=== PATIENT | male | born 1960 | race Caucasian/White ===

== ENCOUNTER 2019-07-02 16:11 | Outpatient (CLI) | payer MEDICARE, MEDICAID, SELFPAY ==
[2019-07-02 18:00] LABS: Creatinine Urine 66.2 mg/dL
[2019-07-02 18:37] LABS: Microalbumin Urine Random < 6.0 mg/L (0-16.7)
[2019-07-02 18:38] LABS: MALB Creatinine Ratio < 9.1 mg/g (0-30)
== END 2019-07-02 16:12 | disposition home or self-care (01) ==
LOC: ANHLAB 16:16
DX: E11.59 Type 2 diabetes mellitus with other circulatory complications (principal); I10 Essential (primary) hypertension
CPT/HCPCS: 82043

== ENCOUNTER 2020-08-03 07:48 | Outpatient (CLI) | payer MEDICARE, MEDICAID, SELFPAY ==
[2020-08-03 08:37] LABS: Alanine Aminotransferase 29 U/L (4-50); Albumin Level 4.6 g/dL (3.5-5.1); Aspartate Amino Transferase 28 U/L (17-59); Cholesterol 173 mg/dL (0-200); HDL Direct 43 mg/dL; Triglycerides 150 mg/dL (<150)
[2020-08-03 08:50] LABS: LDL Cholesterol Direct 94 mg/dL
[2020-08-03 09:06] LABS: Prostate Specific Antigen 1.4 ng/mL (< OR = 4.0)
== END 2020-08-03 07:49 | disposition home or self-care (01) ==
PROVIDERS: PCP Internal Medicine Endocrinology, Diabetes & Metabolism; Visit Provider Internal Medicine Cardiovascular Disease
DX: Z12.5 Encounter for screening for malignant neoplasm of prostate (principal); E78.5 Hyperlipidemia, unspecified; I25.10 Atherosclerotic heart disease of native coronary artery without angina pectoris; Z51.81 Encounter for therapeutic drug level monitoring; Z79.4 Long term (current) use of insulin; R30.0 Dysuria; E11.65 Type 2 diabetes mellitus with hyperglycemia
CPT/HCPCS: 36415; 80061; 82040; 84153; 84450; 84460; G0103

== ENCOUNTER 2020-08-04 13:43 | Outpatient (CLI) | payer MEDICARE, MEDICAID, SELFPAY ==
[2020-08-04 15:37] LABS: MALB Creatinine Ratio < 7.6 mg/g (0-30); Microalbumin Urine Random < 6.0 mg/L (0-16.7)
== END 2020-08-04 13:44 | disposition home or self-care (01) ==
PROVIDERS: Visit Provider Internal Medicine Endocrinology, Diabetes & Metabolism
DX: E11.65 Type 2 diabetes mellitus with hyperglycemia (principal); Z79.4 Long term (current) use of insulin
CPT/HCPCS: 82043

== ENCOUNTER 2021-02-10 20:39 | Emergency (ER) | payer MEDICARE, MEDICAID, SELFPAY ==
--- NOTE | ~2021-02-10 | XR_ITS ---
XR finger 5th LT min 2V DATE: 02/10/2021 21:37 INDICATION: Laceration at the tip of fifth digit TECHNIQUE: 3 views COMPARISON: None FINDINGS: A soft tissue bandage around the distal aspect of the fifth digit. No fracture or dislocation, periosteal reaction or bone destruction is detected. No radiopaque soft tissue foreign body is detected. IMPRESSION: No fracture, dislocation or radiopaque foreign body Reviewed, dictated and finalized at location A.
[2021-02-10 20:43] VITALS: BP 151/75; PULSE 73; RESP 20; TEMP 36.5; O2SAT 98
[2021-02-10] MEDS: TETANUS,DIPHTHERIA,AC PERTUSSIS ADULT (0.5 ML) BOOSTRIX (21:30)
[2021-02-10] MEDS: LIDOCAINE HCL 1% LOCAL INJ 20 ML VIAL (21:30)
[2021-02-10] MEDS: ACETAMINOPHEN 500 MG TABLET 1000 MG PO (21:31)
--- NOTE | 2021-02-10 22:38 | ED.WOUNDLAC ---
HPI - Wound/Laceration General Chief Complaint: Wound/Laceration <Venus Godinez MD - Last Filed: 02/11/21 00:58> Stated Complaint: Finger laceration <Venus Godinez MD - Last Filed: 02/11/21 00:58> Time Seen by Provider: 02/10/21 20:55 <Venus Godinez MD - Last Filed: 02/11/21 00:58> Source: patient <Venus Godinez MD - Last Filed: 02/11/21 00:58> Mode of arrival: ambulatory <Venus Godinez MD - Last Filed: 02/11/21 00:58> Limitations: no limitations <Venus Godinez MD - Last Filed: 02/11/21 00:58> History of Present Illness HPI narrative: This is a 60 year old male who presents for evaluation of left 5th finger laceration. He states he accidentally cut himself trying to make a salad for dinner. He cut through is nail on his finger. He has been unable to get his finger to stop bleeding so he came to ER. He takes plavix due to history of cardiac stents. he is unsure of his last tetanus shot. <Venus Godinez MD - Last Filed: 02/11/21 00:58> Related Data Allergies/Adverse Reactions: Allergies Allergy/AdvReac Type Severity Reaction Status Date / Time No Known Allergies Allergy Other Uncoded 02/10/21 20:48 <Venus Godinez MD - Last Filed: 02/11/21 00:58> Review of Systems Review of Systems: All systems reviewed & are unremarkable except as noted in HPI and below <Venus Godinez MD - Last Filed: 02/11/21 00:58> [facility] Past Medical History Medical History: Medical History (Updated 02/11/21 @ 00:58 by Venus Godinez MD) Diabetes mellitus Heart disease Hyperlipidemia Hypertension <Venus Godinez MD - Last Filed: 02/11/21 00:58> Surgical History Surgical History: Surgical History (Updated 02/11/21 @ 00:56 by Venus Godinez MD) H/O cardiac catheterization History of coronary artery stent placement <Venus Godinez MD - Last Filed: 02/11/21 00:58> Social History Social History: Social History (Updated 02/11/21 @ 00:56 by Venus Godinez MD) Smoking status: Never smoker <Venus Godinez MD - Last Filed: 02/11/21 00:58> Exam Const: General: no acute distress and alert <Venus Godinez MD - Last Filed: 02/11/21 00:58> Orientation/consciousness: patient oriented x3 <Venus Godinez MD - Last Filed: 02/11/21 00:58> HENMT: Head: normocephalic and atraumatic <Venus Godinez MD - Last Filed: 02/11/21 00:58> Face and sinus: normal facial exam <Venus Godinez MD - Last Filed: 02/11/21 00:58> Eyes: EOM: EOMs intact bilaterally <Venus Godinez MD - Last Filed: 02/11/21 00:58> Resp: Effort & Inspection: normal respiratory effort <Venus Godinez MD - Last Filed: 02/11/21 00:58> Neuro: General: patient oriented x3 and moves all extremities <Venus Godinez MD - Last Filed: 02/11/21 00:58> Gait exam (Neuro): Normal gait present <Venus Godinez MD - Last Filed: 02/11/21 00:58> Extrem: Other: left 5th finger with 1 cm laceration horizontally across his nail with some bleeding. FROM of finger. <Venus Godinez MD - Last Filed: 02/11/21 00:58> Psych: Mental Status: mental status grossly normal <Venus Godinez MD - Last Filed: 02/11/21 00:58> Affect: normal affect <Venus Godinez MD - Last Filed: 02/11/21 00:58> Course Reevaluation(s) Reevaluation #1: Patient left before discharge. <Venus Godinez MD - Last Filed: 02/11/21 00:58> Date: 02/10/21 <Venus Godinez MD - Last Filed: 02/11/21 00:58> Vital Signs Vital signs: Vital Signs Temperature 97.7 F 02/10/21 20:43 Pulse Rate 73 02/10/21 20:43 Respiratory Rate 20 02/10/21 20:43 Blood Pressure 151/75 H 02/10/21 20:43 Pulse Oximetry 98 02/10/21 20:43 Temperature 97.7 F 02/10/21 20:43 Pulse Rate 73 02/10/21 20:43 Respiratory Rate 20 02/10/21 20:43 Blood Pressure 151/75 H 02/10/21 20:43 Pulse Oximetry 98 02/10/21 20:43 <Venus Godinez MD - Last F
== END 2021-02-10 22:45 | disposition home or self-care (01) ==
PROVIDERS: Emergency Provider General Practice
DX: S61.317A Laceration without foreign body of left little finger with damage to nail, initial encounter (principal); E11.9 Type 2 diabetes mellitus without complications; E78.5 Hyperlipidemia, unspecified; I11.9 Hypertensive heart disease without heart failure; Z95.5 Presence of coronary angioplasty implant and graft; Z23 Encounter for immunization; Y93.G1 Activity, food preparation and clean up; W26.9XXA Contact with unspecified sharp object(s), initial encounter
CPT/HCPCS: 11760; 12001; 73140; 90471; 90715; 99283; A9270

== ENCOUNTER 2022-01-21 10:49 | Outpatient (CLI) | payer MEDICARE, SELFPAY ==
[2022-01-21 11:48] LABS: Basophils Percent Auto 0.6 % (0.2-1.2); Eosinophils Absolute Auto 0.1 K/mm3 (0-0.3); Hemoglobin 14.4 g/dL (14.0-18.0); Immature Granulocyte Absolute 0.02 K/mm3 (0.00-0.031); Immature Granulocyte Percent A 0.4 % (0-0.5); Lymphocytes Absolute Auto 1.56 K/mm3 (0.9-3.2); Lymphocytes Percent Auto 31.1 % (18.3-44.2); Mean Corpuscular HGB Conc 33.5 g/dl (32-36); Mean Corpuscular Hemoglobin 30.1 pg (26-34); Mean Platelet Volume 10.1 fl (7.4-10.4); Monocytes Absolute Auto 0.6 K/mm3 (0.1-0.6); Neutrophils Absolute Auto 2.8 K/mm3 (1.3-6.7); Neutrophils Percent Auto 54.9 % (45.5-73.1); Platelet Count Result 201 k/mm3 (150-375); Red Blood Count 4.78 M/mm3 (4.6-6.20); Red Cell Distribution Width 12.9 % (11.5-14.5)
[2022-01-21 11:58] LABS: Alanine Aminotransferase 30 U/L (6-50); Albumin Level 4.7 g/dL (3.5-5.1); Alkaline Phosphatase 84 U/L (38-126); Anion Gap 12 mmol/L (8-16); Aspartate Amino Transferase 34 U/L (17-59); Bilirubin,Total 0.7 mg/dL (0.2-1.3); Blood Urea Nitrogen 17 mg/dL (9-20); Calcium 9.3 mg/dL (8.4-10.2); Carbon Dioxide 26 mmol/L (22-30); Chloride 102 mmol/L (98-107); Cholesterol 119 mg/dL (0-200); Estimated Glomerular Filt Rate > 60; Glucose 165 mg/dL (65-110); HDL Direct 40 mg/dL; Potassium 4.2 mmol/L (3.4-5.0); Sodium 140 mmol/L (137-145); Triglycerides 121 mg/dL (<150)
[2022-01-21 12:09] LABS: Add Urine Microscopic? YES; Appearance Urine Clear (Clear); Bilirubin Urine Negative (Negative); Blood Urine Negative (Negative); Color Urine Yellow (Yellow); Glucose Urine UA 3+ mg/dL (Negative); Ketones Urine Negative (Negative); LDL Cholesterol Direct 51 mg/dL; Leukocyte Esterase Ur Negative LEU/UL (Negative); Nitrate Urine Negative (Negative); Protein Urine Negative (Negative); Urobilinogen Urine 0.2 mg/dL (<2.0); pH Urine 5.5 (5.0-9.0)
[2022-01-21 12:20] LABS: Mucus Urine Rare /lpf; WBC Urine 0-3 /hpf
[2022-01-21 12:29] LABS: Prostate Specific Antigen 1.3 ng/mL (< OR = 4.0)
[2022-01-21 12:43] LABS: Creatinine Urine 74.7 mg/dL
[2022-01-21 13:45] LABS: Folic Acid > 20.0 ng/mL (2.76->20)
[2022-01-21 14:27] LABS: MALB Creatinine Ratio < 8.0 mg/g (0-30); Microalbumin Urine Random < 6.0 mg/L (0-16.7)
== END 2022-01-21 10:50 | disposition home or self-care (01) ==
LOC: ANHLAB 10:53
PROVIDERS: PCP Internal Medicine; Visit Provider Internal Medicine
DX: E11.9 Type 2 diabetes mellitus without complications (principal); E78.5 Hyperlipidemia, unspecified; I10 Essential (primary) hypertension; Z12.5 Encounter for screening for malignant neoplasm of prostate; R30.0 Dysuria
CPT/HCPCS: 36415; 80053; 80061; 81001; 82043; 82607; 82746; 83735; 84153; 84443; 85025; 87661; G0103

== ENCOUNTER 2023-07-14 22:25 | Emergency (ER) | payer MEDICARE, SELFPAY ==
[2023-07-14 22:28] VITALS: BP 139/67; PULSE 91; RESP 16; TEMP 36.9; O2SAT 98
[2023-07-15 02:15] VITALS: BP 151/72; PULSE 81; RESP 18; O2SAT 99
[2023-07-15 02:27] LABS: Basophils Absolute Auto 0.1 K/mm3 (0.0-0.1); Eosinophils Absolute Auto 0.3 K/mm3 (0-0.3); Eosinophils Percent Auto 3.6 % (0-4.4); Hematocrit 43.3 % (42.0-52.0); Hemoglobin 14.3 g/dL (14.0-18.0); Immature Granulocyte Absolute 0.01 K/mm3 (0.00-0.031); Immature Granulocyte Percent A 0.1 % (0-0.5); Lymphocytes Absolute Auto 0.39 K/mm3 (0.9-3.2); Lymphocytes Percent Auto 5.4 % (18.3-44.2); Mean Corpuscular Hemoglobin 29.9 pg (26-34); Mean Corpuscular Volume 90.6 fl (80-100); Mean Platelet Volume 9.9 fl (7.4-10.4); Monocytes Absolute Auto 0.7 K/mm3 (0.1-0.6); Monocytes Percent Auto 9.3 % (2.6-8.5); Neutrophils Absolute Auto 5.8 K/mm3 (1.3-6.7); Neutrophils Percent Auto 80.6 % (45.5-73.1); Platelet Count Result 198 k/mm3 (150-375); Red Blood Count 4.78 M/mm3 (4.6-6.20); Red Cell Distribution Width 13.4 % (11.5-14.5); White Blood Count 7.2 K/mm3 (4.5-10.0)
[2023-07-15 02:29] LABS: Appearance Urine Clear (Clear); Bilirubin Urine Negative (Negative); Blood Urine Negative (Negative); Color Urine Yellow (Yellow); Glucose Urine UA 3+ mg/dL (Negative); Ketones Urine Trace mg/dL (Negative); Leukocyte Esterase Ur Negative LEU/UL (Negative); Nitrate Urine Negative (Negative); Protein Urine Negative (Negative); Specific Grav Ur 1.031 (1.001-1.035); Urobilinogen Urine 0.2 mg/dL (<2.0)
[2023-07-15 02:30] LABS: Add Urine Microscopic? NO
[2023-07-15 02:37] LABS: Alanine Aminotransferase 34 U/L (6-50); Albumin Level 4.6 g/dL (3.5-5.1); Alkaline Phosphatase 70 U/L (38-126); Anion Gap 9 mmol/L (8-16); Aspartate Amino Transferase 54 U/L (17-59); Blood Urea Nitrogen 33 mg/dL (9-20); Calcium 9.1 mg/dL (8.4-10.2); Carbon Dioxide 25 mmol/L (22-30); Chloride 98 mmol/L (98-107); Estimated CRCL calculation 60 ml/min; Estimated Glomerular Filt Rate > 60; Glucose 148 mg/dL (65-110); Lipase 128 U/L (23-300); Sodium 132 mmol/L (137-145)
[2023-07-15] MEDS: ONDANSETRON INJ 4 MG/2 ML VIAL IV PUSH (02:40)
[2023-07-15] MEDS: SODIUM CHLORIDE 0.9% IV 1,000 ML 999 ML IV CONT ×2 (02:40→03:23)
--- NOTE | 2023-07-15 02:46 | ED.NAVMDI ---
HPI - Nausea/Vomiting/Diarrhea General Chief complaint: Nausea/Vomiting/Diarrhea Stated complaint: N/V Time Seen by Provider: 07/15/23 02:16 History of Present Illness HPI Narrative: 62-year-old male with history of CAD s/p stent placement, DM, hyperlipidemia, hypertension reports for evaluation for vomiting just started today. Patient states around 9:00 a.m., 2:00 p.m. and 8:00 p.m. he vomited. States that occurred every time he tried to eat. 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 He reports fatigue. He denies abdominal pain, fever, diarrhea, current nausea, chest pain or shortness of breath, cough or congestion. No prior abdominal surgeries. Denies hematemesis, melena or hematochezia. Related Data Home Medications Medication Instructions Recorded Confirmed aspirin 81 mg tablet,delayed 81 mg PO DAILY 01/21/22 02/13/22 release (Adult Low Dose Aspirin) atorvastatin 40 mg tablet 40 mg PO DAILY 01/21/22 02/13/22 clopidogrel 75 mg tablet 75 mg PO DAILY 01/21/22 02/13/22 empagliflozin 25 mg tablet 25 mg PO DAILY 01/21/22 02/13/22 (Jardiance) lisinopril 10 mg tablet 10 mg PO DAILY 01/21/22 02/13/22 metformin 500 mg tablet 500 mg PO BID 01/21/22 02/13/22 Allergies Allergy/AdvReac Type Severity Reaction Status Date / Time No Known Allergies Allergy Other Uncoded 02/13/22 14:17 Review of Systems Review of Systems: CONSTITUTIONAL: Denies fever, chills, or sweats. EYES: Denies visual changes, redness, or discharge. ENT: Denies rhinorrhea, congestion, sore throat, or otalgia. CARDIOVASCULAR: Denies chest pain, palpitations, or edema. RESPIRATORY: Denies cough or dyspnea. GASTROINTESTINAL: See HPI GENITOURINARY: Denies dysuria or hematuria. SKIN: Denies rash or itching. MUSCULOSKELETAL: Denies back pain, joint pain, or myalgia. NEUROLOGIC: Denies headache, numbness, or weakness. PSYCHIATRIC: Denies anxiety or depression. [facility] Past Medical History Medical History Diabetes mellitus Heart disease Hyperlipidemia Hypertension Surgical History Surgical History H/O cardiac catheterization History of coronary artery stent placement Social History Social History Smoking status: Never smoker Alcohol intake: former Substance use: never Substance use type: does not use Living arrangements: with family Spiritual care concerns: No Exam Narrative: GENERAL: Well-appearing, well-nourished, and in no acute distress. HEAD: Normocephalic, atraumatic. EYES: PERRLA and EOMI. ENT: Nares clear, no rhinorrhea or epistaxis. Mucous membranes dry NECK: Supple. CHEST: Clear to auscultation. No respiratory distress. HEART: Regular rate and rhythm. No murmur heard. Normal peripheral pulses. ABDOMEN: Soft, nontender, nondistended, normal active bowel sounds. No guarding, rebound or rigidity. No CVA tenderness. EXTREMITIES: Normal range of motion. No edema. SKIN: Warm, dry, no rash. NEURO: No focal deficits. Alert and oriented x3 Course Vital Signs Vital signs: Vital Signs Temperature 98.5 F 07/14/23 22:28 Pulse Rate 91 07/14/23 22:28 Respiratory Rate 16 07/14/23 22:28 Blood Pressure 139/67 07/14/23 22:28 Pulse Oximetry 98 07/14/23 22:28 Oxygen Delivery Room Air 07/14/23 22:28 Temperature 98.5 F 07/14/23 22:28 Pulse Rate 72 07/15/23 03:34 Respiratory Rate 18 07/15/23 03:34 Blood Pressure 138/68 07/15/23 03:34 Pulse Oximetry 98 07/15/23 03:34 Oxygen Delivery Room Air 07/14/23 22:28 MDM - Nausea/Vomiting/Diarrhea MDM Narrative Medical decision making narrative: 62-year-old male presents to the emergency department for 3 episodes of emesis past 24 hours. See HPI for further history. Vital stable and he is afebrile. He
[2023-07-15 03:34] VITALS: BP 138/68; PULSE 72; RESP 18; O2SAT 98
[2023-07-15 04:07] VITALS: BP 138/64; PULSE 87; RESP 18; O2SAT 97
== END 2023-07-15 04:07 | disposition home or self-care (01) ==
PROVIDERS: Emergency Medicine; Emergency Provider Physician Assistant
DX: E86.0 Dehydration (principal); R11.2 Nausea with vomiting, unspecified; Z72.820 Sleep deprivation; I10 Essential (primary) hypertension; I25.10 Atherosclerotic heart disease of native coronary artery without angina pectoris; E78.5 Hyperlipidemia, unspecified; E11.9 Type 2 diabetes mellitus without complications; Z95.5 Presence of coronary angioplasty implant and graft; Z79.82 Long term (current) use of aspirin; Z79.84 Long term (current) use of oral hypoglycemic drugs
CPT/HCPCS: 36415; 80053; 81003; 83690; 85025; 96361; 96374; 99284; J2405; J7030

== ENCOUNTER 2024-03-15 23:55 | Emergency (ER) | payer MEDICARE, SELFPAY ==
[2024-03-15 23:58] VITALS: BP 162/77; PULSE 77; RESP 17; TEMP 36.3; O2SAT 98
[2024-03-16 00:06] VITALS: RESP 18; O2SAT 99
[2024-03-16 00:50] LABS: Alanine Aminotransferase 22 U/L (6-50); Albumin Level 4.4 g/dL (3.5-5.1); Alkaline Phosphatase 106 U/L (38-126); Anion Gap 10 mmol/L (4-12); Aspartate Amino Transferase 22 U/L (17-59); Basophils Percent Auto 0.8 % (0.2-1.2); Bilirubin,Total 0.4 mg/dL (0.2-1.3); Blood Urea Nitrogen 31 mg/dL (9-20); Calcium 9.2 mg/dL (8.4-10.2); Carbon Dioxide 25 mmol/L (22-30); Chloride 103 mmol/L (98-107); Eosinophils Absolute Auto 0.1 K/mm3 (0-0.3); Eosinophils Percent Auto 2.8 % (0-4.4); Estimated CRCL calculation 47 ml/min; Estimated Glomerular Filt Rate 44; Glucose 192 mg/dL (65-110); Hematocrit 37.6 % (42.0-52.0); Hemoglobin 12.7 g/dL (14.0-18.0); Immature Granulocyte Absolute 0.01 K/mm3 (0.00-0.031); Immature Granulocyte Percent A 0.2 % (0-0.5); Lymphocytes Absolute Auto 1.54 K/mm3 (0.9-3.2); Mean Corpuscular HGB Conc 33.8 g/dl (32-36); Mean Corpuscular Hemoglobin 30.7 pg (26-34); Mean Corpuscular Volume 90.8 fl (80-100); Mean Platelet Volume 10.3 fl (7.4-10.4); Monocytes Absolute Auto 0.7 K/mm3 (0.1-0.6); Monocytes Percent Auto 13.7 % (2.6-8.5); Neutrophils Absolute Auto 2.6 K/mm3 (1.3-6.7); Neutrophils Percent Auto 51.5 % (45.5-73.1); Platelet Count Result 196 k/mm3 (150-375); Potassium 3.8 mmol/L (3.4-5.0); Red Blood Count 4.14 M/mm3 (4.6-6.20); Red Cell Distribution Width 12.2 % (11.5-14.5); Sodium 138 mmol/L (137-145)
--- NOTE | 2024-03-16 01:24 | ED.GENADULT ---
HPI - General Adult General Chief complaint: Recheck/Abnormal Lab/Rx Stated complaint: high blood pressure Time Seen by Provider: 03/16/24 00:16 History of Present Illness HPI narrative: Patient is a 63-year-old male who presents to the emergency department this evening concerned of an elevated blood pressure. Patient states that he has been on lisinopril for many years and it was controlling his blood pressure but within the last week he has noticed that his blood pressure was reading higher than usual. Patient informed his pulmonary physician of this and he told him to keep a blood pressure log and monitor his blood pressure for 1 week. Patient saw his pulmonary physician yesterday and he started him on amlodipine 5 mg. Patient states that he took his 1st dose this evening around 10:00 p.m. but his blood pressure continued to go up to 180 systolic so patient decided to come to the emergency department for further evaluation as he was concerned that the amlodipine is what caused his blood pressure to increase. I did explain the patient that amlodipine orally takes 8 hours before it starts to work and that it did not cause his blood pressure to elevate. Patient denies any symptoms at this time including any chest pain or shortness of breath, any nausea vomiting or abdominal pain and denies any head blurry vision, focal weakness, numbness and tingling. There are no other modifying, alleviating, or precipitating factors at this time. Related Data Home Medications Medication Instructions Recorded Confirmed aspirin 81 mg tablet,delayed 81 mg PO DAILY 01/21/22 02/13/22 release (Adult Low Dose Aspirin) atorvastatin 40 mg tablet 40 mg PO DAILY 01/21/22 02/13/22 clopidogrel 75 mg tablet 75 mg PO DAILY 01/21/22 02/13/22 empagliflozin 25 mg tablet 25 mg PO DAILY 01/21/22 02/13/22 (Jardiance) lisinopril 10 mg tablet 10 mg PO DAILY 01/21/22 02/13/22 metformin 500 mg tablet 500 mg PO BID 01/21/22 02/13/22 Allergies Allergy/AdvReac Type Severity Reaction Status Date / Time No Known Allergies Allergy Other Uncoded 03/15/24 23:55 Review of Systems Review of Systems: All systems are reviewed and are negative unless stated otherwise in the HPI. [facility] Past Medical History Medical History Diabetes mellitus Heart disease Hyperlipidemia Hypertension Surgical History Surgical History H/O cardiac catheterization History of coronary artery stent placement Social History Social History Smoking status: Never smoker Alcohol intake: former Substance use: never Substance use type: does not use Living arrangements: with family Spiritual care concerns: No Exam Narrative: General: Alert, awake, afebrile, in no acute distress. HEENT: PERRL, no rhinorrhea, no post nasal drip, oropharynx clear. Cardiovascular: Regular rate and rhythm, no murmurs, rubs or gallops, no peripheral edema. Respiratory: Clear to auscultation bilaterally, no tachypnea, no wheezing, no rhonchi, no rubs, no respiratory distress. Abdomen: Soft, nontender, nondistended, no rebound, no guarding, no peritoneal signs. Musculoskeletal: No joint swelling or deformity, normal muscle tone. Skin: No rashes or petechia, no signs of infection. Neurological: Alert and oriented to person, place, and time. Follows all commands. No focal deficits, speech is clear and fluent. Course Vital Signs Vital signs: Vital Signs Temperature 97.4 F L 03/15/24 23:58 Pulse Rate 77 03/15/24 23:58 Respiratory Rate 17 03/15/24 23:58 Blood Pressure 162/77 H 03/15/24 23:58 Pulse Oximetry 98 03/15/24 23:58 Oxygen Delivery Room Air 03/15/24 23:58 Temperature 97.4 F L 03/15/24 23:58 Pulse Rate 72 03/16/24 01:25 Respiratory Rate 16 03/16/24 01:25 Blood Pressure 169/89 H 03/16/24 01:25 Pulse
[2024-03-16 01:25] VITALS: BP 169/89; PULSE 72; RESP 16; O2SAT 98
== END 2024-03-16 01:34 | disposition home or self-care (01) ==
PROVIDERS: Emergency Provider Emergency Medicine
DX: I10 Essential (primary) hypertension (principal); E11.9 Type 2 diabetes mellitus without complications; E78.5 Hyperlipidemia, unspecified; Z79.84 Long term (current) use of oral hypoglycemic drugs
CPT/HCPCS: 36415; 80053; 85025; 99283

== ENCOUNTER 2024-05-05 09:18 | Outpatient (CLI) | payer MEDICARE, SELFPAY ==
[2024-05-05 10:09] LABS: Basophils Absolute Auto 0.1 K/mm3 (0.0-0.1); Eosinophils Absolute Auto 0.1 K/mm3 (0-0.3); Eosinophils Percent Auto 2.1 % (0-4.4); Hematocrit 41.2 % (42.0-52.0); Hemoglobin 13.9 g/dL (14.0-18.0); Immature Granulocyte Absolute 0.01 K/mm3 (0.00-0.031); Immature Granulocyte Percent A 0.2 % (0-0.5); Lymphocytes Percent Auto 31.1 % (18.3-44.2); Mean Corpuscular HGB Conc 33.7 g/dl (32-36); Mean Corpuscular Hemoglobin 30.3 pg (26-34); Mean Corpuscular Volume 89.8 fl (80-100); Mean Platelet Volume 10.3 fl (7.4-10.4); Monocytes Absolute Auto 0.5 K/mm3 (0.1-0.6); Monocytes Percent Auto 10.5 % (2.6-8.5); Neutrophils Absolute Auto 2.8 K/mm3 (1.3-6.7); Neutrophils Percent Auto 55.1 % (45.5-73.1); Platelet Count Result 217 k/mm3 (150-375); Red Blood Count 4.59 M/mm3 (4.6-6.20); Red Cell Distribution Width 12.6 % (11.5-14.5); White Blood Count 5.2 K/mm3 (4.5-10.0)
[2024-05-05 12:12] LABS: Alanine Aminotransferase 28 U/L (6-50); Albumin Level 4.8 g/dL (3.5-5.1); Alkaline Phosphatase 80 U/L (38-126); Anion Gap 8 mmol/L (4-12); Aspartate Amino Transferase 29 U/L (17-59); Bilirubin,Total 0.6 mg/dL (0.2-1.3); Blood Urea Nitrogen 41 mg/dL (9-20); Calcium 9.6 mg/dL (8.4-10.2); Carbon Dioxide 23 mmol/L (22-30); Chloride 106 mmol/L (98-107); Cholesterol 151 mg/dL (0-200); Estimated Glomerular Filt Rate 44; Glucose 169 mg/dL (65-110); HDL Direct 35 mg/dL; Potassium 4.4 mmol/L (3.4-5.0); Sodium 137 mmol/L (137-145); Triglycerides 256 mg/dL (<150)
[2024-05-05 12:23] LABS: LDL Cholesterol Direct 60 mg/dL
[2024-05-05 12:42] LABS: Prostate Specific Antigen 1.6 ng/mL (< OR = 4.0)
[2024-05-07 22:54] LABS: Beef IgE (F27) 0.99 kU/L; Lamb (F88) IgE 0.41 kU/L; Lamb Class 1; Pork (F26) IgE 0.39 kU/L; Pork Class 1
[2024-05-08 00:39] LABS: Galactose Alpha 1,3 IgE 1.96 kU/L (<0.10)
== END 2024-05-05 09:19 | disposition home or self-care (01) ==
PROVIDERS: PCP Nurse Practitioner Family; Visit Provider Nurse Practitioner Family
DX: N40.1 Benign prostatic hyperplasia with lower urinary tract symptoms (principal); R39.15 Urgency of urination; I25.10 Atherosclerotic heart disease of native coronary artery without angina pectoris; I10 Essential (primary) hypertension; E78.5 Hyperlipidemia, unspecified; E11.9 Type 2 diabetes mellitus without complications; Z12.11 Encounter for screening for malignant neoplasm of colon; Z12.5 Encounter for screening for malignant neoplasm of prostate; Z76.89 Persons encountering health services in other specified circumstances; W57.XXXA Bitten or stung by nonvenomous insect and other nonvenomous arthropods, initial encounter
CPT/HCPCS: 36415; 80053; 80061; 84153; 85025; 86008; G0103

== ENCOUNTER 2024-05-10 08:00 | Outpatient (CLI) | payer MEDICARE, SELFPAY ==
[2024-05-10 09:57] LABS: Folic Acid 13.4 ng/mL (2.76->20)
[2024-05-10 10:44] LABS: Hemoglobin A1C 8.1 % (<5.7)
[2024-05-10 10:55] LABS: Creatinine Urine 65.8 mg/dL
[2024-05-10 11:03] LABS: Microalbumin Urine Random < 6.0 mg/L (0-16.7)
[2024-05-10 11:04] LABS: MALB Creatinine Ratio < 9.1 mg/g (0-30)
[2024-05-10 11:16] LABS: Iron 91 ug/dL (49-181)
[2024-05-10 11:26] LABS: Percent Iron Saturation 24 % (20-50)
[2024-05-13 11:09] LABS: Vitamin B6 20.5 ng/mL (2.1-21.7)
[2024-05-13 12:33] LABS: Vitamin B1 11 nmol/L (8-30)
[2024-05-15 07:23] LABS: Vitamin B2 24.2 nmol/L (6.2-39.0)
--- OUTSIDE RECORDS SUMMARY | 2024-05-16 01:59 | XMS_ITS | Clinical Summary ---
Author Organization [facility] [place] [address] Address [address] [place] [address] Care Team Providers Care Arc Welder Name Role Phone Brian Vera MD Primary Care Provider [phone] Allergies Active Allergy Reactions Criticality Noted Date Comments Semaglutide Dizziness Medium 06/25/2022 Medications blood-glucose meter (OSIXTOUCH ULTRA2) kit check glucose once a day 1 kit 0 4 Active clopidogreL (PLAVIX) 75 mg tabletIndicatio ns:Coronary artery disease involving shoshone-bannock coronary artery of shoshone-bannock heart without angina pectoris Take 1 tablet (75 mg total) by mouth daily 90 tablet 3 3 Active atorvastatin (LIPITOR) 40 mg tabletIndicatio ns:Coronary artery disease involving shoshone-bannock coronary artery of shoshone-bannock heart without angina pectoris Take 1 tablet (40 mg total) by mouth daily 90 tablet 3 3 Active ezetimibe (ZETIA) 10 mg tabletIndicatio ns:Hyperlipidem ia associated with type 2 diabetes mellitus (HCC) Take 1 tablet (10 mg total) by mouth daily 90 tablet 3 3 Active metFORMIN (GLUCOPHAGE) 850 mg tabletIndicatio ns:Type 2 diabetes mellitus with hyperglycemia, without long-term current use of insulin (HCC) Take 1 tablet (850 mg total) by mouth 2 (two) times a day with meals 180 tablet 3 4 Active glimepiride (AMARYL) 2 mg tabletIndicatio ns:Type 2 diabetes mellitus with hyperglycemia, without long-term current use of insulin (HCC) Take 1 tablet (2 mg total) by mouth daily before breakfast 90 tablet 3 4 01/07/20 25 Active empagliflozin (Jardiance) 25 mg tabletIndicatio ns:type 2 diabetes mellitus Take 1 tablet (25 mg total) by mouth daily 90 tablet 3 4 01/07/20 25 Active lisinopriL (PRINIVIL,ZESTR [place]) 20 mg tabletIndicatio ns:Coronary artery disease involving shoshone-bannock coronary artery of shoshone-bannock heart without angina pectoris Take 1 tablet (20 mg total) by mouth daily 90 tablet 3 4 Active aspirin 81 mg enteric coated tabletIndicatio ns:Coronary artery disease involving shoshone-bannock coronary artery of shoshone-bannock heart without angina pectoris TAKE 1 TABLET BY MOUTH DAILY 90 tablet 3 4 Active amLODIPine (NORVASC) 10 mg tablet Take 1 tablet (10 mg total) by mouth daily 30 tablet 11 4 03/26/20 25 Active Active Problems Problem Noted Date Diagnosed Date Hyperlipidemia associated with type 2 diabetes sultana castaneda 07/21/2018 Assessment & Plan (01/07/2024 9:30 AM CDT): Chronic problem. Atorvastatin 40mg & Zetia 10mg. Last lipid panel: 11/11/22 LDL=53, TG=90. Assessment & Plan (09/16/2023 11:25 AM CDT): Chronic problem. Atorvastatin 40mg & Zetia 10mg. Last lipid panel: 11/11/22 LDL=53, TG=90. Will update labs today. Does not mychart. Verified phone #/address to contact re: results. Assessment & Plan (06/25/2022 3:36 PM TILE PROFESSIONAL): Chronic, well controlled Low fat Low cholesterol diet Exercise Continue statin therapy with Atorvastatin and Zetia Update lipid profile Assessment & Plan (07/03/2021 4:14 PM TILE PROFESSIONAL): Chronic, well controlled Continue current meds Assessment & Plan (12/14/2020 10:21 AM CDT): Goal of treatment , LDL cholesterol less than 100 ( less than 70 in patients with history of heart attacks and / or strokes ) NonHDL cholesterol ( total cholesterol minus HDL cholesterol ) goal less than 130 ( less than 100 in patients with history of heart attacks and / or strokes ) Low cholesterol, low fat diet was discussed and advised. Daily exercise On statin therapy with Atorvastatin and also on Zetia Assessment & Plan (07/27/2020 10:03 AM TILE PROFESSIONAL): Goal of treatment , LDL cholesterol less than 100 ( less than 70 in patients with history of heart attacks and / or strokes ) NonHDL cholesterol ( total cholesterol minus HDL cholesterol ) goal less than 130 ( less than 100 in patients with history of heart attacks and / or strokes ) Low cholesterol, low fat diet was discussed and advised. Daily exercise On statin therapy with Lipitor Assessment & Plan (11/16/2019 3:14 PM CDT): Goal of treatment , LDL cholesterol less than 100 ( less than 70 in patients with history of heart attacks and / or strokes ) NonHDL cholesterol ( total cholesterol minus HDL cholesterol ) goal less than 130 ( less than 100 in patients with history of heart attacks and / or strokes ) Low cholesterol, low fat diet was discussed and advised. Daily exercise On statin therapy with Crestor Assessment & Plan (06/29/2019 3:21 PM TILE PROFESSIONAL): Goal of treatment , LDL cholesterol less than 100 ( less than 70 in patients with history of heart attacks and / or strokes ) NonHDL cholesterol ( total cholesterol minus HDL cholesterol ) goal less than 130 ( less than 100 in patients with history of heart attacks and / or strokes ) Low cholesterol, low fat diet was discussed and advised. Daily exercise On statin therapy Assessment & Plan (04/02/2019 7:19 PM TILE PROFESSIONAL): --Continue atorvastatin. Assessment & Plan (02/23/2019 4:09 PM CDT): Goal of treatment , LDL cholesterol less than 100 ( less than 70 in patients with history of heart attacks and / or strokes ) NonHDL cholesterol ( total cholesterol minus HDL cholesterol ) goal less than 130 ( less than 100 in patients with history of heart attacks and / or strokes ) Low cholesterol, low fat diet was discussed and advised. Daily exercise On statin therapy Assessment & Plan (07/21/2018 3:00 PM TILE PROFESSIONAL): Goal of treatment , LDL cholesterol less than 100 ( less than 70 in patients with history of heart attacks and / or strokes ) NonHDL cholesterol ( total cholesterol minus HDL cholesterol ) goal less than 130 ( less than 100 in patients with history of heart attacks and / or strokes ) Low cholesterol, low fat diet was discussed and advised. Daily exercise On statin therapy Coronary artery disease invo lving shoshone-bannock coronary artery of shoshone-bannock heart without angina pectoris 03/24/2017 Assessment & Plan (04/03/2019 11:57 AM TILE PROFESSIONAL): S/p LM ostial PCI --Aspirin 81 mg daily indefinitely. --S/p Plavix load. Continue 75 mg daily for at least a year. --Continue atorvastatin. --Continue lisinopril 10 mg daily. 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 Patient is able to walk without limitation. Continue aspirin, Lipitor. He has stopped taking metoprolol because he does not want to take to many medications. Assessment & Plan (03/24/2017 12:27 PM CDT): Continue dieting and exercise. Continue aspirin. Asymptomatic at this time. Hypertension associated with diabetes 02/04/2017 Assessment & Plan (01/07/2024 9:30 AM CDT): Chronic problem. Controlled on current lisinopril 10mg daily. Assessment & Plan (09/16/2023 11:25 AM CDT): Chronic problem. Controlled on current lisinopril 10mg daily. Will update labs today. Does not mychart. Verified phone #/address to contact re: results. Assessment & Plan (06/25/2022 3:37 PM TILE PROFESSIONAL): Chronic, well controlled Update MA, GFR Assessment & Plan (12/14/2020 10:22 AM CDT): Goal blood pressure is less than 140/85 Low salt diet The importance of daily aerobic exercise was also emphasized. Continue current meds, including VIKY-I or ARB, e.g. Lisinopril Assessment & Plan (07/27/2020 10:03 AM TILE PROFESSIONAL): Goal blood pressure is less than 140/85 Low salt diet was discussed andd recommended The importance of daily aerobic exercise was also emphasized. Continue current meds, including VIKY-I or ARB, e.g. Check microalbumin Assessment & Plan (11/16/2019 3:13 PM CDT): Goal blood pressure is less than 140/85 Low salt diet recommended Daily aerobic exercise Continue current meds, including VIKY-I or ARB with Lisinopril Assessment & Plan (06/29/2019 3:21 PM TILE PROFESSIONAL): Goal blood pressure is less than 140/85 Low salt diet recommended Daily aerobic exercise Continue current meds, including VIKY-I or ARB Check microalbumin Assessment & Plan (04/02/2019 7:19 PM TILE PROFESSIONAL): --Anti-hypertensive medications per CAD. Assessment & Plan (02/23/2019 3:02 PM CDT): Goal blood pressure is less than 140/85 Low salt diet recommended Daily aerobic exercise Continue current meds, including VIKY-I or ARB Assessment & Plan (07/21/2018 3:01 PM TILE PROFESSIONAL): Goal blood pressure is less than 140/85 Low salt diet recommended Daily aerobic exercise Continue current meds, including VIKY-I or ARB Check microalbumin Assessment & Plan (10/01/2017 5:14 PM CDT): Blood pressure is well controlled. Continue current treatment Assessment & Plan (08/24/2017 3:52 PM CDT): Controlled on current medications. Assessment & Plan (03/24/2017 12:27 PM CDT): Blood pressure on the high side today. He stop taking metoprolol 25 mg b.i.d.. I advised patient to keep blood pressure diary and if his blood pressure is elevated we have to resume back metoprolol 25 b.i.d.. Assessment & Plan (02/04/2017 9:37 AM CDT): Goal blood pressure is less than 140/85 Low salt diet recommended Daily aerobic exercise Continue current meds, including VIKY-I or ARB Type 2 diabetes mellitus 10/18/2011 Overview (08/30/2016): DMII WO CMP UNCNTRLD Assessment & Plan (01/07/2024 9:58 AM CDT): Chronic problem. A1c stable at 7.3%. reviewed that goal is less than 7.0%. he's been working on diet & exercise. Current medications: Metformin 850mg Jardiance 25mg daily Glimepiride 2mg before breakfast DM eye exam 2022 at [facility]; second request letter sent to get copy of exam. Will call to set up a diabetic eye exam. UTD on labs. Discussed with Jerald Whipple: Strive for regular exercise (30min most days) and diet (get at least 4-5 servings of fruit and veggies daily, avoid processed foods, increase lean protein intake and decrease carb portions as well as fruit juices, regular soda & desserts). Watch carbs and simple sugars. Check the feet daily for skin breakdown and infection. Assessment & Plan (09/16/2023 11:49 AM CDT): Chronic problem. A1c improved from 8.5% 06/25/22 to now 7.3%. Current medications: Metformin 850mg Jardiance 25mg daily Glimepiride 2mg before breakfast DM eye exam 2022 at [facility]; letter sent to get copy of exam. Will update labs today. Does not mychart. Verified phone #/address to contact re: results. Discussed with Jerald Whipple: Strive for regular exercise (30min most days) and diet (get at least 4-5 servings of fruit and veggies daily, avoid processed foods, increase lean protein intake and decrease carb portions as well as fruit juices, regular soda & desserts). Watch carbs and simple sugars. Check the feet daily for skin breakdown and infection. Assessment & Plan (06/25/2022 3:38 PM TILE PROFESSIONAL): Chronic , uncontrolled Continue working on diet and exercise Add Glimepiride 2 mg daily Continue Jardiance and Metformin Assessment & Plan (07/03/2021 4:13 PM TILE PROFESSIONAL): Hba1c was Lab Results Component Value Date HGBA1C 7.8 07/03/2021 today, indicating inadequate DM control Goal Hba1c and blood glucose explained Diet and exercise were advised Prevention and treatment of hyypoglcyemia were discussed with the patient Blood glucose monitoring : 1 x vidal Adjustment to medications: Add ozempic Assessment & Plan (12/14/2020 10:23 AM CDT): Hba1c was Lab Results Component Value Date HGBA1C 7.2 12/14/2020 today, indicating suboptimal DM control Goals blood sugars of 120-160 and Hba1c under 7 % was explained. 1800 calorie, consistent carb diet recommended, no more than 3-45 grams of carbs per meal, avoiding concentrated sweet drinks and rapid absorption carbs. 25-45 min daily aerobic and resistance exercise recommended Continue Jardiance and Metformin Assessment & Plan (07/27/2020 10:04 AM TILE PROFESSIONAL): Hba1c was Lab Results Component Value Date HGBA1C 7.3 07/27/2020 today, indicating inadequate DM control Goals blood sugars of 120-160 and Hba1c under 7 % was explained. 1800 calorie, consistent carb diet recommended, no more than 3-45 grams of carbs per meal, avoiding concentrated sweet drinks and rapid absorption carbs. 25-45 min daily aerobic and resistance exercise recommended Prevention and treatment of hyypoglcyemia discussed. Blood glucose monitoring with fingers sticks. restarts meds rx sent Assessment & Plan (11/16/2019 3:13 PM CDT): Hba1c was Lab Results Component Value Date HGBA1C 7.0 11/16/2019 today, indicating adequate DM control 1800 calorie, consistent carb diet recommended, no more than 3-45 grams of carbs per meal, avoiding concentrated sweet drinks and rapid absorption carbs. 25-45 min daily aerobic and resistance exercise recommended Prevention and treatment of hyypoglcyemia discussed. Blood glucose monitoring with fingers sticks.... Medications: continue Jardiance / Metformin Assessment & Plan (06/29/2019 3:21 PM TILE PROFESSIONAL): Hba1c was Lab Results Component Value Date HGBA1C 7.5 06/29/2019 today, indicating inadequate DM control 1800 calorie, consistent carb diet recommended, no more than 3-45 grams of carbs per meal, avoiding concentrated sweet drinks and rapid absorption carbs. 25-45 min daily aerobic and resistance exercise recommended Medications: Add Jardiance Assessment & Plan (04/02/2019 7:18 PM TILE PROFESSIONAL): Recent A1c's in the 6s. --Hold home Metformin. --Low dose SSI and accuchecks. Assessment & Plan (02/23/2019 4:09 PM CDT): Hba1c was Lab Results Component Value Date HGBA1C 6.4 % 02/23/2019 today, indicating adequate DM control 1800 calorie, consistent carb diet recommended, no more than 3-45 grams of carbs per meal, avoiding concentrated sweet drinks and rapid absorption carbs. 25-45 min daily aerobic and resistance exercise recommended Medications: Continue metformin CAD, add Invokana Assessment & Plan (07/21/2018 3:07 PM TILE PROFESSIONAL): Hba1c was Lab Results Component Value Date HGBA1C 6.7 07/21/2018 today, indicating adequate DM control 1800 calorie, consistent carb diet recommended 25-45 min daily aerobic and resistance exercise recommended Prevention and treatment of hyypoglcyemia discussed. Blood glucose monitoring with fingers sticks 1-2 x day . Oral medications: continue metfomrin Would recommend Jardiance, because of hx of CAD. Pt could not tolerate, excessive urination Assessment & Plan (08/24/2017 3:53 PM CDT): A1c 6.9. Watch food choices. Would not recommend honey with tea.Follow up with foot doctor for blister which occurred one week ago. Has not changed in size. + Tender. Assessment & Plan (02/04/2017 9:38 AM CDT): Hba1c was today, indicating Adequate DM control 1800 calorie, consistent carb diet recommended 30 min daily aerobic and resistance exercise recommended Prevention and treatment of hyypoglcyemia discussed. Blood glucose monitoring with fingers sticks 1-2 X week . Foot care was discussed. Resolved Problems Problem Noted Date Diagnosed Date Resolved Date BMI 31.0-31.9,adult 04/12/2019 09/18/19 23 Abnormal stress test 03/08/2019 020 Dysuria 02/04/2017 10/08/2022 Assessment & Plan (07/27/2020 10:04 AM TILE PROFESSIONAL): Check psa Pt needs to see PCP Name provided Assessment & Plan (02/04/2017 9:52 AM CDT): Check PSA Advised on having his prostate checked Encounters Date Type Department Care Team Description 03/12/2024 Telephone [facility] [address] [place] [phone] Reuben Garcia MD Hypertension 03/01/2024 11:00 AM CDT Office Visit [facility] [address] [place] [address] Reuben Garcia MD Coronary artery disease involving shoshone-bannock coronary artery of shoshone-bannock heart without angina pectoris from Last 3 Months Surgical History Surgery Date Site/Laterality Comments CARDIAC CATHETERIZATION CATARACT EXTRACTION, BILATERAL Medical History Medical History Date Comments Type 2 diabetes mellitus (HCC) D iabetes type 2 Hyperlipidemia Hyperlipidemia Coronary artery disease Coronary artery disease Family History Medical History Relation Name Comments Other Father Alive and well; Diabetes type II Mother Diabetes -T ype 2; Relation Name Status Comments Father Alive Mother Social History Tobacco Use Types Packs/Day Years Used Date Smoking Tobacco: Never Smokeless Tobacco: Never Tobacco Cessation:Counseling Given: Not Answered Alcohol Use Standard Drinks/Week Comments No 0 (1 standard drink = 0.6 oz pur e alcohol) PHQ-2 Answer Date Recorded PHQ-2 Total Score (If total score is 3 or more points, staff should administer the PHQ-9) 0 09/16/2023 Sex and Gender Information Value Date Recorded Sex Assigned at Not on file Legal Sex Male 10:13 AM TILE PROFESSIONAL Gender Identity Not on file Sexual Orientation Not on file Obstetrics History Last Filed Vital Signs Vital Sign Reading Time Taken Comments Blood Pressure 152/84 03/01/2024 10:55 AM CDT Pulse 69 03/01/2024 10:55 AM CDT Temperature 36.9 ??C (98.4 ??F) 04/03/2019 11:[address] Respiratory Rate 16 01/07/2024 9:06 AM CDT Oxygen Saturation 96% 03/01/2024 10:55 AM CDT Inhaled Oxygen Concentration - - Weight 97.6 kg (215 lb 1.6 oz) 03/01/2024 10:55 AM CDT Height 175.3 cm (5' 9 ) 03/01/2024 10:55 AM CDT Body Mass Index 31.76 03/01/2024 10:55 AM CDT Plan of Treatment Health Maintenance Due Date Last Done Comments Colon Cancer Screening-Colonoscopy 1960 Hepatitis C Screening 1960 Prostate Cancer Screening-PSA 1958 Pneumococcal vaccine 65+ (1 of 2 - PCV) 1964 Hepatitis B Screening 1976 Zoster Vaccine (1 of 2) 2008 Dilated Eye Exam 01/14/2020 01/13/2019, 01/04/2019 Fall Risk Assessment 06/25/2023 06/25/2022 Well Visit 65+ 12/16/2023 Covid-19 Vaccine (3 - 2023-2 5 season) 2024 03/23/2021, 01/22/2021 Influenza Vaccine (#1) 2024 Hemoglobin A1C 07/09/2024 01/07/2024, 04/2 07/2023, 06/25/2022, Additional history exists Albumin Creatinine Ratio, Urine 09/15/2024 09/16/2023, 06/25/2022, 08/04/2020, Additional history exists Depression Screening 09/15/2024 09/16/2023, 06/25/2022, 06/25/2022, Additional history exists Foot Exam 09/15/2024 09/16/2023, 11/24, 11/16/2019, Additional history exists Lipid Panel 09/15/2024 09/16/2023, 10/24, 09/03/2021, Additional history exists eGFR 09/15/2024 09/16/2023, 06/25/2022 DTaP/Tdap/Td Vaccine (2 - Td or Tdap) 02/10/2031 02/10/2021 Medical Devices Implanted Type Area Shoe Singer Device Identifier Shelf Expiration Date Model / Serial / Lot [employer]ig [employer] [id number] Angio-Seal Evolution 8fr .038in Guidewire Bypass Tube Suture - [id number] Implanted:Qty : 1 on 04/02/2019 by Salty Rosas MD PhD at [facility] Other - see comments N/A: Arterial [employer] 12/24/2019 [id number] / / [id number] Description:8F Angio-Seal Med[employer] X [id number] Resolute Lamont 4mm 2.1-2.7fr 12mm 140cm Rapid Exchange Radiopaque - [id number] Implanted:Qty : 1 on 04/02/2019 by Salty Rosas MD PhD at [facility] Stent N/A: Coronary Medtronic Inc 12/06/2020 [id number] / / [id number] Procedures Procedure Name Priority Date/Time Associated Diagnosis Comments POCT HEMOGLOBIN A1C Routine 01/07/2024 9 :16 AM CDT Type 2 diabetes mellitus with hyperglycemia, without long-term current use of insulin (CMS/HCC) (HCC) EGFR Routine 09/16/2023 11:54 AM CDT Type 2 diabetes mellitus with hyperglycemia, without long-term current use of insulin (CMS/HCC) (HCC) Hypertension associated with diabetes (HCC) LIPID PANEL Routine 09/16/2023 11:54 AM CDT Type 2 diabetes mellitus with hyperglycemia, without long-term current use of insulin (CMS/HCC) (HCC) Hyperlipidemia associated with type 2 diabetes mellitus (HCC) ALBUMIN CREATININE RATIO, URINE Routine 09/16/2023 11:54 AM CDT Type 2 diabetes mellitus with hyperglycemia, without long-term current use of insulin (CMS/HCC) (HCC) DIABETES EYE EXAM Routine 01/13/2019 from Last 3 Months or Most Recently Relevant to Health Maintenance Results * (ABNORMAL) POCT hemoglobin A1c (01/07/2024 9:16 AM CDT) Hemoglobin A1C, POC 7.3 % Blood 01/07/2024 9:16 AM CDT us Tessa Pham NP POINT OF CARE TEST ORDERA BLES Final Result * eGFR (09/16/2023 11:54 AM CDT) eGFR 84 >=60 mL/min/1. 73 m2 Comment: Interpretive Data Reference Interval Normal ?>/= 90 mL/min/1.73m2 Mildly decreased* ? 60 - 89 mL/min/1.73m2 Mildly to moderately decreased ?45 - 59 mL/min/1.73m2 Moderately to severely decreased ??30 - 44 mL/min/1.73m2 Severely decreased ?15 - 29 mL/min/1.73m2 Kidney Failure ?< 15 ??mL/min/1.73m2 *Relative to young adult level Estimated glomerular filtration rate is determined by the 2020 CKD-EPI equation recommended by the National Kidney Foundation (A Unifying Approach to GFR Estimation: Recommendations of the NKF-ASK Task Force on Reassessing the Inclusion of Race in Diagnosing Kidney Disease, JASN 2020). The CKD-EPI equation should not be used for patients with unstable renal function and has not been validated in children and those over 70. Current interpretive data was last reviewed 2021. Blood 09/16/2023 11:5 4 AM CDT 09/16/2023 8:34 PM CDT Tessa Pham BEEF BREAKER LAB BLOOD ORDERABLES Rox l Result Performing Organization Address [facility] Phone Number [facility] [address] [place] [address] * Albumin Creatinine Ratio, Urine (09/16/2023 11:54 AM CDT) Albumin Ur <12.0 mg/L Comment: Interpretive Data No reference range established. Current interpretive data was last revised 2018. Creatinine Ur 55.2 mg/dL [facility] Comment: Interpretive Data No reference range established. Current interpretive data was last revised 2018. Albumin Creatinine Ratio, Ur <22 1 - 29 mg/g [facility] Urine 09/16/2023 11:5 4 AM CDT 09/16/2023 8:30 PM CDT us Tessa Pham BEEF BREAKER LAB URINE ORDERABLES Rox l Result Performing Organization Address [facility] Phone Number [facility] [address] [place] [place] [address] * Lipid panel (09/16/2023 11:54 AM CDT) Pathologist [facility] Cholesterol 109 30 - 199 mg/dL Comment: Interpretive Data Ages < or = 19 years ??Acceptable: ? <170 mg/dL ??Borderline high: ??170-199 mg/dL ??High: ? >or= 200 mg/dL Ages > or = 20 years ??Desirable: ?<200 mg/dL ??Borderline high: ??200-239 mg/dL ??High: ? >or= 240 mg/dL Literature References: 1. Expert Panel on Integrated Guidelines for Cardiovascular Health and Risk Reduction in Children and Adolescents. Pediatrics 2011;128:S213 2. NCEP Expert Panel. Circulation 2004;110:227 Current Interpretive Data was last revised on 2018. Triglycerides 110 <=149 mg/dL [facility] Comment: Interpretive Data Ages < or = 9 years ??Acceptable: ? <75 mg/dL ??Borderline high: ??75-99 mg/dL ??High: ? >or= 100 mg/dL Ages 10 to 20 years ??Acceptable: ? <90 mg/dL ??Borderline high: ??90-129 mg/dL ??High: ? >or= 130 mg/dL Ages > or = 20 years ??Desirable: ?<150 mg/dL ??Borderline high: ??150-199 mg/dL ??High: ? 200-499 mg/dL ?Very high: ?? >or= 499 mg/dL Literature References: 1. Expert Panel on Integrated Guidelines for Cardiovascular Health and Risk Reduction in Children and Adolescents. Pediatrics 2011;128:S213 2. NCEP Expert Panel. Circulation 2004;110:227 Current Interpretive Data was last revised on 2018. HDL 41 >=40 mg/dL [facility] Comment: Interpretive Data Ages < or = 19 years ??Acceptable: ? >45 mg/dL ??Borderline low: ?? 40-45 mg/dL ??Low: ? <40 mg/dL Ages > or = 20 years ??Desirable: ?>or= 60 mg/dL ??Low: ? <40 mg/dL Literature References: 1. Expert Panel on Integrated Guidelines for Cardiovascular Health and Risk Reduction in Children and Adolescents. Pediatrics 2011;128:S213 2. NCEP Expert Panel. Circulation 2004;110:227 Current Interpretive Data was last revised on 2018. LDL, calculated 46 <=129 mg/dL [facility] Comment: Interpretive Data Ages < or = 19 years ??Acceptable: ? <110 mg/dL ??Borderline high: ??110-129 mg/dL ??High: ?>or= 130 mg/dL Ages > or = 20 years ??Optimal: ? <100 mg/dL ??Near optimal: ?100-129 mg/dL ??Borderline high: ?? 130-159 mg/dL ??High: ?>160 mg/dL Literature References: 1. Expert Panel on Integrated Guidelines for Cardiovascular Health and Risk Reduction in Children and Adolescents. Pediatrics 2011;128:S213 2. NCEP Expert Panel. Circulation 2004;110:227 Current Interpretive Data was last revised on 2018. Non-HDL Cholesterol 68 mg/dL MAURISIO ARANA Comment: Interpretive Data Ages < or = 19 years ??Acceptable: ?<120 mg/dL ??Borderline high: ??120-144 mg/dL ??High: ?>145 mg/dL Ages > or = 20 years ??When triglycerides are >200 mg/dL, Non-HDL cholesterol is a secondary target of ? therapy with treatment goals that are 30 mg/dL greater than the LDL cholesterol target. ? Literature References: 1. Expert Panel on Integrated Guidelines for Cardiovascular Health and Risk Reduction in Children and Adolescents. Pediatrics 2011;128:S213 2. NCEP Expert Panel. Circulation 2004;110:227 Current Interpretive Data was last revised on 2018. Chol/HDL ratio 3 MAURISIO Blood 09/16/2023 11:5 4 AM CDT 09/16/2023 8:30 PM CDT us Tessa Pham NP LAB BLOOD ORDERABLES Rox fu Result MAURISIO [address] Department [place] [address] * DIABETES EYE EXAM (01/13/2019) Pathologist [facility] Diabetic Eye Exam Unknown Historical Provider HEALTH MAINTENANCE Final Result from Last 3 Months or Most Recently Relevant to Health Maintenance Insurance MEDICARE [facility] MEDICARE Advance Directives For more information, please contact: [phone] * Full Code (Latest Code Status on File) Date Activated Date Inactivated Comments 04/02/2019 7:37 PM 04/03/2019 8:11 PM * Full Code Date Activated Date Inactivated Comments 04/02/2019 4:52 PM 04/02/2019 7:37 PM Care Teams Arc Welder Relationship Specialty Start Date End Date Brian Vera MD [address] [facility] [address] [facility] [address] [place] [address] PCP - General Internal Medicine 05/10/22
--- OUTSIDE RECORDS SUMMARY | 2024-05-16 01:59 | XMS_ITS | Encounter Summary ---
Author Organization [facility] Healthcare Address [address] [place] [address] Care Team Providers Care Shift Superintendent Caustic Cresylate Name Role Phone Brian Vera MD Primary Care Provider [phone]- [phone] Encounter Details Date Type Department Care Team (Latest Contact Info) Description 09/16/2023 11:54 AM CDT - 09/16/2023 11:59 PM CDT Hospital Encounter [facility] [id number] [place] [address] Type 2 diabetes mellitus with hyperglycemia, without long-term current use of insulin ([facility]/HCC) ([facility]); Hyperlipidemia associated with type 2 diabetes mellitus ([facility]); Hypertension associated with diabetes ([facility]) Discharge Disposition: Discharge to home or self care Social History Tobacco Use Types Packs/Day Years Used Date Smoking Tobacco: Never Smokeless Tobacco: Never Alcohol Use Standard Drinks/Week Comments No 0 (1 standard drink = 0.6 oz pur e alcohol) PHQ-2 Answer Date Recorded PHQ-2 Total Score (If total score is 3 or more points, staff should administer the PHQ-9) 0 09/16/2023 Sex and Gender Information Value Date Recorded Sex Assigned at Not on file 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 Gender Identity Not on file Sexual Orientation Not on file documented as of this encounter Medications at Time of Discharge atorvastatin (LIPITOR) 40 mg tabletIndication s:Coronary artery disease involving confederated salish coronary artery of conf[place]erated salish heart without angina pectoris Take 1 tablet (40 mg total) by mouth daily 90 tablet 3 05/12/2023 blood-glucose meter (ONETOUCH ULTRA2) kit check glucose once a day 1 kit 0 03/04/2014 clopidogreL (PLAVIX) 75 mg tabletIndication s:Coronary artery disease involving confederated salish coronary artery of conf[place] sal[place] heart without angina pectoris Take 1 tablet (75 mg total) by mouth daily 90 tablet 3 05/12/2023 ezetimibe (ZETIA) 10 mg tabletIndication s:Hyperlipidemia associated with type 2 diabetes mellitus (HCC) Take 1 tablet (10 mg total) by mouth daily 90 tablet 3 05/12/2023 aspirin 81 mg enteric coated tabletIndication s:Coronary artery disease involving confederated salish coronary artery of confederated salish heart without angina pectoris Take 1 tablet (81 mg total) by mouth daily 90 tablet 3 11/11/2022 4 empagliflozin (Jardiance) 25 mg tabletIndication s:Type 2 diabetes mellitus with hyperglycemia, without long-term current use of insulin (HCC) Take 1 tablet (25 mg total) by mouth daily 90 tablet 3 05/12/2023 4 glimepiride (AMARYL) 2 mg tablet Take 1 tablet (2 mg total) by mouth daily before breakfast 90 tablet 3 05/12/2023 4 lisinopriL (PRINIVIL,ZESTRI L) 10 mg tabletIndication s:Coronary artery disease involving confederated salish coronary artery of confederated salish heart without angina pectoris Take 1 tablet (10 mg total) by mouth daily 90 tablet 3 05/12/2023 4 metFORMIN (GLUCOPHAGE) 850 mg tabletIndication s:Type 2 diabetes mellitus with hyperglycemia, without long-term current use of insulin (HCC) Take 1 tablet (850 mg total) by mouth 2 (two) times a day with meals 180 tablet 3 05/12/2023 4 documented as of this encounter Discharge Disposition Disposition Code Departure Means Destination Discharge to home or self care documented in this encounter Miscellaneous Notes * Result Encounter Note - Tessa Pham NP - 09/16/2023 11:59 PM CDT SEE LETTER SENT VIA MAIL: Rema Jarrett Sole, Nice to meet you yesterday! Please see below for lab result explanations. Please review below recommendations to help improve any abnormal readings. GFR (kidney filtration rate, normal is over 90): 84 (VERY MILDLY LOW, NOT CONCERNING). Your lipid panel explanation below: -total cholesterol should be below 200; you are 109 (NORMAL). Please watch fried, fast, fatty, high-calorie foods and red meats to help lower. Also increase physical activity. -HDL (healthy cholesterol) should be 45-60; the higher this number the better. You are 41 (TOO LOW). Increased activity helps increase this reading. HDL helps pull out LDL from circulating in your blood. -LDL (lousy cholesterol) should be less than 100; you are 46 (NORMAL). An elevated HDL helps negateany elevated LDL. Please watch fried, fast, fatty, high-calorie foods and red meats to lower LDL. LDL is what causes blockages in arteries. -triglycerides should be less than 150. You are 110 (NORMAL). This is the carbohydrate/sugar component of the lipid panel. CMP (electrolytes, kidney & liver functions): normal with exception of elevated blood sugar at 233. Urine creatinine albumin (0-29): 22 (NORMAL, IMPROVED FROM 28 LAST YEAR) documented in this encounter Plan of Treatment Not on file documented as of this encounter Procedures Procedure Name Priority Date/Time Associated Diagnosis Comments EGFR Routine 09/16/2023 11:54 AM CDT Type 2 diabetes mellitus with hyperglycemia, without long-term current use of insulin ([facility]/HCC) (HCC) Hypertension associated with diabetes (HCC) ALBUMIN CREATININE RATIO, URINE Routine 09/16/2023 11:54 AM CDT Type 2 diabetes mellitus with hyperglycemia, without long-term current use of insulin ([facility]/HCC) (HCC) LIPID PANEL Routine 09/16/2023 11:54 AM CDT Type 2 diabetes mellitus with hyperglycemia, without long-term current use of insulin ([facility]/HCC) (HCC) Hyperlipidemia associated with type 2 diabetes mellitus (HCC) COMPREHENSIVE METABOLIC PANEL Routine 09/16/2023 11:54 AM CDT Type 2 diabetes mellitus with hyperglycemia, without long-term current use of insulin ([facility]/HCC) (HCC) Hypertension associated with diabetes (HCC) documented in this encounter Results * eGFR (09/16/2023 11:54 AM CDT) eGFR [...] of Race in Diagnosing Kidney Disease, JASN 202). The CKD-EPI equation should not be used for patients with unstable renal function and has not been validated in children and those over 70. Current interpretive data was last reviewed 2021. Blood 09/16/2023 11:5 4 AM CDT 09/16/2023 8:34 PM CDT us Tessa Pham POWER GRADER OPERATOR LAB BLOOD ORDERABLES Rox fu Result MAURISIO ARANA [address] Department [place] [address] * (ABNORMAL) Comprehensive metabolic panel (09/16/2023 11:54 AM CDT) Sodium 139 135 - 145 mmol/L Potassium, pl 4.3 3.3 - 4.9 mmol/L [facility] Chloride 100 97 - 110 mmol/L [facility] CO2 26 22 - 32 mmol/L [facility] Anion gap 13 2 - 15 mmol/L [facility] BUN 21 6 - 25 mg/dL [facility] Creatinine 1.00 0.80 - 1.30 mg/dL [facility] Glucose 233(H) 70 - 199 mg/dL [facility] Comment: Interpretive Data Fasting glucose >/= 126 mg/dl is diagnostic for diabetes. ?? Fasting is defined as no caloric intake for at least 8 hours. Fasting glucose between 100 mg/dl to 125 mg/dl is diagnostic of prediabetes. In a patient with classic symptoms of hyperglycemia or hyperglycemic crisis, a random glucose >/= 200 mg/dl is diagnostic for diabetes. In the absence of unequivocal hyperglycemia, results should be confirmed by repeat testing. The classification and Diagnosis of Diabetes Diabetes Care 202; 46: S19-S40. Current interpretive data was last revised 2022. Calcium 9.8 8.5 - 10.3 mg/dL [facility] Bilirubin, total 0.6 0.1 - 1.2 mg/dL [facility] Protein, pl 7.9 6.5 - 8.5 g/dL [facility] Albumin 4.8 3.5 - 5.0 g/dL [facility] Alk phos 72 40 - 130 Units/L [facility] ALT 32 7 - 55 Units/L [facility] AST 40 10 - 50 Units/L [facility] Blood 09/16/2023 11:5 4 AM CDT 09/16/2023 8:30 PM CDT us Tessa Pham POWER GRADER OPERATOR LAB BLOOD ORDERABLES Rox fu Result [facility] [address] Department [place] [address] * Lipid panel (09/16/2023 11:54 AM CDT) Cholesterol 109 30 - 199 mg/dL Comment: [...] on 2018. Triglycerides 110 <=149 mg/dL MAURISIO ARANA Comment: Interpretive Data Ages [...] on 2018. HDL 41 >=40 mg/dL MAURISIO ARANA Comment: Interpretive Data Ages [...] on 2018. Non-HDL Cholesterol 68 mg/dL MAURISIO Comment: Interpretive Data Ages < [...] last revised on 2018. Chol/HDL ratio 3 CERANNETTE Blood 09/16/2023 11:5 4 AM CDT 09/16/2023 8:30 PM CDT us Tessa Pham POWER GRADER OPERATOR LAB BLOOD ORDERABLES Rox l Result Performing Organization Address [facility] [place] [address] [address] [place] [address] * Albumin Creatinine Ratio, Urine (09/16/2023 11:54 AM CDT) Albumin Ur <12.0 mg/L Comment: Interpretive Data No reference range established. Current interpretive data was last revised 2018. Creatinine Ur 55.2 mg/dL [facility] Comment: Interpretive Data No reference range established. Current interpretive data was last revised 2018. Albumin Creatinine Ratio, Ur <22 1 - 29 mg/g [facility] Urine 09/16/2023 11:5 4 AM CDT 09/16/2023 8:30 PM CDT Tessa Pham POWER GRADER OPERATOR LAB URINE ORDERABLES Rox l Result Performing Organization Address [facility] de Phone Number MAURISIO ARANA [address] Department [place] [address] documented in this encounter Visit Diagnoses Diagnosis Type 2 diabetes mellitus with hyperglycemia, without long-term current use of insulin (HCC) Hyperlipidemia associated with type 2 diabetes mellitus (HCC) Hypertension associated with diabetes (HCC) Unspecified essential hypertension documented in this encounter Care Teams Shift Superintendent Caustic Cresylate Relationship Specialty Start Date End Date Brian Vera MD [address] [facility] [address] [address] PCP - General Internal Medicine 05/10/22 documented as of this encounter
--- OUTSIDE RECORDS SUMMARY | 2024-05-16 01:59 | XMS_ITS | Encounter Summary ---
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 documented in this encounter Plan of Treatment Not on file documented as of this encounter Visit Diagnoses Not on filedocumented in this encounter Care Teams Flow Worker Relationship Specialty Start Date End Date Brian Vera MD [address] [facility] [address] [facility] [address] [place] [address] PCP - General Internal Medicine 05/10/22 documented as of this encounter
--- OUTSIDE RECORDS SUMMARY | 2024-05-16 01:59 | XMS_ITS | Referral Summary ---
Author Organization [facility] [address] [place] [facility] [place] Address [address] [place] [address] Care Team Providers Care Computer Architect Name Role Phone Brian Vera MD Primary Care Provider +1- [phone] Encounters Date Type Department Care Team Description 03/12/2024 Telephone [facility] Cardiology [address] [place] [address] [address] [place] [phone] Reuben Garcia MD Hypertension 03/01/2024 11:00 AM CDT Office Visit [facility] Medical [facility] Cardiology [address] [place] [address] [phone] Reuben Garcia MD Coronary artery disease involving alutiiq coronary artery of alutiiq heart without angina pectoris from Last 3 Months Allergies Active Allergy Reactions Criticality Noted Date Comments Semaglutide Dizziness Medium 06/25/2022 Medications blood-glucose meter ([facility]) kit check glucose once a day 1 kit 0 4 Active clopidogreL (PLAVIX) 75 mg tabletIndicatio ns:Coronary artery disease involving alutiiq coronary artery of alutiiq heart without angina pectoris Take 1 tablet (75 mg total) by mouth daily 90 tablet 3 3 Active atorvastatin (LIPITOR) 40 mg tabletIndicatio ns:Coronary artery disease involving alutiiq coronary artery of alutiiq heart without angina pectoris Take 1 tablet [...] hyperglycemia, without long-term current use of insulin ([facility]) Take 1 tablet (2 mg total) by mouth daily before breakfast 90 tablet 3 4 01/07/20 25 Active empagliflozin (Jardiance) 25 mg tabletIndicatio ns:type 2 diabetes mellitus Take 1 tablet (25 mg total) by mouth daily 90 tablet 3 4 01/07/20 25 Active lisinopriL (PRINIVIL,ZESTR IL) 20 mg tabletIndicatio ns:Coronary artery disease involving alutiiq coronary artery of alutiiq heart without angina pectoris Take 1 tablet (20 mg total) by mouth daily 90 tablet 3 4 Active aspirin 81 mg enteric coated tabletIndicatio ns:Coronary artery disease involving alutiiq coronary artery of alutiiq heart without angina pectoris TAKE 1 TABLET [...] results. Assessment & Plan (06/25/2022 3:36 PM CARBONATOR): Chronic, well controlled Low fat Low cholesterol diet Exercise Continue statin therapy with Atorvastatin and Zetia Update lipid profile Assessment & Plan (07/03/2021 4:14 PM CARBONATOR): Chronic, well controlled Continue current meds Assessment [...] Zetia Assessment & Plan (07/27/2020 10:03 AM CARBONATOR): Goal of treatment , LDL cholesterol less [...] Crestor Assessment & Plan (06/29/2019 3:21 PM CARBONATOR): Goal of treatment , LDL cholesterol less [...] therapy Assessment & Plan (04/02/2019 7:19 PM CARBONATOR): --Continue atorvastatin. Assessment & Plan (02/23/2019 4:09 [...] therapy Assessment & Plan (07/21/2018 3:00 PM CARBONATOR): Goal of treatment , LDL cholesterol less [...] statin therapy Coronary artery disease invo lving alutiiq coronary artery of alutiiq heart without angina pectoris 03/24/2017 Assessment & Plan (04/03/2019 11:57 AM CARBONATOR): S/p LM ostial PCI --Aspirin 81 mg daily indefinitely. --S/p Plavix load. Continue 75 mg daily for at least a year. --Continue atorvastatin. --Continue lisinopril 10 mg daily. --Historically not on BB therapy, f/u with orthopedic shoe fitter DC today DC time 31 minutes Assessment [...] results. Assessment & Plan (06/25/2022 3:37 PM CARBONATOR): Chronic, well controlled Update MA, GFR Assessment & Plan (12/14/2020 10:22 AM CDT): Goal blood pressure is less than 140/85 Low salt diet The importance of daily aerobic exercise was also emphasized. Continue current meds, including VIKY-I or ARB, e.g. Lisinopril Assessment & Plan (07/27/2020 10:03 AM CARBONATOR): Goal blood pressure is less than 140/85 [...] Lisinopril Assessment & Plan (06/29/2019 3:21 PM CARBONATOR): Goal blood pressure is less than 140/85 Low salt diet recommended Daily aerobic exercise Continue current meds, including VIKY-I or ARB Check microalbumin Assessment & Plan (04/02/2019 7:19 PM CARBONATOR): --Anti-hypertensive medications per CAD. Assessment & Plan (02/23/2019 3:02 PM CDT): Goal blood pressure is less than 140/85 Low salt diet recommended Daily aerobic exercise Continue current meds, including VIKY-I or ARB Assessment & Plan (07/21/2018 3:01 PM CARBONATOR): Goal blood pressure is less than 140/85 [...] before breakfast DM eye exam 2022 at [facility] in [place]; second request letter sent to get copy [...] before breakfast DM eye exam 2022 at [facility]; letter sent to get copy of exam. [...] infection. Assessment & Plan (06/25/2022 3:38 PM CARBONATOR): Chronic , uncontrolled Continue working on diet and exercise Add Glimepiride 2 mg daily Continue Jardiance and Metformin Assessment & Plan (07/03/2021 4:13 PM CARBONATOR): Hba1c was Lab Results Component Value Date [...] Metformin Assessment & Plan (07/27/2020 10:04 AM CARBONATOR): Hba1c was Lab Results Component Value Date [...] Metformin Assessment & Plan (06/29/2019 3:21 PM CARBONATOR): Hba1c was Lab Results Component Value Date HGBA1C 7.5 06/29/2019 today, indicating inadequate DM control 1800 calorie, consistent carb diet recommended, no more than 3-45 grams of carbs per meal, avoiding concentrated sweet drinks and rapid absorption carbs. 25-45 min daily aerobic and resistance exercise recommended Medications: Add Jardiance Assessment & Plan (04/02/2019 7:18 PM CARBONATOR): Recent A1c's in the 6s. --Hold home [...] Invokana Assessment & Plan (07/21/2018 3:07 PM CARBONATOR): Hba1c was Lab Results Component Value Date [...] 10/08/2022 Assessment & Plan (07/27/2020 10:04 AM CARBONATOR): Check psa Pt needs to see PCP Name provided Assessment & Plan (02/04/2017 9:52 AM CDT): Check PSA Advised on having his prostate checked Social History Tobacco Use Types Packs/Day Years [...] on file Legal Sex Male 10:13 AM CARBONATOR Gender Identity Not on file Sexual Orientation Not on file Last Filed Vital Signs Vital Sign Reading [...] 03/01/2024 10:55 AM CDT Plan of Treatment Not on file Medical Devices Implanted Type Area Per Diem Rn Device Identifier Shelf Expiration Date Model / Serial / Lot [employer] [id number] Angio-Seal Evolution 8fr .038in Guidewire Bypass Tube Suture - [id number] Implanted:Qty : 1 on 04/02/2019 by Salty Rosas MD PhD at [facility] Other - see comments N/A: Arterial [employer] 12/24/2019 [id number] / / [id number] Description:8F Angio-Seal Medtronic [employer] X [id number] Resolute Olayinka 4mm 2.1-2.7fr 12mm 140cm Rapid Exchange Radiopaque - [id number] Implanted:Qty : 1 on 04/02/2019 by Salty Rosas MD PhD at [facility] Stent N/A: Coronary Medtronic Inc 12/06/2020 [id number] / / [id number] Procedures Procedure Name Priority Date/Time Associated Diagnosis Comments POCT HEMOGLOBIN A1C Routine 01/07/2024 9 :16 AM CDT Type 2 diabetes mellitus with hyperglycemia, without long-term current use of insulin (CMS/HCC) (HCC) EGFR Routine 09/16/2023 11:54 AM CDT Type 2 diabetes mellitus with hyperglycemia, without long-term current use of insulin (CMS/HCC) (HCC) Hypertension associated with diabetes ([facility]) LIPID PANEL Routine 09/16/2023 11:54 AM CDT Type 2 diabetes mellitus with hyperglycemia, without long-term current use of insulin ([facility]) (HCC) Hyperlipidemia associated with type 2 diabetes mellitus (HCC) ALBUMIN CREATININE RATIO, URINE Routine 09/16/2023 11:54 AM CDT Type 2 diabetes mellitus with hyperglycemia, without long-term current use of insulin ([facility]) (HCC) DIABETES EYE EXAM Routine 01/13/2019 from Last 3 Months or Most Recently Relevant to Health Maintenance Results * (ABNORMAL) POCT hemoglobin A1c (01/07/2024 9:16 AM CDT) Hemoglobin A1C, POC 7.3 % Blood 01/07/2024 9:16 AM CDT Tessa Pham NP POINT OF CARE TEST [...] CDT 09/16/2023 8:34 PM CDT Tessa Pham RADIOLOGY MANAGER LAB BLOOD ORDERABLES Rox l Result Performing Organization Address [facility] de Phone Number MAURISIO ARANA [address] [place] [address] * Albumin Creatinine Ratio, Urine (09/16/2023 11:54 AM CDT) Albumin Ur <12.0 mg/L Comment: Interpretive Data No reference range established. Current interpretive data was last revised 2018. Creatinine Ur 55.2 mg/dL [facility] Comment: Interpretive Data No reference range established. Current interpretive data was last revised 2018. Albumin Creatinine Ratio, Ur <22 1 - 29 mg/g [facility] Urine 09/16/2023 11:5 4 AM CDT 09/16/2023 8:30 PM CDT us Tessa Pham RADIOLOGY MANAGER LAB URINE ORDERABLES Rox l Result Performing Organization Address [facility] de Phone Number JACKIEANNETTE ARANA [address] Department of [facility] [place], [place] [id number] * Lipid panel (09/16/2023 11:54 AM CDT) [...] on 2018. LDL, calculated 46 <=129 mg/dL [facility] Comment: Interpretive Data Ages < or = [...] last revised on 2018. Chol/HDL ratio 3 [facility] Blood 09/16/2023 11:5 4 AM CDT 09/16/2023 8:30 PM CDT us Tessa Pham RADIOLOGY MANAGER LAB BLOOD ORDERABLES Rox fu Result MAURISIO ARANA [address] Department [place] [address] * DIABETES EYE EXAM (01/13/2019) Diabetic Eye Exam Unknown us Historical Provider MD HEALTH MAINTENANCE Final Result from Last 3 Months or Most Recently Relevant to Health Maintenance Insurance MEDICARE [facility] MEDICARE Advance Directives For more information, please contact: [phone] * Full Code (Latest Code Status on File) Date Activated Date Inactivated Comments 04/02/2019 7:37 PM 04/03/2019 8:11 PM * Full Code Date Activated Date Inactivated Comments 04/02/2019 4:52 PM 04/02/2019 7:37 PM Care Teams Computer Architect Relationship Specialty Start Date End Date Brian Vera MD [address] [facility] [address] [place], [place] [id number] PCP - General Internal Medicine 05/10/22
--- OUTSIDE RECORDS SUMMARY | 2024-05-16 01:59 | XMS_ITS | Encounter Summary ---
Author Organization [facility] Healthcare Address [address] [place] [address] Care Team Providers Care Business Loan Processor Name Role Phone Brian Vera MD Primary Care Provider [phone]- [phone] Reason for Visit * Reason Comments Diabetes Type 2 Encounter Details Date Type Department Care Team (Late st Contact Info) Description 01/07/2024 9:30 AM CDT Office Visit 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 Gender Identity Not on file Sexual Orientation Not on file documented as of this encounter Last Filed Vital Signs Vital Sign Reading Time Taken Comments Blood Pressure 138/62 01/07/2024 9:52 AM CDT Pulse 59 01/07/2024 9:06 AM CDT Temperature - - Respiratory Rate 16 01/07/2024 9:06 AM CDT Oxygen Saturation - - Inhaled Oxygen Concentration - - Weight 94.3 kg (208 lb) 01/07/2024 9:06 AM CDT Height 175.3 cm (5' 9.02 ) 01/07/2024 9:06 AM CD T Body Mass Index 30.7 01/07/2024 9:06 AM CDT documented in this encounter Patient Instructions * Patient Instructions* Tessa Pham NP - 01/07/2024 9:30 AM CDT Please call to set up a diabteic eye exam. No changes. Continue to work on diet & exercise. Current medications: Metformin 850mg twice daily with meals Jardiance 25mg daily Glimepiride 2mg before breakfast documented in this encounter Ordered Prescriptions Prescription Sig Dispense Quantity Refills Last Filled Start Date End Date empagliflozin (Jardiance) 25 mg tabletIndications: type 2 diabetes mellitus Take 1 tablet (25 mg total) by mouth daily 90 tablet 3 01/07/2024 glimepiride (AMARYL) 2 mg tabletIndications: Type 2 diabetes mellitus with hyperglycemia, without long-term current use of insulin (HCC) Take 1 tablet (2 mg total) by mouth daily before breakfast 90 tablet 3 01/07/2024 metFORMIN (GLUCOPHAGE) 850 mg tabletIndications: Type 2 diabetes mellitus with hyperglycemia, without long-term current use of insulin (HCC) Take 1 tablet (850 mg total) by mouth 2 (two) times a day with meals 180 tablet 3 01/07/2024 documented in this encounter Progress Notes * Tessa Pham NP - 01/07/2024 9:30 AM CDT [facility] ENDOCRINOLOG[facility] Diabetes Follow Up Visit Subjective/Objective Patient ID: Jerald Whipple is a 63 y.o. male who comes in today to our Endocrinology clinic to follow up for DM management. 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 Snacks in evening (on stews). 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 Always busy has [address] farm in [place], [place]. Stays active 0530-9p every day. Has 5 restaurants. Home CBG monitoring results: does not check blood sugar. No hypoglycemia. Neuropathy: no complaints. Last foot exam: 09/16/23 Statin therapy: Yes. Atorvastatin 40mg & Zetia 10mg. Last lipid panel: 09/16/23 LDL=46, ON=518. Nephropathy: On VIKY-I / ARB???s: Yes. Lisinopril 10mg. Last MA: 09/16/23 (22). Last creat/GFR: 09/16/23 GFR=84, CR=1.0. Retinopathy: Date of last eye examination: 01/13/192022 [facility] Readings from Last 3 Encounters: 01/07/24 94.3 kg (208 lb) 09/16/23 96 kg (211 lb 11.2 oz) 05/12/23 95.6 kg (210 lb 11.2 oz) Labs: Last A1c: Recent Labs Lab Units 01/07/24 0916 HEMOGLOBIN A1C POC % 7.3 Component Latest Ref Rng 07/03/2021 06/25/2022 09/16/2023 Hgb A1C, POC % 7.8 8.5 % 7.3 Lab Results Component Value Date ALBCREATRATU <22 09/16/2023 Lab Results Component Value Date MALBCRTRAT 2 06/14/2014 Lipid profile within the last year: Lab Results Component Value Date CHOL 109 09/16/2023 Lab Results Component Value Date TRIG 110 09/16/2023 Lab Results Component Value Date HDL 41 09/16/2023 Lab Results Component Value Date LDLCALC 46 09/16/2023 Vitals: 01/07/24 0906 01/07/24 0952 BP: 146/78 138/62 BP Location: Left arm Left arm Patient Position: Sitting Sitting Pulse: 59 Resp: 16 Weight: 94.3 kg (208 lb) Height: 175.3 cm (5' 9.02 ) Physical Exam Vitals and nursing note reviewed. Constitutional: Appearance: Normal appearance. He is well-developed and overweight. HENT: Head: Normocephalic and atraumatic. Right Ear: Hearing normal. Left Ear: Hearing normal. Eyes: General: Lids are normal. Gaze aligned appropriately. Neck: Thyroid: No thyromegaly. Trachea: Trachea and phonation normal. No tracheal deviation. Cardiovascular: Rate and Rhythm: Normal rate and regular rhythm. No extrasystoles are present. Heart sounds: Normal heart sounds, S1 normal and S2 normal. No murmur heard. Pulmonary: Effort: Pulmonary effort is normal. Breath sounds: Normal breath sounds and air entry. Skin: General: Skin is warm and dry. Neurological: Mental Status: He is alert and oriented to person, place, and time. Mental status is at baseline. Psychiatric: Mood and Affect: Mood normal. Behavior: Behavior normal. Assessment/Plan Diagnoses and all orders for this visit: Type 2 diabetes mellitus with hyperglycemia, without long-term current use of insulin ([facility] ([facility]) (Primary) Assessment & Plan: Chronic problem. A1c stable at 7.3%. reviewed that goal is less than 7.0%. he's been working on diet & exercise. Current medications: Metformin 850mg Jardiance 25mg daily Glimepiride 2mg before breakfast DM eye exam 2022 at [facility]; second request letter sent to get copy of exam. Will call to set up a diabetic eye exam. UTD on labs. Discussed with Jerald Whipple: Strive for regular exercise (30min most days) and diet (get at least 4-5 servings of fruit and veggies daily, avoid processed foods, increase lean protein intake and decrease carb portions as well asfruit juices, regular soda & desserts). Watch carbs and simple sugars. Check the feet daily for skin breakdown and infection. Orders: - POCT hemoglobin A1c - POCT glucose - metFORMIN (GLUCOPHAGE) 850 mg tablet; Take 1 tablet (850 mg total) by mouth 2 (two) times a day with meals - glimepiride (AMARYL) 2 mg tablet; Take 1 tablet (2 mg total) by mouth daily before breakfast - empagliflozin (Jardiance) 25 mg tablet; Take 1 tablet (25 mg total) by mouth daily Hypertension associated with diabetes (HCC) Assessment & Plan: Chronic problem. Controlled on current lisinopril 10mg daily. Hyperlipidemia associated with type 2 diabetes mellitus (HCC) Assessment & Plan: Chronic problem. Atorvastatin 40mg & Zetia 10mg. Last lipid panel: 11/11/22 LDL=53, TG=90. Tessa Pham NP Cosigned by Aaron Márquez MD at 01/07/2024 10:07 AM CDT documented in this encounter Miscellaneous Notes * Assessment & Plan Note - Tessa Pham NP - 01/07/2024 9:30 AM CDT Associated Problem(s): Hyperlipidemia associated with type 2 diabetes mellitus (HCC) Chronic problem. Atorvastatin 40mg & Zetia 10mg. Last lipid panel: 11/11/22 LDL=53, TG=90. * Assessment & Plan Note - Tessa Pham NP - 01/07/2024 9:30 AM CDT Associated Problem(s): Hypertension associated with diabetes (HCC) Chronic problem. Controlled on current lisinopril 10mg daily. * Assessment & Plan Note - Tessa Pham NP - 01/07/2024 9:30 AM CDT Associated Problem(s): Type 2 diabetes mellitus (HCC) Chronic problem. A1c stable at 7.3%. reviewed that goal is less than 7.0%. he's been working on diet & exercise. Current medications: Metformin 850mg Jardiance 25mg daily Glimepiride 2mg before breakfast DM eye exam 2022 at [facility]; second request letter sent to get copy of exam. Will call to set up a diabetic eye exam. UTD on labs. Discussed with Jerald Whipple: Strive for regular exercise (30min most days) and diet (get at least 4-5 servings of fruit and veggies daily, avoid processed foods, increase lean protein intake and decrease carb portions as well asfruit juices, regular soda & desserts). Watch carbs and simple sugars. Check the feet daily for skin breakdown and infection. documented in this encounter Plan of Treatment Not on file documented as of this encounter Procedures Procedure Name Priority Date/Time Associated Diagnosis Comments POCT HEMOGLOBIN A1C Routine 01/07/2024 9 :16 AM CDT Type 2 diabetes mellitus with hyperglycemia, without long-term current use of insulin ([facility] ([facility]) POCT GLUCOSE Routine 01/07/2024 9:16 AM CDT Type 2 diabetes mellitus with hyperglycemia, without long-term current use of insulin ([facility] ([facility]) documented in this encounter Results * (ABNORMAL) POCT glucose (01/07/2024 9:16 AM CDT) Glucose Blood, POC 174 mg/dL Blood 01/07/2024 9:16 AM CDT Tessa Pham SENIOR TELECOMMUNICATIONS ENGINEER POINT OF CARE TEST ORDERA BLES Final Result * (ABNORMAL) POCT hemoglobin A1c (01/07/2024 9:16 AM CDT) Hemoglobin A1C, POC 7.3 % Blood 01/07/2024 9:16 AM CDT Tessa Pham SENIOR TELECOMMUNICATIONS ENGINEER POINT OF CARE TEST ORDERA BLES Final Result documented in this encounter Visit Diagnoses Diagnosis Type 2 diabetes mellitus with hyperglycemia, without long-term current use of insulin (HCC)- Primary Hypertension associated with diabetes (HCC) Unspecified essential hypertension Hyperlipidemia associated with type 2 diabetes mellitus (HCC) documented in this encounter Discontinued Medications Medication Sig Discontinue Reason Start Date End Da te glimepiride (AMARYL) 2 mg tabletIndications:Type 2 diabetes mellitus with hyperglycemia, without long-term current use of insulin (HCC) TAKE 1 TABLET(2 MG) BY MOUTH DAILY BEFORE BREAKFAST Reorder 10/14/2023 01/07/2024 empagliflozin (Jardiance) 25 mg tabletIndications:type 2 diabetes mellitus Take 1 tablet (25 mg total) by mouth daily Reorder 10/14/2023 01/07/2024 metFORMIN (GLUCOPHAGE) 850 mg tabletIndications:Type 2 diabetes mellitus with hyperglycemia, without long-term current use of insulin (HCC) Take 1 tablet (850 mg total) by mouth 2 (two) times a day with meals Reorder 10/14/2023 01/07/2024 documented as of this encounter Care Teams Business Loan Processor Relationship Specialty Start Date End Date Brian Vera MD [address] [facility] [address] [address] PCP - General Internal Medicine 05/10/22 documented as of this encounter
--- OUTSIDE RECORDS SUMMARY | 2024-05-16 01:59 | XMS_ITS | Encounter Summary ---
Author Organization [facility] Healthcare Address [address] [place] [address] Care Team Providers Care Metal Fabricator Welder Name Role Phone Brian Vera MD Primary Care Provider [phone]- [phone] Reason for Visit * Reason Onset Date Comments Eye Exam 09/29/2023 [facility] Encounter Details Date Type Department Care Team (Late st Contact Info) Description 09/29/[address] 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 Fax received from [facility] in [place], [place] stating they have not seen the pt since 2019 for an EyeExam. documented in this encounter Plan of Treatment Not on file documented as of this encounter Visit Diagnoses Not on filedocumented in this encounter Care Teams Metal Fabricator Welder Relationship Specialty Start Date End Date Brian Vera MD [address] [facility] [address] [place] [address] PCP - General Internal Medicine 05/10/22 documented as of this encounter
--- OUTSIDE RECORDS SUMMARY | 2024-05-16 01:59 | XMS_ITS | Encounter Summary ---
Author Organization [facility] Healthcare Address [address] [place] [address] Care Team Providers Care Machine Engraver Name Role Phone Brian Vera MD Primary Care Provider +1- [phone] Reason for Visit * Reason Comments Follow-up 10 mo f/u Hyperlipidemia Coronary Artery Disease Encounter Details Date Type Department Care Team (Late st Contact Info) Description 03/01/2024 11:00 AM CDT Office Visit 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 Gender Identity Not on file Sexual Orientation Not on file documented as of this encounter Last Filed Vital Signs Vital Sign Reading Time Taken Comments Blood Pressure 152/84 03/01/2024 10:55 AM CDT Pulse 69 03/01/2024 10:55 AM CDT Temperature - - Respiratory Rate - - Oxygen Saturation 96% 03/01/2024 10:55 AM CDT Inhaled Oxygen Concentration - - Weight 97.6 kg (215 lb 1.6 oz) 03/01/2024 10:55 AM CDT Height 175.3 cm (5' 9 ) 03/01/2024 10:55 AM CDT Body Mass Index 31.76 03/01/2024 10:55 AM CDT documented in this encounter Ordered Prescriptions Prescription Sig Dispense Quantity Refills Last Filled Start Date End Date lisinopriL (PRINIVIL,ZESTRIL) 20 mg tabletIndications:C oronary artery disease involving [place] coronary artery of [place] heart without angina pectoris Take 1 tablet (20 mg total) by mouth daily 90 tablet 3 03/01/2024 documented in this encounter Progress Notes * Reuben Garcia MD - 03/01/2024 11:00 AM CDT [facility] DATE OF VISIT: 03/01/2024 CHIEF COMPLAINT Chief Complaint Patient presents with Follow-up 10 mo f/u Hyperlipidemia Coronary Artery Disease CAD HPI Jerald Whipple is a 63 y.o. male with past medical history of hypertension, hyperlipidemia, diabetes type 2, who was discharged from the hospital on August 27/2017. He presented to the hospital with exertional chest pain and he was taken to heart catheterization lab. His diagonal 1 branch which is small to medium size had mid 90% lesion and his right PDA had an ostial 80% lesion. PDA is a small vessel .This was treated medically. He comes today for follow-up. He feels great and he has no chest pain, shortness of breath, orthopnea, paroxysmal nocturnal dyspnea, palpitations, dizziness, syncope and no lower limb edema. He started walking 4 miles a day and he lost 12 lb. March 24/2017. Returns for follow-up appointment. Denies chest pain, shortness of breath, orthopnea, paroxysmal nocturnal dyspnea, palpitations, dizziness, syncope, lower limb edema. He continues to exercise. He still does diet modification and adheres to a healthy diet. He he stopped taking metoprolol 25 mg b.i.d. as well as Lipitor 40 mg daily. He states that he was having difficulty in urination and he to stopped Lipitor. He states that his urinary symptoms improved after stopping Lipitor.He also states that he cut down on the metformin because his numbers are looking better. 09/29/2017: Returns for follow-up appointment. He did not walk much during the winter and started walking. He mentions that he gets mild central chest discomfort when he 1st start walking that goes away quickly. Denies shortness of breath, orthopnea, paroxysmal nocturnal dyspnea, palpitations, dizziness, syncope, lower limb edema. He gained some weight because he was not exercising during the winter. 03/01/2019. Returns for follow-up appointment. Patient has not seen me for over a year because of switch in medical insurance. He is lately been admitting to dyspnea on exertion and chest pain. Describes heaviness central chest on ambulating 1 mi relieved by rest. Then when he walks another mild hegets another chest pain and then after that he states that he can walk for long distances without chest pain however the last 2-3 days the intensity of the pain is more associated with sweating and shortness of breath. Denies dizziness, syncope, lower limb edema, orthopnea, paroxysmal nocturnal dyspnea. He ran out of lisinopril 4 days ago and requesting that we refill his lisinopril. 03/08/2019. Returns for follow-up appointment to discuss stress test results. He underwent stress exercise nuclear stress test. He walked for about couple minutes before starting having chest pain and ST depression. Nuclear images small to medium size ischemia in the anterolateral, anterior territory. Continues to have chest pain on exertion at home. Associated with dyspnea. Denies dizziness, syncope. His father who is 97 years old is in the hospital now for hernia operation. Denies lower limb edema, orthopnea, paroxysmal nocturnal dyspnea. 04/12/2019. Returns for follow-up appointment with his daughter. Underwent cardiac catheterization at [facility] and there was a suspicion of ostial left main disease. The diagonal branch and ostial PDA improved compared to the catheterization in 2017. I refer this patient to [facility] and underwent stenting to the ostial left main coronary artery using 4 x 12 drug-eluting stent. Patient tolerated procedure well. He comes today for follow- up appointment and denies chest pain, shortness of breath, orthopnea, paroxysmal nocturnal dyspnea, dizziness, syncope. 09/27/2019.telephone visit. Overall he is doing very well. Denies chest pain, shortness of breath, orthopnea, paroxysmal nocturnal dyspnea, dizziness, syncope. He walks 4-5 miles 6 times per week. 03/27/2020-returns for follow-up appointment. He feels wonderful. He denies chest pain, shortness of breath, orthopnea, paroxysmal nocturnal dyspnea, dizziness, syncope, lower limb edema. Gained about 8 lb since last visit. 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 08/28/2020-returns for follow-up appointment with some period denies chest pain, shortness of breath, orthopnea, paroxysmal nocturnal dyspnea, dizziness, syncope. 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 He is physically active. He had asymptomatic COVID infection March 2020. 03/05/2021-returns for follow-up appointment with his son. Denies chest pain, shortness of breath, orthopnea, paroxysmal nocturnal dyspnea, dizziness, syncope, lower limb edema. He walks regularly. He tries to eat healthy. His last hemoglobin A1c was 7. Continues to follow-up with Endocrinology. 09/03/2021-returns for follow-up appointment with his son. Denies chest pain, shortness of breath, orthopnea, paroxysmal nocturnal dyspnea, dizziness, syncope, lower extremity edema. Gained 6 lb compared to last visit. Not exercising and planning to start walking when the weather gets better. 11/11/2022-returns for follow-up appointment. Lost 10 lb compared to last visit by being more active. 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 Denies chest pain, shortness of breath, lower extremity edema, dizziness, syncope, orthopnea paroxysmal nocturnal dyspnea. 05/12/2023-returns for follow-up appointment accompanied by his son. Denies chest pain, shortness of breath, dizziness, syncope, lower extremity edema. 03/01/2024-returns for follow-up appointment. 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 He gained 5 lb compared to last visit. Denies chest pain, shortness of breath, dizziness, syncope, lower extremity edema, palpitations MEDICAL HISTORY Past Medical History: Diagnosis Date Coronary artery disease Coronary artery disease Hyperlipidemia Hyperlipidemia Type 2 diabetes mellitus (HCC) Diabetes type 2 Past Surgical History: Procedure Laterality Date CARDIAC CATHETERIZATION CATARACT EXTRACTION, BILATERAL Social History Tobacco Use Smoking status: Never Smoker Smokeless tobacco: Never Used Substance Use Topics Alcohol use: No Drug use: No Family History Problem Relation Age of Onset Other Father Alive and well; Diabetes type II Mother Diabetes -Type 2; MEDICATIONS HOME MEDICATIONS : aspirin 81 mg enteric coated tablet atorvastatin (LIPITOR) 40 mg tablet blood-glucose meter (ONETOUCH ULTRA2) kit clopidogreL (PLAVIX) 75 mg tablet empagliflozin (Jardiance) 25 mg tablet ezetimibe (ZETIA) 10 mg tablet glimepiride (AMARYL) 2 mg tablet metFORMIN (GLUCOPHAGE) 850 mg tablet lisinopriL (PRINIVIL,ZESTRIL) 10 mg tablet lisinopriL (PRINIVIL,ZESTRIL) 20 mg tablet ALLERGIES Allergies Allergen Reactions Ozempic [Semaglutide] Dizziness REVIEW OF SYSTEMS Review of Systems Constitutional: Positive for weight gain. Negative for chills, fever and malaise/fatigue. HENT: Negative for congestion, nosebleeds and sore throat. Eyes: Negative for blurred vision, double vision, pain and photophobia. Cardiovascular: Negative for chest pain, claudication, dyspnea on exertion, leg swelling, near-syncope, orthopnea, palpitations, paroxysmal nocturnal dyspnea and syncope. Respiratory: Negative for cough, hemoptysis, shortness of breath, snoring, sputum production and wheezing. Endocrine: Negative for cold intolerance, heat intolerance and polyuria. Hematologic/Lymphatic: Negative for adenopathy and bleeding problem. Does not bruise/bleed easily. Skin: Negative for color change, itching and rash. Musculoskeletal: Negative for back pain, joint pain, joint swelling, muscle weakness and stiffness. Gastrointestinal: Negative for abdominal pain, diarrhea, nausea and vomiting. Genitourinary: Negative for dysuria, frequency and hematuria. Neurological: Negative for focal weakness, headaches, light-headedness, loss of balance, numbness, seizures and tremors. Psychiatric/Behavioral: Negative for depression and hallucinations. The patient is not nervous/anxious. Allergic/Immunologic: Negative for environmental allergies and hives. PHYSICAL EXAM Vitals BP 152/84 (BP Location: Right arm, Patient Position: Sitting) Pulse 69 Ht 175.3 cm (5' 9 ) Wt 97.6 kg (215 lb 1.6 oz) SpO2 96% BMI 31.76 kg/m?? Body mass index is 31.76 kg/m??. Physical Exam Constitutional: General: He is not in acute distress. Appearance: He is well-developed. HENT: Head: Normocephalic and atraumatic. Right Ear: External ear normal. Left Ear: External ear normal. Eyes: General: No scleral icterus. Left eye: No discharge. Conjunctiva/sclera: Conjunctivae normal. Neck: Thyroid: No thyromegaly. Cardiovascular: Rate and Rhythm: Normal rate and regular rhythm. Heart sounds: Normal heart sounds. No murmur heard. No friction rub. No gallop. Pulmonary: Effort: Pulmonary effort is normal. No respiratory distress. Breath sounds: Normal breath sounds. No wheezing or rales. Chest: Chest wall: No tenderness. Abdominal: General: There is no distension. Palpations: Abdomen is soft. There is no mass. Tenderness: There is no abdominal tenderness. Musculoskeletal: General: No tenderness or deformity. Cervical back: Normal range of motion and neck supple. Right lower leg: No edema. Left lower leg: No edema. Skin: General: Skin is warm. Findings: No erythema or rash. Neurological: Mental Status: He is alert and oriented to person, place, and time. Cranial Nerves: No cranial nerve deficit. Motor: No abnormal muscle tone. Psychiatric: Mood and Affect: Mood normal. Behavior: Behavior normal. LABS AND OTHER DIAGNOSTIC TESTS Lab Results Component Value Date WBC 7.8 04/03/2019 HGB 12.6 (L) 04/03/2019 HCT 38.0 (L) 04/03/2019 MCV 88.6 04/03/2019 Chemistry Component Value Date/Time SODIUM 139 09/16/2023 1154 POTASSIUM 4.3 09/16/2023 1154 CHLORIDE 100 09/16/2023 1154 CO2 26 09/16/2023 1154 BUNSER 21 09/16/2023 1154 CREATININE 1.00 09/16/2023 1154 GLUCOSE 233 (H) 09/16/2023 1154 Component Value Date/Time CALCIUM 9.8 09/16/2023 1154 ALKPHOS 72 09/16/2023 1154 AST 40 09/16/2023 1154 ALT 32 09/16/2023 1154 BILITOT 0.6 09/16/2023 1154 Lab Results Component Value Date CHOL 109 09/16/2023 CHOL 232 (H) 06/14/2014 CHOL 180 05/17/2013 Lab Results Component Value Date HDL 41 09/16/2023 HDL 40 06/14/2014 HDL 37 (L) 05/17/2013 Lab Results Component Value Date LDLCALC 46 09/16/2023 Lab Results Component Value Date TRIG 110 09/16/2023 TRIG 317 (H) 06/14/2014 TRIG 244 (H) 05/17/2013 Lipid panel August 2016. HDL 30, LDL 79, triglyceride 107. Lipid panel August 22, 2017. LDL 64, triglyceride 141, HDL 35. This lab was done at [facility] SCANNER SUPERVISOR: Cath (Left main is normal. LAD is normal. The diagonal 1 branch is this small to medium size and has 80% lesion in the mid segment. Left circumflex artery is free of disease. 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 Left anterior fascicular block) - 08/2016 Cardiac catheterization February 2019 at [facility]. Ostial left main appears to be diseased with negative IFR and IVS 5.2-5.4 millimeter sq. Diagonal branch 50%, ostial PDA 50%, left circumflex artery unremarkable. ASSESSMENT Diagnoses and all orders for this visit: Coronary artery disease involving [place] coronary artery of [place] heart without angina pectoris - lisinopriL (PRINIVIL,ZESTRIL) 20 mg tablet; Take 1 tablet (20 mg total) by mouth daily PLAN/RECOMMENDATIONS -in regards to coronary artery disease, he status post stenting of the left main coronary artery [id number]. Continue aspirin and Plavix indefinitely. Continue statin. Stress echocardiogram done April 2020 3- for ischemia. -in terms of blood pressure, blood pressure is high. He is less active at this time. Increase lisinopril from 10-20 mg daily. If blood pressure remains elevated consider adding amlodipine. -interns of hyperlipidemia, continue Lipitor 40 mg daily lipid panel done August 2023 LDL 46, HDL 41and triglycerides 110. Continue Zetia. -counseling done regarding importance of low-sodium diet, low sugar diet. He follows up with Dr. Márquez for diabetes. Hemoglobin A1c 7.25 December 2023. Continue Farxiga metformin Reuben Garcia MD Follow up in the office in 6 months. Reuben Garcia MD documented in this encounter Plan of Treatment Not on file documented as of this encounter Visit Diagnoses Diagnosis Coronary artery disease involving [place] coronary artery of [place] heart without angina pectoris documented in this encounter Discontinued Medications Medication Sig Discontinue Reason Start Date End Da te lisinopriL (PRINIVIL,ZESTRIL) 10 mg tabletIndications:Diaz ry artery disease involving [place] coronary artery of [place] heart without angina pectoris Take 1 tablet (10 mg total) by mouth daily Reorder 05/12/2023 03/01/2024 documented as of this encounter Care Teams Machine Engraver Relationship Specialty Start Date End Date Brian Vera MD [address] [address] PCP - General Internal Medicine 05/10/22 documented as of this encounter
--- OUTSIDE RECORDS SUMMARY | 2024-05-16 01:59 | XMS_ITS | Encounter Summary ---
Author Organization [facility] Healthcare Address [address] [place] [address] Care Team Providers Care Settlement Technician Name Role Phone Brian Vera MD Primary Care Provider +1- [phone] Reason for Visit * Reason Onset Date Comments Appointment 12/31/2023 Encounter Details Date Type Department Care Team (Late st Contact Info) Description 12/31/2023 Telephone [facility] Medical Group Diabetes and Endocrinology [address] [place] [id number] Tessa Pham CONCRETE VIBRATOR OPERATOR [address] 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 Spoke with the pt and informed him that his appt scheduled1:30pm would need to be rescheduled. Pt voiced understanding and rescheduled with Tessa on 01/07/24at 9:30am documented in this encounter Plan of Treatment Not on file documented as of this encounter Visit Diagnoses Not on filedocumented in this encounter Care Teams Settlement Technician Relationship Specialty Start Date End Date Brian Vera MD [address] [address] PCP - General Internal Medicine 05/10/22 documented as of this encounter
--- OUTSIDE RECORDS SUMMARY | 2024-05-16 01:59 | XMS_ITS | Encounter Summary ---
Author Organization [facility] Healthcare Address [address] [place] [address] Care Team Providers Care Save All Operator Name Role Phone Brian Vera MD Primary Care Provider +1- [phone] Reason for Visit * Reason Onset Date Comments Hypertension 03/12/2024 Encounter Details Date Type Department Care Team (Late st Contact Info) Description 03/12/[address] 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 Gender Identity Not on file Sexual Orientation Not on file documented as of this encounter Ordered Prescriptions Prescription Sig Dispense Quantity Refills Last Filled Start Date End Date amLODIPine (NORVASC) 10 mg tablet Take 1 tablet (10 mg total) by mouth daily 30 tablet 11 03/26/2024 03/26/2025 amLODIPine (NORVASC) 5 mg tablet Take 1 tablet (5 mg total) by mouth daily 30 tablet 03/12/2024 03/26/2024 documented in this encounter Miscellaneous Notes * Addendum Note - Shaye Cummings RN - 03/26/2024 1:25 PM CDTAddended by: SHAYE CUMMINGS on: 03/26/2024 01:25 PM Modules accepted: Orders * Telephone Encounter - Shaye Cummings RN - 03/26/2024 1:24 PM CDT Spoke with pt, reviewed message from JF and he verbalized understanding. Sent new Rx to pharm. * Telephone Encounter - Reuben Garcia MD - 03/26/2024 1:08 PM CDT Increase amlodipine to 10 mg daily and keep blood pressure log and call me in 2 weeks if blood pressure remains elevated. Avoid salt intake * Telephone Encounter - Shaye Cummings RN - 03/26/2024 1:01 PM CDT Will forward to . Please advise, thank you! * Telephone Encounter - Orquidea Phelps - 03/26/2024 12:39 PM CDT Pt states his BP has still been elevated since adding Amlodipine. Systolic BP is staying in 150s. Requesting call back to discuss. Contact: * Telephone Encounter - Shaye Cummings RN - 03/12/2024 12:56 PM CDT Spoke with pts son, reviewed message from JF and he verbalized understanding. Sent Rx to pharm and advised him to cont checking BP for the next couple of weeks and if no improvement in BP please callus back and we can further discuss. * Telephone Encounter - Reuben Garcia MD - 03/12/2024 12:50 PM CDT Please add amlodipine 5 mg daily * Telephone Encounter - Shaye Cummings RN - 03/12/2024 10:08 AM CDT Will forward pt message to JF. Please advise, thank you! *your last OV note: -in terms of blood pressure, blood pressure is high. He is less active at this time. Increase lisinopril from 10-20 mg daily. If blood pressure remains elevated consider adding amlodipine. * Telephone Encounter - Kendal Vergara. - 03/12/2024 9:47 AM CDT Lani (pts son) calling about patients elevated BP. Was seen on 03/01 by JERRY and BP was elevated then. JERRY increased lisinopril from 10 mg to 20 mg. Lani stating that patients BP has still been in the 140's with the med change, diet and exercise. Was told by JERRY that if BP remained elevated then hewould consider adding amlodipine to medication regimen. Requesting a call back to discuss. Please advise. Thank you. Contact [phone] documented in this encounter Plan of Treatment Not on file documented as of this encounter Visit Diagnoses Not on filedocumented in this encounter Discontinued Medications Medication Sig Discontinue Reason Start Date End Da te amLODIPine (NORVASC) 5 mg tablet Take 1 tablet (5 mg total) by mouth daily Reorder 03/12/2024 03/26/2024 documented as of this encounter Care Teams Save All Operator Relationship Specialty Start Date End Date Brian Vera MD [address] [facility] [address] [place] [address] PCP - General Internal Medicine 05/10/22 documented as of this encounter
--- OUTSIDE RECORDS SUMMARY | 2024-05-16 02:00 | XMS_ITS | Encounter Summary ---
Author Organization [facility] Healthcare Address [address] [place] [address] Care Team Providers Care Baker Paint Name Role Phone Brian Vera MD Primary Care Provider +1- [phone] Encounter Details Date Type Department Care Team (Late st Contact Info) Description 04/22/2023 Telephone [facility] Medical Group Diabetes and Endocrinology [address] [place] [phone] Aaron Már[place] [address] [facility] [address] [place], [place] [id number] Social History Tobacco Use Types Packs/Day Years Used Date Smoking Tobacco: Never Smokeless Tobacco: Never Alcohol Use Standard Drinks/Week Comments No 0 (1 standard drink = 0.6 oz pur e alcohol) PHQ-2 Answer Date Recorded PHQ-2 Total Score (If total score is 3 or more points, staff should administer the PHQ-9) 0 06/25/2022 Sex and Gender Information Value Date Recorded Sex Assigned at Not on file 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 RUCTIONAL TECHNOLOGY SPECIALIST documented in this encounter Plan of Treatment Not on file documented as of this encounter Visit Diagnoses Not on filedocumented in this encounter Care Teams Baker Paint Relationship Specialty Start Date End Date Brian Vera MD [address] [facility] [address] [place] [id number] PCP - General Internal Medicine 05/10/22 documented as of this encounter
--- OUTSIDE RECORDS SUMMARY | 2024-05-16 02:00 | XMS_ITS | Encounter Summary ---
Author Organization [facility] Address [address] [place] [address] Care Team Providers Care Motor Coach Bus Driver Name Role Phone Brian Vera MD Primary Care Provider [phone]- [phone] Reason for Visit * Reason Comments Follow-up 8 mo Encounter Details Date Type Department Care Team (Late st Contact Info) Description 05/10/2022 2:30 PM BUTTON DECORATING MACHINE OPERATOR Office Visit [facility] Cardiology [address] [facility] [address] [place] [address] Tessa Roman NP [address] [facility] [address] [place] [address] Coronary artery disease involving ch[place] coronary artery of chul[place] heart without angina pectoris (Primary Dx); Hypertension associated with diabetes (HCC); Type 2 diabetes mellitus with hyperglycemia, without long-term current use of insulin (CMS/HCC) (HCC) Social History Tobacco Use Types Packs/Day Years Used Date Smoking Tobacco: Never Smokeless Tobacco: Never Tobacco Cessation:Counseling Given: Not Answered Alcohol Use Standard Drinks/Week Comments No 0 (1 standard drink = 0.6 oz pur e alcohol) PHQ-2 Answer Date Recorded PHQ-2 Total Score (If total score is 3 or more points, staff should administer the PHQ-9) 0 07/27/2020 Sex and Gender Information Value Date Recorded Sex Assigned at Not on file Legal Sex Male 10:13 AM BUTTON DECORATING MACHINE OPERATOR Gender Identity Not on file Sexual Orientation Not on file documented as of this encounter Last Filed Vital Signs Vital Sign Reading Time Taken Comments Blood Pressure 144/74 05/10/2022 3:15 PM BUTTON DECORATING MACHINE OPERATOR Pulse 70 05/10/2022 3:15 PM BUTTON DECORATING MACHINE OPERATOR Temperature - - Respiratory Rate - - Oxygen Saturation 97% 05/10/2022 2:55 PM BUTTON DECORATING MACHINE OPERATOR Inhaled Oxygen Concentration - - Weight 99.8 kg (220 lb) 05/10/2022 2:55 PM BUTTON DECORATING MACHINE OPERATOR Height 175.3 cm (5' 9 ) 05/10/2022 2:55 PM BUTTON DECORATING MACHINE OPERATOR Body Mass Index 32.49 05/10/2022 2:55 PM BUTTON DECORATING MACHINE OPERATOR documented in this encounter Ordered Prescriptions Prescription Sig Dispense Quantity Refills Last Filled Start Date End Date empagliflozin (Jardiance) 25 mg tabletIndications: Type 2 diabetes mellitus with hyperglycemia, without long-term current use of insulin (HCC) Take 1 tablet (25 mg total) by mouth daily 90 tablet 3 05/10/2022 06/25/2022 documented in this encounter Progress Notes * Tessa Roman NP - 05/10/2022 2:30 PM CST Images from the original note were not included. [facility] Cardiology [address] [place] [address] Date of Visit: 05/10/2022 Patient ID: Jerald Whipple 1960 Chief Complaint Patient presents with Follow-up 8 mo Jerald Whipple is a 61 y.o. male who is an established patient of Dr. Garcia with a history of coronary artery disease coming to the office for routine follow-up. History of Present Illness: Jerald Whipple is a 61 y.o. malewith past medical history of hypertension, hyperlipidemia, diabetestype 2, who was discharged from the hospital [...] with his daughter. Underwent cardiac catheterization at [facility] and there was a suspicion of ostial left main disease. The diagonal branch and ostial PDA improved compared to the catheterization in 2017. [facility]ing to the ostial left [...] start walking when the weather gets better. 05/10/2022 office visit with ULTRA SOUND TECHNICIAN- he is here for routine follow-up accompanied by his son. Neither of them have any concerns. He denies any chest pain. He thinks his blood pressures high right now because he had a salty meal before coming in. 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 He states he plans to go to the gym to swim over the winter. Records that I personally reviewed on the day of this visit include: (the interpretation is outlined in the HPI above) 09/03/[address] Garcia I have also reviewed: allergies, current medications, past family history, past medical history, past social history, past surgical history and problem list Medical History: Past Medical History: Diagnosis Date Coronary artery disease Coronary artery disease Hyperlipidemia Hyperlipidemia Type 2 diabetes mellitus (HCC) Diabetes type 2 Past Surgical History: Procedure Laterality Date CARDIAC CATHETERIZATION CATARACT EXTRACTION, BILATERAL Social History Tobacco Use Smoking Status Never Smokeless Tobacco Never Social History Tobacco Use Smoking status: Never Smokeless tobacco: Never Substance and Sexual Activity Drug use: No Sexual activity: Defer Alcohol Use: Not on file Family History Problem Relation Age of Onset Other Father Alive and well; Diabetes type II Mother Diabetes -Type 2; Review of Systems Constitutional: Positive for weight gain. Cardiovascular: Negative for chest pain, dyspnea on exertion, near-syncope, palpitations and syncope. Vital Signs: BP 144/74 (BP Location: Left arm, Patient Position: Sitting) Pulse 70 Ht 175.3 cm (5' 9 ) Wt 99.8 kg (220 lb) SpO2 97% BMI 32.49 kg/m?? Physical Exam Constitutional: General: He is not in acute distress. Appearance: He is well-developed. HENT: Head: Normocephalic and atraumatic. Nose: Comments: Wearing a mask Eyes: General: No scleral icterus. Conjunctiva/sclera: Conjunctivae normal. Neck: Vascular: No JVD. Trachea: No tracheal deviation. Cardiovascular: Rate and Rhythm: Normal rate and regular rhythm. Heart sounds: Normal heart sounds. No murmur heard. Pulmonary: Effort: Pulmonary effort is normal. No respiratory distress. Breath sounds: Normal breath sounds. Skin: General: Skin is warm and dry. Neurological: Mental Status: He is alert and oriented to person, place, and time. Psychiatric: Mood and Affect: Mood normal. Behavior: Behavior normal. No Known Allergies Current Outpatient Medications: aspirin (Aspir-81) 81 mg enteric coated tablet, Take 1 tablet (81 mg total) by mouth daily, Disp: 90 tablet, Rfl: 3 atorvastatin (LIPITOR) 40 mg tablet, Take 1 tablet (40 mg total) by mouth daily, Disp: 90 tablet, Rfl: 3 blood-glucose meter (ONETOUCH ULTRA2) kit, check glucose once a day, Disp: 1 kit, Rfl: 0 clopidogreL (PLAVIX) 75 mg tablet, Take 1 tablet (75 mg total) by mouth daily, Disp: 90 tablet, Rfl: 3 ezetimibe (ZETIA) 10 mg tablet, TAKE 1 TABLET(10 MG) BY MOUTH DAILY, Disp: 90 tablet, Rfl: 3 lisinopriL (PRINIVIL,ZESTRIL) 10 mg tablet, Take 1 tablet (10 mg total) by mouth daily, Disp: 90 tablet, Rfl: 3 metFORMIN (GLUCOPHAGE) 850 mg tablet, Take 1 tablet (850 mg total) by mouth 2 (two) times a day with meals, Disp: 180 tablet, Rfl: 3 empagliflozin (Jardiance) 25 mg tablet, Take 1 tablet (25 mg total) by mouth daily, Disp: 90 tablet, Rfl: 3 Lab Results Component Value Date POTASSIUM 3.8 04/02/2019 BUNSER 14 04/02/2019 CREATININE 0.86 04/02/2019 CHOL 232 (H) 06/14/2014 TRIG 317 (H) 06/14/2014 LDL 129 06/14/2014 HDL 40 06/14/2014 Lab Results Component Value Date WBC 7.8 04/03/2019 HGB 12.6 (L) 04/03/2019 HCT 38.0 (L) 04/03/2019 MCV 88.6 04/03/2019 No results found for this or any previous visit (from the past 4 hour(s)). Assessment: Diagnoses and all orders for this visit: Coronary artery disease involving [place] coronary artery of [place] heart without angina pectoris (Primary) Hypertension associated with diabetes (HCC) Type 2 diabetes mellitus with hyperglycemia, without long-term current use of insulin ([facility]) (HCC) - empagliflozin (Jardiance) 25 mg tablet; Take 1 tablet (25 mg total) by mouth daily Plan/Recommendations: Coronary artery disease appears stable. I encouraged him to exercise over the winter, and water exercise would be great. Continue medical therapy with aspirin, clopidogrel, atorvastatin and ezetimibe. He reports some blood pressure is typically well controlled. Today's reading is significantly higher than his previous reading and he attributes it to eating a salty meal earlier today. I advised himto check it regularly at home over the next week or so to make sure that it remains under control. If he is consistently seeing elevated readings at home call the office. He verbalized understanding and agreed. For now continue lisinopril the same. He has a history of diabetes. Continue Jardiance and metformin. Return to the office to see Dr. Garcia in 6 months. Call us sooner with questions or concerns. 05/10/2022 SHANIKA Simpson- Nurse Practitioner [place] [facility] [place] This note is dictated and transcribed using [employer] Direct Software. Lockstitch Machine Operator variancesmay occur. Despite proofreading, typographical errors may occur. ON DECORATING MACHINE OPERATOR documented in this encounter Plan of Treatment Not on file documented as of this encounter Visit Diagnoses Diagnosis Coronary artery disease involving [place] coronary artery of [place] heart without angina pectoris- Primary Hypertension associated with diabetes (HCC) Unspecified essential hypertension Type 2 diabetes mellitus with hyperglycemia, without long-term current use of insulin (HCC) documented in this encounter Discontinued Medications Medication Sig Discontinue Reason Start Date End Da te empagliflozin (Jardiance) 25 mg tabletIndications:Type 2 diabetes mellitus with hyperglycemia, without long-term current use of insulin (HCC) Take 1 tablet (25 mg total) by mouth daily Reorder 09/03/2021 05/10/2022 documented as of this encounter Care Teams Motor Coach Bus Driver Relationship Specialty Start Date End Date Brian Vera MD [address] [place] [address] PCP - General Internal Medicine 05/10/22 documented as of this encounter
--- OUTSIDE RECORDS SUMMARY | 2024-05-16 02:00 | XMS_ITS | Encounter Summary ---
Author Organization [facility] Address [address] [facility] [place] [address] Care Team Providers Care Solar Site Assessment Specialist Name Role Phone Brian Vera MD Primary Care Provider [phone]- [phone] Reason for Visit * Reason Comments Diabetes Type 2 Encounter Details Date Type Department Care Team (Latest Contact Info) Description 06/25/2022 2:45 PM TIGHTENER Office Visit [facility] Diabetes and Endocrinology [address] [place] [phone] Aaron Már[place] [address] [facility] [address] [place], [place] [id number] Hyperlipidemia associated with type 2 diabetes mellitus (HCC) (Primary Dx); Hypertension associated with diabetes (HCC); Type 2 diabetes mellitus with hyperglycemia, without long-term current use of insulin (CMS/HCC) (HCC); Coronary artery disease involving [place] coronary artery of [place] heart without angina pectoris Social History Tobacco [...] on file Legal Sex Male 10:13 AM TIGHTENER Gender Identity Not on file Sexual Orientation Not on file documented as of this encounter Last Filed Vital Signs Vital Sign Reading Time Taken Comments Blood Pressure 132/84 06/25/2022 3:00 PM TIGHTENER Pulse 75 06/25/2022 3:00 PM TIGHTENER Temperature - - Respiratory Rate 18 06/25/2022 3:00 PM TIGHTENER Oxygen Saturation - - Inhaled Oxygen Concentration - - Weight 95.8 kg (211 lb 3.2 oz) 06/25/2022 3:00 P M TIGHTENER Height 175.3 cm (5' 9 ) 06/25/2022 3:00 PM TIGHTENER Body Mass Index 31.19 06/25/2022 3:00 PM TIGHTENER documented in this encounter Patient Instructions * Patient Instructions* Aaron Márquez MD - 06/25/2022 2:45 PM TIGHTENER Continue working on diet and exercise Continue with your current meds Start Glimepiride 2 mg daily TENER documented in this encounter Ordered Prescriptions Prescription Sig Dispense Quantity Refills Last Filled Start Date End Date lisinopriL (PRINIVIL,ZESTRIL) 10 mg tabletIndications: Coronary artery disease involving [place] coronary artery of [place] heart without angina pectoris Take 1 tablet (10 mg total) by mouth daily 90 tablet 3 06/25/2022 3 atorvastatin (LIPITOR) 40 mg tabletIndications: Coronary artery disease involving [place] coronary artery of [place] river heart without angina pectoris Take 1 tablet (40 mg total) by mouth daily 90 tablet 3 06/25/2022 3 empagliflozin (Jardiance) 25 mg tabletIndications: Type 2 diabetes mellitus with hyperglycemia, without long-term current use of insulin (HCC) Take 1 tablet (25 mg total) by mouth daily 90 tablet 3 06/25/2022 3 metFORMIN (GLUCOPHAGE) 850 mg tabletIndications: Type 2 diabetes mellitus with hyperglycemia, without long-term current use of insulin (HCC) Take 1 tablet (850 mg total) by mouth 2 (two) times a day with meals 180 tablet 3 06/25/2022 3 glimepiride (AMARYL) 2 mg tabletIndications: type 2 diabetes mellitus Take 1 tablet (2 mg total) by mouth daily before breakfast 30 tablet 11 06/25/2022 3 documented in this encounter Progress Notes * Aaron Márquez MD - 06/25/2022 2:45 PM CST Subjective/Objective Patient ID: Jerald Whipple is a 61 y.o. male. Chief Complaint Diabetes Type 2 HPI DM Follow up. Diabetes complications and/or comorbidity includes : CAD Past Hba1c : Component Latest Ref Rng & Units 07/27/2020 12/14/2020 07/03/2021 06/25/2022 Hgb A1C % 7.3 7.2 7.8 8.5 % Today Hba1c : Recent Labs Lab Units 06/25/22 1520 HEMOGLOBIN A1C % 8.5 % Current DM meds: Jardiance 25 mg daily Metformin 850 mg bid Could not tolerate ozempic BG monitoring : not regularly Hypoglycemic events : none reported Physical activity routine , changes since last OV : walks regularly and swims, alternating , most days of the week Dietary habits , changes since last OV : no changes, eats more more vegetables and Lipid profile within the last year : No results found for requested labs within last 92844 hours. 09/03/2021: Cholesterol, POC 114; HDL, POC 29; LDL, Direct, POC 58; Non-HDL Cholesterol, POC 85; Triglycerides, POC 133 Statin therapy : Atorvastatin ; also on Zeti a Renal: currently on VIKY-I / ARB???s with : Lisinopril Microalbumin: No results found for: ALBCREATRATU Lab Results Component Value Date MALBCRTRAT 2 06/14/2014 GFR : Lab Results Component Value Date EGFR >60 05/16/2015 No results found for: GFRNAA Date of last eye examination: six months ago Review of Systems Constitutional: Negative for activity change and fatigue. HENT: Negative for congestion, hearing loss, trouble swallowing and voice change. Eyes: Negative for redness and visual disturbance. Respiratory: Negative for apnea, cough and chest tightness. Cardiovascular: Negative for chest pain, palpitations and leg swelling. Gastrointestinal: Negative for abdominal distention, abdominal pain, constipation, diarrhea and nausea. Endocrine: Negative for cold intolerance, heat intolerance, polydipsia, polyphagia and polyuria. Genitourinary: Negative for difficulty urinating, frequency and urgency. Musculoskeletal: Negative for arthralgias, back pain, gait problem and neck pain. Skin: Negative for color change. Allergic/Immunologic: Negative for food allergies. Neurological: Negative for dizziness, tremors, syncope, weakness, light- headedness and headaches. Hematological: Negative for adenopathy. Psychiatric/Behavioral: Negative for sleep disturbance. The patient is not nervous/anxious. Physical Exam Constitutional: Appearance: He is well-developed. HENT: Head: Normocephalic and atraumatic. Eyes: Conjunctiva/sclera: Conjunctivae normal. Pupils: Pupils are equal, round, and reactive to light. Neck: Thyroid: No thyroid mass or thyromegaly. Trachea: Trachea and phonation normal. Cardiovascular: Rate and Rhythm: Normal rate and regular rhythm. Heart sounds: Normal heart sounds. No murmur heard. Pulmonary: Effort: Pulmonary effort is normal. Breath sounds: Normal breath sounds. Abdominal: General: There is no distension. Palpations: Abdomen is soft. Musculoskeletal: General: Normal range of motion. Skin: General: Skin is warm. Neurological: Mental Status: He is alert and oriented to person, place, and time. Motor: Motor function is intact. Psychiatric: Behavior: Behavior normal. Assessment/Plan Diagnoses and all orders for this visit: Hyperlipidemia associated with type 2 diabetes mellitus ([facility]) (E11.69, E78.5) (Primary) Assessment & Plan: Chronic, well controlled Low fat Low cholesterol diet Exercise Continue statin therapy with Atorvastatin and Zetia Update lipid profile Hypertension associated with diabetes ([facility]) (E11.59, I15.2) Assessment & Plan: Chronic, well controlled Update MA, GFR Orders: - Comprehensive metabolic panel; Future - Albumin Creatinine Ratio, Urine; Future Type 2 diabetes mellitus with hyperglycemia, without long-term current use of insulin ([facility]) ([facility]) (E11.65) Assessment & Plan: Chronic , uncontrolled Continue working on diet and exercise Add Glimepiride 2 mg daily Continue Jardiance and Metformin Orders: - POCT hemoglobin A1c - POCT glucose - metFORMIN (GLUCOPHAGE) 850 mg tablet; Take 1 tablet (850 mg total) by mouth 2 (two) times a day with meals - empagliflozin (Jardiance) 25 mg tablet; Take 1 tablet (25 mg total) by mouth daily Coronary artery disease involving salt river coronary artery of salt river heart without angina pectoris (I25.10) - atorvastatin (LIPITOR) 40 mg tablet; Take 1 tablet (40 mg total) by mouth daily - lisinopriL (PRINIVIL,ZESTRIL) 10 mg tablet; Take 1 tablet (10 mg total) by mouth daily Other orders - glimepiride (AMARYL) 2 mg tablet; Take 1 tablet (2 mg total) by mouth daily before breakfast TENER documented in this encounter Miscellaneous Notes * Assessment & Plan Note - Aaron Márquez MD - 06/25/2022 3:37 PM CSTAssociated Problem(s): Type 2 diabetes mellitus (HCC) Chronic , uncontrolled Continue working on diet and exercise Add Glimepiride 2 mg daily Continue Jardiance and Metformin TENER * Assessment & Plan Note - Aaron Márquez MD - 06/25/2022 3:37 PM CSTAssociated Problem(s): Hypertension associated with diabetes (HCC) Chronic, well controlled Update MA, GFR TENER * Assessment & Plan Note - Aaron Márquez MD - 06/25/2022 3:34 PM CSTAssociated Problem(s): Hyperlipidemia associated with type 2 diabetes mellitus (HCC) Chronic, well controlled Low fat Low cholesterol diet Exercise Continue statin therapy with Atorvastatin and Zetia Update lipid profile TENER * Addendum Note - Marycarmen Zimmer - 06/25/2022 2:45 PM CSTAddended by: MARYCARMEN ZIMMER on: 06/25/2022 03:59 PM Modules accepted: Orders TENER documented in this encounter Plan of Treatment Not on file documented as of this encounter Procedures Procedure Name Priority Date/Time Associated Diagnosis Comments POCT HEMOGLOBIN A1C Routine 06/25/2022 3 :20 PM TIGHTENER Type 2 diabetes mellitus with hyperglycemia, without long-term current use of insulin ([facility]) ([facility]) POCT GLUCOSE Routine 06/25/2022 3:20 PM TIGHTENER Type 2 diabetes mellitus with hyperglycemia, without long-term current use of insulin ([facility]) ([facility]) documented in this encounter Results * (ABNORMAL) Comprehensive metabolic panel (06/25/2022 3:59 PM TIGHTENER) Sodium 136 135 - 145 mmol/L [facility] Potassium, pl 4.4 3.3 - 4.9 mmol/L [facility] Chloride 98 97 - 110 mmol/L [facility] CO2 27 22 - 32 mmol/L [facility] Anion gap 11 2 - 15 mmol/L [facility] BUN 22 8 - 25 mg/dL [facility] Creatinine 1.00 0.80 - 1.30 mg/dL [facility] Glucose 126 70 - 199 mg/dL [facility] Comment: [...] classification and Diagnosis of Diabetes Diabetes Care 2021; 46: S19-S40. Current interpretive data was last revised 2022. Calcium 9.7 8.5 - 10.3 mg/dL [facility] Bilirubin, total 0.4 0.1 - 1.2 mg/dL [facility] Protein, pl 8.1 6.5 - 8.5 g/dL [facility] Albumin 5.1(H) 3.5 - 5.0 g/dL [facility] Alk phos 93 40 - 130 Units/L [facility] ALT 21 7 - 55 Units/L [facility] AST 26 10 - 50 Units/L [facility] Blood 06/25/2022 3:59 PM TIGHTENER 06/25/2022 6:34 PM TIGHTENER us Aaron Márquez MD LAB BLOOD ORDERABLES Final Resul t Performing Organization Address [facility] de Phone Number [facility] [address] [facility] [address] [place] [address] * Albumin Creatinine Ratio, Urine (06/25/2022 3:59 PM TIGHTENER) Albumin Ur <12.0 mg/L [facility] Comment: Interpretive Data No reference range established. Current interpretive data was last revised 2018. Creatinine Ur 42.9 mg/dL [facility] Comment: Interpretive Data No reference range established. Current interpretive data was last revised 2018. Albumin Creatinine Ratio, Ur <28 1 - 29 mg/g [facility] Urine 06/25/2022 3:59 PM TIGHTENER 06/25/2022 6:34 PM TIGHTENER us Aaron Márquez MD LAB URINE ORDERABLES Final Resul t Performing Organization Address [facility] de Phone Number [facility] [address] [address] [place] [address] [place] [address] * POCT glucose (06/25/2022 3:20 PM TIGHTENER) Glucose Blood, POC 136 mg/dL Blood 06/25/2022 3:20 PM TIGHTENER us Aaron Márquez MD POINT OF CARE TEST ORDERABLES Fi nal Result * POCT hemoglobin A1c (06/25/2022 3:20 PM TIGHTENER) Hemoglobin A1C, POC 8.5 % % Blood 06/25/2022 3:20 PM TIGHTENER us Aaron Márquez MD POINT OF CARE TEST ORDERABLES Fi nal Result documented in this encounter Visit Diagnoses Diagnosis Hyperlipidemia associated with type 2 diabetes mellitus (HCC)- Primary Hypertension associated with diabetes (HCC) Unspecified essential hypertension Type 2 diabetes mellitus with hyperglycemia, without long-term current use of insulin (HCC) Coronary artery disease involving [place] coronary artery of [place] river heart without angina pectoris documented in this encounter Discontinued Medications Medication Sig Discontinue Reason Start Date End Da te metFORMIN (GLUCOPHAGE) 850 mg tabletIndications:Type 2 diabetes mellitus with hyperglycemia, without long-term current use of insulin (HCC) Take 1 tablet (850 mg total) by mouth 2 (two) times a day with meals Reorder 09/03/2021 06/25/2022 atorvastatin (LIPITOR) 40 mg tabletIndications:Diaz ry artery disease involving [place] coronary artery of [place] heart without angina pectoris Take 1 tablet (40 mg total) by mouth daily Reorder 09/03/2021 06/25/2022 empagliflozin (Jardiance) 25 mg tabletIndications:Type 2 diabetes mellitus with hyperglycemia, without long-term current use of insulin (HCC) Take 1 tablet (25 mg total) by mouth daily Reorder 05/10/2022 06/25/2022 lisinopriL (PRINIVIL,ZESTRIL) 10 mg tabletIndications:Diaz ry artery disease involving [place] coronary artery of [place] river heart without angina pectoris Take 1 tablet (10 mg total) by mouth daily Reorder 09/03/2021 06/25/2022 documented as of this encounter Care Teams Solar Site Assessment Specialist Relationship Specialty Start Date End Date Brian Vera MD [address] [place] [address] PCP - General Internal Medicine 05/10/22 documented as of this encounter
--- OUTSIDE RECORDS SUMMARY | 2024-05-16 02:00 | XMS_ITS | Encounter Summary ---
Author Organization [facility] Address [address] [place] [address] Care Team Providers Care Farm Assistant Name Role Phone Reuben Garcia MD Primary Care Provid er Reason for Visit * Reason Comments Follow-up 6 mo, Hypertension Hyperlipidemia Coronary Artery Disease Encounter Details Date Type Department Care Team (Late st Contact Info) Description 09/03/2021 9:00 AM CDT Office Visit [facility] Cardiology [address] [place] [address] Reuben Garcia MD [address] [place] [address] [phone] Hypertension associated with diabetes (HCC) (Primary Dx); Hyperlipidemia associated with type 2 diabetes mellitus (HCC); Coronary artery disease involving akutan coronary artery of akut[place] heart without angina pectoris; Type 2 diabetes mellitus with hyperglycemia, without [...] on file 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 Gender Identity Not on file Sexual Orientation Not on file documented as of this encounter Last Filed Vital Signs Vital Sign Reading Time Taken Comments Blood Pressure 118/76 09/03/2021 8:51 AM CDT Pulse 70 09/03/2021 8:51 AM CDT Temperature - - Respiratory Rate - - Oxygen Saturation 97% 09/03/2021 8:51 AM CDT Inhaled Oxygen Concentration - - Weight 96.3 kg (212 lb 4.8 oz) 09/03/2021 8:51 A M CDT Height 175.3 cm (5' 9 ) 09/03/2021 8:51 AM CDT Body Mass Index 31.35 09/03/2021 8:51 AM CDT documented in this encounter Ordered Prescriptions Prescription Sig Dispense Quantity Refills Last Filled Start Date End Date aspirin (-81) 81 mg enteric coated tabletIndications: Coronary artery disease involving akutan coronary artery of akutan heart without angina pectoris Take 1 tablet (81 mg total) by mouth daily 90 tablet 3 09/03/2021 07/12/2022 metFORMIN (GLUCOPHAGE) 850 mg tabletIndications: Type 2 diabetes mellitus with hyperglycemia, without long-term current use of insulin ([facility]) Take 1 tablet (850 mg total) by mouth 2 (two) times a day with meals 180 tablet 3 09/03/2021 06/25/2022 empagliflozin (Jardiance) 25 mg tabletIndications: Type 2 diabetes mellitus with hyperglycemia, without long-term current use of insulin ([facility]) Take 1 tablet (25 mg total) by mouth daily 90 tablet 3 09/03/2021 05/10/2022 lisinopriL (PRINIVIL,ZESTRIL) 10 mg tabletIndications: Coronary artery disease involving ak[place] coronary artery of ak[place] heart without angina pectoris Take 1 tablet (10 mg total) by mouth daily 90 tablet 3 09/03/2021 06/25/2022 clopidogreL (PLAVIX) 75 mg tabletIndications: Coronary artery disease involving ak[place] coronary artery of ak[place] heart without angina pectoris Take 1 tablet (75 mg total) by mouth daily 90 tablet 3 09/03/2021 10/17/2022 ezetimibe (ZETIA) 10 mg tabletIndications: Hyperlipidemia associated with type 2 diabetes mellitus (HCC) Take 1 tablet (10 mg total) by mouth daily 90 tablet 3 09/03/2021 09/12/2021 atorvastatin (LIPITOR) 40 mg tabletIndications: Coronary artery disease involving akut[place] coronary artery of akut[place] heart without angina pectoris Take 1 tablet (40 mg total) by mouth daily 90 tablet 3 09/03/2021 06/25/2022 documented in this encounter Progress Notes * Reuben Garcia MD - 09/03/2021 9:00 AM CDT [facility] DATE OF VISIT: 09/03/2021 CHIEF COMPLAINT Chief Complaint Patient presents with ??? Follow-up 6 mo, ??? Hypertension ??? Hyperlipidemia ??? Coronary Artery Disease CAD HPI Jerald Whipple is a 60 y.o. male with past medical history of [...] with his daughter. Underwent cardiac catheterization at [facility] and there was a suspicion of ostial left main disease. The diagonal branch and ostial PDA improved compared to the catheterization in 2017. [facility] to the ostial left [...] start walking when the weather gets better. MEDICAL HISTORY Past Medical History: Diagnosis Date ??? Coronary artery disease Coronary artery disease ??? Hyperlipidemia Hyperlipidemia ??? Type 2 diabetes mellitus (HCC) Diabetes type 2 Past Surgical History: Procedure Laterality Date ??? CARDIAC CATHETERIZATION ??? CATARACT EXTRACTION, BILATERAL Social History Tobacco Use ??? Smoking status: Never Smoker ??? Smokeless tobacco: Never Used Substance Use Topics ??? Alcohol use: No ??? Drug use: No Family History Problem Relation Age of Onset ??? Other Father Alive and well; ??? Diabetes type II Mother Diabetes -Type 2; MEDICATIONS HOME MEDICATIONS : blood-glucose meter (ONETOUCH ULTRA2) kit aspirin (ASPIR-81) 81 mg tablet atorvastatin (LIPITOR) 40 mg tablet clopidogreL (PLAVIX) 75 mg tablet Jardiance 25 mg tablet lisinopriL (PRINIVIL,ZESTRIL) 10 mg tablet metFORMIN (GLUCOPHAGE) 850 mg tablet aspirin (Aspir-81) 81 mg enteric coated tablet atorvastatin (LIPITOR) 40 mg tablet clopidogreL (PLAVIX) 75 mg tablet empagliflozin (Jardiance) 25 mg tablet ezetimibe (ZETIA) 10 mg tablet lisinopriL (PRINIVIL,ZESTRIL) 10 mg tablet metFORMIN (GLUCOPHAGE) 850 mg tablet ezetimibe (ZETIA) 10 mg tablet semaglutide (Ozempic) 0.25 mg or 0.5 mg(2 mg/1.5 mL) pen injector injection ALLERGIES No Known Allergies REVIEW OF SYSTEMS Review of Systems Constitutional: Negative for chills, fever and malaise/fatigue. HENT: [...] allergies and hives. PHYSICAL EXAM Vitals BP 118/76 (BP Location: Right arm, Patient Position: Sitting) Pulse 70 Ht 175.3 cm (5' 9 ) Wt 96.3 kg (212 lb 4.8 oz) SpO2 97% BMI 31.35 kg/m?? Body mass index is 31.35 kg/m??. Physical Exam Constitutional: General: He is [...] 88.6 04/03/2019 Chemistry Component Value Date/Time SODIUM 137 04/02/2019 1846 POTASSIUM 3.8 04/02/2019 1846 CHLORIDE 103 04/02/2019 1846 CO2 26 04/02/2019 1846 BUNSER 14 04/02/2019 1846 CREATININE 0.86 04/02/2019 1846 GLUCOSE 167 04/02/2019 1846 Component Value Date/Time CALCIUM 8.7 04/02/2019 1846 ALKPHOS 55 05/16/2015 1940 AST 27 05/16/2015 1940 ALT 34 05/16/2015 1940 BILITOT 0.2 05/16/2015 1940 Lab Results Component Value Date CHOL 232 (H) 06/14/2014 CHOL 180 05/17/2013 Lab Results Component Value Date HDL 40 06/14/2014 HDL 37 (L) 05/17/2013 No results found for: LDLCALC Lab Results Component Value Date TRIG 317 (H) 06/14/2014 TRIG 244 (H) 05/17/2013 Lipid panel August 2016. HDL 30, LDL 79, triglyceride 107. Lipid panel August 22, 2017. LDL 64, triglyceride 141, HDL 35. This lab was done at [facility] STRIKE PLANNING APPLICATIONS: Cath (Left main is normal. LAD is [...] - 08/2016 Cardiac catheterization February 2019 at [facility]. Ostial left main appears to be diseased with negative IFR and IVS 5.2-5.4 millimeter sq. Diagonal branch 50%, ostial PDA 50%, left circumflex artery unremarkable. ASSESSMENT Diagnoses and all orders for this visit: Hypertension associated with diabetes ([facility]) (Primary) Hyperlipidemia associated with type 2 diabetes mellitus ([facility]) - ezetimibe (ZETIA) 10 mg tablet; Take 1 tablet (10 mg total) by mouth daily Coronary artery disease involving akut[place] coronary artery of akut[place] heart without angina pectoris - atorvastatin (LIPITOR) 40 mg tablet; Take 1 tablet (40 mg total) by mouth daily - clopidogreL (PLAVIX) 75 mg tablet; Take 1 tablet (75 mg total) by mouth daily - lisinopriL (PRINIVIL,ZESTRIL) 10 mg tablet; Take 1 tablet (10 mg total) by mouth daily - aspirin (Aspir-81) 81 mg enteric coated tablet; Take 1 tablet (81 mg total) by mouth daily Type 2 diabetes mellitus with hyperglycemia, without long-term current use of insulin ([facility]) ([facility]) - empagliflozin (Jardiance) 25 mg tablet; Take 1 tablet (25 mg total) by mouth daily - metFORMIN (GLUCOPHAGE) 850 mg tablet; Take 1 tablet (850 mg total) by mouth 2 (two) times a day with meals PLAN/RECOMMENDATIONS -in regards to coronary artery disease, he status post stenting of the left main coronary artery. Asymptomatic. Continue aspirin and Plavix indefinitely. Continue statin. -in terms of blood pressure, blood pressure is well controlled now. Blood pressure today 118/76. Continue current medications. -interns of hyperlipidemia, continue Lipitor 40 mg daily. Lipid panel today September 03, 2021 shows LDL 58, HDL 29, triglycerides 133 and total cholesterol 114. Continue Zetia 10 mg daily. -counseling done regarding importance of low-sodium diet, low sugar diet. He follows up with Dr. Márquez for diabetes ??Will refill all his medicines Reuben Garcia MD Follow up in the office in 6 months. Rueben Garcia MD documented in this encounter Miscellaneous Notes * Addendum Note - Anay Nam MA - 09/03/2021 9:00 AM CDTAddended by: ANAY NAM on: 09/03/2021 09:28 AM Modules accepted: Orders documented in this encounter Plan of Treatment Not on file documented as of this encounter Procedures Procedure Name Priority Date/Time Associated Diagnosis Comments POCT LIPID PANEL Routine 09/03/2021 9:27 AM CDT Coronary artery disease involving ak[place] coronary artery of akutan heart without angina pectoris documented in this encounter Results * POCT lipid panel (09/03/2021 9:27 AM CDT) Cholesterol, POC 114 mg/dL HDL, POC 29 mg/dL Triglycerides, POC 133 mg/dL LDL Cholesterol POC 58 mg/dL Chol/HDL Ratio, POC 3.9 Non-HDL Cholesterol, POC 85 mg/dL Cholesterol Total, POC 114 mg/dL Capillary blood 09/03/2021 9 :27 AM CDT Reuben Garcia MD POINT OF CARE TEST O RDERABLES Final Result documented in this encounter Visit Diagnoses Diagnosis Hypertension associated with diabetes (HCC)- Primary Unspecified essential hypertension Hyperlipidemia associated with type 2 diabetes mellitus (HCC) Coronary artery disease involving ak[place] coronary artery of akut[place] heart without angina pectoris Type 2 diabetes mellitus with hyperglycemia, without long-term current use of insulin (HCC) documented in this encounter Discontinued Medications Medication Sig Discontinue Reason Start Date End Da te semaglutide (Ozempic) 0.25 mg or 0.5 mg(2 mg/1.5 mL) pen injector injection Inject 0.5 mg under the skin once a week Alternate therapy 07/03/2021 09/03/2021 ezetimibe (ZETIA) 10 mg tabletIndications:Hyperl ipidemia associated with type 2 diabetes mellitus (HCC) Take 1 tablet (10 mg total) by mouth daily Reorder 08/28/2020 09/03/2021 atorvastatin (LIPITOR) 40 mg tabletIndications:Diaz ry artery disease involving akut[place] coronary artery of akut[place] heart without angina pectoris TAKE 1 TABLET(40 MG) BY MOUTH DAILY Reorder 07/19/2021 09/03/2021 clopidogreL (PLAVIX) 75 mg tablet TAKE 1 TABLET(75 MG) BY MOUTH DAILY Reorder 07/19/2021 09/03/2021 lisinopriL (PRINIVIL,ZESTRIL) 10 mg tabletIndications:Diaz ry artery disease involving ak[place] coronary artery of akut[place] heart without angina pectoris TAKE 1 TABLET BY MOUTH DAILY Reorder 07/19/2021 09/03/2021 metFORMIN (GLUCOPHAGE) 850 mg tablet Take 1 tablet (850 mg total) by mouth 2 (two) times a day with meals Reorder 07/24/2021 09/03/2021 Jardiance 25 mg tablet TAKE 1 TABLET(25 MG) BY MOUTH DAILY Reorder 07/24/2021 09/03/2021 aspirin (ASPIR-81) 81 mg tablet take 1 tablet by oral route every day Reorder 09/16/2016 09/03/2021 documented as of this encounter Care Teams Farm Assistant Relationship Specialty Start Date End Date Reuben Garcia MD [facility] [address] [address] PCP - General Interventional Cardiology 02/04/17 documented as of this encounter
--- OUTSIDE RECORDS SUMMARY | 2024-05-16 02:00 | XMS_ITS | Encounter Summary ---
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 Gender Identity Not on file Sexual Orientation Not on file documented as of this encounter Plan of Treatment Not on file documented as of this encounter Procedures Procedure Name Priority Date/Time Associated Diagnosis Comments LIPID PANEL Routine 08/03/2020 documented in this encounter Results * (ABNORMAL) Lipid panel (08/03/2020) SCRIBED Cholesterol, Total 173 100 - 199 EXTERNAL LAB SCRIBED HDL 43 40 - 60 EXTERNAL LAB SCRIBED LDL 94 0 - 99 EXTERNAL LAB SCRIBED Triglycerides 150(A) 0 - 149 EXTERNAL LAB Blood specimen (specimen) us Historical Provider LAB BLOOD ORDERABLES Edit ed Result - Final EXTERNAL LAB documented in this encounter Visit Diagnoses Not on filedocumented in this encounter Care Teams Upper Tier Relationship Specialty Start Date End Date Reuben Garcia MD [address] [address] [place] [address] [id number] PCP - General Interventional Cardiology 02/04/17 documented as of this encounter
--- OUTSIDE RECORDS SUMMARY | 2024-05-16 02:00 | XMS_ITS | Encounter Summary ---
Author Organization [facility] Healthcare Address [address] [place] [address] Care Team Providers Care Patient Companion Name Role Phone Brian Vera MD Primary Care Provider +1- [phone] Reason for Visit * Reason Comments Diabetes Type 2 Encounter Details Date Type Department Care Team (Late st Contact Info) Description 09/16/2023 11:30 AM CDT Office Visit 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 Gender Identity Not on file Sexual Orientation Not on file documented as of this encounter Last Filed Vital Signs Vital Sign Reading Time Taken Comments Blood Pressure 138/62 09/16/2023 11:12 AM CDT Pulse 60 09/16/2023 11:12 AM CDT Temperature - - Respiratory Rate 18 09/16/2023 11:12 AM CDT Oxygen Saturation - - Inhaled Oxygen Concentration - - Weight 96 kg (211 lb 11.2 oz) 09/16/2023 11:12 A M CDT Height 175.3 cm (5' 9 ) 09/16/2023 11:12 AM CDT Body Mass Index 31.26 09/16/2023 11:12 AM CDT documented in this encounter Patient Instructions * Patient Instructions* Tessa Pham NP - 09/16/2023 11:30 AM CDT Please stop at lab before leaving today. I'll send you a lab letter with results. Current medications: Metformin 850mg twice daily with meals Jardiance 25mg daily Glimepiride 2mg before breakfast Strive for regular exercise (30min most days) and diet (get at least 4-5 servings of fruit and veggies daily, avoid processed foods, increase lean protein intake and decrease carb portions as well asfruit juices, regular soda & desserts). Watch carbs and simple sugars. Check the feet daily for skin breakdown and infection. documented in this encounter Progress Notes * Tessa Pham NP - 09/16/2023 11:30 AM CDT Images from the original note were not included. [facility] Diabetes Follow Up Visit Subjective/Objective Patient ID: Jerald Whipple is a 62 y.o. male who comes in today to our Endocrinology clinic to follow up for DM management. 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 Snacks in evening (on stews). 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 Home CBG monitoring results: does not check blood sugar. No hypoglycemia. Neuropathy: no complaints. Last foot exam: today Statin therapy: Yes. Atorvastatin 40mg & Zetia 10mg. Last lipid panel: 11/11/22 LDL=53, TG=90. Nephropathy: On VIKY-I / ARB???s: Yes. Lisinopril 10mg. Last MA: 06/25/22 (28). Last creat/GFR: 06/25/22 GFR=85, CR=1.0. Retinopathy: Date of last eye examination: 01/13/192022 [facility] in [facility] Readings from Last 3 Encounters: 09/16/23 96 kg (211 lb 11.2 oz) 05/12/23 95.6 kg (210 lb 11.2 oz) 11/11/22 95.6 kg (210 lb 11.2 oz) Labs: Last A1c: Recent Labs Lab Units 09/16/23 1121 HEMOGLOBIN A1C POC % 7.3 Component Latest Ref Rng 12/14/2020 07/03/2021 06/25/2022 Hgb A1C, POC % 7.2 7.8 8.5 % Lab Results Component Value Date ALBCREATRATU <28 06/25/2022 Lab Results Component Value Date MALBCRTRAT 2 06/14/2014 Lipid profile within the last year: Lab Results Component Value Date CHOL 232 (H) 06/14/2014 Lab Results Component Value Date TRIG 317 (H) 06/14/2014 Lab Results Component Value Date HDL 40 06/14/2014 No results found for: LDLCALC Component Latest Ref Rng 11/11/2022 Cholesterol, POC mg/dL <100 HDL, POC mg/dL 29 Triglycerides, POC mg/dL 90 LDL, Direct, POC mg/dL 53 Chol/HDL ratio N/A Non-HDL Cholesterol, POC mg/dL N/A Cholesterol Total, POC mg/dL <100 Review of Systems Constitutional: Negative. HENT: Negative. Eyes: Negative. Negative for visual disturbance. Respiratory: Negative. Cardiovascular: Negative. Gastrointestinal: Negative. Endocrine: Negative. Genitourinary: Negative. Musculoskeletal: Negative. Skin: Negative. Neurological: Negative. Negative for numbness. Psychiatric/Behavioral: Negative. Vitals: 09/16/23 1112 BP: 138/62 BP Location: Right arm Patient Position: Sitting Pulse: 60 Resp: 18 Weight: 96 kg (211 lb 11.2 oz) Height: 175.3 cm (5' 9 ) Physical Exam Vitals and nursing note reviewed. Constitutional: Appearance: Normal appearance. He is well-developed. HENT: Head: Normocephalic and atraumatic. Right Ear: Hearing normal. Left Ear: Hearing normal. Eyes: General: Lids are normal. Gaze aligned appropriately. Neck: Thyroid: No thyromegaly. Trachea: Trachea and phonation normal. No tracheal deviation. Cardiovascular: Rate and Rhythm: Normal rate and regular rhythm. No extrasystoles are present. Pulses: Dorsalis pedis pulses are 2+ on the right side and 2+ on the left side. Posterior tibial pulses are 2+ on the right side and 2+ on the left side. Heart sounds: Normal heart sounds, S1 normal and S2 normal. No murmur heard. Pulmonary: Effort: Pulmonary effort is normal. Breath sounds: Normal breath sounds and air entry. Feet: Right Foot: Monofilament exam: normal. Protective Sensation: 6 sites tested. 6 sites sensed. Skin Integrity: Negative for ulcer, blister, skin breakdown, erythema, warmth, callus or dry skin. Left Foot: Monofilament exam: normal. Protective Sensation: 6 sites tested. 6 sites sensed. Skin Integrity: Negative for ulcer, blister, skin breakdown, erythema, warmth, callus or dry skin. Skin: General: Skin is warm and dry. Neurological: Mental Status: He is alert and oriented to person, place, and time. Mental status is at baseline. Psychiatric: Mood and Affect: Mood normal. Behavior: Behavior normal. Assessment/Plan Diagnoses and all orders for this visit: Type 2 diabetes mellitus with hyperglycemia, without long-term current use of insulin ([facility]) ([facility]) (Primary) Assessment & Plan: Chronic problem. A1c improved from 8.5% 06/25/22 to now 7.3%. Current medications: Metformin 850mg Jardiance 25mg daily Glimepiride 2mg before breakfast DM eye exam 2022 at [facility] in [place]; letter sent to get copy of exam. [...] POCT hemoglobin A1c - POCT glucose - Albumin Creatinine Ratio, Urine; Future - Lipid panel; Future - Comprehensive metabolic panel; Future Hypertension associated with diabetes (HCC) Assessment & Plan: Chronic problem. Controlled on current lisinopril 10mg daily. Will update labs today. Does not mychart. Verified phone #/address to contact re: results. Orders: - Comprehensive metabolic panel; Future Hyperlipidemia associated with type 2 diabetes mellitus (HCC) Assessment & Plan: Chronic problem. Atorvastatin 40mg & Zetia 10mg. Last lipid panel: 11/11/22 LDL=53, TG=90. Will update labs today. Does not mychart. Verified phone #/address to contact re: results. Orders: - Lipid panel; Future Tessa Pham NP documented in this encounter Miscellaneous Notes * Addendum Note - Diana Zamudio - 09/16/2023 11:30 AM CDTAddended by: DIANA ZAMUDIO on: 09/16/2023 11:54 AM Modules accepted: Orders * Assessment & Plan Note - Tessa Pham NP - 09/16/2023 11:25 AM CDT Associated Problem(s): Hyperlipidemia associated with type 2 diabetes mellitus (HCC) Chronic problem. Atorvastatin 40mg & Zetia 10mg. Last lipid panel: 11/11/22 LDL=53, TG=90. Will update labs today. Does not mychart. Verified phone #/address to contact re: results. * Assessment & Plan Note - Tessa Pham NP - 09/16/2023 11:25 AM CDT Associated Problem(s): Hypertension associated with diabetes (HCC) Chronic problem. Controlled on current lisinopril 10mg daily. Will update labs today. Does not mychart. Verified phone #/address to contact re: results. * Assessment & Plan Note - Tessa Pham NP - 09/16/2023 11:25 AM CDT Associated Problem(s): Type 2 diabetes mellitus (HCC) Chronic problem. A1c improved from 8.5% 06/25/22 to now 7.3%. Current medications: Metformin 850mg Jardiance 25mg daily Glimepiride 2mg before breakfast DM eye exam 2022 at [facility]; letter sent to get copy of exam. [...] Associated Diagnosis Comments POCT HEMOGLOBIN A1C Routine 09/16/2023 1 1:21 AM CDT Type 2 diabetes mellitus with hyperglycemia, without long-term current use of insulin ([facility]) ([facility]) POCT GLUCOSE Routine 09/16/2023 11:20 AM CDT Type 2 diabetes mellitus with hyperglycemia, without long-term current use of insulin ([facility]) ([facility]) documented in this encounter Results * Albumin Creatinine Ratio, Urine (09/16/2023 11:54 AM CDT) Albumin Ur <12.0 mg/L Comment: Interpretive Data No reference range established. Current interpretive data was last revised 2018. Creatinine Ur 55.2 mg/dL MAURISIO Comment: Interpretive Data No reference range established. Current interpretive data was last revised 2018. Albumin Creatinine Ratio, Ur <22 1 - 29 mg/g MAURISIO Urine 09/16/2023 11:5 4 AM CDT 09/16/2023 8:30 PM CDT us Tessa Pham NP LAB URINE ORDERABLES Rox fu Result MA[place]ISIO [address] [place] [address] * Lipid panel (09/16/2023 11:54 AM CDT) Pathologist [facility] Cholesterol 109 30 - 199 mg/dL Comment: [...] revised on 2018. Chol/HDL ratio 3 MAURISIO ARANA Blood 09/16/2023 11:5 4 AM CDT 09/16/2023 8:30 PM CDT us Tessa Pham CONTRACT NEGOTIATION SPECIALIST LAB BLOOD ORDERABLES Rox fu Result MAURISIO ARANA [address] Department [place] [address] * (ABNORMAL) Comprehensive metabolic panel (09/16/2023 11:54 AM CDT) [facility] Signature Sodium 139 135 - 145 mmol/L Potassium, [...] Tessa Pham NP LAB BLOOD ORDERABLES Rox l Result [facility] [address] [address] Department [place] [address] * POCT hemoglobin A1c (09/16/2023 11:21 AM CDT) Hemoglobin A1C, POC 7.3 % Blood spot 09/16/2023 11:2 1 AM CDT us Tessamerlene Pham CONTRACT NEGOTIATION SPECIALIST POINT OF CARE TEST ORDERA BLES Final Result * POCT glucose (09/16/2023 11:20 AM CDT) Glucose Blood, POC 202 mg/dL Blood 09/16/2023 11:2 0 AM CDT us Tessa Pham CONTRACT NEGOTIATION SPECIALIST POINT OF CARE TEST ORDERA BLES Final Result documented in this encounter Visit Diagnoses Diagnosis Type 2 diabetes mellitus with hyperglycemia, without long-term current use of insulin (HCC)- Primary Hypertension associated with diabetes (HCC) Unspecified essential hypertension Hyperlipidemia associated with type 2 diabetes mellitus (HCC) documented in this encounter Care Teams Patient Companion Relationship Specialty Start Date End Date Brian Vera MD [address] [facility] [address] [facility] [address] [place] [address] PCP - General Internal Medicine 05/10/22 documented as of this encounter
--- OUTSIDE RECORDS SUMMARY | 2024-05-16 02:00 | XMS_ITS | Encounter Summary ---
Author Organization [facility] Healthcare Address [address] [place] [address] Care Team Providers Care Map Plotter Name Role Phone Brian Vera MD Primary Care Provider +1- [phone] Encounter Details Date Type Department Care Team (Late st Contact Info) Description 09/16/2023 11:45 AM CDT Lab [facility] Medical Group Outpatient Lab at [address] [address] Hyperlipidemia associated with type 2 diabetes mellitus (HCC) (Primary Dx); Hypertension associated with diabetes (HCC); Type 2 diabetes mellitus (HCC) Social History Tobacco [...] on file Legal Sex Male 10:13 AM RN PALLIATIVE Gender Identity Not on file Sexual Orientation Not on file documented as of this encounter Plan of Treatment Not on file documented as of this encounter Visit Diagnoses Diagnosis Hyperlipidemia associated with type 2 diabetes mellitus (HCC)- Primary Hypertension associated with diabetes (HCC) Unspecified essential hypertension Type 2 diabetes mellitus (HCC) documented in this encounter Care Teams Map Plotter Relationship Specialty Start Date End Date Brian Vera MD [address] [facility] [address] [place] [address] PCP - General Internal Medicine 05/10/22 documented as of this encounter
--- OUTSIDE RECORDS SUMMARY | 2024-05-16 02:00 | XMS_ITS | Encounter Summary ---
Author Organization [facility] Healthcare Address [address] [place] [address] Care Team Providers Care Talent Solutions Manager Name Role Phone Brian Vera MD Primary Care Provider +1- [phone] Reason for Visit * Reason Onset Date Comments Appointment 07/24/2023 07/28/23 Encounter Details Date Type Department Care Team (Late st Contact Info) Description 07/24/2023 Telephone [facility] Medical Group Diabetes and Endocrinology [address] [place] [phone] Tessa Pham, COUNTERINTELLIGENCE ANALYST [address] [address] Appointment (07/28/23) Social History Tobacco Use Types Packs/Day Years [...] on file Legal Sex Male 10:13 AM BAR HOSTESS Gender Identity Not on file Sexual Orientation Not on file documented as of this encounter Miscellaneous Notes * Telephone Encounter - Lynette Chaney MA - 07/24/2023 1:07 PM CST Spoke with the pt and informed him that Tessa will not be in on 07/28/23 and his appt will need to be r/s. Pt voiced understanding ad is r/s with Dr. Márquez on 09/11/23 at 2:15pm HOSTESS documented in this encounter Plan of Treatment Not on file documented as of this encounter Visit Diagnoses Not on filedocumented in this encounter Care Teams Talent Solutions Manager Relationship Specialty Start Date End Date Brian Vera MD [address] [facility] [address] [place] [address] PCP - General Internal Medicine 05/10/22 documented as of this encounter
--- OUTSIDE RECORDS SUMMARY | 2024-05-16 02:00 | XMS_ITS | Encounter Summary ---
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 ELECTRICIAN documented in this encounter Plan of Treatment Not on file documented as of this encounter Visit Diagnoses Not on filedocumented in this encounter Care Teams Lacer And Tier Relationship Specialty Start Date End Date Brian Vera MD [address] [facility] [address] [facility] [address] [place] [address] PCP - General Internal Medicine 05/10/22 documented as of this encounter
--- OUTSIDE RECORDS SUMMARY | 2024-05-16 02:00 | XMS_ITS | Encounter Summary ---
Author Organization [facility] Medical Group Address [address] [facility] [address] [place] [address] Care Team Providers Care Technology Specialist Name Role Phone Brian Vera MD Primary Care Provider +1- [phone] Reason for Visit * Reason Comments Follow-up 6 mo f/u Coronary Artery Disease Encounter Details Date Type Department Care Team (Late st Contact Info) Description 11/11/2022 8:15 AM CDT Office Visit [facility] Medical Group Cardiology [address] [facility] [address] [place] [address] Reuben Garcia MD [address] [place] [address] Hypertension associated with diabetes (HCC) (Primary Dx); Hyperlipidemia associated with type 2 diabetes mellitus (HCC); 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 Social History Tobacco [...] on file Legal Sex Male 10:13 AM SERVICES ADVISOR Gender Identity Not on file Sexual Orientation Not on file documented as of this encounter Last Filed Vital Signs Vital Sign Reading Time Taken Comments Blood Pressure 128/64 11/11/2022 8:32 AM CDT Pulse 74 11/11/2022 8:32 AM CDT Temperature - - Respiratory Rate - - Oxygen Saturation 96% 11/11/2022 8:32 AM CDT Inhaled Oxygen Concentration - - Weight 95.6 kg (210 lb 11.2 oz) 11/11/2022 8:32 AM CDT Height 175.3 cm (5' 9 ) 11/11/2022 8:32 AM CDT Body Mass Index 31.11 11/11/2022 8:32 AM CDT documented in this encounter Progress Notes * Reuben Garcia MD - 11/11/2022 8:15 AM CDT [facility] DATE OF VISIT: 11/11/2022 CHIEF COMPLAINT Chief Complaint Patient presents with Follow-up 6 mo f/u Coronary Artery Disease CAD HPI Jerald Whipple is a 61 y.o. male with past medical history of [...] with his daughter. Underwent cardiac catheterization at [facility] and there was a suspicion of ostial left main disease. The diagonal branch and ostial PDA improved compared to the catheterization in 2017. I refer this patient to [facility] and underwent stenting to the ostial [...] edema, dizziness, syncope, orthopnea paroxysmal nocturnal dyspnea. MEDICAL HISTORY Past Medical History: Diagnosis Date [...] mg tablet glimepiride (AMARYL) 2 mg tablet lisinopriL (PRINIVIL,ZESTRIL) 10 mg tablet metFORMIN (GLUCOPHAGE) 850 mg tablet ALLERGIES Allergies Allergen Reactions Ozempic [...] allergies and hives. PHYSICAL EXAM Vitals BP 128/64 (BP Location: Right arm, Patient Position: Sitting) Pulse 74 Ht 175.3 cm (5' 9 ) Wt 95.6 kg (210 lb 11.2 oz) SpO2 96% BMI 31.11 kg/m?? Body mass index is 31.11 kg/m??. Physical Exam Constitutional: General: He is [...] 88.6 04/03/2019 Chemistry Component Value Date/Time SODIUM 136 06/25/2022 1559 POTASSIUM 4.4 06/25/2022 1559 CHLORIDE 98 06/25/2022 1559 CO2 27 06/25/2022 1559 BUNSER 22 06/25/2022 1559 CREATININE 1.00 06/25/2022 1559 GLUCOSE 126 06/25/2022 1559 Component Value Date/Time CALCIUM 9.7 06/25/2022 1559 ALKPHOS 93 06/25/2022 1559 AST 26 06/25/2022 1559 ALT 21 06/25/2022 1559 BILITOT 0.4 06/25/2022 1559 Lab Results Component Value Date CHOL 232 [...] HDL 35. This lab was done at [facility] POLL CLERK: Cath (Left main is normal. LAD is [...] - 08/2016 Cardiac catheterization February 2019 at [facility]. Ostial left main appears to be diseased with negative IFR and IVS 5.2-5.4 millimeter sq. Diagonal branch 50%, ostial PDA 50%, left circumflex artery unremarkable. 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 Asymptomatic. Continue aspirin and Plavix indefinitely. Continue statin. -in terms of blood pressure, blood pressure is well controlled now. Blood pressure today 128/64. Continue current medications. -interns of hyperlipidemia, continue Lipitor 40 mg daily lipid panel done today November 11, 2022 showstotal cholesterol less than 100, HDL 29, LDL 53 and triglycerides 90 and fasting glucose 170. -counseling done regarding importance of low-sodium diet, low sugar diet. He follows up with Dr. Márquez for diabetes Reuben Garcia MD Follow up in the office in 6 months. 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 documented in this encounter Results * POCT lipid panel (11/11/2022 11:47 AM CDT) Cholesterol, POC <100 mg/dL Comment:GLU = 171 HDL, POC 29 mg/dL Triglycerides, POC 90 mg/dL LDL Cholesterol POC 53 mg/dL Chol/HDL Ratio, POC N/A Non-HDL Cholesterol, POC N/A mg/dL Cholesterol Total, POC <100 mg/dL Capillary blood 11/11/2022 1 1:47 AM CDT us Reuben Garcia MD POINT OF CARE TEST O RDERABLES Final Result documented in this encounter Visit Diagnoses Diagnosis Hypertension associated with diabetes (HCC)- Primary Unspecified essential hypertension Hyperlipidemia associated with type 2 diabetes mellitus (HCC) 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
--- OUTSIDE RECORDS SUMMARY | 2024-05-16 02:00 | XMS_ITS | Encounter Summary ---
Author Organization [facility] Medical Group Address [address] [address] Care Team Providers Care Project Management Instructor Name Role Phone Brian Vera MD Primary Care Provider +1- [phone] Encounter Details Date Type Department Care Team (Late st Contact Info) Description 06/25/2022 5:45 PM NETWORK TECHNOLOGY INSTRUCTOR Lab [facility] Medical [facility] Outpatient Lab at [address] [phone] Hyperlipidemia associated with type 2 diabetes mellitus [...] on file Legal Sex Male 10:13 AM NETWORK TECHNOLOGY INSTRUCTOR Gender Identity Not on file Sexual Orientation Not on file documented as of this encounter Plan of Treatment Not on file documented as of this encounter Visit Diagnoses Diagnosis Hyperlipidemia associated with type 2 diabetes mellitus (HCC) documented in this encounter Care Teams Project Management Instructor Relationship Specialty Start Date End Date Brian Vera MD [address] [place] [address] PCP - General Internal Medicine 05/10/22 documented as of this encounter
--- OUTSIDE RECORDS SUMMARY | 2024-05-16 02:00 | XMS_ITS | Encounter Summary ---
Author Organization [facility] Address [address] [place] [address] Care Team Providers Care Perfect Binder Setter Name Role Phone Reuben Garcia MD Primary Care Provid er Reason for Visit * Reason Onset Date Comments Scheduling Appointments 04/08/2022 Encounter Details Date Type Department Care Team (Late st Contact Info) Description 04/08/[address] [facility] Cardiology [address] [facility] [address] [place] [phone] Katina Edmonds MA Scheduling Appointments Social History Tobacco Use Types Packs/Day Years [...] on file Legal Sex Male 10:13 AM FUR BUYER Gender Identity Not on file Sexual Orientation Not on file documented as of this encounter Miscellaneous Notes * Telephone Encounter - Katina Edmonds MA - 04/08/2022 12:07 PM FUR BUYER 04/08/22- LM that JF will be out of office on 04/22/22 & we need to r/s. BUYER documented in this encounter Plan of Treatment Not on file documented as of this encounter Visit Diagnoses Not on filedocumented in this encounter Care Teams Perfect Binder Setter Relationship Specialty Start Date End Date Reuben Garcia MD [address] [address] PCP - General Interventional Cardiology 02/04/17 documented as of this encounter
--- OUTSIDE RECORDS SUMMARY | 2024-05-16 02:00 | XMS_ITS | Encounter Summary ---
Author Organization [facility] Address [address] [place] [address] Care Team Providers Care Journalism Intern Name Role Phone Reuben Garcia MD Primary Care Provid er Reason for Visit * Reason Comments Diabetes Type 2 Encounter Details Date Type Department Care Team (Late st Contact Info) Description 07/03/2021 3:15 PM VIDEO PRESENTATION OPERATOR Office Visit [facility] Diabetes and Endocrinology [address] [place] [phone] Aaron Már[place] [address] [facility] [address] [place] [address] Type 2 diabetes mellitus with hyperglycemia, with long-term current use of insulin (CMS/HCC) (HCC) (Primary Dx); Hyperlipidemia associated with type [...] on file Legal Sex Male 10:13 AM VIDEO PRESENTATION OPERATOR Gender Identity Not on file Sexual Orientation Not on file documented as of this encounter Last Filed Vital Signs Vital Sign Reading Time Taken Comments Blood Pressure 130/86 07/03/2021 3:12 PM VIDEO PRESENTATION OPERATOR Pulse 70 07/03/2021 3:12 PM VIDEO PRESENTATION OPERATOR Temperature - - Respiratory Rate 16 07/03/2021 3:12 PM VIDEO PRESENTATION OPERATOR Oxygen Saturation - - Inhaled Oxygen Concentration - - Weight 96.7 kg (213 lb 3.2 oz) 07/03/2021 3:12 P M VIDEO PRESENTATION OPERATOR Height 175.3 cm (5' 9.02 ) 07/03/2021 3:12 PM CS T Body Mass Index 31.47 07/03/2021 3:12 PM VIDEO PRESENTATION OPERATOR documented in this encounter Patient Instructions * Patient Instructions* Aaron Márquez MD - 07/03/2021 3:15 PM VIDEO PRESENTATION OPERATOR Start Ozempic: 0.25 mg weekly x 4 weeks After 4 weeks, continue with 0.5 mg weekly If you have severe nausea, vomiting , abdominal pain and/or diarrhea, stop the medication and call the office. Stay on Jardiance and Metformin Start 20-30 min daily walks Watch your diet. O PRESENTATION OPERATOR O PRESENTATION OPERATOR O PRESENTATION OPERATOR documented in this encounter Ordered Prescriptions Prescription Sig Dispense Quantity Refills Last Filled Start Date End Date semaglutide (Ozempic) 0.25 mg or 0.5 mg(2 mg/1.5 mL) pen injector injection Inject 0.5 mg under the skin once a week 1.5 mL 07/03/2021 09/03/2021 documented in this encounter Progress Notes * Aaron Márquez MD - 07/03/2021 3:15 PM CST Subjective/Objective Patient ID: Jerald Whipple is a 60 y.o. male. Chief Complaint Diabetes Type 2 HPI DM Follow up. Diabetes complications and/or comorbidity includes : CAD Past Hba1c : Component Latest Ref Rng & Units 02/04/2017 08/21/2017 07/21/2018 02/23/2019 Hgb A1C 6.2 6.9 (A) 6.7 6.4 % Component Latest Ref Rng & Units 06/29/2019 11/16/2019 07/27/2020 12/14/2020 Hgb A1C 7.5 7.0 7.3 7.2 Component Latest Ref Rng & Units 07/03/2021 Hgb A1C 7.8 Today Hba1c : Recent Labs Lab Units 07/03/21 1519 HEMOGLOBIN A1C 7.8 Current diabetes medications: Jardiance 25 mg daily Metformin 850 mg bid BG monitoring : not regularly Hypoglycemia : None Physical activity routine : not regularly Dietary habits include: trying to watch Lipid profile within the last year : 03/27/2020: Cholesterol, POC 208; HDL, POC 48; LDL, Direct, [id number]; Non-HDL Cholesterol, POC 160; Triglycerides, POC 222 Status: Edited Result - FINAL ?? Visible to patient: No (not released) ?? 0 Result Notes ?? 1 HM Topic Component Ref Range & Units 11 mo ago (08/03/20) 3 yr ago (08/22/17) 3 yr ago (08/22/17) 4 yr ago (09/16/16) SCRIBED Cholesterol, Total 100 - 199 173 132 R 132 R 131 R SCRIBED HDL 40 - 60 43 35??Abnormal?? R 35 R 30 R SCRIBED LDL 0 - 99 94 64 R 64 R 79 R SCRIBED Triglycerides 0 - 149 150??Abnormal?? 141 R 141 R 107 R Resulting Agency Ext Lab Ext Lab Ext Lab Ext Lab Statin therapy : Renal: urrently on VIKY-I / ARB???s with : Atorvastatin 40 mg daily Microalbumin: No results found for: ALBCREATRATU Lab Results Component Value Date [facility] 06/14[facility]2014 Review of Systems Constitutional: Positive for unexpected weight change. Negative for activity change and fatigue. HENT: [...] visit: Type 2 diabetes mellitus with hyperglycemia, with long-term current use of insulin ([facility]/HCC) (HCC) (E11.65, Z79.4) (Primary) Assessment & Plan: Hba1c was Lab Results Component Value Date HGBA1C 7.8 07/03/2021 today, indicating inadequate DM control Goal Hba1c and blood glucose explained Diet and exercise were advised Prevention and treatment of hyypoglcyemia were discussed with the patient Blood glucose monitoring : 1 x vidal Adjustment to medications: Add ozempic Orders: - POCT hemoglobin A1c - POCT glucose Hyperlipidemia associated with type 2 diabetes mellitus (HCC) (E11.69, E78.5) Assessment & Plan: Chronic, well controlled Continue current meds Other orders - semaglutide (Ozempic) 0.25 mg or 0.5 mg(2 mg/1.5 mL) pen injector injection; Inject 0.5 mg under the skin once a week O PRESENTATION OPERATOR documented in this encounter Miscellaneous Notes * Assessment & Plan Note - Aaron Márquez MD - 07/03/2021 4:13 PM CSTAssociated Problem(s): Hyperlipidemia associated with type 2 diabetes mellitus (HCC) Chronic, well controlled Continue current meds O PRESENTATION OPERATOR * Assessment & Plan Note - Aaron Márquez MD - 07/03/2021 4:13 PM CSTAssociated Problem(s): Type 2 diabetes mellitus (HCC) Hba1c was Lab Results Component Value Date HGBA1C 7.8 07/03/2021 today, indicating inadequate DM control Goal Hba1c and blood glucose explained Diet and exercise were advised Prevention and treatment of hyypoglcyemia were discussed with the patient Blood glucose monitoring : 1 x vidal Adjustment to medications: Add ozempic O PRESENTATION OPERATOR documented in this encounter Plan of Treatment Not on file documented as of this encounter Procedures Procedure Name Priority Date/Time Associated Diagnosis Comments POCT HEMOGLOBIN A1C Routine 07/03/2021 3 :19 PM VIDEO PRESENTATION OPERATOR Type 2 diabetes mellitus with hyperglycemia, with long-term current use of insulin ([facility]) ([facility]) POCT GLUCOSE Routine 07/03/2021 3:19 PM VIDEO PRESENTATION OPERATOR Type 2 diabetes mellitus with hyperglycemia, with long-term current use of insulin ([facility]) ([facility]) documented in this encounter Results * (ABNORMAL) POCT glucose (07/03/2021 3:19 PM VIDEO PRESENTATION OPERATOR) Glucose Blood, POC 139 mg/dL Blood specimen (specimen) 07/03/2021 3:19 PM VIDEO PRESENTATION OPERATOR us Aaron Márquez MD POINT OF CARE TEST ORDERABLES Fi nal Result * (ABNORMAL) POCT hemoglobin A1c (07/03/2021 3:19 PM VIDEO PRESENTATION OPERATOR) Hemoglobin A1C, POC 7.8 Blood specimen (specimen) 07/03/2021 3:19 PM VIDEO PRESENTATION OPERATOR us Aaron Márquez MD POINT OF CARE TEST ORDERABLES Fi nal Result documented in this encounter Visit Diagnoses Diagnosis Type 2 diabetes mellitus with hyperglycemia, with long-term current use of insulin (HCC)- Primary Hyperlipidemia associated with type 2 diabetes mellitus (HCC) documented in this encounter Care Teams Journalism Intern Relationship Specialty Start Date End Date Reuben Garcia MD [address] [facility] [address], [place] [address] PCP - General Interventional Cardiology 02/04/17 documented as of this encounter
--- OUTSIDE RECORDS SUMMARY | 2024-05-16 02:00 | XMS_ITS | Encounter Summary ---
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 Procedures Stress Echo Exercise WO Doppler/CF Anat Garcia MD [address] [address] Phone: tel: fax: [facility] Referral ID Status Reason Start Date Expiration Date Visits Re quested Visits Authorized [id number] Closed 05/12/2023 06/10/2024 1 1 Encounter Details Date Type Department Care Team (Latest Contact Info) Description 05/23/2023 1:00 PM MICROSOFT INFRASTRUCTURE CONSULTANT Ancillary Procedure [facility] Cardiology [address] [facility] [address] [place] [address] 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 Social History Tobacco [...] on file Legal Sex 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 Gender Identity Not on file Sexual Orientation Not on file documented as of this encounter Last Filed Vital Signs Vital Sign Reading Time Taken Comments Blood Pressure 140/82 05/23/2023 1:37 PM MICROSOFT INFRASTRUCTURE CONSULTANT Pulse - - Temperature - - Respiratory Rate - - Oxygen Saturation - - Inhaled Oxygen Concentration - - Weight - - Height - - Body Mass Index - - documented in this encounter Plan of Treatment Not on file documented as of this encounter Procedures Procedure Name Priority Date/Time Associated Diagnosis Comments STRESS ECHO EXERCISE WO DOPPLER/CF WO CONTRAST Routine 05/23/2023 1:57 PM MICROSOFT INFRASTRUCTURE CONSULTANT 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 documented in this encounter Results * STRESS ECHO EXERCISE WO DOPPLER/CF WO CONTRAST (05/23/2023 1:57 PM MICROSOFT INFRASTRUCTURE CONSULTANT) Anatomical Region Laterality Modality Ultrasound 05/23/2023 1:28 PM MICROSOFT INFRASTRUCTURE CONSULTANT Narrative 05/23/2023 2:41 PM MICROSOFT INFRASTRUCTURE CONSULTANT [facility] Cardiology [address] [facility] [address], [place] [address] [address] [facility] [address], [place] [address] P:[phone] P:[phone] Echocardiographic Report Patient Name: JERALD RYAN : 1960 Study Date: 05/23/2023 1:28:19 PM Gender: M Tech: Location: [facility] Provider: ANAT GARCIA ?Height(Cm): 175 BSA: 2.17 Weight(Kg): 96.6 Heart Rate: 61 Quality: Good Order Provider: ANAT GARCIA PROCEDURES: Stress Echo Report: Treadmill stress echocardiogram. INDICATIONS: Coronary Artery Disease, Outpatient Medications: aspirin 81 mg enteric coated tablet Take 1 tablet (81 mg total) by mouth daily Dispense: 90 tablet, Refills: 3 ordered 11/11/2022 - - - - atorvastatin (LIPITOR) 40 mg tablet Take 1 tablet (40 mg total) by mouth daily Dispense: 90 tablet, Refills: 3 ordered 05/12/2023 - - - - blood-glucose meter (ONETOUCH ULTRA2) kit check glucose once a day Dispense: 1 kit, Refills: 0 ordered 03/04/2014 - - - clopidogreL (PLAVIX) 75 mg tablet Take 1 tablet (75 mg total) by mouth daily Dispense: 90 tablet, Refills: 3 ordered 05/12/2023 - - - - empagliflozin (Jardiance) 25 mg tablet Take 1 tablet (25 mg total) by mouth daily Dispense: 90 tablet, Refills: 3 ordered 05/12/2023 - - - - ezetimibe (ZETIA) 10 mg tablet Take 1 tablet (10 mg total) by mouth daily Dispense: 90 tablet, Refills: 3 ordered 05/12/2023 - - - - glimepiride (AMARYL) 2 mg tablet Take 1 tablet (2 mg total) by mouth daily before breakfast Dispense: 90 tablet, Refills: 3 ordered 05/12/2023 - - - - lisinopriL (PRINIVIL,ZESTRIL) 10 mg tablet Take 1 tablet (10 mg total) by mouth daily Dispense: 90 tablet, Refills: 3 ordered 05/12/2023 - - - - metFORMIN (GLUCOPHAGE) 850 mg tablet Take 1 tablet (850 mg total) by mouth 2 (two) times a day with meals Dispense: 180 tablet, Refills: 3 ordered 05/12/2023 - - - - Stress test monitored by: Ally Fuentes. FINDINGS: Stress Echo: Protocol - Jake Protocol. Exercise Time - 8.47 min. Baseline Heart Rate - 64. Peak Heart Rate - 155. Predicted Maximal Heart Rate - 156. 85% MPHR - 133. Baseline BP - 140/82. Peak BP - 220/80. Rate Pressure Product - 78723. METS Achieved - 10.10. Percent Predicted Maximal HR Achieved - 99 %. Interpretation Site: Exam was interpreted at [facility]. Performance: Above average exercise functional capacity. Hemodynamic Response: Hypertensive blood pressure response. Arrhythmia: isolated premature atrial contraction. Termination: Target HR achieved. Resting ECG: Normal sinus rhythm. Exercise ECG: Abnormal exercise ECG consistent with ischemia with up to 2.[address] segment depressions. Resting LV Function: Normal left ventricular size, normal systolic function, normal wall thickness with no segmental wall motion abnormalities at rest. Post Stress LV Function: Post exercise left ventricular global systolic contractility is hyperdynamic, no segmental wall motion abnormalities, and chamber size is smaller. CONCLUSIONS: Hypertensive blood pressure response. Abnormal exercise ECG consistent with ischemia with up to 2.[address] segment depressions. No exercise induced chest pain. No Echocardiographic evidence of ischemia. Above average exercise capacity. Electronically Signed By: Randy Spence MD 2023-05-23 14:40:55 MICROSOFT INFRASTRUCTURE CONSULTANT Procedure Note Randy Spence MD - 05/23/2023 [facility] Cardiology [address] [facility] [address], [place] [address] [address] [facility] [address], [place] [address] P:[phone] P:[phone] Echocardiographic Report Patient Name: JERALD RYAN : 1960 Study Date: 05/23/2023 1:28:19 PM Gender: M Tech: Location: [facility] Provider: ANAT GARCIA Height(Cm): 175 BSA: 2.17 Weight(Kg): 96.6 Heart Rate: 61 Quality: Good Order Provider: ANAT GARCIA PROCEDURES: Stress Echo Report: Treadmill stress echocardiogram. INDICATIONS: Coronary Artery Disease, Outpatient Medications: aspirin 81 mg enteric coated tablet Take 1 tablet (81 mg total) by mouthdaily Dispense: 90 tablet, Refills: 3 ordered 11/11/2022 - - - - atorvastatin (LIPITOR) 40 mg tablet Take 1 tablet (40 mg total) by mouthdaily Dispense: 90 tablet, Refills: 3 ordered 05/12/2023 - - - - blood-glucose meter (ONETOUCH ULTRA2) kit check glucose once a dayDispense: 1 kit, Refills: 0 ordered 03/04/2014 - - - clopidogreL (PLAVIX) 75 mg tablet Take 1 tablet (75 mg total) by mouthdaily Dispense: 90 tablet, Refills: 3 ordered 05/12/2023 - - - - empagliflozin (Jardiance) 25 mg tablet Take 1 tablet (25 mg total) bymouth daily Dispense: 90 tablet, Refills: 3 ordered 05/12/2023 - - - - ezetimibe (ZETIA) 10 mg tablet Take 1 tablet (10 mg total) by mouth dailyDispense: 90 tablet, Refills: 3 ordered 05/12/2023 - - - - glimepiride (AMARYL) 2 mg tablet Take 1 tablet (2 mg total) by mouth dailybefore breakfast Dispense: 90 tablet, Refills: 3 ordered 05/12/2023 - - - - lisinopriL (PRINIVIL,ZESTRIL) 10 mg tablet Take 1 tablet (10 mg total) bymouth daily Dispense: 90 tablet, Refills: 3 ordered 05/12/2023 - - - - metFORMIN (GLUCOPHAGE) 850 mg tablet Take 1 tablet (850 mg total) by mouth2 (two) times a day with meals Dispense: 180 tablet, Refills: 3 ordered 05/12/2023 - - -- Stress test monitored by: Ally Fuentes. FINDINGS: Stress Echo: Protocol - Jake Protocol. Exercise Time - 8.47 min. Baseline Heart Rate -64. Peak Heart Rate - 155. Predicted Maximal Heart Rate - 156. 85% MPHR - 133. BaselineBP - 140/82. Peak BP - 220/80. Rate Pressure Product - 47774. METS Achieved - 10.10.Percent Predicted Maximal HR Achieved - 99 %. Interpretation Site: Exam was interpreted at [facility]. Performance: Above average exercise functional capacity. Hemodynamic Response: Hypertensive blood pressure response. Arrhythmia: isolated premature atrial contraction. Termination: Target HR achieved. Resting ECG: Normal sinus rhythm. Exercise ECG: Abnormal exercise ECG consistent with ischemia with up to 2.[address] segment depressions. Resting LV Function: Normal left ventricular size, normal systolic function, normal wallthickness with no segmental wall motion abnormalities at rest. Post Stress LV Function: Post exercise left ventricular global systolic contractility ishyperdynamic, no segmental wall motion abnormalities, and chamber size is smaller. CONCLUSIONS: Hypertensive blood pressure response. Abnormal exercise ECG consistent with ischemia with up to 2.[address] segment depressions. No exercise induced chest pain. No Echocardiographic evidence of ischemia. Above average exercise capacity. 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
--- OUTSIDE RECORDS SUMMARY | 2024-05-16 02:00 | XMS_ITS | Encounter Summary ---
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 Spoke with Keven at [facility] and she states [facility] ready- no charge. Pt aware and provided confirmation rx was received by pharmacy Apr 2023 * Telephone Encounter - Katina Edmonds MA - 08/28/2023 1:28 PM CDT Daughter not listed on HIPAA. Fax sent to pharmacy showing they received script 05/12/23 and daughter called about it * Telephone Encounter - Kendal Vergara - 08/28/2023 12:59 PM CDT Pt daughter John states [facility] never received Metformin back in April. Requesting it be re sent to [facility] in [place]. Contact: * Telephone Encounter - Renuka Radford - 08/28/2023 12:20 PM CDT Pt is having problems getting his script filled at [facility] in [place], [place]. I am showing that we sent a yr supply back in Apr, and they are saying that they never received script from Dr. Garcia. Pt has been up there three times and has been out of medication for 3 days now. Please call back Daughter [phone]. documented in this encounter Plan of Treatment Not on file documented as of this encounter Visit Diagnoses Not on filedocumented in this encounter Care Teams Blending Supervisor Relationship Specialty Start Date End Date Brian Vera MD [address] [facility] [address] [place] [address] PCP - General Internal Medicine 05/10/22 documented as of this encounter
--- OUTSIDE RECORDS SUMMARY | 2024-05-16 02:00 | XMS_ITS | Encounter Summary ---
Author Organization [facility] Address [address] [place] [address] Care Team Providers Care Sanitary Chemist Name Role Phone Reuben Garcia MD Primary Care Provid er Reason for Visit * Reason Comments Diabetes Type 2 Encounter Details Date Type Department Care Team (Latest Contact Info) Description 12/14/2020 10:00 AM CDT Office Visit [facility] [address] [address] Aaron Már[place] [id number] [facility] [address] [place] [address] Type 2 diabetes mellitus with hyperglycemia, with long-term current use of insulin (CMS/HCC) (HCC) (Primary Dx); Hyperlipidemia associated with type 2 diabetes mellitus (HCC); Hypertension associated with diabetes (HCC) Social History Tobacco Use Types Packs/Day [...] on file 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 Gender Identity Not on file Sexual Orientation Not on file documented as of this encounter Last Filed Vital Signs Vital Sign Reading Time Taken Comments Blood Pressure 100/68 12/14/2020 10:05 AM CDT Pulse 60 12/14/2020 10:05 AM CDT Temperature - - Respiratory Rate 12 12/14/2020 10:05 AM CDT Oxygen Saturation - - Inhaled Oxygen Concentration - - Weight 94.2 kg (207 lb 9.6 oz) 12/14/2020 10:05 AM CDT Height 175.3 cm (5' 9 ) 12/14/2020 10:05 AM CDT Body Mass Index 30.66 12/14/2020 10:05 AM CDT documented in this encounter Patient Instructions * Patient Instructions* Aaron Márquez MD - 12/14/2020 10:00 AM CDT Your Hba1c today was: Lab Results Component Value Date HGBA1C 7.2 12/14/2020 meaning a 3 month average sugar of : 154 Your goal hba1c is under 7.0 to prevent long-term diabetes complications ( eye , kidney and nerve damage ) . Your goal sugars are in the 90-130 range Exercise recommendations: It is recommended that you do daily aerobic ( walking, riding a bike, swimming ) and resistance exercises ( light weight lifting, resistance band stretching ) for at least 30 minutes , most days of the week. If you can not walk, chair exercises for 10-15 min a day would help tremendously. As little as 15-20 minutes exercise , in one or two sessions a day, is still very helpful to improve your diabetes control . Diet recommendations: Eat small portion meals, trying not to consume more than 1800 calories a day . Try to eat not more than than 2 servings of carbs ( starches ) wiith your meals. Avoid soft drinks, including regular sodas , fruit juices and sweetened tea. Drink water instead. Eat plenty of green and leafy vegetables, including salads. Medications: Take your medications regularly. Setting phone alarms can help . Keep your medication on the kitchen dinner table, by the bedside table or by the sink where they are visible to you. Monitor your sugar levels with finger sticks regularly and keep a log sheet or book. documented in this encounter Progress Notes * Aaron Márquez MD - 12/14/2020 10:00 AM CDT Subjective/Objective Patient ID: Jerald Whipple is a 59 y.o. male. Chief Complaint Diabetes Type 2 HPI DM Follow up. Diabetes complications and/or comorbidity includes : CAD Last hba1c : Recent Labs Lab Units 12/14/20 1006 HEMOGLOBIN A1C 7.2 No lab exists for component: EPHOLHS1S Currently taking : Jardiance 25 dandy daily Metformin 2 tab bid BG monitoring : not regularly Hypoglycemia : None Exercise plan: walks every day Diet plan includes: Trying to eat less. Lipid profile within the last year : No results found for requested labs within last 00730 hours. 03/27/2020: Cholesterol, POC 208; HDL, POC 48; LDL, Direct, POC 116; Non-HDL Cholesterol, POC 160; Triglycerides, POC 222 Statin therapy : Atorvastatin And Zetia Renal: currently on VIKY-I / ARB???s with : Lisinopril Microalbumin: No results found for: ALBCREATRATU Lab Results Component Value Date MALBCRTRAT 2 06/14/2014 Date of last eye examination: Review of Systems Constitutional: Negative for appetite change, fatigue and unexpected weight change. HENT: Negative for tinnitus, trouble swallowing and voice change. Eyes: Negative for redness and visual disturbance. Respiratory: Negative for choking, chest tightness and shortness of breath. Cardiovascular: Negative for chest pain, palpitations and leg swelling. Gastrointestinal: Negative for abdominal pain, constipation, diarrhea and nausea. Endocrine: Negative for cold intolerance, heat intolerance and polyuria. Genitourinary: Negative for difficulty urinating and frequency. Musculoskeletal: Negative for arthralgias, back pain, gait problem, joint swelling and neck pain. Skin: Negative for color change and rash. Allergic/Immunologic: Negative for environmental allergies. Neurological: Negative for dizziness, tremors, weakness, light-headedness, numbness and headaches. Hematological: Negative for adenopathy. Psychiatric/Behavioral: Negative for behavioral problems and decreased concentration. The patient is not nervous/anxious. Physical Exam [...] Breath sounds: Normal breath sounds. Abdominal: General: Bowel sounds are normal. There is no distension. Palpations: Abdomen is soft. Musculoskeletal: General: Normal range of motion. Feet: Right Foot: Monofilament exam: normal. Protective Sensation: 4 sites tested. 4 sites sensed. Skin Integrity: Negative for callus or dry skin. Left Foot: Monofilament exam: normal. Protective Sensation: 4 sites tested. 4 sites sensed. Skin Integrity: Negative for callus or dry skin. Skin: General: Skin is warm. Neurological: Mental Status: He is alert and oriented to person, place, and time. Coordination: Coordination normal. Deep Tendon Reflexes: Reflexes are normal and symmetric. Reflexes normal. Comments: No tremors Psychiatric: Behavior: Behavior normal. Assessment/Plan Diagnoses and all orders for this visit: Type 2 diabetes mellitus with hyperglycemia, with long-term current use of insulin ([facility]) (E11.65, Z79.4) (Primary) Assessment & Plan: Hba1c was Lab Results Component Value Date HGBA1C 7.2 12/14/2020 today, indicating suboptimal DM control Goals blood sugars of 120-160 and Hba1c under 7 % was explained. 1800 calorie, consistent carb diet recommended, no more than 3-45 grams of carbs per meal, avoidingconcentrated sweet drinks and rapid absorption carbs. 25-45 min daily aerobic and resistance exercise recommended Continue Jardiance and Metformin Orders: - POCT glucose - POCT hemoglobin A1c Hyperlipidemia associated with type 2 diabetes mellitus ([facility]) (E11.69, E78.5) Assessment & Plan: Goal of treatment , LDL cholesterol less [...] therapy with Atorvastatin and also on Zetia Hypertension associated with diabetes ([facility]) (E11.59, I10) Assessment & Plan: Goal blood pressure is less than 140/85 Low salt diet The importance of daily aerobic exercise was also emphasized. Continue current meds, including VIKY-I or ARB, e.g. Lisinopril documented in this encounter Miscellaneous Notes * Assessment & Plan Note - Aaron Márquez MD - 12/14/2020 10:22 AM CDTAssociated Problem(s): Type 2 diabetes mellitus (HCC) Hba1c was Lab Results Component Value Date HGBA1C 7.2 12/14/2020 today, indicating suboptimal DM control Goals blood sugars of 120-160 and Hba1c under 7 % was explained. 1800 calorie, consistent carb diet recommended, no more than 3-45 grams of carbs per meal, avoidingconcentrated sweet drinks and rapid absorption carbs. 25-45 min daily aerobic and resistance exercise recommended Continue Jardiance and Metformin * Assessment & Plan Note - Aaron Márquez MD - 12/14/2020 10:22 AM CDTAssociated Problem(s): Hypertension associated with diabetes (HCC) Goal blood pressure is less than 140/85 Low salt diet The importance of daily aerobic exercise was also emphasized. Continue current meds, including VIKY-I or ARB, e.g. Lisinopril * Assessment & Plan Note - Aaron Márquez MD - 12/14/2020 10:21 AM CDTAssociated Problem(s): Hyperlipidemia associated with type 2 diabetes mellitus (HCC) Goal of treatment , LDL cholesterol less [...] therapy with Atorvastatin and also on Zetia documented in this encounter Plan of Treatment Not on file documented as of this encounter Procedures Procedure Name Priority Date/Time Associated Diagnosis Comments POCT HEMOGLOBIN A1C Routine 12/14/2020 1 0:06 AM CDT Type 2 diabetes mellitus with hyperglycemia, with long-term current use of insulin (CMS/[facility]) (HCC) POCT GLUCOSE Routine 12/14/2020 10:06 AM CDT Type 2 diabetes mellitus with hyperglycemia, with long-term current use of insulin (CMS/HCC) (HCC) documented in this encounter Results * POCT hemoglobin A1c (12/14/2020 10:06 AM CDT) Hemoglobin A1C, POC 7.2 Blood specimen (specimen) 12/14/2020 10:06 AM CDT us Aaron Márquez MD POINT OF CARE TEST ORDERABLES Fi nal Result * POCT glucose (12/14/2020 10:06 AM CDT) Glucose Blood, POC 211 mg/dL Blood specimen (specimen) 12/14/2020 10:06 AM CDT us Aaron Márquez MD POINT OF CARE TEST ORDERABLES Fi nal Result documented in this encounter Visit Diagnoses Diagnosis Type 2 diabetes mellitus with hyperglycemia, with long-term current use of insulin (HCC)- Primary Hyperlipidemia associated with type 2 diabetes mellitus (HCC) Hypertension associated with diabetes (HCC) Unspecified essential hypertension documented in this encounter Care Teams Sanitary Chemist Relationship Specialty Start Date End Date Reuben Garcia MD [address] [facility] [address] [address] PCP - General Interventional Cardiology 02/04/17 documented as of this encounter
--- OUTSIDE RECORDS SUMMARY | 2024-05-16 02:00 | XMS_ITS | Encounter Summary ---
Author Organization [facility] Address [address] [place] [address] Care Team Providers Care Silk Screen Cutter Name Role Phone Reuben Garcia MD Primary Care Provid er Reason for Visit * Reason Comments Follow-up 6 mo f/u Coronary Artery Disease Encounter Details Date Type Department Care Team (Late st Contact Info) Description 03/05/2021 10:00 AM CDT Office Visit [facility] Cardiology [address] [place] [address] Reuben Garcia MD [facility] [id number] Hypertension associated with diabetes (HCC) (Primary Dx); Hyperlipidemia associated with type 2 diabetes mellitus (HCC); Coronary artery disease involving [place] coronary artery of [place] heart without angina pectoris Social History Tobacco [...] on file 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 Gender Identity Not on file Sexual Orientation Not on file documented as of this encounter Last Filed Vital Signs Vital Sign Reading Time Taken Comments Blood Pressure 120/72 03/05/2021 9:54 AM CDT Pulse 66 03/05/2021 9:54 AM CDT Temperature - - Respiratory Rate - - Oxygen Saturation 96% 03/05/2021 9:54 AM CDT Inhaled Oxygen Concentration - - Weight 93.8 kg (206 lb 12.8 oz) 03/05/2021 9:54 AM CDT Height 175.3 cm (5' 9 ) 03/05/2021 9:54 AM CDT Body Mass Index 30.54 03/05/2021 9:54 AM CDT documented in this encounter Progress Notes * Reuben Garcia MD - 03/05/2021 10:00 AM CDT [facility] DATE OF VISIT: 03/05/2021 CHIEF COMPLAINT Chief Complaint Patient presents with ??? Follow-up 6 mo f/u ??? Coronary Artery Disease CAD HPI Jerald [...] with his daughter. Underwent cardiac catheterization at [facility] and there was a suspicion of ostial left main disease. The diagonal branch and ostial PDA improved compared to the catheterization in 2017. I refer this patient to [facility] and underwent stenting to the ostial [...] was 7. Continues to follow-up with Endocrinology. MEDICAL HISTORY Past Medical History: Diagnosis Date [...] -Type 2; MEDICATIONS HOME MEDICATIONS : aspirin (ASPIR-81) 81 mg tablet atorvastatin (LIPITOR) 40 mg tablet blood-glucose meter (ONETOUCH ULTRA2) kit clopidogreL (PLAVIX) 75 mg tablet empagliflozin (JARDIANCE) 25 mg tablet ezetimibe (ZETIA) 10 mg tablet lisinopriL (PRINIVIL,ZESTRIL) 10 mg tablet metFORMIN (GLUCOPHAGE) 500 mg tablet ALLERGIES No Known Allergies REVIEW OF SYSTEMS [...] allergies and hives. PHYSICAL EXAM Vitals BP 120/72 (BP Location: Right arm, Patient Position: Sitting) Pulse 66 Ht 175.3 cm (5' 9 ) Wt 93.8 kg (206 lb 12.8 oz) SpO2 96% BMI 30.54 kg/m?? Body mass index is 30.54 kg/m??. Physical Exam Constitutional: General: He is [...] Date/Time CALCIUM 8.7 04/02/2019 1846 ALKPHOS 55 05/16/20151939 AST 27 05/16/20151939 ALT 34 05/16/2015 194 BILITOT 0.2 05/16/2015 194 Lab Results Component Value Date CHOL 232 [...] HDL 35. This lab was done at [facility] SUBSTATION SUPERVISOR: Cath (Left main is normal. LAD [...] - 08/2016 Cardiac catheterization February 2019 at [facility]. Ostial left main appears to be diseased with negative IFR and IVS 5.2-5.4 millimeter sq. Diagonal branch 50%, ostial PDA 50%, left circumflex artery unremarkable. ASSESSMENT Diagnoses and all orders for this visit: Hypertension associated with diabetes (HCC) (Primary) Hyperlipidemia associated with type 2 diabetes mellitus (HCC) Coronary artery disease involving [place] coronary artery of [place] heart without angina pectoris PLAN/RECOMMENDATIONS -in regards to coronary artery disease, he status post stenting of the left main coronary artery. Asymptomatic. Continue aspirin and Plavix indefinitely. Continue statin. -in terms of blood pressure, blood pressure is well controlled now. Continue current medications. -interns of hyperlipidemia, continue Lipitor 40 mg daily. His LDL August 03, 2020 was 116 compared to 69 last year. Continue Zetia 10 mg daily. -counseling done regarding importance of low-sodium diet, low sugar diet. He follows up with Dr. Márquez for diabetes ?? Reuben Garcia MD Follow up in the office in 6 months. Reuben Garcia MD documented in this encounter Plan of Treatment Not on file documented as of this encounter Visit Diagnoses Diagnosis Hypertension associated with diabetes (HCC)- Primary Unspecified essential hypertension Hyperlipidemia associated with type 2 diabetes mellitus (HCC) Coronary artery disease involving [place] coronary artery of [place] heart without angina pectoris documented in this encounter Care Teams Silk Screen Cutter Relationship Specialty Start Date End Date Reuben Garcia MD [address] [id number] PCP - General Interventional Cardiology 02/04/17 documented as of this encounter
--- OUTSIDE RECORDS SUMMARY | 2024-05-16 02:00 | XMS_ITS | Encounter Summary ---
Author Organization [facility] Address [address] [place] [address] Care Team Providers Care Tree Chipper Name Role Phone Brian Vera MD Primary Care Provider [phone]- [phone] Encounter Details Date Type Department Care Team (Late st Contact Info) Description 09/17/2022 Telephone [facility] [address] 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 Gender Identity Not on file Sexual Orientation Not on file documented as of this encounter Miscellaneous Notes * Telephone Encounter - Tino Mortensen - 09/17/2022 2:02 PM CDT 2nd No Show Letter mailed to the address on file documented in this encounter Plan of Treatment Not on file documented as of this encounter Visit Diagnoses Not on filedocumented in this encounter Care Teams Tree Chipper Relationship Specialty Start Date End Date Brian Vera MD [address] [facility] [address] [place] [address] PCP - General Internal Medicine 05/10/22 documented as of this encounter
--- OUTSIDE RECORDS SUMMARY | 2024-05-16 02:00 | XMS_ITS | Encounter Summary ---
Author Organization [facility] Healthcare Address [address] [place] [address] Care Team Providers Care Roofing Machine Operator Name Role Phone Brian Vera MD Primary Care Provider [phone]- [phone] Reason for Referral * Cardiology (Routine) - Closed Specialty Diagnoses / Procedures Referred By Contac t Referred To Contact Diagnoses Coronary artery disease involving pamunkey coronary artery of pamunkey heart without angina pectoris Procedures Stress Echo Exercise WO Doppler/CF Anat Garcia MD [address] [place] [address] Phone: tel: fax: [facility] Referral ID Status Reason Start Date Expiration Date Visits Re quested Visits Authorized [id number] Closed 05/12/2023 06/10/2024 1 1 SERVICE ADVISER Reason for Visit * Reason Comments Follow-up 6 mo f/u Coronary Artery Disease Hyperlipidemia Encounter Details Date Type Department Care Team (Latest Contact Info) Description 05/12/2023 8:15 AM FARM SERVICE ADVISER Office Visit [facility] Cardiology [address] [facility] [address] [place] [address] Anat Garcia MD [address] [place] [id number] Hyperlipidemia associated with type 2 diabetes mellitus (HCC) (Primary Dx); Coronary artery disease involving pamunkey coronary artery of pamunkey heart without angina pectoris; Type 2 diabetes mellitus with hyperglycemia, without long-term current use of insulin ([facility]) ([facility]); Hypertension associated with diabetes (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 Gender Identity Not on file Sexual Orientation Not on file documented as of this encounter Last Filed Vital Signs Vital Sign Reading Time Taken Comments Blood Pressure 138/74 05/12/2023 8:06 AM FARM SERVICE ADVISER Pulse 71 05/12/2023 8:06 AM FARM SERVICE ADVISER Temperature - - Respiratory Rate - - Oxygen Saturation 98% 05/12/2023 8:06 AM FARM SERVICE ADVISER Inhaled Oxygen Concentration - - Weight 95.6 kg (210 lb 11.2 oz) 05/12/2023 8:06 AM FARM SERVICE ADVISER Height 175.3 cm (5' 9 ) 05/12/2023 8:06 AM FARM SERVICE ADVISER Body Mass Index 31.11 05/12/2023 8:06 AM FARM SERVICE ADVISER documented in this encounter Ordered Prescriptions Prescription Sig Dispense Quantity Refills Last Filled Start Date End Date ezetimibe (ZETIA) 10 mg tabletIndications: Hyperlipidemia associated with type 2 diabetes mellitus ([facility]) Take 1 tablet (10 mg total) by mouth daily 90 tablet 3 05/12/2023 atorvastatin (LIPITOR) 40 mg tabletIndications: Coronary artery disease involving pamunkey coronary artery of pamunkey heart without angina pectoris Take 1 tablet (40 mg total) by mouth daily 90 tablet 3 05/12/2023 clopidogreL (PLAVIX) 75 mg tabletIndications: Coronary artery disease involving pamunkey coronary artery of pamunkey heart without angina pectoris Take 1 tablet (75 mg total) by mouth daily 90 tablet 3 05/12/2023 metFORMIN (GLUCOPHAGE) 850 mg tabletIndications: Type 2 diabetes mellitus with hyperglycemia, without long-term current use of insulin ([facility]) Take 1 tablet (850 mg total) by mouth 2 (two) times a day with meals 180 tablet 3 05/12/2023 4 glimepiride (AMARYL) 2 mg tablet Take 1 tablet (2 mg total) by mouth daily before breakfast 90 tablet 3 05/12/2023 4 empagliflozin (Jardiance) 25 mg tabletIndications: Type 2 diabetes mellitus with hyperglycemia, without long-term current use of insulin (HCC) Take 1 tablet (25 mg total) by mouth daily 90 tablet 3 05/12/2023 4 lisinopriL (PRINIVIL,ZESTRIL) 10 mg tabletIndications: Coronary artery disease involving pamunkey coronary artery of pamunkey heart without angina pectoris Take 1 tablet (10 mg total) by mouth daily 90 tablet 3 05/12/2023 4 documented in this encounter Progress Notes * Anat Garcia MD - 05/12/2023 8:15 AM CST [facility] DATE OF VISIT: 05/12/2023 CHIEF COMPLAINT Chief Complaint Patient presents with Follow-up 6 mo f/u Coronary Artery Disease Hyperlipidemia CAD HPI Ishmael Ryan is a 62 y.o. male with past medical history of [...] with his daughter. Underwent cardiac catheterization at [facility] and there was a suspicion of ostial left main disease. The diagonal branch and ostial PDA improved compared to the catheterization in 2017. I refer this patient to [facility] and underwent stenting to the ostial [...] of breath, dizziness, syncope, lower extremity edema. MEDICAL HISTORY Past Medical History: Diagnosis Date [...] : aspirin 81 mg enteric coated tablet blood-glucose meter (ONETOUCH ULTRA2) kit atorvastatin (LIPITOR) 40 mg tablet clopidogreL (PLAVIX) 75 mg tablet empagliflozin (Jardiance) 25 mg tablet ezetimibe (ZETIA) 10 mg tablet glimepiride (AMARYL) 2 mg tablet lisinopriL (PRINIVIL,ZESTRIL) 10 mg tablet metFORMIN (GLUCOPHAGE) 850 mg tablet atorvastatin (LIPITOR) 40 mg tablet [...] allergies and hives. PHYSICAL EXAM Vitals BP 138/74 (BP Location: Right arm, Patient Position: Sitting) Pulse 71 Ht 175.3 cm (5' 9 ) Wt 95.6 kg (210 lb 11.2 oz) SpO2 98% BMI 31.11 kg/m?? Body mass index is [...] HDL 35. This lab was done at [facility] HIDE WASHER: Cath (Left main is normal. LAD is [...] - 08/2016 Cardiac catheterization February 2019 at [facility]. Ostial left main appears to be diseased with negative IFR and IVS 5.2-5.4 millimeter sq. Diagonal branch 50%, ostial PDA 50%, left circumflex artery unremarkable. ASSESSMENT Diagnoses and all orders for this visit: Hyperlipidemia associated with type 2 diabetes mellitus ([facility]) (Primary) - ezetimibe (ZETIA) 10 mg tablet; Take 1 tablet (10 mg total) by mouth daily Coronary artery disease involving pamunkey coronary artery of pamunkey heart without angina pectoris - Stress Echo Exercise WO Doppler/CF; Future - lisinopriL (PRINIVIL,ZESTRIL) 10 mg tablet; Take 1 tablet (10 mg total) by mouth daily - clopidogreL (PLAVIX) 75 mg tablet; Take 1 tablet (75 mg total) by mouth daily - atorvastatin (LIPITOR) 40 mg tablet; Take 1 tablet (40 mg total) by mouth daily Type 2 diabetes mellitus with hyperglycemia, without long-term current use of insulin ([facility]/HCC) (HCC) - empagliflozin (Jardiance) 25 mg tablet; Take 1 tablet (25 mg total) by mouth daily - metFORMIN (GLUCOPHAGE) 850 mg tablet; Take 1 tablet (850 mg total) by mouth 2 (two) times a day with meals Hypertension associated with diabetes ([facility]) Other orders - glimepiride (AMARYL) 2 mg tablet; Take 1 tablet (2 mg total) by mouth daily before breakfast PLAN/RECOMMENDATIONS -in regards to coronary artery disease, he status post stenting of the left main coronary artery [id number]. Continue aspirin and Plavix indefinitely. Continue statin. We will order stress echocardiogram to screen for ischemia given it was 4 years prior to left main stent. -in terms of blood pressure, blood pressure is well controlled now. Blood pressure today 138/74. Continue current lisinopril. -interns of hyperlipidemia, continue Lipitor 40 mg daily lipid panel done today November 11, 2022 showstotal cholesterol less than 100, HDL 29, LDL 53 and triglycerides 90 and fasting glucose 170. Continue Zetia -counseling done regarding importance of low-sodium diet, low sugar diet. He follows up with Dr. Márquez for diabetes Anat Garcia MD Follow up in the office in 6 months. Anat Garcia MD SERVICE ADVISER documented in this encounter Plan of Treatment Not on file documented as of this encounter Results * STRESS ECHO EXERCISE WO DOPPLER/CF WO CONTRAST (05/23/2023 1:57 PM FARM SERVICE ADVISER) Anatomical Region Laterality Modality Ultrasound 05/23/2023 1:28 PM FARM SERVICE ADVISER Narrative 05/23/2023 2:41 PM FARM SERVICE ADVISER [facility] Cardiology [address] [facility] [address], [place] [address] [address] [facility] [address], [place] [address] P:[phone] P:[phone] Echocardiographic Report Patient Name: ISHMAEL RYAN : 1960 Study Date: 05/23/2023 1:28:19 PM Gender: M Tech: Location: [facility] Provider: ANAT GARCIA ?Height(Cm): 175 BSA: 2.17 [...] BP - 220/80. Rate Pressure Product - 01624. METS Achieved - 10.10. Percent Predicted Maximal HR Achieved - 99 %. Interpretation Site: Exam was interpreted at [facility]. Performance: Above average exercise functional capacity. Hemodynamic [...] Signed By: Randy Spence MD 2023-05-23 14:40:55 FARM SERVICE ADVISER Procedure Note Randy Spence MD - 05/23/2023 [facility] Cardiology [address] [facility] [address], [place] [address] [address] [facility] [address], [place] [address] P:[phone] P:[phone] Echocardiographic Report Patient Name: ISHMAEL RYAN : 1960 Study Date: 05/23/2023 1:28:19 PM Gender: M Tech: TOMAS Location: [facility] Provider: ANAT GARCIA Height(Cm): 175 BSA: 2.17 [...] BP - 220/80. Rate Pressure Product - 47274. METS Achieved - 10.10.Percent Predicted Maximal HR Achieved - 99 %. Interpretation Site: Exam was interpreted at [facility]. Performance: Above average exercise functional capacity. Hemodynamic [...] Signed By: Randy Spence MD 2023-05-23 14:40:55 FARM SERVICE ADVISER us Anat Garcia MD CV ECHO PROCEDURES F inal Result documented in this encounter Visit Diagnoses Diagnosis Hyperlipidemia associated with type 2 diabetes mellitus ([facility])- Primary Coronary artery disease involving pamunkey coronary artery of pamunkey heart without angina pectoris Type 2 diabetes mellitus with hyperglycemia, without long-term current use of insulin ([facility]) Hypertension associated with diabetes ([facility]) Unspecified essential hypertension Coronary artery disease involving pamunkey coronary artery of pamunkey heart without angina pectoris documented in this encounter Discontinued Medications Medication Sig Discontinue Reason Start Date End Da te empagliflozin (Jardiance) 25 mg tabletIndications:Type 2 diabetes mellitus with hyperglycemia, without long-term current use of insulin ([facility]) Take 1 tablet (25 mg total) by mouth daily Reorder 06/25/2022 05/12/2023 atorvastatin (LIPITOR) 40 mg tabletIndications:Coron ashlyn artery disease involving pamunkey coronary artery of pamunkey heart without angina pectoris Take 1 tablet (40 mg total) by mouth daily Reorder 06/25/2022 05/12/2023 clopidogreL (PLAVIX) 75 mg tabletIndications:Coron ash[place] artery disease involving pamunkey coronary artery of pamunkey heart without angina pectoris Take 1 tablet (75 mg total) by mouth daily Reorder 11/11/2022 05/12/2023 ezetimibe (ZETIA) 10 mg tabletIndications:Hyper lipidemia associated with type 2 diabetes mellitus ([facility]) Take 1 tablet (10 mg total) by mouth daily Reorder 11/11/2022 05/12/2023 lisinopriL (PRINIVIL,ZESTRIL) 10 mg tabletIndications:Coron ash[place] artery disease involving pamunkey coronary artery of pamunkey heart without angina pectoris TAKE 1 TABLET(10 MG) BY MOUTH DAILY Reorder 05/05/2023 05/12/2023 glimepiride (AMARYL) 2 mg tablet TAKE 1 TABLET(2 MG) BY MOUTH DAILY BEFORE BREAKFAST Reorder 05/05/2023 05/12/2023 metFORMIN (GLUCOPHAGE) 850 mg tabletIndications:Type 2 diabetes mellitus with hyperglycemia, without long-term current use of insulin (HCC) TAKE 1 TABLET(850 MG) BY MOUTH TWICE DAILY WITH MEALS Reorder 05/05/2023 05/12/2023 documented as of this encounter Care Teams Roofing Machine Operator Relationship Specialty Start Date End Date Brina Vera MD [address] [facility] [address] [place] [address] PCP - General Internal Medicine 05/10/22 documented as of this encounter
--- OUTSIDE RECORDS SUMMARY | 2024-05-16 02:00 | XMS_ITS | Encounter Summary ---
Author Organization [facility] Address [address] [facility] [address] [place] [address] Care Team Providers Care Electronic Warfare Specialist Name Role Phone Brian Vera MD Primary Care Provider [phone]- [phone] Reason for Visit * Reason Onset Date Comments Lab Results 06/27/2022 Encounter Details Date Type Department Care Team (Late st Contact Info) Description 06/27/2022 Telephone [facility] Diabetes and Endocrinology [address] [place] [id number] Aaron Márquez [place] [address] [facility] [address] [place], [place] [id number] Lab Results Social History Tobacco Use Types Packs/Day Years [...] on file 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 Relayed the results that FR sent out in a letter on 06/26/22. Pt voiced understanding and had no further questions. GING OPERATOR * Telephone Encounter - Montserrat Fernandez - 06/27/2022 9:06 AM CST FYI : doesn't have email to set up my chart account and would like a call about his lab results. GING OPERATOR documented in this encounter Plan of Treatment Not on file documented as of this encounter Visit Diagnoses Not on filedocumented in this encounter Care Teams Electronic Warfare Specialist Relationship Specialty Start Date End Date Brian Vera MD [address] [facility] [address] [address] PCP - General Internal Medicine 05/10/22 documented as of this encounter
--- OUTSIDE RECORDS SUMMARY | 2024-05-16 02:00 | XMS_ITS | Encounter Summary ---
Author Organization [facility] Healthcare Address [address] [place] [address] Care Team Providers Care Highway Patrol Commander Name Role Phone Brian Vera MD Primary Care Provider [phone]- [phone] Encounter Details Date Type Department Care Team (Latest Contact Info) Description 06/25/2022 3:59 PM SENIOR MARKET INTELLIGENCE CONSULTANT - 06/25/2022 11:59 PM SENIOR MARKET INTELLIGENCE CONSULTANT Hospital Encounter [address] [address] Hypertension associated with diabetes (HCC) Discharge Disposition: Discharge to home or self [...] on file Legal Sex Male 10:13 AM SENIOR MARKET INTELLIGENCE CONSULTANT Gender Identity Not on file Sexual Orientation Not on file documented as of this encounter Medications at Time of Discharge blood-glucose meter (YeahkaTOUCH ULTRA2) kit check glucose once a day 1 kit 0 03/04/2014 aspirin (Aspir-81) 81 mg enteric coated tabletIndication s:Coronary artery disease involving [place] coronary artery of [place] heart without angina pectoris Take 1 tablet (81 mg total) by mouth daily 90 tablet 3 09/03/2021 atorvastatin (LIPITOR) 40 mg tabletIndication s:Coronary artery disease involving [place] coronary artery of [place] heart without angina pectoris Take 1 tablet (40 mg total) by mouth daily 90 tablet 3 06/25/2022 3 clopidogreL (PLAVIX) 75 mg tabletIndication s:Coronary artery disease involving [place] coronary artery of [place] heart without angina pectoris Take 1 tablet (75 mg total) by mouth daily 90 tablet 3 09/03/2021 3 empagliflozin (Jardiance) 25 mg tabletIndication s:Type 2 diabetes mellitus with hyperglycemia, without long-term current use of insulin (HCC) Take 1 tablet (25 mg total) by mouth daily 90 tablet 3 06/25/2022 3 ezetimibe (ZETIA) 10 mg tabletIndication s:Hyperlipidemia associated with type 2 diabetes mellitus (HCC) TAKE 1 TABLET(10 MG) BY MOUTH DAILY 90 tablet 3 09/12/2021 3 glimepiride (AMARYL) 2 mg tabletIndication s:type 2 diabetes mellitus Take 1 tablet (2 mg total) by mouth daily before breakfast 30 tablet 11 06/25/2022 3 lisinopriL (PRINIVIL,ZESTRI L) 10 mg tabletIndication s:Coronary artery disease involving [place] coronary artery of [place] heart without angina pectoris Take 1 tablet (10 mg total) by mouth daily 90 tablet 3 06/25/2022 3 metFORMIN (GLUCOPHAGE) 850 mg tabletIndication s:Type 2 diabetes mellitus with hyperglycemia, without long-term current use of insulin (HCC) Take 1 tablet (850 mg total) by mouth 2 (two) times a day with meals 180 tablet 3 06/25/2022 3 documented as of this encounter Discharge Disposition Disposition Code Departure Means Destination Discharge to home or self care documented in this encounter Plan of Treatment Not on file documented as of this encounter Procedures Procedure Name Priority Date/Time Associated Diagnosis Comments EGFR Routine 06/25/2022 3:59 PM SENIOR MARKET INTELLIGENCE CONSULTANT Hypertension associated with diabetes (HCC) ALBUMIN CREATININE RATIO, URINE Routine 06/25/2022 3:59 PM SENIOR MARKET INTELLIGENCE CONSULTANT Hypertension associated with diabetes (HCC) COMPREHENSIVE METABOLIC PANEL Routine 06/25/2022 3:59 PM SENIOR MARKET INTELLIGENCE CONSULTANT Hypertension associated with diabetes (HCC) documented in this encounter Results * eGFR (06/25/2022 3:59 PM SENIOR MARKET INTELLIGENCE CONSULTANT) eGFR 85 mL/min/1. 73 m2 [facility] ARANA Comment: Interpretive Data Reference Interval Normal ?>/= [...] interpretive data was last reviewed 2021. Blood 06/25/2022 3:59 PM SENIOR MARKET INTELLIGENCE CONSULTANT 06/25/2022 6:51 PM SENIOR MARKET INTELLIGENCE CONSULTANT us Aaron Márquez MD LAB BLOOD ORDERABLES Final Resul t [facility] ARANA [address] [place] [address] * Albumin Creatinine Ratio, Urine (06/25/2022 3:59 PM SENIOR MARKET INTELLIGENCE CONSULTANT) Pathologist [facility] Albumin Ur <12.0 mg/L MAURISIO ARANA Comment: Interpretive Data No reference range established. Current interpretive data was last revised 2018. Creatinine Ur 42.9 mg/dL CERNER Comment: Interpretive Data No reference range established. Current interpretive data was last revised 2018. Albumin Creatinine Ratio, Ur <28 1 - 29 mg/g CERNER Urine 06/25/2022 3:59 PM SENIOR MARKET INTELLIGENCE CONSULTANT 06/25/2022 6:34 PM SENIOR MARKET INTELLIGENCE CONSULTANT us Aaron Márquez MD LAB URINE ORDERABLES Final [facility]ul [facility] [address] [address] [place] [address] * (ABNORMAL) Comprehensive metabolic panel (06/25/2022 3:59 PM SENIOR MARKET INTELLIGENCE CONSULTANT) Sodium 136 135 - 145 mmol/L CERNER CH Potassium, pl 4.4 3.3 - 4.9 mmol/L CERNER CH Chloride 98 97 - 110 mmol/L CERNER CH CO2 27 22 - 32 mmol/L CERNER CH Anion gap 11 2 - 15 mmol/L CERNER CH BUN 22 8 - 25 mg/dL CERNER Creatinine 1.00 0.80 - 1.30 mg/dL CERNER Glucose 126 70 - 199 mg/dL CERNER Comment: Interpretive Data Fasting glucose >/= 126 [...] Units/L CERNER CH Blood 06/25/2022 3:59 PM SENIOR MARKET INTELLIGENCE CONSULTANT 06/25/2022 6:34 PM SENIOR MARKET INTELLIGENCE CONSULTANT us Aaron Márquez MD LAB BLOOD ORDERABLES Final Resul t [facility] [address] [address] Department [place] [address] documented in this encounter Visit Diagnoses Diagnosis Hypertension associated with diabetes (HCC) Unspecified essential hypertension documented in this encounter Care Teams Highway Patrol Commander Relationship Specialty Start Date End Date Brian Vera MD [address] [facility] [address] [place] [address] PCP - General Internal Medicine 05/10/22 documented as of this encounter
--- OUTSIDE RECORDS SUMMARY | 2024-05-16 02:01 | XMS_ITS | Encounter Summary ---
Author Organization [facility] Address [address] [place] [address] Care Team Providers Care Factory Hand Name Role Phone Reuben Garcia MD Primary Care Provid er Reason for Visit * Reason Comments Diabetes Type 2 Encounter Details Date Type Department Care Team (Latest Contact Info) Description 11/16/2019 3:00 PM CDT Office Visit [facility] [address] [address] Aaron Már[place] [address] [facility] [address] [place] [address] Type 2 diabetes mellitus with hyperglycemia, with long-term current use of insulin (CMS/HCC) (Primary Dx); Hyperlipidemia associated with type 2 diabetes mellitus (CMS/HCC); Hypertension associated with diabetes (CMS/HCC); Type 2 diabetes mellitus (CMS/HCC); Coronary artery disease involving jena coronary artery of jena heart without angina pectoris Social History Tobacco Use Types Packs/Day Years Used Date Smoking Tobacco: Never Smokeless Tobacco: Never Alcohol Use Standard Drinks/Week Comments No 0 (1 standard drink = 0.6 oz pur e alcohol) PHQ-2 Answer Date Recorded PHQ-2 Total Score (If total score is 3 or more points, staff should administer the PHQ-9) 0 11/16/2019 Sex and Gender Information Value Date Recorded Sex Assigned at Not on file Legal Sex Male 10:13 AM CONSTRUCTION QUALITY CONTROL MANAGER Gender Identity Not on file Sexual Orientation Not on file documented as of this encounter Last Filed Vital Signs Vital Sign Reading Time Taken Comments Blood Pressure 126/66 11/16/2019 2:19 PM CDT Pulse 83 11/16/2019 2:19 PM CDT Temperature - - Respiratory Rate 12 11/16/2019 2:19 PM CDT Oxygen Saturation - - Inhaled Oxygen Concentration - - Weight 94.9 kg (209 lb 3.2 oz) 11/16/2019 2:19 P M CDT Height 175.3 cm (5' 9.02 ) 11/16/2019 2:19 PM CD T Body Mass Index 30.88 11/16/2019 2:19 PM CDT documented in this encounter Progress Notes * Aaron Márquez MD - 11/16/2019 3:00 PM CDT Subjective/Objective Patient ID: Jerald Whipple is a 58 y.o. male. Chief Complaint Diabetes Type 2 HPI DM Follow up. Diabetes complications and/or comorbidity includes : CAD ; had a stent in the left main Last hba1c : 6.4 Currently taking : Metformin 1000 mg bid Jardiance 25 mg daily BG monitoring : very ocassionally Hypoglycemia : None Exercise plan: walks regularly Diet plan includes: watching, small portions. Lipid profile within the last year : 02/2019 LDL 69 Statin therapy : Lipitor Renal: currently on VIKY-I / ARB? s with :Lisinopril Microalbumin: < 60 Date of last eye examination: Every Six months. Review of Systems Constitutional: Positive for unexpected [...] rhythm. Heart sounds: Normal heart sounds. No murmur. Pulmonary: Effort: Pulmonary effort is normal. Breath sounds: Normal breath sounds. Abdominal: General: Bowel sounds are normal. There is no distension. Palpations: Abdomen is soft. Musculoskeletal: Normal range of motion. Feet: Right Foot: [...] hyperglycemia, with long-term current use of insulin ([facility]) (E11.65, Z79.4) (Primary) - POCT glucose - POCT hemoglobin A1c Hyperlipidemia associated with type 2 diabetes mellitus ([facility]) (E11.69, E78.5) Assessment & Plan: Goal of [...] Daily exercise On statin therapy with Crestor Hypertension associated with diabetes ([facility]) (E11.59, I10) Assessment & Plan: Goal blood pressure is less than 140/85 Low salt diet recommended Daily aerobic exercise Continue current meds, including VIKY-I or ARB with Lisinopril Type 2 diabetes mellitus ([facility]) (E11.9) Assessment & Plan: Hba1c was Lab Results [...] fingers sticks.... Medications: continue Jardiance / Metformin Coronary artery disease involving jena coronary artery of jena heart without angina pectoris (I25.10) documented in this encounter Miscellaneous Notes * Assessment & Plan Note - Aaron Márquez MD - 11/16/2019 3:13 PM CDTAssociated Problem(s): Hyperlipidemia associated with type 2 [...] Daily exercise On statin therapy with Crestor * Assessment & Plan Note - Aaron Márquez MD - 11/16/2019 3:13 PM CDTAssociated Problem(s): Hypertension associated with diabetes (HCC) Goal blood pressure is less than 140/85 Low salt diet recommended Daily aerobic exercise Continue current meds, including VIKY-I or ARB with Lisinopril * Assessment & Plan Note - Aaron Márquez MD - 11/16/2019 3:12 PM CDTAssociated Problem(s): Type 2 diabetes mellitus (HCC) [...] fingers sticks.... Medications: continue Jardiance / Metformin documented in this encounter Plan of Treatment Not on file documented as of this encounter Procedures Procedure Name Priority Date/Time Associated Diagnosis Comments POCT HEMOGLOBIN A1C Routine 11/16/2019 2 :32 PM CDT Type 2 diabetes mellitus with hyperglycemia, with long-term current use of insulin ([facility]) POCT GLUCOSE Routine 11/16/2019 2:32 PM CDT Type 2 diabetes mellitus with hyperglycemia, with long-term current use of insulin ([facility]) documented in this encounter Results * POCT hemoglobin A1c (11/16/2019 2:32 PM CDT) Hemoglobin A1C, POC 7.0 Blood specimen (specimen) 11/16/2019 2:32 PM CDT Aaron Márquez MD POINT OF CARE TEST ORDERABLES Fi nal Result * POCT glucose (11/16/2019 2:32 PM CDT) Glucose Blood, POC 128 mg/dL Blood specimen (specimen) 11/16/2019 2:32 PM CDT Aaron Márquez MD POINT OF CARE TEST ORDERABLES Fi nal Result documented in this encounter Visit Diagnoses Diagnosis Type 2 diabetes mellitus with hyperglycemia, with long-term current use of insulin (HCC)- Primary Hyperlipidemia associated with type 2 diabetes mellitus (HCC) Hypertension associated with diabetes (HCC) Unspecified essential hypertension Type 2 diabetes mellitus (HCC) Coronary artery disease involving jena coronary artery of jena heart without angina pectoris documented in this encounter Care Teams Factory Hand Relationship Specialty Start Date End Date Reuben Garcia MD [address] [facility] [address], [place] [address] PCP - General Interventional Cardiology 02/04/17 documented as of this encounter
--- OUTSIDE RECORDS SUMMARY | 2024-05-16 02:01 | XMS_ITS | Encounter Summary ---
Author Organization [facility] Care Team Providers Care Motorsports Technician Name Role Phone Reuben Garcia MD Primary Care Provid er Encounter Details Date Type Department Care Team (Latest Contact Info) Description 04/12/2019 Travel Social History Tobacco Use Types Packs/Day Years Used Date Smoking Tobacco: Never Smokeless Tobacco: Never Alcohol Use Standard Drinks/Week Comments No 0 (1 standard drink = 0.6 oz pur e alcohol) PHQ-2 Answer Date Recorded PHQ-2 Score 0 02/23/2019 Sex and Gender Information Value Date Recorded Sex Assigned at Not on file Legal Sex Male 10:13 AM CERTIFIED CYTOTECHNOLOGIST Gender Identity Not on file Sexual Orientation Not on file documented as of this encounter Plan of Treatment Not on file documented as of this encounter Visit Diagnoses Not on filedocumented in this encounter Care Teams Motorsports Technician Relationship Specialty Start Date End Date Reuben Garcia MD [facility] [address] [address] PCP - General Interventional Cardiology 02/04/17 documented as of this encounter
--- OUTSIDE RECORDS SUMMARY | 2024-05-16 02:01 | XMS_ITS | Encounter Summary ---
Author Organization [facility] Address [address] [place] [address] Care Team Providers Care Internal Carver Name Role Phone Rebuen Garcia MD Primary Care Provid er Reason for Visit * Reason Onset Date Comments Med Refill 07/21/2020 Encounter Details Date Type Department Care Team (Late st Contact Info) Description 07/21/2020 Telephone [facility] [address] [facility] [address] [address] Aaron Már[place] [address] [facility] [address], [place] [address] Med Refill Social History Tobacco Use Types Packs/Day Years [...] on file Legal Sex Male 10:13 AM SAMPLE CHECKER Gender Identity Not on file Sexual Orientation Not on file documented as of this encounter Miscellaneous Notes * Telephone Encounter - Faby Troy - 07/21/2020 1:56 PM CST miller 11/16/19 Ns1/12/13 Need appointment LE CHECKER documented in this encounter Plan of Treatment Not on file documented as of this encounter Visit Diagnoses Not on filedocumented in this encounter Care Teams Internal Carver Relationship Specialty Start Date End Date Reuben Garcia MD [address] [facility] [address] [address] PCP - General Interventional Cardiology 02/04/17 documented as of this encounter
--- OUTSIDE RECORDS SUMMARY | 2024-05-16 02:01 | XMS_ITS | Encounter Summary ---
Author Organization [facility] Address [address] [place] [address] Care Team Providers Care Fire Protection Inspector Name Role Phone Reuben Garcia MD Primary Care Provid er Reason for Visit * Reason Comments Follow-up 6 wk fu cath Encounter Details Date Type Department Care Team (Late st Contact Info) Description 04/12/2019 11:45 AM BUILD TECHNICIAN Office Visit [facility] [address] [place] [id number] Reuben Garcia MD [address] [place] [id number] Coronary artery disease involving curyung coronary artery of curyung heart without angina pectoris (Primary Dx); Hyperlipidemia associated with type 2 diabetes mellitus (CMS/HCC); Hypertension associated with diabetes (CMS/HCC); BMI 31.0-31.9,adult Social History Tobacco Use Types Packs/Day Years Used Date Smoking Tobacco: Never Smokeless Tobacco: Never Alcohol Use Standard Drinks/Week Comments No 0 (1 standard drink = 0.6 oz pur e alcohol) PHQ-2 Answer Date Recorded PHQ-2 Score 0 02/23/2019 Sex and Gender Information Value Date Recorded Sex Assigned at Not on file Legal Sex Male 10:13 AM BUILD TECHNICIAN Gender Identity Not on file Sexual Orientation Not on file documented as of this encounter Last Filed Vital Signs Vital Sign Reading Time Taken Comments Blood Pressure 128/66 04/12/2019 11:28 AM BUILD TECHNICIAN Pulse 66 04/12/2019 11:28 AM BUILD TECHNICIAN Temperature - - Respiratory Rate - - Oxygen Saturation 97% 04/12/2019 11:28 AM BUILD TECHNICIAN Inhaled Oxygen Concentration - - Weight 96.6 kg (213 lb) 04/12/2019 11:28 AM BUILD TECHNICIAN Height 175.3 cm (5' 9 ) 04/12/2019 11:28 AM BUILD TECHNICIAN Body Mass Index 31.45 04/12/2019 11:28 AM BUILD TECHNICIAN documented in this encounter Progress Notes * Reuben Garcia MD - 04/12/2019 11:45 AM CST [facility] DATE OF VISIT: 04/12/2019 CHIEF COMPLAINT Chief Complaint Patient presents with ??? Follow-up 6 wk fu cath HPI Jerald Whipple is a 58 y.o. male with past medical history of [...] with his daughter. Underwent cardiac catheterization at [facility] and there was a suspicion of ostial left main disease. The diagonal branch and ostial PDA improved compared to the catheterization in 2017. I refer this patient to [facility] and underwent stenting to the ostial left main coronary artery using 4 x 12 drug-eluting stent. Patient tolerated procedure well. He comes today for follow- up appointment and denies chest pain, shortness of breath, orthopnea, paroxysmal nocturnal dyspnea, dizziness, syncope. MEDICAL HISTORY Past Medical History: Diagnosis Date ??? Coronary artery disease Coronary artery disease ??? Hyperlipidemia Hyperlipidemia ??? Type 2 diabetes mellitus (CMS/HCC) Diabetes type 2 Past Surgical History: Procedure [...] mg tablet blood-glucose meter (ONETOUCH ULTRA2) kit clopidogrel (PLAVIX) 75 mg tablet lisinopril (PRINIVIL,ZESTRIL) 10 mg tablet metFORMIN (GLUCOPHAGE) 500 mg tablet ALLERGIES No Known Allergies REVIEW OF SYSTEMS Review of Systems Constitution: Negative for chills, fever and malaise/fatigue. HENT: [...] allergies and hives. PHYSICAL EXAM Vitals BP 128/66 (BP Location: Left arm, Patient Position: Sitting) Pulse 66 Ht 175.3 cm (5' 9 ) Wt 96.6 kg (213 lb) SpO2 97% BMI 31.45 kg/m?? Body mass index is 31.45 kg/m??. Physical Exam Constitutional: He is oriented to person, place, and time. He appears well- developed and well-nourished. HENT: Head: Normocephalic and atraumatic. Mouth/Throat: Oropharynx is clear and moist. Eyes: Conjunctivae and EOM are normal. Left eye exhibits no discharge. No scleral icterus. Neck: Normal range of motion. Neck supple. No thyromegaly present. Cardiovascular: Normal rate, regular rhythm and normal heart sounds. Exam reveals no gallop and no friction rub. No murmur heard. Pulmonary/Chest: Effort normal and breath sounds normal. No respiratory distress. He has no wheezes. He has no rales. He exhibits no tenderness. Abdominal: Soft. He exhibits no distension and no mass. There is no tenderness. Musculoskeletal: General: No tenderness, deformity or edema. Neurological: He is alert and oriented to person, place, and time. No cranial nerve deficit. He exhibits normal muscle tone. Skin: Skin is warm. No rash noted. No erythema. Psychiatric: He has a normal mood and affect. Judgment normal. LABS AND OTHER DIAGNOSTIC TESTS Lab [...] HDL 35. This lab was done at [facility] FILTER WORKER: Cath (Left main is normal. LAD is [...] - 08/2016 Cardiac catheterization February 2019 at [facility]. Ostial left main appears to be diseased with negative IFR and IVS 5.2-5.4 millimeter sq. Diagonal branch 50%, ostial PDA 50%, left circumflex artery unremarkable. ASSESSMENT Diagnoses and all orders for this visit: Coronary artery disease involving curyung coronary artery of curyung heart without angina pectoris (Primary) Hyperlipidemia associated with type 2 diabetes mellitus (CMS/HCC) Hypertension associated with diabetes (CMS/HCC) BMI 31.0-31.9,adult PLAN/RECOMMENDATIONS -in regards to coronary artery disease, he status post stenting of the left main coronary artery. Continue aspirin and Plavix indefinitely. Continue statin. -in terms of blood pressure, blood pressure is well controlled now. Continue current medications. -interns of hyperlipidemia, continue Lipitor 40 mg daily. -in regards to overweight, patient is about 45 lb above ideal body weight. I encouraged the patientto reduce calorie intake and exercise regularly to help him lose weight. We put a tight get for loss of about 15 lb in the next 1 year. -counseling done regarding importance of low-sodium diet, low sugar diet. Follow up in the office in 6 months Reuben Garcia MD D TECHNICIAN documented in this encounter Plan of Treatment Not on file documented as of this encounter Visit Diagnoses Diagnosis Coronary artery disease involving curyung coronary artery of curyung heart without angina pectoris- Primary Hyperlipidemia associated with type 2 diabetes mellitus (HCC) Hypertension associated with diabetes (HCC) Unspecified essential hypertension BMI 31.0-31.9,adult documented in this encounter Care Teams Fire Protection Inspector Relationship Specialty Start Date End Date Reuben Garcia MD [address] [facility] [address] [place] [address] PCP - General Interventional Cardiology 02/04/17 documented as of this encounter
--- OUTSIDE RECORDS SUMMARY | 2024-05-16 02:01 | XMS_ITS | Encounter Summary ---
Author Organization [facility] Address [address] [place] [address] Care Team Providers Care Office Machine Technician Name Role Phone Reuben Garcia MD Primary Care Provid er Reason for Visit * Reason Comments Coronary Artery Disease 6 month f/u. Wif e c/o snoring Encounter Details Date Type Department Care Team (Late st Contact Info) Description 03/27/2020 11:45 AM SENIOR INSPECTOR Office Visit [facility] Cardiology [address] [place] [address] Reuben Garcia MD [facility] [address] Lipid screening (Primary Dx); Coronary artery disease involving timbi-sha shoshone coronary artery of timbi-sha shoshone heart without angina pectoris; Hypertension associated with diabetes (CMS/HCC); Hyperlipidemia associated with type 2 diabetes mellitus (CMS/HCC) Social History Tobacco Use Types Packs/Day Years [...] file Legal Sex Male 10:13 AM SENIOR INSPECTOR Gender Identity Not on file Sexual Orientation Not on file documented as of this encounter Last Filed Vital Signs Vital Sign Reading Time Taken Comments Blood Pressure 124/72 03/27/2020 11:02 AM SENIOR INSPECTOR Pulse 70 03/27/2020 11:02 AM SENIOR INSPECTOR Temperature - - Respiratory Rate - - Oxygen Saturation 98% 03/27/2020 11:02 AM SENIOR INSPECTOR Inhaled Oxygen Concentration - - Weight 95.3 kg (210 lb 3.2 oz) 03/27/2020 11:02 AM SENIOR INSPECTOR Height 175.3 cm (5' 9 ) 03/27/2020 11:02 AM SENIOR INSPECTOR Body Mass Index 31.04 03/27/2020 11:02 AM SENIOR INSPECTOR documented in this encounter Progress Notes * Reuben Garcia MD - 03/27/2020 11:45 AM CST [facility] DATE OF VISIT: 03/27/2020 CHIEF COMPLAINT Chief Complaint Patient presents with ??? Coronary Artery Disease 6 month f/u. c/o snoring CAD HPI Jerald Whipple is a 59 y.o. male with past medical history of [...] with his daughter. Underwent cardiac catheterization at [facility] and there was a suspicion of ostial left main disease. The diagonal branch and ostial PDA improved compared to the catheterization in 2017. 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 MEDICAL HISTORY Past Medical History: Diagnosis Date [...] ULTRA2) kit clopidogrel (PLAVIX) 75 mg tablet empagliflozin (JARDIANCE) 25 mg tablet lisinopriL (PRINIVIL,ZESTRIL) 10 mg tablet metFORMIN (GLUCOPHAGE) 500 mg tablet FREESTYLE WENDI 14 DAY READER misc FREESTYLE WENDI 14 DAY SENSOR kit ALLERGIES No Known Allergies REVIEW OF SYSTEMS [...] allergies and hives. PHYSICAL EXAM Vitals BP 124/72 (BP Location: Left arm, Patient Position: Sitting) Pulse 70 Ht 175.3 cm (5' 9 ) Wt 95.3 kg (210 lb 3.2 oz) SpO2 98% BMI 31.04 kg/m?? Body mass index is 31.04 kg/m??. Physical Exam Constitutional: He is oriented [...] distension and no mass. There is no abdominal tenderness. Musculoskeletal: General: No tenderness, deformity or [...] BUNSER 14 04/02/2019 1846 CREATININE 0.86 04/02/2019 184 GLUCOSE 167 04/02/2019 184 Component Value Date/Time CALCIUM 8.7 04/02/2019 1846 ALKPHOS 55 05/16/20151939 AST 27 05/16/20151939 ALT 34 05/16/20151939 BILITOT 0.2 05/16/20151939 Lab Results Component Value Date CHOL 232 [...] HDL 35. This lab was done at [facility] APRN: Cath (Left main is normal. LAD is [...] - 08/2016 Cardiac catheterization February [address] [facility]. Ostial left main appears to be diseased with negative IFR and IVS 5.2-5.4 millimeter sq. Diagonal branch 50%, ostial PDA 50%, left circumflex artery unremarkable. ASSESSMENT Diagnoses and all orders for this visit: Lipid screening (Primary) - POCT lipid panel Coronary artery disease involving timbi-sha shoshone coronary artery of timbi-sha shoshone heart without angina pectoris Hypertension associated with diabetes ([facility]) Hyperlipidemia associated with type 2 diabetes mellitus ([facility]) PLAN/RECOMMENDATIONS -in regards to coronary artery disease, he status post stenting of the left main coronary artery. Asymptomatic. Continue aspirin and Plavix indefinitely. Continue statin. -in terms of blood pressure, blood pressure is well controlled now. Continue current medications. -interns of hyperlipidemia, continue Lipitor 40 mg daily. His LDL today was 116 compared to 69 lastyear. He admits to adding dressings like mayonnaise. He used to eat more vegetables but was having muscle weakness and therefore started to eat meat again and whole eggs. Patient to change the way heeats and will bring him in 2 months for lipid check. If fails LDL is not at goal will add Zetia 10 m g daily. -counseling done regarding importance of low-sodium diet, low sugar diet. He follows up with Dr. Márquez for diabetes ?? Reuben Garcia MD Follow up in the office in 6 months. Return to office in 2 months for lipid check. Reuben Garcia MD OR INSPECTOR documented in this encounter Plan of Treatment Not on file documented as of this encounter Procedures Procedure Name Priority Date/Time Associated Diagnosis Comments POCT LIPID PANEL Routine 03/27/2020 11:0 8 AM SENIOR INSPECTOR Lipid screening documented in this encounter Results * POCT lipid panel (03/27/2020 11:08 AM SENIOR INSPECTOR) Cholesterol, POC 208 mg/dL Comment:GLU = 160 HDL, POC 48 mg/dL Triglycerides, POC 222 mg/dL LDL Cholesterol POC 116 mg/dL Chol/HDL Ratio, POC 4.3 Non-HDL Cholesterol, POC 160 mg/dL Cholesterol Total, POC 208 mg/dL Capillary blood 03/27/2020 1 1:08 AM SENIOR INSPECTOR us Reuben Garcia MD POINT OF CARE TEST O RDERABLES Final Result documented in this encounter Visit Diagnoses Diagnosis Lipid screening- Primary Screening for lipoid disorders Coronary artery disease involving timbi-sha shoshone coronary artery of timbi-sha shoshone heart without angina pectoris Hypertension associated with diabetes (HCC) Unspecified essential hypertension Hyperlipidemia associated with type 2 diabetes mellitus (HCC) documented in this encounter Discontinued Medications Medication Sig Discontinue Reason Start Date End Da te FREESTYLE WENDI 14 DAY READER miscIndications:Type 2 diabetes mellitus with hyperglycemia, with long-term current use of insulin (HCC) 1 kit daily Use as directed Therapy completed 04/28/2019 03/27/2020 FREESTYLE WENDI 14 DAY SENSOR kitIndications:Type 2 diabetes mellitus with hyperglycemia, with long-term current use of insulin (HCC) Change sensor every 14 days Therapy completed 04/28/2019 03/27/2020 documented as of this encounter Care Teams Office Machine Technician Relationship Specialty Start Date End Date Reuben Garcia MD [address] [facility] [address], [place] [id number] PCP - General Interventional Cardiology 02/04/17 documented as of this encounter
--- OUTSIDE RECORDS SUMMARY | 2024-05-16 02:01 | XMS_ITS | Encounter Summary ---
Author Organization [facility] Healthcare Address [address] [place] [address] Care Team Providers Care Extractor Loader And Unloader Name Role Phone Reuben Garcia MD Primary Care Provid er Encounter Details Date Type Department Care Team (Late st Contact Info) Description 04/02/2019 1:00 PM SOAPING MACHINE BACK TENDER - 04/02/2019 3:05 PM SOAPING MACHINE BACK TENDER Surgery [facility] [address] [place] [address] Salty Rosas MD PhD [address] [facility] [address] [place] [address] PCI JENA MAJOR CORONARY [id number] - [id number] Surgery Details Date/Time Status Location OR Service Patient Class Case Class Case Type Trauma Case? 04/02/2019 1:00 PM Posted [facility] CARDIAC HADOOP ADMINISTRATOR CCL 01 Cardiovascular Outpatient Elective Panel 1 Procedure LRB Anes Op Region Wound Class Comments PCI JENA MAJOR CORONARY [id number] - [id number] N/A Surgeon Surgeon Role Service Panel Can Fishman MD Fellow Cardiovascular 1 Salty Rosas MD PhD Primary Cardiovascular 1 Case Notes 1100 arrivalE-LPCI- ostial LM. Recent [facility] 02/2019 at [place], referring Dr. Garcia documented in this encounter Social History Tobacco Use Types Packs/Day Years Used Date Smoking Tobacco: Never Smokeless Tobacco: Never Alcohol Use Standard Drinks/Week Comments No 0 (1 standard drink = 0.6 oz pur e alcohol) PHQ-2 Answer Date Recorded PHQ-2 Score 0 02/23/2019 Sex and Gender Information Value Date Recorded Sex Assigned at Not on file Legal Sex Male 10:13 AM SOAPING MACHINE BACK TENDER Gender Identity Not on file Sexual Orientation Not on file documented as of this encounter Last Filed Vital Signs Vital Sign Reading Time Taken Comments Blood Pressure 174/87 04/02/2019 12:08 PM SOAPING MACHINE BACK TENDER Pulse 59 04/02/2019 12:08 PM SOAPING MACHINE BACK TENDER Temperature 37 ??C (98.6 ??F) 04/02/2019 12:08 PM SOAPING MACHINE BACK TENDER Respiratory Rate 16 04/02/2019 12:08 PM SOAPING MACHINE BACK TENDER Oxygen Saturation 97% 04/02/2019 12:08 PM SOAPING MACHINE BACK TENDER Inhaled Oxygen Concentration - - Weight 97 kg (213 lb 13.5 oz) 04/02/2019 12:08 P M SOAPING MACHINE BACK TENDER Height - - Body Mass Index 34.64 04/02/2019 6:20 PM SOAPING MACHINE BACK TENDER documented in this encounter Discharge Summaries * Randy Ann MD - 04/03/2019 4:06 PM CST Inpatient Discharge Summary BRIEF OVERVIEW Admitting Provider: Salty Rosas MD PhD Discharge Provider: No att. providers found Primary Care Physician at Discharge: Reuben Garcia MD [phone] Admission Date: 04/02/2019 Discharge Date: 04/03/2019 Admission Location: [facility] Primary Discharge Diagnosis: CAD s/p high risk PCI Left main ostial lesion Secondary Discharge Diagnosis: Type 2 diabetes mellitus ([facility]/HCC) Hypertension associated with diabetes ([facility]/HCC) Coronary artery disease involving the [place] coronary artery of the [place] heart with unstable angina pectoris ([facility]) Hyperlipidemia associated with type 2 diabetes mellitus ([facility]) DETAILS OF HOSPITAL STAY Presenting Problem/History of Present Illness: Jerald Whipple is a 58 y.o. male with HTN, HLD, NIDDM, and CAD with known diagonal and RCA lesions previously treated medically who presents for PCI to an ostial left main lesion. ?? The patient previously presented to an OSH in 2017 with exertional chest pain. He underwent a LHC that showed: diagonal 1 with a mid 90% lesion and right PDA with an ostial 80% lesion. He was treatedmedically at the time with no intervention to these lesions. He was doing well until he recently presented to his outside clinical resource nurse with intermittent chest discomfort and dyspnea on exertion. Chest discomfort occurred after ambulating a mile and was relieved by rest. He then underwent an EKG stress test that was positive for ischemia. He then underwent a LHC at an outside facility with ostial left main lesion 60-70% and unchanged other disease. He was referred to [facility] for consideration of inte rvention on this lesion. ?? Today, he underwent LHC at [facility] with successful JENA placed to the ostial left main lesion. Patient is doing well post procedure with no acute complaints. He denies headache, lightheadedness, fatigue, vision changes, fevers, chills, night sweats, cough, SOB, chest pain, palpitations, abdominal pain, nausea, vomiting, diarrhea, constipation, pain at the R fem insertion site, dysuria, lower extremityedema, rashes, numbness/tingling, and focal weakness. Hospital Course: 1.) CAD with left main ostial disease Referred in for evaluation and management of left main ostial lesion. Underwent successful PCI without immediate complications. Started Plavix. Discharged in stable condition. Active Issues Requiring Follow-up: Follow up with your primary clinical resource nurse for BP check Continue Plavix 1 year Test Results Pending at Discharge: Operative Procedures Performed: Procedure(s): PCI JENA MAJOR CORONARY [id number] - [id number] Other Procedures: Pertinent Test Results: Discharge Details Physical Exam at Discharge: Discharge Condition: good Pulse: 60 Resp: 16 BP: 159/85 Temp: 36.9 ??C (98.4 ??F) Weight: 97.3 kg (214 lb 9.6 oz) Pertinent Exam Findings at Discharge: Discharge Disposition: Discharge to home or self care Code Status at Discharge: Discharge Instructions: Post- cath activity/lifting restrictions Return/call with pain/bleeding/bruising at R groin puncture site Activity Instructions Discharge Activity: Lifting restrictions No lifting greater than 10 pounds for 3 days Careful with stairs or strenuous activity OK to shower OK to drive Call/seek attention with bleeding, pain, bruising in your right leg Diet Instructions Adult Discharge Diet Diet Type: Return to previous diet Discharge Medications: Current Medications TAKE these medications ASPIR-81 81 mg enteric coated tablet Generic drug: aspirin take 1 tablet by oral route every day atorvastatin 40 mg tablet Commonly known as: LIPITOR Take 1 tablet (40 mg total) by mouth daily clopidogrel 75 mg tablet Commonly known as: PLAVIX Take 1 tablet (75 mg total) by mouth daily Start taking on: April 04, 2019 lisinopril 10 mg tablet Commonly known as: PRINIVIL,ZESTRIL Take 1 tablet (10 mg total) by mouth daily metFORMIN 500 mg tablet Commonly known as: GLUCOPHAGE TAKE 2 TABLETS BY MOUTH TWICE DAILY ONETOUCH ULTRA2 METER kit Generic drug: blood-glucose meter check glucose once a day Outpatient Follow-Up: Future Appointments Date Time Provider Department Center 04/12/2019 11:45 AM [facility] 06/29/2019 2:15 PM Aaron M[facility]quez MD [facility] Contact Information for Follow-ups Reuben Garcia MD Specialty: Interventional Cardiology, Cardiology, Cardiovascular Disease, Internal Medicine Relationship: PCP - General Elian [id number] [facility] [id number] Next Steps: Follow up ING MACHINE BACK TENDER documented in this encounter Discharge Instructions * Attachments The following attachments cannot be sent through Care Everywhere. * After Coronary Angioplasty and Intravascular Stent Placement (Network Announcer) (Citizen Of [place]) documented in this encounter Medications at Time of Discharge blood-glucose meter (ONETOUCH ULTRA2) kit check glucose once a day 1 kit 0 03/04/2014 aspirin (ASPIR-81) 81 mg tablet take 1 tablet by oral route every day 0 0 09/16/2016 09/03/2021 atorvastatin (LIPITOR) 40 mg tabletIndications :Coronary artery disease involving the [place] coronary artery of [place] heart without angina pectoris Take 1 tablet (40 mg total) by mouth daily 30 tablet 11 04/03/2019 05/29/2020 clopidogrel (PLAVIX) 75 mg tablet Take 1 tablet (75 mg total) by mouth daily 30 tablet 11 04/04/2019 08/02/2020 lisinopril (PRINIVIL,ZESTRIL ) 10 mg tabletIndications :Coronary artery disease involving the [place] coronary artery of the [place] heart without angina pectoris Take 1 tablet (10 mg total) by mouth daily 90 tablet 3 03/01/2019 12/14/2019 metFORMIN (GLUCOPHAGE) 500 mg tablet TAKE 2 TABLETS BY MOUTH TWICE DAILY 120 tablet 11/04/2018 11/12/2019 documented as of this encounter Ordered Prescriptions Prescription Sig Dispense Quantity Refills Last Filled Start Date End Date atorvastatin (LIPITOR) 40 mg tabletIndications: Coronary artery disease involving the [place] coronary artery of [place] heart without angina pectoris Take 1 tablet (40 mg total) by mouth daily 30 tablet 11 04/03/2019 05/29/2020 clopidogrel (PLAVIX) 75 mg tablet Take 1 tablet (75 mg total) by mouth daily 30 tablet 04/04/2019 08/02/2020 documented in this encounter Discharge Disposition Disposition Code Departure Means Destination Discharge to home or self care documented in this encounter Progress Notes * Randy Ann MD - 04/03/2019 11:57 AM CST Daily Progress Note Division of Hospital Medicine Name: Jerald Whipple Today: April 03, 2019 : 1960 Age: 58 y.o. male Admit: 04/02/2019 Bed: [id number] Subjective Chief complaint: pci Interval History: had cath yesterday No anginal symptoms No pain bleeding bruising R groin Objective Medications: Scheduled: aspirin, 81 mg, oral, Daily atorvastatin, 40 mg, oral, Daily clopidogrel, 75 mg, oral, Daily sodium chloride 0.9%, 0.5-20 mL, intra-catheter, Q8H JENNY Infusions: sodium chloride 0.9%, 1 mL/kg/hr, Last Rate: Stopped (04/02/19 1643) PRN: ??? acetaminophen ??? ondansetron ODT OR ondansetron ??? polyethylene glycol ??? ramelteon ??? sodium chloride 0.9% Vitals: 24hr Min/Max: Temp Min: 36.5 ??C (97.7 ??F) Max: 37 ??C (98.6 ??F) Pulse Min: 55 Max: 74 BP Min: 100/59 Max: 185/88 Resp Min: 12 Max: 26 SpO2 Min: 94 % Max: 98 % Most Recent: Vitals: 04/03/19 1150 BP: 159/85 Pulse: Resp: Temp: 36.9 ??C (98.4 ??F) SpO2: 97% Intake/Output Summary (Last 24 hours) at 04/03/2019 1153 Last data filed at 04/03/2019 0750 Gross per 24 hour Intake 2040 ml Output 1500 ml Net 540 ml Physical Exam Nontoxic cv rrr Chest unlabored R groin no bruise no bleeding, no pulsatile mass, distal pulses intact Tr edema Lab/Diagnostic Review: Recent Results (from the past 36 hour(s)) ECG 12 lead Collection Time: 04/02/19 11:52 AM Result Value Ref Range Ventricular Rate EKG/Min 55 BPM Atrial Rate 55 BPM CA-Interval (MSEC) 158 ms QRS-Interval (MSEC) 118 ms QT-Interval (MSEC) 454 ms QTc 434 ms P [place] -16 degrees R [place] -42 degrees T [place] 53 degrees Diagnosis Sinus bradycardia Left axis deviation Left ventricular hypertrophy with QRS widening Abnormal ECG No previous ECGs available Confirmed by SAM BUCIO M.D ([id number]) on 04/02/2019 7:30:13 PM POCT glucose Collection Time: 04/02/19 12:07 PM Result Value Ref Range Glucose, POC 137 70 - 199 mg/dL Type and screen Collection Time: 04/02/19 12:15 PM Result Value Ref Range ABO Rh O Positive Anny, indirect Negative CBC without differential Collection Time: 04/02/19 3:00 PM Result Value Ref Range WBC 6.5 3.8 - 9.9 K/cumm Hgb 13.0 13.0 - 17.5 g/dL Hct 37.8 (L) 38.9 - 50.3 % Plt 214 150 - 400 K/cumm MPV 10.6 9.1 - 12.3 fL RBC 4.37 4.30 - 5.80 M/cumm MCV 86.5 81.3 - 96.4 fL MCH 29.7 27.1 - 33.3 pg MCHC 34.4 32.3 - 35.7 g/dL RDW CV 12.5 11.1 - 14.9 % RDW SD 39.7 35.7 - 48.1 fL NRBC abs 0.00 0.00 - 0.01 K/cumm Check Sample Collection Time: 04/02/19 3:50 PM Result Value Ref Range ABO Rh O Positive Basic metabolic panel Collection Time: 04/02/19 6:46 PM Result Value Ref Range Sodium 137 135 - 145 mmol/L Potassium, pl 3.8 3.3 - 4.9 mmol/L Chloride 103 97 - 110 mmol/L CO2 26 22 - 32 mmol/L Anion gap 8 2 - 15 mmol/L BUN 14 8 - 25 mg/dL Creatinine 0.86 0.80 - 1.30 mg/dL Glucose 167 70 - 199 mg/dL Calcium 8.7 8.5 - 10.3 mg/dL CBC with auto differential Collection Time: 04/02/19 6:46 PM Result Value Ref Range WBC 8.0 3.8 - 9.9 K/cumm Hgb 12.2 (L) 13.0 - 17.5 g/dL Hct 36.2 (L) 38.9 - 50.3 % Plt 211 150 - 400 K/cumm MPV 10.8 9.1 - 12.3 fL RBC 4.11 (L) 4.30 - 5.80 M/cumm MCV 88.1 81.3 - 96.4 fL MCH 29.7 27.1 - 33.3 pg MCHC 33.7 32.3 - 35.7 g/dL RDW CV 12.7 11.1 - 14.9 % RDW SD 41.0 35.7 - 48.1 fL NRBC abs 0.00 0.00 - 0.01 K/cumm Differential, auto Collection Time: 04/02/19 6:46 PM Result Value Ref Range Neutrophil abs 6.2 1.7 - 6.5 K/cumm Imm gran abs 0.0 0.0 - 0.1 K/cumm Lymphocyte abs 1.1 0.8 - 3.3 K/cumm Monocyte abs 0.7 0.2 - 0.8 K/cumm Eosinophil abs 0.0 0.0 - 0.5 K/cumm Basophil abs 0.0 0.0 - 0.1 K/cumm Neutrophil pct 76.7 % Imm gran pct 0.5 % Lymphocyte pct 13.3 % Monocyte pct 8.5 % Eosinophil pct 0.6 % Basophil pct 0.4 % CBC with auto differential Collection Time: 04/03/19 6:28 AM Result Value Ref Range WBC 7.8 3.8 - 9.9 K/cumm Hgb 12.6 (L) 13.0 - 17.5 g/dL Hct 38.0 (L) 38.9 - 50.3 % Plt 213 150 - 400 K/cumm MPV 10.6 9.1 - 12.3 fL RBC 4.29 (L) 4.30 - 5.80 M/cumm MCV 88.6 81.3 - 96.4 fL MCH 29.4 27.1 - 33.3 pg MCHC 33.2 32.3 - 35.7 g/dL RDW CV 12.9 11.1 - 14.9 % RDW SD 42.1 35.7 - 48.1 fL NRBC abs 0.00 0.00 - 0.01 K/cumm Differential, auto Collection Time: 04/03/19 6:28 AM Result Value Ref Range Neutrophil abs 5.6 1.7 - 6.5 K/cumm Imm gran abs 0.0 0.0 - 0.1 K/cumm Lymphocyte abs 1.4 0.8 - 3.3 K/cumm Monocyte abs 0.7 0.2 - 0.8 K/cumm Eosinophil abs 0.1 0.0 - 0.5 K/cumm Basophil abs 0.0 0.0 - 0.1 K/cumm Neutrophil pct 71.6 % Imm gran pct 0.5 % Lymphocyte pct 17.5 % Monocyte pct 8.7 % Eosinophil pct 1.2 % Basophil pct 0.5 % I have reviewed the laboratory results. Imaging Results: Cardiac Catheterization IFR and coronary PCI Interventional fellow: Dr. Can Fishman HPI: 58-year-old male with history of hypertension, hyperlipidemia, diabetes and known coronary disease now referred for evaluation of an ostial left main lesion. Patient had prior catheterization a few years ago at an outside hospital with known diagonal and right coronary lesions. These were treated medically. He recently presented with recurrent chest discomfort and shortness of breath with moderate exertion relieved with rest. Stress test was reportedly abnormal. Catheterization at outside hospital notes an intermediate ostial left main lesion of 60- 70%. The diagonal and other disease is unchanged. Fractional flow reserve at the outside hospital was normal at 0.96 however the cross-sectional area by intravascular ultrasound was 5.2 centimeter squared. Given this discrepancy, he is referred for IFR of the ostial left main, intravascular ultrasound and probable PCI. Procedure: Patient prepped draped sterile fashion. 2% local lidocaine anesthesia was utilized. Fentanyl and Versed were used as premedication. Optiray was used as contrast. A 7 [place] sheath inserted into the right femoral artery using percutaneous approach. Heparin was administered to maintain ACT of 250 seconds or greater. IFR was performed with 7 [place] XB lad 3.5 guide catheter 0.014 in volcano [place] pressure wire. Intravascular ultrasound performed volcano la posta [place] catheter over the same wire. Ostial left main PCI was performed using a choice floppy wire and direct stenting using a 4 mm x 12 mm resolute anali drug-eluting stent deployed at 14 atmospheres with further expansion up to 20 atmospheres. Intravascular ultrasound was repeated. Postdilatation was performed with a 4 mm x 8 mm NC emerge with 2 inflations up to 26 atmospheres. Due to severe hypertension patient was treated with intravenous and intracoronary nitroglycerin and nicardipine. Completion the case the right femoral artery sheath was removed and the area closed with 8 [place] Angio-Seal. There were no complications. IFR of ostial left main: The ostial left main is very suggestive with a 70% ostial narrowing, particularly in the PA and cranial PA views. A [place] pressure wire was normalized in the aorta and passed distally. This revealed a highly significant IFR of 0.70. Intravascular ultrasound was performed also noting a highly significant reference vessel diameter of less than 5 mm squared. PCI of ostial left main: Using angiographic and intravascular ultrasound markers a 4 mm x 12 mm resolute anali drug-eluting stent was deployed to cover the ostium and most of the left main body. It was further dilated up to 20 atmospheres with the stent delivery balloon. Intravascular ultrasound revealed some under expansion in the mid segment. This was post dilated with a 4 mm x 8 mm NC emerge with 2 inflations up to 26 atmospheres. This left no residual, no dissection, and DIXIE 3 flow. Lesion classification- this is a type B lesion with DIXIE 3 flow pre and post. The syntax score is low. There was 0% residual. The lesion length is 5 mm. This is the culprit. Overall impression: 1. Markedly positive IFR and intravascular ultrasound of ostial left main lesion and highly symptomatic patient. 2. Successful stenting of ostial left main with 4 mm x 12 mm resolute anali drug-eluting stent. 3. Moderate severe disease in diagonal and right coronary artery. 4. Refractory hypertension. Therapy recommendations: Patient be hydrated ambulated later today. Plavix to continue for year aspirin indefinitely. Further risk factor modification per patient's primary physician Dr. Garcia. I have independently reviewed and interpreted Tele pers reviewed sinus Assessment/Plan Hyperlipidemia associated with type 2 diabetes mellitus ([facility]/HCC) Assessment & Plan --Continue atorvastatin. Coronary artery disease involving the [place] coronary artery of the [place] heart with unstable angina pectoris ([facility]) Assessment & Plan S/p LM ostial PCI --Aspirin 81 mg daily indefinitely. --S/p Plavix load. Continue 75 mg daily for at least a year. --Continue atorvastatin. --Continue lisinopril 10 mg daily. --Historically not on BB therapy, f/u with clinical resource nurse DC today DC time 31 minutes Hypertension associated with diabetes ([facility]) Assessment & Plan --Anti-hypertensive medications per CAD. Type 2 diabetes mellitus ([facility]/HCC) Assessment & Plan Recent A1c's in the 6s. --Hold home Metformin. --Low dose SSI and accuchecks. ING MACHINE BACK TENDER documented in this encounter H&P Notes * Trey Akers MD - 04/02/2019 7:01 PM CST History and Physical Division of Hospital Medicine Name: Jerald Whipple : 1960 Today: April 02, 2019 Bed: [id number] Subjective Chief Complaint: Intermittent chest pain HPI: Jerald Whipple is a 58 y.o. male with HTN, HLD, NIDDM, and CAD with known diagonal and RCA lesions previously treated medically who presents for PCI to an ostial left main lesion. The patient previously presented to an OSH in 2017 with exertional chest pain. He underwent a LHC that showed: diagonal 1 with a mid 90% lesion and right PDA with an ostial 80% lesion. He was treatedmedically at the time with no intervention to these lesions. He was doing well until he recently presented to his outside clinical resource nurse with intermittent chest discomfort and dyspnea on exertion. Chest discomfort occurred after ambulating a mile and was relieved by rest. He then underwent an EKG stress test that was positive for ischemia. He then underwent a LHC at an outside facility with ostial left main lesion 60-70% and unchanged other disease. He was referred to [facility] for consideration of inte rvention on this lesion. Today, he underwent LHC at [facility] with successful JENA placed to the ostial left main lesion. Patient is doing well post procedure with no acute complaints. He denies headache, lightheadedness, fatigue, vision changes, fevers, chills, night sweats, cough, SOB, chest pain, palpitations, abdominal pain, nausea, vomiting, diarrhea, constipation, pain at the R fem insertion site, dysuria, lower extremityedema, rashes, numbness/tingling, and focal weakness. Past Medical History: Diagnosis Date ??? Coronary artery disease Coronary artery disease ??? Hyperlipidemia Hyperlipidemia ??? Type 2 diabetes mellitus (CMS/HCC) Diabetes type 2 Past Surgical History: Procedure Laterality Date ??? CARDIAC CATHETERIZATION ??? CATARACT EXTRACTION, BILATERAL No current facility-administered medications on file prior to encounter. Current Outpatient Medications on File Prior to Encounter Medication Sig ??? aspirin (ASPIR-81) 81 mg tablet take 1 tablet by oral route every day ??? atorvastatin (LIPITOR) 40 mg tablet Take 1 tablet (40 mg total) by mouth daily ??? blood-glucose meter (ONETOUCH ULTRA2) kit check glucose once a day ??? lisinopril (PRINIVIL,ZESTRIL) 10 mg tablet Take 1 tablet (10 mg total) by mouth daily ??? metFORMIN (GLUCOPHAGE) 500 mg tablet TAKE 2 TABLETS BY MOUTH TWICE DAILY No Known Allergies Social History Tobacco Use ??? Smoking status: Never Smoker ??? Smokeless tobacco: Never Used Substance Use Topics ??? Alcohol use: No Family History Problem Relation Age of Onset ??? Other Father Alive and well; ??? Diabetes type II Mother Diabetes -Type 2; Family history reviewed and as above. Otherwise is not pertinent. Review of Systems: Review of systems per HPI and otherwise all other systems were negative. Objective Vitals: Most Recent : Vitals: 04/02/19 1900 BP: Pulse: 60 Resp: Temp: SpO2: Arrival Vitals [04/02/19 1208] Temp 37 ??C (98.6 ??F) Pulse 59 Resp 16 BP (!) 174/87 SpO2 97 % Temp src Oral Heart Rate Source Monitor Patient Position BP Location FiO2 (%) 24hr Min/Max: Temp Min: 37 ??C (98.6 ??F) Max: 37 ??C (98.6 ??F) Pulse Min: 58 Max: 74 BP Min: 100/59 Max: 174/87 Resp Min: 12 Max: 26 SpO2 Min: 94 % Max: 98 % I&Os: I/O last 2 completed shifts: In: 1190 [P.O.:1090; I.V.:100] Out: - I/O this shift: In: 100 [I.V.:100] Out: - Physical exam: Constitutional: Vitals reviewed. In no acute distress. Well-nourished and well- developed. Appears stated age. Head: Normocephalic. Atraumatic. Eyes: Sclera anicteric. Pupils equal, round, and reactive to light. Extraocular eye movements intact. ENT: No nasal discharge. Moist oral mucous membranes. Oropharynx without erythema, lesions, or exudates. Neck: Supple. Trachea midline. No thyromegaly. No cervical lymphadenopathy. Cardiovascular: Normal rate. Regular rhythm. No murmurs, rubs, or gallops. 2+ distal pulses. No JVD. Respiratory: No respiratory distress on room air. Clear to auscultation bilaterally. Gastrointestinal: Soft. Nontender. Nondistended. Normoactive bowel sounds. No hepatosplenomegaly. : R femoral cath site is clean, dry, intact. There is so swelling or bruit. Distal pulse in the RLE is intact. Neurologic: Alert and oriented to person, place, time, and situation. CNII-XII intact. Sensation tolight touch intact and symmetric in bilateral upper and lower extremities. 5/5 strength in the bilateral upper and lower extremities. Musculoskeletal/Extremities: Warm and well-perfused. No lower extremity edema. No clubbing or cyanosis. No gross joint deformities or effusions. Psychiatric: Pleasant and conversant. Mood congruent with affect. Judgement and insight intact. Skin: No evident rashes or lesions. Lab Results: Recent Results (from the past 36 hour(s)) ECG 12 lead Collection Time: 04/02/19 11:52 AM Result Value Ref Range Ventricular Rate EKG/Min 55 BPM Atrial Rate 55 BPM CA-Interval (MSEC) 158 ms QRS-Interval (MSEC) 118 ms QT-Interval (MSEC) 454 ms QTc 434 ms P [place] -16 degrees R [place] -42 degrees T [place] 53 degrees Diagnosis Sinus bradycardia Left axis deviation Left ventricular hypertrophy with QRS widening Abnormal ECG No previous ECGs available Confirmed by SAM BUCIO M.D ([id number]) on 04/02/2019 7:30:13 PM POCT glucose Collection Time: 04/02/19 12:07 PM Result Value Ref Range Glucose, POC 137 70 - 199 mg/dL Type and screen Collection Time: 04/02/19 12:15 PM Result Value Ref Range ABO Rh O Positive Anny, indirect Negative CBC without differential Collection Time: 04/02/19 3:00 PM Result Value Ref Range WBC 6.5 3.8 - 9.9 K/cumm Hgb 13.0 13.0 - 17.5 g/dL Hct 37.8 (L) 38.9 - 50.3 % Plt 214 150 - 400 K/cumm MPV 10.6 9.1 - 12.3 fL RBC 4.37 4.30 - 5.80 M/cumm MCV 86.5 81.3 - 96.4 fL MCH 29.7 27.1 - 33.3 pg MCHC 34.4 32.3 - 35.7 g/dL RDW CV 12.5 11.1 - 14.9 % RDW SD 39.7 35.7 - 48.1 fL NRBC abs 0.00 0.00 - 0.01 K/cumm Check Sample Collection Time: 04/02/19 3:50 PM Result Value Ref Range ABO Rh O Positive I have independently reviewed and interpreted the above laboratory results. Imaging Results: Cardiac Catheterization IFR and coronary PCI Interventional fellow: Dr. Can Fishman HPI: 58-year-old male with history of hypertension, hyperlipidemia, diabetes and known coronary disease now referred for evaluation of an ostial left main lesion. Patient had prior catheterization a few years ago at an outside hospital with known diagonal and right coronary lesions. These were treated medically. He recently presented with recurrent chest discomfort and shortness of breath with moderate exertion relieved with rest. Stress test was reportedly abnormal. Catheterization at outside hospital notes an intermediate ostial left main lesion of 60- 70%. The diagonal and other disease is unchanged. Fractional flow reserve at the outside hospital was normal at 0.96 however the cross-sectional area by intravascular ultrasound was 5.2 centimeter squared. Given this discrepancy, he is referred for IFR of the ostial left main, intravascular ultrasound and probable PCI. Procedure: Patient prepped draped sterile fashion. 2% local lidocaine anesthesia was utilized. Fentanyl and Versed were used as premedication. Optiray was used as contrast. A 7 [place] sheath inserted into the right femoral artery using percutaneous approach. Heparin was administered to maintain ACT of 250 seconds or greater. IFR was performed with 7 [place] XB lad 3.5 guide catheter 0.014 in volcano [place] pressure wire. Intravascular ultrasound performed volcano [place] post[place] catheter over the same wire. Ostial left main PCI was performed using a choice floppy wire and direct stenting using a 4 mm x 12 mm resolute anali drug-eluting stent deployed at 14 atmospheres with further expansion up to 20 atmospheres. Intravascular ultrasound was repeated. Postdilatation was performed with a 4 mm x 8 mm NC emerge with 2 inflations up to 26 atmospheres. Due to severe hypertension patient was treated with intravenous and intracoronary nitroglycerin and nicardipine. Completion the case the right femoral artery sheath was removed and the area closed with 8 [place] Angio-Seal. There were no complications. IFR of ostial left main: The ostial left main is very suggestive with a 70% ostial narrowing, particularly in the PA and cranial PA views. A [place] pressure wire was normalized in the aorta and passed distally. This revealed a highly significant IFR of 0.70. Intravascular ultrasound was performed also noting a highly significant reference vessel diameter of less than 5 mm squared. PCI of ostial left main: Using angiographic and intravascular ultrasound markers a 4 mm x 12 mm resolute anali drug-eluting stent was deployed to cover the ostium and most of the left main body. It was further dilated up to 20 atmospheres with the stent delivery balloon. Intravascular ultrasound revealed some under expansion in the mid segment. This was post dilated with a 4 mm x 8 mm NC emerge with 2 inflations up to 26 atmospheres. This left no residual, no dissection, and DIXIE 3 flow. Lesion classification- this is a type B lesion with DIXIE 3 flow pre and post. The syntax score is low. There was 0% residual. The lesion length is 5 mm. This is the culprit. Overall impression: 1. Markedly positive IFR and intravascular ultrasound of ostial left main lesion and highly symptomatic patient. 2. Successful stenting of ostial left main with 4 mm x 12 mm resolute anali drug-eluting stent. 3. Moderate severe disease in diagonal and right coronary artery. 4. Refractory hypertension. Therapy recommendations: Patient be hydrated ambulated later today. Plavix to continue for year aspirin indefinitely. Further risk factor modification per patient's primary physician Dr. Garcia. I have independently reviewed and interpreted the above imaging. Diagnostics/Procedures: I have independently reviewed and interpreted the stress test. Findings include: EKG evidence of ischemia. Other Records: I have independently reviewed additional patient records from [facility]. Assessment/Plan Coronary artery disease involving the [place] coronary artery of the [place] heart with unstable angina pectoris ([facility]) Assessment & Plan Patient with known coronary disease of diagonal and RCA (no intervention) from [facility] in 2017 with recent onset of exertional dyspnea and chest discomfort relieved by rest. Underwent successful intervention with JENA to ostial left main lesion today. R femoral catheter site without swelling or bruit. He is asymptomatic currently. --Aspirin 81 mg daily indefinitely. --S/p Plavix load. Continue 75 mg daily for at least a year. --Continue atorvastatin. --Continue lisinopril 10 mg daily. --Unclear why patient has historically not been on beta-cameron. Could consider starting low dose if HR will tolerate. --Follow-up with outside clinical resource nurse on discharge. Hyperlipidemia associated with type 2 diabetes mellitus ([facility]) Assessment & Plan --Continue atorvastatin. Hypertension associated with diabetes ([facility]) Assessment & Plan --Anti-hypertensive medications per CAD. Type 2 diabetes mellitus ([facility]) Assessment & Plan Recent A1c's in the 6s. --Hold home Metformin. --Low dose SSI and accuchecks. Code Status: Full Code Diet: Adult Diet Restricted; Low Fat, Low Chol, 2 GM Sodium; Consistent Carbohydrate DVT Prophylaxis: Lovenox Access: MATTHEW Akers MD 04/02/2019 7:41 PM For patient related questions from 7 AM until 7 PM, please contact the primary Hospitalist team. From 7 PM until 7 AM, please call the Hospitalist cross cover phone. ING MACHINE BACK TENDER ING MACHINE BACK TENDER documented in this encounter Nursing Notes * Savanna Pickering RN - 04/02/2019 5:[address] Rosas ok to d/c Nitro gtt at this time per blood pressure readings. Orders to hold Lisinopril until SBP above 120. [facility] RN aware of nitro gtt d/c and lisinopril order. ING MACHINE BACK TENDER documented in this encounter Miscellaneous Notes * Plan of Care - Tram Guzman RN - 04/03/2019 4:01 PM CST Goals: Clinical Goals for the Shift: Patient will remain hemodynamically stable overnight. Summary: Pt discharged to home. Pt received his rx from mobile pharmacy. Pt and family voiced understanding to discharge including post stent instructions, follow up and medication as presented. IV and tele discontinued. ING MACHINE BACK TENDER * Plan of Care - Tram Guzman RN - 04/03/2019 12:46 PM CST Goals: Clinical Goals for the Shift: Patient will remain hemodynamically stable overnight. Summary: Patient verbalized understanding and participating in care. Will continue to monitor. ING MACHINE BACK TENDER * Hospital Course - Randy Ann MD - 04/03/2019 12:03 PM SOAPING MACHINE BACK TENDER 1.) CAD with left main ostial disease Referred in for evaluation and management of left main ostial lesion. Underwent successful PCI without immediate complications. Started Plavix. Discharged in stable condition. ING MACHINE BACK TENDER * Subjective & Objective - Randy Ann MD - 04/03/2019 11:52 AM SOAPING MACHINE BACK TENDER Daily Progress Note Division of [facility] Medicine Name: Jerald Whipple Today: April 03, 2019 : 1960 Age: 58 y.o. male Admit: 04/02/2019 Bed: [id number] Subjective Chief complaint: pci Interval History: had cath yesterday No anginal symptoms No pain bleeding bruising R groin Objective Medications: Scheduled: aspirin, 81 mg, oral, Daily atorvastatin, 40 mg, oral, Daily clopidogrel, 75 mg, oral, Daily sodium chloride 0.9%, 0.5-20 mL, intra-catheter, Q8H JENNY Infusions: sodium chloride 0.9%, 1 mL/kg/hr, Last Rate: Stopped (04/02/19 1643) PRN: ??? acetaminophen ??? ondansetron ODT OR ondansetron ??? polyethylene glycol ??? ramelteon ??? sodium chloride 0.9% Vitals: 24hr Min/Max: Temp Min: 36.5 ??C (97.7 ??F) Max: 37 ??C (98.6 ??F) Pulse Min: 55 Max: 74 BP Min: 100/59 Max: 185/88 Resp Min: 12 Max: 26 SpO2 Min: 94 % Max: 98 % Most Recent: Vitals: 04/03/19 1150 BP: 159/85 Pulse: Resp: Temp: 36.9 ??C (98.4 ??F) SpO2: 97% Intake/Output Summary (Last 24 hours) at 04/03/2019 1153 Last data filed at 04/03/2019 0750 Gross per 24 hour Intake 2040 ml Output 1500 ml Net 540 ml Physical Exam Nontoxic cv rrr Chest unlabored R groin no bruise no bleeding, no pulsatile mass, distal pulses intact Tr edema Lab/Diagnostic Review: Recent Results (from the past 36 hour(s)) ECG 12 lead Collection Time: 04/02/19 11:52 AM Result Value Ref Range Ventricular Rate EKG/Min 55 BPM Atrial Rate 55 BPM CA-Interval (MSEC) 158 ms QRS-Interval (MSEC) 118 ms QT-Interval (MSEC) 454 ms QTc 434 ms P [place] -16 degrees R [place] -42 degrees T [place] 53 degrees Diagnosis Sinus bradycardia Left axis deviation Left ventricular hypertrophy with QRS widening Abnormal ECG No previous ECGs available Confirmed by SAM BUCIO M.D ([id number]) on 04/02/2019 7:30:13 PM POCT glucose Collection Time: 04/02/19 12:07 PM Result Value Ref Range Glucose, POC 137 70 - 199 mg/dL Type and screen Collection Time: 04/02/19 12:15 PM Result Value Ref Range ABO Rh O Positive Anny, indirect Negative CBC without differential Collection Time: 04/02/19 3:00 PM Result Value Ref Range WBC 6.5 3.8 - 9.9 K/cumm Hgb 13.0 13.0 - 17.5 g/dL Hct 37.8 (L) 38.9 - 50.3 % Plt 214 150 - 400 K/cumm MPV 10.6 9.1 - 12.3 fL RBC 4.37 4.30 - 5.80 M/cumm MCV 86.5 81.3 - 96.4 fL MCH 29.7 27.1 - 33.3 pg MCHC 34.4 32.3 - 35.7 g/dL RDW CV 12.5 11.1 - 14.9 % RDW SD 39.7 35.7 - 48.1 fL NRBC abs 0.00 0.00 - 0.01 K/cumm Check Sample Collection Time: 04/02/19 3:50 PM Result Value Ref Range ABO Rh O Positive Basic metabolic panel Collection Time: 04/02/19 6:46 PM Result Value Ref Range Sodium 137 135 - 145 mmol/L Potassium, pl 3.8 3.3 - 4.9 mmol/L Chloride 103 97 - 110 mmol/L CO2 26 22 - 32 mmol/L Anion gap 8 2 - 15 mmol/L BUN 14 8 - 25 mg/dL Creatinine 0.86 0.80 - 1.30 mg/dL Glucose 167 70 - 199 mg/dL Calcium 8.7 8.5 - 10.3 mg/dL CBC with auto differential Collection Time: 04/02/19 6:46 PM Result Value Ref Range WBC 8.0 3.8 - 9.9 K/cumm Hgb 12.2 (L) 13.0 - 17.5 g/dL Hct 36.2 (L) 38.9 - 50.3 % Plt 211 150 - 400 K/cumm MPV 10.8 9.1 - 12.3 fL RBC 4.11 (L) 4.30 - 5.80 M/cumm MCV 88.1 81.3 - 96.4 fL MCH 29.7 27.1 - 33.3 pg MCHC 33.7 32.3 - 35.7 g/dL RDW CV 12.7 11.1 - 14.9 % RDW SD 41.0 35.7 - 48.1 fL NRBC abs 0.00 0.00 - 0.01 K/cumm Differential, auto Collection Time: 04/02/19 6:46 PM Result Value Ref Range Neutrophil abs 6.2 1.7 - 6.5 K/cumm Imm gran abs 0.0 0.0 - 0.1 K/cumm Lymphocyte abs 1.1 0.8 - 3.3 K/cumm Monocyte abs 0.7 0.2 - 0.8 K/cumm Eosinophil abs 0.0 0.0 - 0.5 K/cumm Basophil abs 0.0 0.0 - 0.1 K/cumm Neutrophil pct 76.7 % Imm gran pct 0.5 % Lymphocyte pct 13.3 % Monocyte pct 8.5 % Eosinophil pct 0.6 % Basophil pct 0.4 % CBC with auto differential Collection Time: 04/03/19 6:28 AM Result Value Ref Range WBC 7.8 3.8 - 9.9 K/cumm Hgb 12.6 (L) 13.0 - 17.5 g/dL Hct 38.0 (L) 38.9 - 50.3 % Plt 213 150 - 400 K/cumm MPV 10.6 9.1 - 12.3 fL RBC 4.29 (L) 4.30 - 5.80 M/cumm MCV 88.6 81.3 - 96.4 fL MCH 29.4 27.1 - 33.3 pg MCHC 33.2 32.3 - 35.7 g/dL RDW CV 12.9 11.1 - 14.9 % RDW SD 42.1 35.7 - 48.1 fL NRBC abs 0.00 0.00 - 0.01 K/cumm Differential, auto Collection Time: 04/03/19 6:28 AM Result Value Ref Range Neutrophil abs 5.6 1.7 - 6.5 K/cumm Imm gran abs 0.0 0.0 - 0.1 K/cumm Lymphocyte abs 1.4 0.8 - 3.3 K/cumm Monocyte abs 0.7 0.2 - 0.8 K/cumm Eosinophil abs 0.1 0.0 - 0.5 K/cumm Basophil abs 0.0 0.0 - 0.1 K/cumm Neutrophil pct 71.6 % Imm gran pct 0.5 % Lymphocyte pct 17.5 % Monocyte pct 8.7 % Eosinophil pct 1.2 % Basophil pct 0.5 % I have reviewed the laboratory results. Imaging Results: Cardiac Catheterization IFR and coronary PCI Interventional fellow: Dr. Can Fishman HPI: 58-year-old male with history of hypertension, hyperlipidemia, diabetes and known coronary disease now referred for evaluation of an ostial left main lesion. Patient had prior catheterization a few years ago at an outside hospital with known diagonal and right coronary lesions. These were treated medically. He recently presented with recurrent chest discomfort and shortness of breath with moderate exertion relieved with rest. Stress test was reportedly abnormal. Catheterization at outside hospital notes an intermediate ostial left main lesion of 60- 70%. The diagonal and other disease is unchanged. Fractional flow reserve at the outside hospital was normal at 0.96 however the cross-sectional area by intravascular ultrasound was 5.2 centimeter squared. Given this discrepancy, he is referred for IFR of the ostial left main, intravascular ultrasound and probable PCI. Procedure: Patient prepped draped sterile fashion. 2% local lidocaine anesthesia was utilized. Fentanyl and Versed were used as premedication. Optiray was used as contrast. A 7 [place] sheath inserted into the right femoral artery using percutaneous approach. Heparin was administered to maintain ACT of 250 seconds or greater. IFR was performed with 7 [place] XB lad 3.5 guide catheter 0.014 in volcano [place] pressure wire. Intravascular ultrasound performed volcano [place] post[place] catheter over the same wire. Ostial left main PCI was performed using a choice floppy wire and direct stenting using a 4 mm x 12 mm resolute anali drug-eluting stent deployed at 14 atmospheres with further expansion up to 20 atmospheres. Intravascular ultrasound was repeated. Postdilatation was performed with a 4 mm x 8 mm NC emerge with 2 inflations up to 26 atmospheres. Due to severe hypertension patient was treated with intravenous and intracoronary nitroglycerin and nicardipine. Completion the case the right femoral artery sheath was removed and the area closed with 8 [place] Angio-Seal. There were no complications. IFR of ostial left main: The ostial left main is very suggestive with a 70% ostial narrowing, particularly in the PA and cranial PA views. A [place] pressure wire was normalized in the aorta and passed distally. This revealed a highly significant IFR of 0.70. Intravascular ultrasound was performed also noting a highly significant reference vessel diameter of less than 5 mm squared. PCI of ostial left main: Using angiographic and intravascular ultrasound markers a 4 mm x 12 mm resolute anali drug-eluting stent was deployed to cover the ostium and most of the left main body. It was further dilated up to 20 atmospheres with the stent delivery balloon. Intravascular ultrasound revealed some under expansion in the mid segment. This was post dilated with a 4 mm x 8 mm NC emerge with 2 inflations up to 26 atmospheres. This left no residual, no dissection, and DIXIE 3 flow. Lesion classification- this is a type B lesion with DIXIE 3 flow pre and post. The syntax score is low. There was 0% residual. The lesion length is 5 mm. This is the culprit. Overall impression: 1. Markedly positive IFR and intravascular ultrasound of ostial left main lesion and highly symptomatic patient. 2. Successful stenting of ostial left main with 4 mm x 12 mm resolute anali drug-eluting stent. 3. Moderate severe disease in diagonal and right coronary artery. 4. Refractory hypertension. Therapy recommendations: Patient be hydrated ambulated later today. Plavix to continue for year aspirin indefinitely. Further risk factor modification per patient's primary physician Dr. Garcia. I have independently reviewed and interpreted Tele pers reviewed sinus ING MACHINE BACK TENDER * Plan of Care - Katina Alcazar RN - 04/02/2019 10:40 PM CST Goals: Clinical Goals for the Shift: Patient will remain hemodynamically stable overnight. Summary: Problem: Health Behavior: Goal: Understanding of discharge needs will improve Outcome: Progressing Problem: Activity: Goal: Risk for activity intolerance will decrease Outcome: Progressing Problem: Lack of Knowledge: Goal: Knowledge of diagnostic tests will improve Outcome: Progressing Goal: Knowledge of disease or condition will improve Outcome: Progressing Goal: Knowledge of safety precautions will improve Outcome: Progressing Goal: Knowledge of the prescribed therapeutic regimen will improve Outcome: Progressing Problem: Cardiac: Goal: Postprocedural complications will be avoided or minimized Outcome: Progressing Problem: Lack of Knowledge: Goal: Understanding of discharge needs will improve Outcome: Progressing ING MACHINE BACK TENDER * Assessment & Plan Note - Trey Akers MD - 04/02/2019 7:19 PM SOAPING MACHINE BACK TENDER Associated Problem(s): Coronary artery disease involving the [place] coronary artery of the [place] heart without angina pectoris S/p LM ostial PCI --Aspirin 81 mg daily indefinitely. --S/p Plavix load. Continue 75 mg daily for at least a year. --Continue atorvastatin. --Continue lisinopril 10 mg daily. --Historically not on BB therapy, f/u with clinical resource nurse DC today DC time 31 minutes ING MACHINE BACK TENDER ING MACHINE BACK TENDER ING MACHINE BACK TENDER ING MACHINE BACK TENDER ING MACHINE BACK TENDER ING MACHINE BACK TENDER * Assessment & Plan Note - Trey Akers MD - 04/02/2019 7:19 PM SOAPING MACHINE BACK TENDER Associated Problem(s): Hyperlipidemia associated with type 2 diabetes mellitus (HCC) --Continue atorvastatin. ING MACHINE BACK TENDER * Assessment & Plan Note - Trey Akers MD - 04/02/2019 7:18 PM SOAPING MACHINE BACK TENDER Associated Problem(s): Hypertension associated with diabetes (HCC) --Anti-hypertensive medications per CAD. ING MACHINE BACK TENDER * Assessment & Plan Note - Trey Akers MD - 04/02/2019 7:18 PM SOAPING MACHINE BACK TENDER Associated Problem(s): Type 2 diabetes mellitus (HCC) Recent A1c's in the 6s. --Hold home Metformin. --Low dose SSI and accuchecks. ING MACHINE BACK TENDER * Plan of Care - Perlita Stroud RN - 04/02/2019 6:27 PM CST Problem: Health Behavior: Goal: Understanding of discharge needs will improve Outcome: Progressing Problem: Activity: Goal: Risk for activity intolerance will decrease Outcome: Progressing Problem: Lack of Knowledge: Goal: Knowledge of diagnostic tests will improve Outcome: Progressing Goal: Knowledge of disease or condition will improve Outcome: Progressing Goal: Knowledge of safety precautions will improve Outcome: Progressing Goal: Knowledge of the prescribed therapeutic regimen will improve Outcome: Progressing Problem: Cardiac: Goal: Postprocedural complications will be avoided or minimized Outcome: Progressing Problem: Lack of Knowledge: Goal: Understanding of discharge needs will improve Outcome: Progressing Goals: Summary: Denies any chest pain at this time ING MACHINE BACK TENDER * Pre-Sedation Documentation - Can Fishman MD - 04/02/2019 3:03 PM SOAPING MACHINE BACK TENDER Sedation Plan ASA 2 - Mild systemic disease Risks, benefits, and alternatives discussed with patient. History of sedation/Anesthesia complications:No History of transfusion reaction: No Current Facility-Administered Medications Medication Dose Route Frequency Provider Last Rate Last Dose ??? aspirin chewable tablet 162 mg 162 mg oral Once Can Fishman MD ??? clopidogrel (PLAVIX) tablet 600 mg 600 mg oral Once Can Fishman MD ??? sodium chloride 0.9% flush 0.5-20 mL 0.5-20 mL intra-catheter PRN Nela Blank NP ??? sodium chloride 0.9% infusion 1 mL/kg/hr intravenous Continuous Nela Blank NP 96.6 mL/hr at 04/02/19 1215 1 mL/kg/hr at 04/02/19 1215 Laboratory review: Lab results in the last 24 hours: Recent Results (from the past 24 hour(s)) POCT glucose Collection Time: 04/02/19 12:07 PM Result Value Ref Range Glucose, POC 137 70 - 199 mg/dL Type and screen Collection Time: 04/02/19 12:15 PM Result Value Ref Range ABO Rh O Positive Anny, indirect Negative Current meds/Labs/Test Results that may affect sedation reviewed: Yes Last PO Intake: Midnight HEENT Exam: negative Sedation Plan: Moderate Cosigned by Salty Rosas MD PhD at 04/02/2019 3:28 PM SOAPING MACHINE BACK TENDER ING MACHINE BACK TENDER ING MACHINE BACK TENDER * Pre-Cardiac Catheterization Workup and H&P - Sakina Yo RN - 04/02/2019 3:00 PM CST PRE-CARDIAC CATHETERIZATION WORKUP Patient Name: Jerald Whipple Patient Patient : 1960 Date of Procedure: 04/02/2019 ORDERING PHYSICIAN RECRUITER: Surgeon(s): Salty Rosas MD PhD Procedure(s): PCI JENA MAJOR CORONARY [id number] Requested Diagnostic: [] Coronary Angiograms Only [] Left Heart Cath [] LV Gram [] Right Heart Cath [] Right and Left Heart Cath Valve Study: [] Aortic [] Mitral [] Pulmonic [] Tricuspid [] Pulmonary HTN Study [] Pericardial Constriction Study [] Congential Study [] Other Study: Requested Intervention: [x] Coronary [] FFR [] Percutaneous VAD [] IAPB [] Pericardiocentesis [] Vascular [] Renal Valvuloplasty: [] Aortic [] Mitral [] Pulmonic [] Tricuspid Strucutural Heart: [] ASD/PFO Closure [] VSD Closure [] TAVR [] Other Intervention: NARRATIVE: 58 y/o male w/ h/o htn, dyslipidemia, DM, CAD. Patient w/ abnormal stress test, abnormal LHC referred for PCI w/ Dr. Rosas. Patient c/o chest discomfort w/ SOB w/ moderate exertion relieved with rest. Patient denies any s/s over the past 2 weeks. ALLERGIES: Patient has no known allergies. Topical Iodine Allergy: [x] No [] Yes IV Contrast Allergy: [x] No [] Yes If yes, Premedicated for contrast allergy: [] No [] Yes PRE-Procedure Medications Antiarrhythmic Agent: [] Yes [x] No [] Contraindicated Aspirin: [x] Yes [] No [] Contraindicated Beta Cameron (Any): [] Yes [x] No [] Contraindicated Ca Channel [place] (Any): [] Yes [x] No [] Contraindicated Long Acting Nirates (Any): [] Yes [] No [] Contraindicated Non-Statin (Any): [] Yes [x] No [] Contraindicated Ranolazin: [] Yes [x] No [] Contraindicated Statin (Any): [x] Yes [] No [] Contraindicated Indications for Vice President [employer] News visit (Select all that apply): [] ACS less than or equal to 24 hours [] ACS greater than 24 hours [x] Stable/Known CAD [] Cardiac Arrhythmia [] Post Cardiac Transplant [] New Onset Angina less than or equal to 2 months [] Suspected CAD [] Worsening Angina [] Cardiomyopathy [] Pre-operative evaluation [] Valvular Disease [] LV Dysfunction [] Evaluation for Exercise Clearance [] Syncope [] Pericardial Disease [] Resuscitated Cardiac Arrest [] Congenital Heart Disease [] Evaluate CAD [] Pre-Transplant Evaluation [] Abnormal Stress Test [] Pulmonary HTN [] Heart Failure [] Other: Chest Pain Symptom Assessment: [x] Typical Angina [] Atypical Angina [] Non-anginal Chest Pain [] Asymptomatic HISTORY AND RISK FACTORS Family History of Premature CAD: [x] Yes [] No [] Male less than 55 years old [x] Female less than 65 years old Relationship:Mother Cerebrovascular Disease: [] Yes [x] No Hypertension: [x] Yes [] No Diabetes Mellitus: [x] Yes [] No Dyslipidemia: [x] Yes [] No Peripheral Arterial Disease: [] Yes [x] No Chronic Lung Disease: [] Yes [x] No Prior Heart Failure: [] Yes [x] No [] CKD [] ESRD [] Dialysis [] HD []PD: Prior IN: [] Yes [x] No If Yes, Most Recent IN Date: Tobacco Use Social History Tobacco Use Smoking Status Never Smoker Smokeless Tobacco Never Used Previous Cardiac and Peripheral Interventions: (Include hospital/procedure/most recent date) Cardiac Cath/Prior PCI:[x] Yes [] No If Yes, Most Recent PCI Date: 03/11/19 Report Available: [x] Yes [] No Ostial left main stenosis, IFR is negative for ischemia, however the IVUS suggestive of ostial leftmain disease w/ minimal luminal area between 5.5 to 5.7 sq mm. The distal LM diameter about 4 mm w/some calcification seen. The stenosis in the diagonal branch that was observed on previous cath in 2017 and ostial PDA actually has improved compared to a couple of years ago. Prior CABG: [] Yes [x] No If Yes, Most Recent CABG Date: Report Available: [] Yes [] No Valvular Surgery: [] Yes [x] No Report Available: [] Yes [] No (Include percutaneous procedures): Peripheral Intervention: [] Yes [x] No Report Available: [] Yes [] No LABS 04-01-19 WBC HGB HCT pits PT INR PTT Na K+ Glucose BUN Cr HCG 5.1 13.3 39.1 213 139 4.1 145 20 0.80 Cath/PCI Indication: [] CAD (without Ischemic Sx) [x] Stable Angina [] New Onset Angina less than or equal to 2 months [] NSTE-ACS [] Other: [] STEMI Symptom Date: Time: [] Thrombolytic [] Yes [] No If Yes, Start Date Time [] Staged PCI, Anginal symptoms stable on Medical Therapy and restricted activity: Anginal Class within 2 weeks [] CCS I [x] CCS II [] CCS III [] CCS IV If AMI: [] Cardiogenic Shock at [facility] [] Systolic Blood Pressure: and Heart Rate: at [facility] [] Cardiac arrest within 24 hours [] Cardiogenic shock within 24 hours [] Cardiogenic shock at start of PCI Heart Failure: [x] Yes [] NO If Yes, Newly Diagnosed: [] Yes [] No [facility] Class: [] Class I [x] Class II [] Class III [] Class IV HF Type: [] Diastolic [] Systolic [] Unknown Test Performed (Choose One): [] Exercise Stress Test (w/o imaging) [] Stress Echocardiogram [] Stress Nuclear [] Stress Imaging w/CMR [] Cardiac CTA If Yes, Result: Result: [] Negative [] Positive [] Indeterminate IF Positive: Risk/Extent of ischemia: [] Low [] Intermediate [] High FINDINGS LVEF Assessed: [] Yes [] No If yes, Most recent LVEF %: ECHO: Nurse Coordinator: Kirstin Welsh Date: 03/30/19 Time: 1454 PHYSICAL EXAM BP (!) 174/87 Pulse 59 Temp 37 ??C (98.6 ??F) (Oral) Resp 16 Wt 97 kg (213 lb 13.5 oz) SpO2 97% BMI 31.58 kg/m?? Physical Exam: General: A&Ox3, NAD HEENT: NC/AT, MMM, OP clear Eyes: PERRL, EOMI Neck: Supple, no LAD CV: RRR, no murmurs, rubs, gallops, no JVD Lungs: CTAB, no wheezes, rales, rhonchi Abdomen: soft, non-tender, non-distended, +BS Ext: Warm, well-perfused, no edema or cyanosis Neuro: Alert, non-focal Skin: No rashes Psych: Normal mood and affect Pulses Carotid/Bruit Brachial Radial Femoral/Bruit Popiteal DP PT Left Right 2+ IMPRESSION: 58 y/o male w/ h/o htn, dyslipidemia, DM, CAD. Patient w/ abnormal stress test, abnormal LHC referred for PCI. [facility] Clinical Frailty Scale: [] 1: Very Fit [] 2: Well [] 3: Managing Well [x] 4: Vulnerable [] 5: Mildly Frail [] 6: Moderately Frail [] 7: Severely Frail [] 8: Very Severely Frail [] 9: Terminally Ill PLAN: Procedure, risks, benefits and alternatives have been explained to the patient. The patient voiced understanding, consent is signed and orders are written. Form Completed/Reviewed and Assessment Completed by: Can Fishman MD 04/02/19 15:00 Cosigned by Salty Rosas MD PhD at 04/02/2019 3:28 PM SOAPING MACHINE BACK TENDER ING MACHINE BACK TENDER ING MACHINE BACK TENDER documented in this encounter Plan of Treatment Not on file documented as of this encounter Procedures Procedure Name Priority Date/Time Associated Diagnosis Comments ADULT DISCHARGE DIET Routine 06/29/2019 2:45 PM SOAPING MACHINE BACK TENDER DIFFERENTIAL AUTO Routine 04/03/2019 6:2 8 AM SOAPING MACHINE BACK TENDER CBC WITH AUTO DIFFERENTIAL Routine 04/03/2019 6:28 AM SOAPING MACHINE BACK TENDER DIFFERENTIAL AUTO STAT 04/02/2019 6:4 6 PM SOAPING MACHINE BACK TENDER CBC WITH AUTO DIFFERENTIAL STAT 04/02/2019 6:46 PM SOAPING MACHINE BACK TENDER BASIC METABOLIC PANEL STAT 04/02/2019 6:46 PM SOAPING MACHINE BACK TENDER JENA MAJOR CORONARY Routine 04/02/2019 4: 32 PM SOAPING MACHINE BACK TENDER Coronary artery disease involving the [place] coronary artery of the [place] heart with unstable angina pectoris ([facility]) Abnormal stress test POCT ACTIVATED CLOTTING TIME, LOW RANGE Routine 04/02/2019 4:28 PM SOAPING MACHINE BACK TENDER POCT ACTIVATED CLOTTING TIME, LOW RANGE Routine 04/02/2019 4:01 PM SOAPING MACHINE BACK TENDER B CHECK SAMPLE STAT 04/02/2019 3:50 PM SOAPING MACHINE BACK TENDER CBC WITHOUT DIFFERENTIAL Routine 04/02/2019 3:00 PM SOAPING MACHINE BACK TENDER TYPE AND SCREEN Timed 04/02/2019 12:15 PM SOAPING MACHINE BACK TENDER POCT GLUCOSE DEVICE Routine 04/02/2019 1 2:07 PM SOAPING MACHINE BACK TENDER ECG 12-LEAD Routine 04/02/2019 11:52 AM SOAPING MACHINE BACK TENDER documented in this encounter Results * Adult Discharge Diet (06/29/2019 2:45 PM SOAPING MACHINE BACK TENDER) 06/29/2019 2:45 PM SOAPING MACHINE BACK TENDER us Randy Ann MD DIET ORDERABLES Final R esult * Differential, auto (04/03/2019 6:28 AM SOAPING MACHINE BACK TENDER) Neutrophil abs 5.6 1.7 - 6.5 K/cumm [facility] Imm gran abs 0.0 0.0 - 0.1 K/cumm [facility] Lymphocyte abs 1.4 0.8 - 3.3 K/cumm [facility] Monocyte abs 0.7 0.2 - 0.8 K/cumm [facility] Eosinophil abs 0.1 0.0 - 0.5 K/cumm [facility] Basophil abs 0.0 0.0 - 0.1 K/cumm [facility] Neutrophil pct 71.6 % [facility] Comment: Interpretive Data Percent cell count reference ranges are not reported, since discordance with absolute values may lead to misinterpretation of CBC data. Current Interpretive Data was last revised on 2017. Imm gran pct 0.5 % [facility] Comment: Interpretive Data Percent cell count reference ranges are not reported, since discordance with absolute values may lead to misinterpretation of CBC data. Current Interpretive Data was last revised on 2017. Lymphocyte pct 17.5 % [facility] Comment: Interpretive Data Percent cell count reference ranges are not reported, since discordance with absolute values may lead to misinterpretation of CBC data. Current Interpretive Data was last revised on 2017. Monocyte pct 8.7 % [facility] Comment: Interpretive Data Percent cell count reference ranges are not reported, since discordance with absolute values may lead to misinterpretation of CBC data. Current Interpretive Data was last revised on 2017. Eosinophil pct 1.2 % [facility] Comment: Interpretive Data Percent cell count reference ranges are not reported, since discordance with absolute values may lead to misinterpretation of CBC data. Current Interpretive Data was last revised on 2017. Basophil pct 0.5 % [facility] Comment: Interpretive Data Percent cell count reference ranges are not reported, since discordance with absolute values may lead to misinterpretation of CBC data. Current Interpretive Data was last revised on 2017. Blood specimen (specimen) 04/03/2019 6:28 AM SOAPING MACHINE BACK TENDER 04/03/2019 6:47 AM SOAPING MACHINE BACK TENDER Trey Akers MD LAB BLOOD ORDERABLES Fi nal Result Performing Organization Address [facility] de Phone Number [facility] Department [place] [address] * (ABNORMAL) CBC with auto differential (04/03/2019 6:28 AM SOAPING MACHINE BACK TENDER) [facility] WBC 7.8 3.8 - 9.9 K/cumm [facility] Hgb 12.6(L) 13.0 - 17.5 g/dL [facility] Hct 38.0(L) 38.9 - 50.3 % [facility] Plt 213 150 - 400 K/cumm [facility] MPV 10.6 9.1 - 12.3 fL [facility] RBC 4.29(L) 4.30 - 5.80 M/cumm [facility] MCV 88.6 81.3 - 96.4 fL [facility] MCH 29.4 27.1 - 33.3 pg [facility] MCHC 33.2 32.3 - 35.7 g/dL [facility] RDW CV 12.9 11.1 - 14.9 % [facility] RDW SD 42.1 35.7 - 48.1 fL [facility] NRBC abs 0.00 0.00 - 0.01 K/cumm [facility] Blood specimen (specimen) 04/03/2019 6:28 AM SOAPING MACHINE BACK TENDER 04/03/2019 6:47 AM SOAPING MACHINE BACK TENDER Trey Akers MD LAB BLOOD ORDERABLES Fi nal Result Performing Organization Address [facility] Co de Phone Number [facility] Department [place] [address] * Differential, auto (04/02/2019 6:46 PM SOAPING MACHINE BACK TENDER) Pathologist [facility] Neutrophil abs 6.2 1.7 - 6.5 K/cumm [facility] Imm gran abs 0.0 0.0 - 0.1 K/cumm [facility] Lymphocyte abs 1.1 0.8 - 3.3 K/cumm [facility] Monocyte abs 0.7 0.2 - 0.8 K/cumm [facility] Eosinophil abs 0.0 0.0 - 0.5 K/cumm [facility] Basophil abs 0.0 0.0 - 0.1 K/cumm [facility] Neutrophil pct 76.7 % [facility] Comment: Interpretive Data Percent cell count reference ranges are not reported, since discordance with absolute values may lead to misinterpretation of CBC data. Current Interpretive Data was last revised on 2017. Imm gran pct 0.5 % [facility] Comment: Interpretive Data Percent cell count reference ranges are not reported, since discordance with absolute values may lead to misinterpretation of CBC data. Current Interpretive Data was last revised on 2017. Lymphocyte pct 13.3 % [facility] Comment: Interpretive Data Percent cell count reference ranges are not reported, since discordance with absolute values may lead to misinterpretation of CBC data. Current Interpretive Data was last revised on 2017. Monocyte pct 8.5 % [facility] Comment: Interpretive Data Percent cell count reference ranges are not reported, since discordance with absolute values may lead to misinterpretation of CBC data. Current Interpretive Data was last revised on 2017. Eosinophil pct 0.6 % [facility] Comment: Interpretive Data Percent cell count reference ranges are not reported, since discordance with absolute values may lead to misinterpretation of CBC data. Current Interpretive Data was last revised on 2017. Basophil pct 0.4 % [facility] Comment: Interpretive Data Percent cell count reference ranges are not reported, since discordance with absolute values may lead to misinterpretation of CBC data. Current Interpretive Data was last revised on 2017. Blood specimen (specimen) 04/02/2019 6:46 PM SOAPING MACHINE BACK TENDER 04/02/2019 8:21 PM SOAPING MACHINE BACK TENDER Salty Rosas MD PhD LAB BLOOD ORDERABLES Final Result [facility] Department [place] [address] * (ABNORMAL) CBC with auto differential (04/02/2019 6:46 PM SOAPING MACHINE BACK TENDER) Pathologist [facility] WBC 8.0 3.8 - 9.9 K/cumm [facility] Hgb 12.2(L) 13.0 - 17.5 g/dL [facility] Hct 36.2(L) 38.9 - 50.3 % [facility] Plt 211 150 - 400 K/cumm [facility] MPV 10.8 9.1 - 12.3 fL [facility] RBC 4.11(L) 4.30 - 5.80 M/cumm [facility] MCV 88.1 81.3 - 96.4 fL [facility] MCH 29.7 27.1 - 33.3 pg [facility] MCHC 33.7 32.3 - 35.7 g/dL [facility] RDW CV 12.7 11.1 - 14.9 % [facility] RDW SD 41.0 35.7 - 48.1 fL [facility] NRBC abs 0.00 0.00 - 0.01 K/cumm [facility] Blood specimen (specimen) 04/02/2019 6:46 PM SOAPING MACHINE BACK TENDER 04/02/2019 8:21 PM SOAPING MACHINE BACK TENDER Narrative [facility] - 04/02/2019 8:31 PM SOAPING MACHINE BACK TENDER 3 hours post hemostasis Salty Rosas MD PhD LAB BLOOD ORDERABLES Final Result [facility] Department [place] [address] * Basic metabolic panel (04/02/2019 6:46 PM SOAPING MACHINE BACK TENDER) [facility] Sodium 137 135 - 145 mmol/L [facility] Potassium, pl 3.8 3.3 - 4.9 mmol/L [facility] Chloride 103 97 - 110 mmol/L [facility] CO2 26 22 - 32 mmol/L [facility] Anion gap 8 2 - 15 mmol/L [facility] BUN 14 8 - 25 mg/dL [facility] Creatinine 0.86 0.80 - 1.30 mg/dL [facility] Glucose 167 70 - 199 mg/dL [facility] Comment: Interpretive Data Fasting glucose >/= 126 [...] classification and Diagnosis of Diabetes Diabetes Care 2017;40 (Suppl. 1):S11. Current interpretive data was last revised 2017. Calcium 8.7 8.5 - 10.3 mg/dL [facility] Blood specimen (specimen) 04/02/2019 6:46 PM SOAPING MACHINE BACK TENDER 04/02/2019 8:21 PM SOAPING MACHINE BACK TENDER Narrative [facility] - 04/02/2019 8:57 PM SOAPING MACHINE BACK TENDER 3 hours post hemostasis us Salty Rosas MD PhD LAB BLOOD ORDERABLES Final Result Performing Organization Address City/State/[facility] Co de Phone Number [facility] Department [place] [address] * JENA MAJOR CORONARY (04/02/2019 4:32 PM SOAPING MACHINE BACK TENDER) Anatomical Region Laterality Modality X-Ray Angiograph y Narrative 04/06/2019 8:30 AM SOAPING MACHINE BACK TENDER IFR and coronary PCI Interventional fellow: ??Dr. Can Fishman HPI: ??58-year-old male with history of hypertension, hyperlipidemia, diabetes and known coronary disease now referred for evaluation of an ostial left main lesion. ??Patient had prior catheterization a few years ago at an outside hospital with known diagonal and right coronary lesions. These were treated medically. ??He recently presented with recurrent chest discomfort and shortness of breath with moderate exertion relieved with rest. ??Stress test was reportedly abnormal. ??Catheterization at outside hospital notes an intermediate ostial left main lesion of 60- 70%. ??The diagonal and other disease is unchanged. ??Fractional flow reserve at the outside hospital was normal at 0.96 however the cross-sectional area by intravascular ultrasound was 5.2 centimeter squared. ??Given this discrepancy, he is referred for IFR of the ostial left main, intravascular ultrasound and probable PCI. Procedure: ??Patient prepped draped sterile fashion. ??2% local lidocaine anesthesia was utilized. ??Fentanyl and Versed were used as premedication. ?? Optiray was used as contrast. ??A 7 [place] sheath inserted into the right femoral artery using percutaneous approach. ??Heparin was administered to maintain ACT of 250 seconds or greater. ??IFR was performed with 7 [place] XB lad 3.5 guide catheter 0.014 in volcano Verrata pressure wire. ?? Intravascular ultrasound performed volcano la posta [place] [facility] catheter over the same wire. ??Ostial left main PCI was performed using a choice floppy wire and direct stenting using a 4 mm x 12 mm resolute anali drug-eluting stent deployed at 14 atmospheres with further expansion up to 20 atmospheres. ??Intravascular ultrasound was repeated. ??Postdilatation was performed with a 4 mm x 8 mm NC emerge with 2 inflations up to 26 atmospheres. ??Due to severe hypertension patient was treated with intravenous and intracoronary nitroglycerin and nicardipine. ??Completion the case the right femoral artery sheath was removed and the area closed with 8 [place] Angio-Seal. ??There were no complications. IFR of ostial left main: ??The ostial left main is very suggestive with a 70% ostial narrowing, particularly in the PA and cranial PA views. ??A Verrata pressure wire was normalized in the aorta and passed distally. ?? This revealed a highly significant IFR of 0.70. ??Intravascular ultrasound was performed also noting a highly significant reference vessel diameter of less than 5 mm squared. PCI of ostial left main: ??Using angiographic and intravascular ultrasound markers a 4 mm x 12 mm resolute anali drug-eluting stent was deployed to cover the ostium and most of the left main body. ??It was further dilated up to 20 atmospheres with the stent delivery balloon. ??Intravascular ultrasound revealed some under expansion in the mid segment. ??This was post dilated with a 4 mm x 8 mm NC emerge with 2 inflations up to 26 atmospheres. ??This left no residual, no dissection, and DIXIE 3 flow. Lesion classification- this is a type B lesion with DIXIE 3 flow pre and post. ??The syntax score is low. ??There was 0% residual. ??The lesion length is 5 mm. ??This is the culprit. Overall impression: 1. Markedly positive IFR and intravascular ultrasound of ostial left main lesion and highly symptomatic patient. 2. Successful stenting of ostial left main with 4 mm x 12 mm resolute anali drug-eluting stent. 3. Moderate severe disease in diagonal and right coronary artery. 4. Refractory hypertension. Therapy recommendations: ??Patient be hydrated ambulated later today. ?? Plavix to continue for year aspirin indefinitely. ??Further risk factor modification per ??patient's primary physician Dr. Garcia. ?? Salty Rosas MD PhD CV CARDIAC CATH PROCEDURES Final Result * (ABNORMAL) POCT Activated clotting time, low range (04/02/2019 4:28 PM SOAPING MACHINE BACK TENDER) [facility] ACT 269(H) 123 - 168 sec [facility] Blood specimen (specimen) 04/02/2019 4:28 PM SOAPING MACHINE BACK TENDER 04/02/2019 4:28 PM SOAPING MACHINE BACK TENDER Randy Ann MD LAB POCT ORDERABLES - D EVICE Final Result Performing Organization Address City/[facility] Co de Phone Number [facility] [place] [address] * (ABNORMAL) POCT Activated clotting time, low range (04/02/2019 4:01 PM SOAPING MACHINE BACK TENDER) [facility] ACT 210(H) 123 - 168 sec [facility] Blood specimen (specimen) 04/02/2019 4:01 PM SOAPING MACHINE BACK TENDER 04/02/2019 4:01 PM SOAPING MACHINE BACK TENDER Randy Ann MD LAB POCT ORDERABLES - D EVICE Final Result Performing Organization Address [facility] Co de Phone Number [facility] Department [place] [address] * Check Sample (04/02/2019 3:50 PM SOAPING MACHINE BACK TENDER) [facility] ABO Rh O Positive [facility] HCLL OTHER 04/02/2019 3:50 PM SOAPING MACHINE BACK TENDER 04/02/2019 4:13 PM SOAPING MACHINE BACK TENDER us Salty Rosas MD PhD LAB BLOOD ORDERABLES Final Result Performing Organization Address [facility] Co de Phone Number [facility] Department [place] [address] * (ABNORMAL) CBC without differential (04/02/2019 3:00 PM SOAPING MACHINE BACK TENDER) Pathologist [facility] WBC 6.5 3.8 - 9.9 K/cumm [facility] Hgb 13.0 13.0 - 17.5 g/dL [facility] Hct 37.8(L) 38.9 - 50.3 % [facility] Plt 214 150 - 400 K/cumm [facility] MPV 10.6 9.1 - 12.3 fL [facility] RBC 4.37 4.30 - 5.80 M/cumm [facility] MCV 86.5 81.3 - 96.4 fL [facility] MCH 29.7 27.1 - 33.3 pg [facility] MCHC 34.4 32.3 - 35.7 g/dL [facility] RDW CV 12.5 11.1 - 14.9 % [facility] RDW SD 39.7 35.7 - 48.1 fL [facility] NRBC abs 0.00 0.00 - 0.01 K/cumm [facility] Blood specimen (specimen) 04/02/2019 3:00 PM SOAPING MACHINE BACK TENDER 04/02/2019 4:07 PM SOAPING MACHINE BACK TENDER Narrative [facility] - 04/02/2019 4:30 PM SOAPING MACHINE BACK TENDER To be drawn after hydration bolus complete us Nela Garner PATIENT ACCESS REPRESENTATIVE LAB BLOOD ORDERABLES Final Re sult Performing Organization Address City/[facility]/ZIP Co de Phone Number [facility] [place] [address] * Type and screen (04/02/2019 12:15 PM SOAPING MACHINE BACK TENDER) ABO Rh O Positive [facility] Anny, indirect Negative [facility] Blood specimen (specimen) 04/02/2019 12:15 PM SOAPING MACHINE BACK TENDER 04/02/2019 12:38 PM SOAPING MACHINE BACK TENDER Narrative [facility] - 04/02/2019 2:02 PM SOAPING MACHINE BACK TENDER Has the patient had Daratumumab (Darzalex) in the past 6 months?->Unknown us Nela Garner PATIENT ACCESS REPRESENTATIVE LAB BLOOD BANK TEST ORDERABLE S Final Result [facility] Department [place] [address] * POCT glucose (04/02/2019 12:07 PM SOAPING MACHINE BACK TENDER) Pathologist [facility] Glucose, POC 137 70 - 199 mg/dL [facility] Blood specimen (specimen) 04/02/2019 12:07 PM SOAPING MACHINE BACK TENDER 04/02/2019 12:07 PM SOAPING MACHINE BACK TENDER us Salty Rosas MD PhD LAB POCT ORDERABLES - DAVIDE CE Final Result Performing Organization Address City/[facility]/ZIP Co de Phone Number [facility] [place] [address] * ECG 12 lead (04/02/2019 11:52 AM SOAPING MACHINE BACK TENDER) Ventricular Rate EKG/Min 55 BPM [facility] Atrial Rate 55 BPM [facility] CA-Interval (MSEC) 158 ms [facility] QRS-Interval (MSEC) 118 ms [facility] QT-Interval (MSEC) 454 ms [facility] QTc 434 ms [facility] P [place] -16 degrees [facility] R [place] -42 degrees [facility] T [place] 53 degrees [facility] Diagnosis Sinus bradycardia Left axis deviation Left ventricular hypertrophy with QRS widening Abnormal ECG No previous ECGs available Confirmed by SAM BUCIO M.D ([id number]) on 04/02/2019 7:30:13 PM [facility] 04/02/2019 11:5 2 AM SOAPING MACHINE BACK TENDER 04/02/2019 7:30 PM SOAPING MACHINE BACK TENDER us Nela Garner NP ECG ORDERABLES Final Result [facility] documented in this encounter Visit Diagnoses Diagnosis Coronary artery disease involving the [place] coronary artery of [place] heart with unstable angina pectoris (HCC) Abnormal stress test Other nonspecific abnormal cardiovascular system function study Angina pectoris (HCC) Other and unspecified angina pectoris Coronary artery disease involving [place] coronary artery of [place] heart without angina pectoris Coronary artery disease involving [place] coronary artery of [place] heart with unstable angina pectoris (HCC) Abnormal stress test Other nonspecific abnormal cardiovascular system function study documented in this encounter Administered Medications Inactive Administered Medications - up to 3 most recent administrations Medication Order MAR Action Action Date Dose Rate Site aspirin chewable tablet 162 mg 162 mg, oral, Once, On Fri04/02/19 at 1545, For 1 dose Given 04/02/2019 3:06 PM SOAPING MACHINE BACK TENDER 162 mg aspirin chewable tablet 81 mg 81 mg, oral, Daily, First dose on Fri04/03/19 at 0900 Given 04/03/2019 9:09 AM SOAPING MACHINE BACK TENDER 81 mg atorvastatin (LIPITOR) tablet 40 mg 40 mg, oral, Daily, First dose on Fri04/02/19 at 2015 Given 04/03/2019 9:09 AM SOAPING MACHINE BACK TENDER 40 mg Given 04/02/2019 8:48 PM SOAPING MACHINE BACK TENDER 40 mg clopidogrel (PLAVIX) tablet 600 mg 600 mg, oral, Once, On Fri04/02/19 at 1545, For 1 dose Given 04/02/2019 3:06 PM SOAPING MACHINE BACK TENDER 600 mg clopidogrel (PLAVIX) tablet 75 mg 75 mg, oral, Daily, First dose on Fri04/03/19 at 0900 Given 04/03/2019 9:09 AM SOAPING MACHINE BACK TENDER 75 mg fentaNYL (SUBLIMAZE) preservative free injection As needed, Starting on Fri04/02/19 at 1540, Intra-Procedure (CV) Given 04/02/2019 4:41 PM SOAPING MACHINE BACK TENDER 25 mcg Given 04/02/2019 3:40 PM SOAPING MACHINE BACK TENDER 25 mcg heparin 1,000 unit/mL injection As needed, Starting on Fri04/02/19 at 1553, Intra-Procedure (CV) Given 04/02/2019 4:05 PM SOAPING MACHINE BACK TENDER 3,000 Units Given 04/02/2019 3:53 PM SOAPING MACHINE BACK TENDER 6,000 Units ioversol (OPTIRAY 350) injection As needed, Starting on Fri04/02/19 at 1642, Intra-Procedure (CV) Given 04/02/2019 4:42 PM SOAPING MACHINE BACK TENDER 150 mL lidocaine (XYLOCAINE) 10 mg/mL (1 %) injection As needed, Starting on Fri04/02/19 at 1543, Intra-Procedure (CV), Indications: Administration of Local AnesthesiaIndications:Ad ministration of Local Anesthesia Given 04/02/2019 3:43 PM SOAPING MACHINE BACK TENDER 10 mL Right Groin lisinopril (PRINIVIL,ZESTRIL) tablet 10 mg 10 mg, oral, Once, On Fri04/02/19 at 1700, For 1 dose Given 04/02/2019 6:41 PM SOAPING MACHINE BACK TENDER 10 mg midazolam (VERSED) preservative free injection Administer over 2 Minutes, As needed, Starting on Fri04/02/19 at 1540, Intra-Procedure (CV) Given 04/02/2019 3:40 PM SOAPING MACHINE BACK TENDER 1 mg niCARdipine (CARDENE) 1 mg/10 mL in sodium chloride 0.9% (premix) As needed, Starting on Fri04/02/19 at 1624, Intra-Procedure (CV) Given 04/02/2019 4:24 PM SOAPING MACHINE BACK TENDER 1,000 mcg nitroglycerin in dextrose 5% 50 mg/250 mL (200 mcg/mL) infusion (premix) Continuous PRN, Starting on Fri04/02/19 at 1630, Intra-Procedure (CV) Rate/Dose Change 04/02/2019 5:13 PM SOAPING MACHINE BACK TENDER 80 mcg/min 24 mL/hr Rate/Dose Change 04/02/2019 4:59 PM SOAPING MACHINE BACK TENDER 100 mcg/min 30 mL/ hr Rate/Dose Change 04/02/2019 4:38 PM SOAPING MACHINE BACK TENDER 140 mcg/min 42 mL/ hr nitroglycerin injection 100 mcg/mL D5W 10 mL vial As needed, Starting on Fri04/02/19 at 1626, Intra-Procedure (CV) Given 04/02/2019 4:26 PM SOAPING MACHINE BACK TENDER 800 mcg ondansetron (ZOFRAN) injection 4 mg 4 mg, intravenous, Administer over 2 Minutes, Every 6 hours PRN, nausea, vomiting, if not tolerating PO, Starting on Fri04/02/19 at 1936, Indications: Nausea and VomitingIndications:Nausea and Vomiting ondansetron ODT (ZOFRAN-ODT) disintegrating tablet 4 mg 4 mg, oral, Every 6 hours PRN, nausea, vomiting, Starting on Fri04/02/19 at 1936, Indications: Nausea and VomitingIndications:Nausea and Vomiting sodium chloride 0.9% bolus 290 mL 290 mL (rounded from 289.8 mL = 3 mL/kg ? 96.6 kg), intravenous, Once, On Fri04/02/19 at 1245, For 1 dose, Pre-Procedure (CV), Immediately on arrival (at least 30 minutes prior to procedure) New Bag 04/02/2019 12:14 PM SOAPING MACHINE BACK TENDER 290 mL 999 mL/hr sodium chloride 0.9% infusion 1 mL/kg/hr ? 96.6 kg (96.6 mL/hr), intravenous, Continuous, Starting on Fri04/02/19 at 1245 New Bag 04/02/2019 12:15 PM SOAPING MACHINE BACK TENDER 1 mL/kg/hr 96.6 mL/hr sodium chloride 0.9% infusion 100 mL/hr, intravenous, Continuous, Starting on Fri04/02/19 at 1715, For 5 hours Rate/Dose Verify 04/02/2019 10:00 PM SOAPING MACHINE BACK TENDER 100 mL/hr 100 mL/hr Rate/Dose Verify 04/02/2019 7:00 PM SOAPING MACHINE BACK TENDER 100 mL/hr 100 mL/ hr Rate/Dose Verify 04/02/2019 6:00 PM SOAPING MACHINE BACK TENDER 100 mL/hr 100 mL/ hr documented in this encounter Discontinued Medications Medication Sig Discontinue Reason Start Date End Da te metFORMIN (GLUCOPHAGE) 500 mg tablet TAKE 2 TABLETS BY MOUTH TWICE DAILY 03/11/2019 03/30/2019 atorvastatin (LIPITOR) 40 mg tabletIndications:Diaz ry artery disease involving the [place] coronary artery of [place] heart without angina pectoris Take 1 tablet (40 mg total) by mouth daily Reorder 03/01/2019 04/03/2019 documented as of this encounter Active and Recently Administered Medications Times are shown in SOAPING MACHINE BACK TENDER. Scheduled Medication Order 04/01/2019 04/02/2019 04/03/2019 aspirin chewable tablet 162 mg (COMPLETED) 162 mg, oral, Once, On Fri04/02/19 at 1545, For 1 dose 1506 (Given - Provider: Bernadette Mccray RN) aspirin chewable tablet 81 mg 81 mg, oral, Daily, First dose on Fri04/03/19 at 0900 0909 (Given - Provid er: Tram Guzman, KAREN) atorvastatin (LIPITOR) tablet 40 mg 40 mg, oral, Daily, First dose on Fri04/02/19 at 2014 2047 (Given - Provider: Katina Alcazar RN) 09 (Given - Provider: Tram Guzman, KAREN) clopidogrel (PLAVIX) tablet 600 mg (COMPLETED) 600 mg, oral, Once, On Fri04/02/19 at 1545, For 1 dose 1506 (Given - Provider: Bernadette Mccray RN) clopidogrel (PLAVIX) tablet 75 mg 75 mg, oral, Daily, First dose on Fri04/03/19 at 0900 0909 (Given - Provid er: Tram Guzman RN) lisinopril (PRINIVIL,ZESTRIL) tablet 10 mg (COMPLETED) 10 mg, oral, Once, On Fri04/02/19 at 1700, For 1 dose 1841 (Given - Provider: Perlita Stroud RN) sodium chloride 0.9% bolus 290 mL (COMPLETED)(Linked Group 1) 290 mL (rounded from 289.8 mL = 3 mL/kg ? 96.6 kg), intravenous, Once, On Fri04/02/19 at 1245, For 1 dose, Pre-Procedure (CV), Immediately on arrival (at least 30 minutes prior to procedure) 1214 (New Bag - Provider: Fang Packer RN) sodium chloride 0.9% flush 0.5-20 mL 0.5-20 mL, intra-catheter, Every 8 hours scheduled, First dose on Fri04/02/19 at 2200, Flush volume based on line type and size. 2047 (Not Given - Provider: Katina Alcazar RN - Reason: IV Infusing) 0644 (Not Given - Provider: Katina Aclazar RN - Reason: Other)1306 (Not Given - Provider: Tram Guzman, KAREN - Reason: Other) Continuous Medication Order 04/01/2019 04/02/2019 04/03/2019 sodium chloride 0.9% infusion(Linked Group 1) 1 mL/kg/hr ? 96.6 kg (96.6 mL/hr), intravenous, Continuous, Starting on Fri04/02/19 at 1245 1215 (New Bag - Provider: Fang Packer, KAREN)1643 (Stopped - Provider: Di Spain RN) sodium chloride 0.9% infusion () 100 mL/hr, intravenous, Continuous, Starting on Fri04/02/19 at 1715, For 5 hours 1643 (Rate/Dose Change - Provider: Di Spain RN)1800 (Rate/Dose Verify - Provider: Perlita Stroud, KAREN)1900 (Rate/Dose Verify - Provider: Perlita Stroud, RN)2200 (Rate/Dose Verify - Provider: Katina Alcazar, KAREN) PRN Medication Order 04/01/2019 04/02/2019 04/03/2019 acetaminophen (TYLENOL) tablet 650 mg 650 mg, oral, Every 4 hours PRN, 1st line for pain, fever, fever greater than 38.3 C, Starting on Fri04/02/19 at 1935, Indications: Fever, Pain fentaNYL (SUBLIMAZE) preservative free injection (CANCELED) As needed, Starting on Fri04/02/19 at 1540, Intra-Procedure (CV) 1540 (Given - Provider: Di Spain RN)1641 (Given - Provider: Di Spain RN) heparin 1,000 unit/mL injection (CANCELED) As needed, Starting on Fri04/02/19 at 1553, Intra-Procedure (CV) 1553 (Given - Provider: Salty Rosas MD PhD)1605 (Given - Provider: Di Spain, KAREN) ioversol (OPTIRAY 350) injection (CANCELED) As needed, Starting on Fri04/02/19 at 1642, Intra-Procedure (CV) 1642 (Given - Provider: Salty Rosas MD PhD) lidocaine (XYLOCAINE) 10 mg/mL (1 %) injection (CANCELED) As needed, Starting on Fri04/02/19 at 1543, Intra-Procedure (CV), Indications: Administration of Local Anesthesia 1543 (Given - Provider: Can Fishman MD) midazolam (VERSED) preservative free injection (CANCELED) Administer over 2 Minutes, As needed, Starting on Fri04/02/19 at 1540, Intra-Procedure (CV) 1540 (Given - Provider: Di Spain, KAREN) niCARdipine (CARDENE) 1 mg/10 mL in sodium chloride 0.9% (premix) (CANCELED) As needed, Starting on Fri04/02/19 at 1624, Intra-Procedure (CV) 1624 (Given - Provider: Salty Rosas MD PhD) nitroglycerin in dextrose 5% 50 mg/250 mL (200 mcg/mL) infusion (premix) (COMPLETED) Continuous PRN, Starting on Fri04/02/19 at 1630, Intra-Procedure (CV) 1630 (New Bag - Provider: Di Spain RN)1635 (Rate/Dose Change - Provider: Di Spain RN)1638 (Rate/Dose Change - Provider: Di Spain RN)1659 (Rate/Dose Change - Provider: Di Spain RN)1713 (Rate/Dose Change - Provider: Savanna Pickering RN)1740 (Stopped - Provider: Savanna Pickering RN - Comment: D/c per Dr. Rosas per blood pressure. ) nitroglycerin injection 100 mcg/mL D5W 10 mL vial (CANCELED) As needed, Starting on Fri04/02/19 at 1626, Intra-Procedure (CV) 1626 (Given - Provider: Salty Rosas MD PhD) ondansetron (ZOFRAN) injection 4 mg(Linked Group 2) 4 mg, intravenous, Administer over 2 Minutes, Every 6 hours PRN, nausea, vomiting, if not tolerating PO, Starting on Fri04/02/19 at 1936, Indications: Nausea and Vomiting ondansetron ODT (ZOFRAN-ODT) disintegrating tablet 4 mg(Linked Group 2) 4 mg, oral, Every 6 hours PRN, nausea, vomiting, Starting on Fri04/02/19 at 1936, Indications: Nausea and Vomiting polyethylene glycol (MIRALAX) packet 17 g 17 g, oral, Daily PRN, constipation, Starting on Fri04/02/19 at 1936, Indications: constipation ramelteon (ROZEREM) tablet 8 mg 8 mg, oral, Nightly PRN, sleep, Starting on Fri04/02/19 at 1936, Indications: Sleep-Onset Insomnia sodium chloride 0.9% flush 0.5-20 mL 0.5-20 mL, intra-catheter, As needed, line care, Starting on Fri04/02/19 at 1935, Flush volume based on line type and size. Flush before and after each use. Linked Groups Order Group 1: sodium chloride 0.9% bolus 290 mL (COMPLETED)Jump to med 290 mL (rounded from 289.8 mL = 3 mL/kg ? 96.6 kg), intravenous, Once, On Fri04/02/19 at 1245, For 1 dose, Pre-Procedure (CV), Immediately on arrival (at least 30 minutes prior to procedure) Followed by sodium chloride 0.9% infusionJump to med 1 mL/kg/hr ? 96.6 kg (96.6 mL/hr), intravenous, Continuous, Starting on Fri04/02/19 at 1245 Group 2: ondansetron ODT (ZOFRAN-ODT) disintegrating tablet 4 mgJump to med 4 mg, oral, Every 6 hours PRN, nausea, vomiting, Starting on Fri04/02/19 at 1936, Indications: Nausea and Vomiting Or ondansetron (ZOFRAN) injection 4 mgJump to med 4 mg, intravenous, Administer over 2 Minutes, Every 6 hours PRN, nausea, vomiting, if not tolerating PO, Starting on Fri04/02/19 at 1936, Indications: Nausea and Vomiting documented in this encounter Orders Medications Ordered That Alonzo ht Not Have Been Administered Count Last Ordered Date First Ordered Date acetaminophen (TYLENOL) tablet 650 mg 1 12/2018 ondansetron (ZOFRAN) injection 4 mg 1 04/02 ondansetron ODT (ZOFRAN-ODT) disintegrating tablet 4 mg 1 04/02/2019 polyethylene glycol (MIRALAX) packet 17 g 1 04/02/2019 ramelteon (ROZEREM) tablet 8 mg 1 9 sodium chloride 0.9% flush 0.5-20 mL 3 12/2018 sodium chloride 0.9% infusion 1 04/02/2019 Nursing Count Last Ordered Date First Orde red Date DISCHARGE ACTIVITY 1 04/03/2019 NURSING COMMUNICATION 2 04/02/2019 Transfer Count Last Ordered Date First Orde red Date TRANSFER PATIENT 1 04/02/2019 CORE MEASURES Count Last Ordered Date First Ord ered Date REASON FOR NO VTE PROPHYLAXIS AT ADMISSION 2 04/02/2019 documented in this encounter Care Teams Extractor Loader And Unloader Relationship Specialty Start Date End Date Reuben Garcia MD [address] [address] PCP - General Interventional Cardiology 02/04/17 documented as of this encounter
--- OUTSIDE RECORDS SUMMARY | 2024-05-16 02:01 | XMS_ITS | Encounter Summary ---
Author Organization [facility] Address [address] [place] [address] Care Team Providers Care Assistant Grocery Name Role Phone Reuben Garcia MD Primary Care Provid er Encounter Details Date Type Department Care Team (Late st Contact Info) Description 03/18/2019 Orders Only [facility] [address] [place] [address] Reuben Garcia MD [address] [id number] Coronary artery disease of [place] artery of [place] heart with stable angina pectoris (CMS/HCC) (Primary Dx) Social History Tobacco Use Types Packs/Day Years Used Date Smoking Tobacco: Never Smokeless Tobacco: Never Alcohol Use Standard Drinks/Week Comments No 0 (1 standard drink = 0.6 oz pur e alcohol) PHQ-2 Answer Date Recorded PHQ-2 Score 0 02/23/2019 Sex and Gender Information Value Date Recorded Sex Assigned at Not on file 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
--- OUTSIDE RECORDS SUMMARY | 2024-05-16 02:01 | XMS_ITS | Encounter Summary ---
Author Organization [facility] Address [address] [place] [address] Care Team Providers Care Supply Manager Name Role Phone Reuben Garcia MD Primary Care Provid er Encounter Details Date Type Department Care Team (Late st Contact Info) Description 04/01/2019 Telephone [facility] [address] [place] [address] Reuben Garcia MD [address] [place] [id number] Social History Tobacco Use Types Packs/Day Years Used Date Smoking Tobacco: Never Smokeless Tobacco: Never Alcohol Use Standard Drinks/Week Comments No 0 (1 standard drink = 0.6 oz pur e alcohol) PHQ-2 Answer Date Recorded PHQ-2 Score 0 02/23/2019 Sex and Gender Information Value Date Recorded Sex Assigned at Not on file 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 Call to Dr Rosas office, spoke with executive vice president and chief operating officerJulisa, who will fax over labs for pt to obtain [facility]. NESS COMMUNICATIONS INSTRUCTOR documented in this encounter Plan of Treatment Not on file documented as of this encounter Visit Diagnoses Not on filedocumented in this encounter Care Teams Supply Manager Relationship Specialty Start Date End Date Reuben Garcia MD [address] [facility] [address], [place] [address] PCP - General Interventional Cardiology 02/04/17 documented as of this encounter
--- OUTSIDE RECORDS SUMMARY | 2024-05-16 02:01 | XMS_ITS | Encounter Summary ---
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 Gender Identity Not on file Sexual Orientation Not on file documented as of this encounter Medications at Time of Discharge blood-glucose meter (ONETOUCH ULTRA2) kit check glucose once a day 1 kit 0 03/04/2014 aspirin (ASPIR-81) 81 mg tablet take 1 tablet by oral route every day 0 0 09/16/2016 09/03/2021 atorvastatin (LIPITOR) 40 mg tabletIndications :Coronary artery disease involving [place] coronary artery of [place] heart without angina pectoris Take 1 tablet (40 mg total) by mouth daily 90 tablet 3 03/01/2019 04/03/2019 lisinopril (PRINIVIL,ZESTRIL ) 10 mg tabletIndications :Coronary artery disease involving [place] coronary artery of [place] heart without angina pectoris Take 1 tablet (10 mg total) by mouth daily 90 tablet 3 03/01/2019 12/14/2019 metFORMIN (GLUCOPHAGE) 500 mg tablet TAKE 2 TABLETS BY MOUTH TWICE DAILY 120 tablet 11/04/2018 11/12/2019 metFORMIN (GLUCOPHAGE) 500 mg tablet TAKE 2 TABLETS BY MOUTH TWICE DAILY 360 tablet 1 03/11/2019 03/30/2019 documented as of this encounter Discharge Disposition Disposition Code Departure Means Destination Discharge to home or self care documented in this encounter Plan of Treatment Not on file documented as of this encounter Procedures Procedure Name Priority Date/Time Associated Diagnosis Comments US TRANSFER OF OUTSIDE FILMS Routine 03/15/2019 4:22 PM CDT Diagnosis unknown documented in this encounter Results * US Outside Reference (03/15/2019 4:22 PM CDT) Impressions [facility] - 03/15/2019 4:22 PM CDT These images are for Reference purposes only and have not been reviewed by [facility] Radiology. ??There will be no report generated by a [facility] Radiologist. Narrative [facility] - 03/15/2019 4:22 PM CDT EXAMINATION: ??Images For Reference Purposes Only us Salty Rosas MD PhD IMG US PROCEDURES Final Re sult [facility] documented in this encounter Visit Diagnoses Not on filedocumented in this encounter Care Teams Gutter Hanger Relationship Specialty Start Date End Date Reuben Garcia MD [facility] [address] [facility] [address] [id number] PCP - General Interventional Cardiology 02/04/17 documented as of this encounter
--- OUTSIDE RECORDS SUMMARY | 2024-05-16 02:01 | XMS_ITS | Encounter Summary ---
Author Organization [facility] Address [address] [place] [address] Care Team Providers Care Rehabilitation Teacher Name Role Phone Reuben Garcia MD Primary Care Provid er Reason for Visit * Reason Onset Date Comments patient call 10/19/2019 Encounter Details Date Type Department Care Team (Late st Contact Info) Description 10/19/2019 Telephone [facility] [address] [address] Aaron Már[place] [address] 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 Gender Identity Not on file Sexual Orientation Not on file documented as of this encounter Miscellaneous Notes * Telephone Encounter - Faby Troy - 10/20/2019 10:00 AM CDT Spoke to pt and read verbatum what you states and he voiced understanding * Telephone Encounter - Aaron Márquez MD - 10/19/2019 4:13 PM CDT it is only a urine test that shows no protein in the urine which is normal * Telephone Encounter - Montserrat Fernandez - 10/19/2019 3:36 PM CDT Patient came by office asking for results form his labs in 06/2019 patient would like a copy Please review labs dated 07/02/19 they appear to have not been viewed documented in this encounter Plan of Treatment Not on file documented as of this encounter Visit Diagnoses Not on filedocumented in this encounter Care Teams Rehabilitation Teacher Relationship Specialty Start Date End Date Reuben Garcia MD [address] [facility] [address] [place] [address] PCP - General Interventional Cardiology 02/04/17 documented as of this encounter
--- OUTSIDE RECORDS SUMMARY | 2024-05-16 02:01 | XMS_ITS | Encounter Summary ---
Author Organization [facility] Healthcare Address [address] [place] [address] Care Team Providers Care Floor Sweeper Name Role Phone Reuben Garcia MD Primary Care Provid er Encounter Details Date Type Department Care Team (Late st Contact Info) Description 04/05/2019 Orders Only [facility] [address] [place] [address] Gloria Vaca, KAREN Social History Tobacco Use Types Packs/Day Years Used Date Smoking Tobacco: Never Smokeless Tobacco: Never Alcohol Use Standard Drinks/Week Comments No 0 (1 standard drink = 0.6 oz pur e alcohol) PHQ-2 Answer Date Recorded PHQ-2 Score 0 02/23/2019 Sex and Gender Information Value Date Recorded Sex Assigned at Not on file 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
--- OUTSIDE RECORDS SUMMARY | 2024-05-16 02:01 | XMS_ITS | Encounter Summary ---
Author Organization [facility] Address [address] [place] [address] Care Team Providers Care Ballast Inspector Name Role Phone Reuben Garcia MD Primary Care Provid er Reason for Visit * Reason Comments Diabetes Type 2 Encounter Details Date Type Department Care Team (Latest Contact Info) Description 07/27/2020 9:30 AM PROMOTIONS INTERN Office Visit [facility] [address] [address] Aaron Már[place] [address] [facility] [address] [place] [address] Type 2 diabetes mellitus with hyperglycemia, with long-term current use of insulin (CMS/HCC) (Primary Dx); Hyperlipidemia associated with type 2 diabetes mellitus (CMS/HCC); Hypertension associated with diabetes (CMS/HCC); Dysuria Social History Tobacco Use Types Packs/Day Years [...] on file Legal Sex Male 10:13 AM PROMOTIONS INTERN Gender Identity Not on file Sexual Orientation Not on file documented as of this encounter Last Filed Vital Signs Vital Sign Reading Time Taken Comments Blood Pressure 138/80 07/27/2020 9:13 AM PROMOTIONS INTERN Pulse 73 07/27/2020 9:13 AM PROMOTIONS INTERN Temperature - - Respiratory Rate 12 07/27/2020 9:13 AM PROMOTIONS INTERN Oxygen Saturation - - Inhaled Oxygen Concentration - - Weight 97.2 kg (214 lb 3.2 oz) 07/27/2020 9:13 A M PROMOTIONS INTERN Height 175.3 cm (5' 9.02 ) 07/27/2020 9:13 AM CS T Body Mass Index 31.62 07/27/2020 9:13 AM PROMOTIONS INTERN documented in this encounter Ordered Prescriptions Prescription Sig Dispense Quantity Refills Last Filled Start Date End Date metFORMIN (GLUCOPHAGE) 500 mg tablet Take 2 tablets (1,000 mg total) by mouth 2 (two) times a day with meals 360 tablet 3 07/27/2020 2 empagliflozin (JARDIANCE) 25 mg tabletIndications: type 2 diabetes mellitus Take 1 tablet (25 mg total) by mouth daily 90 tablet 3 07/27/2020 2 documented in this encounter Progress Notes * Aaron Márquez MD - 07/27/2020 9:30 AM CST Subjective/Objective Patient ID: Jerald Whipple is a 59 y.o. male. Chief Complaint Diabetes Type 2 HPI DM Follow up. Diabetes complications and/or comorbidity includes : Last hba1c : Recent Labs Lab Units 07/27/20 0930 HEMOGLOBIN A1C 7.3 No lab exists for component: [id number] Currently taking : Metformin Jardiance No meds in over a week, run out, no refills. BG monitoring : not regularly Hypoglycemia : None Exercise plan: some walking Diet plan includes: Lipid profile within the last year : No results found for requested labs within last 91261 hours. 03/27/2020: Cholesterol, POC 208; HDL, POC 48; LDL, Direct, POC 116; Non-HDL Cholesterol, POC 160; Triglycerides, POC 222 Statin therapy : Lipitor 40 mg daily Renal: currently on VIKY-I / ARB???s with : Lisinopril Microalbumin: No results found for: ALBCREATRATU Lab Results Component Value Date MALBCRTRAT 2 06/14/2014 Review of Systems Constitutional: Negative for activity [...] heat intolerance, polydipsia, polyphagia and polyuria. Genitourinary: Positive for dysuria. Negative for difficulty urinating, frequency and urgency. [...] hyperglycemia, with long-term current use of insulin ([facility]) (E11.65, Z79.4) (Primary) Assessment & Plan: Hba1c [...] with fingers sticks. restarts meds rx sent Orders: - POCT glucose - POCT hemoglobin A1c - Albumin Creatinine Ratio, Urine; Future Hyperlipidemia associated with type 2 diabetes mellitus ([facility]) (E11.69, E78.5) Assessment & Plan: Goal of [...] Daily exercise On statin therapy with Lipitor Hypertension associated with diabetes ([facility]) (E11.59, I10) Assessment & Plan: Goal blood pressure is less than 140/85 Low salt diet was discussed andd recommended The importance of daily aerobic exercise was also emphasized. Continue current meds, including VIKY-I or ARB, e.g. Check microalbumin Dysuria (R30.0) Assessment & Plan: Check psa Pt needs to see PCP Name provided Orders: - PSA screen; Future Other orders - empagliflozin (JARDIANCE) 25 mg tablet; Take 1 tablet (25 mg total) by mouth daily - metFORMIN (GLUCOPHAGE) 500 mg tablet; Take 2 tablets (1,000 mg total) by mouth 2 (two) times a day with meals OTIONS INTERN documented in this encounter Miscellaneous Notes * Assessment & Plan Note - Aaron Márquez MD - 07/27/2020 10:04 AM CSTAssociated Problem(s): Dysuria (Resolved 10/08/2022) Check psa Pt needs to see PCP Name provided OTIONS INTERN * Assessment & Plan Note - Aaron Márquez MD - 07/27/2020 10:03 AM CSTAssociated Problem(s): Type 2 diabetes mellitus (HCC) [...] with fingers sticks. restarts meds rx sent OTIONS INTERN * Assessment & Plan Note - Aaron Márquez MD - 07/27/2020 10:03 AM CSTAssociated Problem(s): Hypertension associated with diabetes (HCC) Goal blood pressure is less than 140/85 Low salt diet was discussed andd recommended The importance of daily aerobic exercise was also emphasized. Continue current meds, including VIKY-I or ARB, e.g. Check microalbumin OTIONS INTERN * Assessment & Plan Note - Aaron Márquez MD - 07/27/2020 10:03 AM CSTAssociated Problem(s): Hyperlipidemia associated with type 2 [...] Daily exercise On statin therapy with Lipitor OTIONS INTERN * Addendum Note - Nasreen Villatoro - 07/27/2020 9:30 AM CSTAddended by: NASREEN VILLATORO on: 08/11/2020 08:20 AM Modules accepted: Orders documented in this encounter Plan of Treatment Not on file documented as of this encounter Procedures Procedure Name Priority Date/Time Associated Diagnosis Comments ALBUMIN CREATININE RATIO, URINE Routine 08/04/2020 2:14 PM PROMOTIONS INTERN Type 2 diabetes mellitus with hyperglycemia, with long-term current use of insulin ([facility]) POCT HEMOGLOBIN A1C Routine 07/27/2020 9 :30 AM PROMOTIONS INTERN Type 2 diabetes mellitus with hyperglycemia, with long-term current use of insulin ([facility]) POCT GLUCOSE Routine 07/27/2020 9:30 AM PROMOTIONS INTERN Type 2 diabetes mellitus with hyperglycemia, with long-term current use of insulin ([facility]) documented in this encounter Results * Albumin Creatinine Ratio, Urine (08/04/2020 2:14 PM PROMOTIONS INTERN) SCRIBED Creatinine, Urine 79.0 n/e - n/e EXTERNAL LAB SCRIBED Microalbumin 6.0 0.0 - 16.7 EXTERNAL LAB SCRIBED Microalb/Creat Ratio 7.6 0.0 - 30.0 EXTERNAL LAB Urine 08/04/2020 2:14 PM PROMOTIONS INTERN Result Gonzalez Márquez MD LAB URINE ORDERABLES Final Resul t EXTERNAL LAB * POCT hemoglobin A1c (07/27/2020 9:30 AM PROMOTIONS INTERN) Hemoglobin A1C, POC 7.3 Blood specimen (specimen) 07/27/2020 9:30 AM PROMOTIONS INTERN Result Gonzalez Márquez MD POINT OF CARE TEST ORDERABLES Fi nal Result * POCT glucose (07/27/2020 9:30 AM PROMOTIONS INTERN) Glucose Blood, POC 293 mg/dL Blood specimen (specimen) 07/27/2020 9:30 AM PROMOTIONS INTERN Result Gonzalez Márquez MD POINT OF CARE TEST ORDERABLES Fi nal Result documented in this encounter Visit Diagnoses Diagnosis Type 2 diabetes mellitus with hyperglycemia, with long-term current use of insulin (HCC)- Primary Hyperlipidemia associated with type 2 diabetes mellitus (HCC) Hypertension associated with diabetes ([facility]) Unspecified essential hypertension Dysuria documented in this encounter Discontinued Medications Medication Sig Discontinue Reason Start Date End Da te empagliflozin (JARDIANCE) 25 mg tabletIndications:type 2 diabetes mellitus Take 1 tablet (25 mg total) by mouth daily Reorder 06/29/2019 07/27/2020 metFORMIN (GLUCOPHAGE) 500 mg tablet TAKE 2 TABLETS(1000 MG) BY MOUTH TWICE DAILY Reorder 05/16/2020 07/27/2020 documented as of this encounter Care Teams Ballast Inspector Relationship Specialty Start Date End Date Reuben Garcia MD [facility] [address] [address] PCP - General Interventional Cardiology 02/04/17 documented as of this encounter
--- OUTSIDE RECORDS SUMMARY | 2024-05-16 02:01 | XMS_ITS | Encounter Summary ---
Author Organization [facility] Address [address] [place] [address] Phone Care Team Providers Care Pulp Roller Name Role Phone Reuben Garcia MD Primary Care Provid er Encounter Details Date Type Department Care Team (Late st Contact Info) Description 04/01/2019 Orders Only [facility] Cardiology [address] [facility] [facility] 8th [place] [address] [place] [id number] Salty Rosas MD PhD [address] [place] [address] Coronary artery disease involving [place] coronary artery of [place] heart with unstable angina pectoris (CMS/HCC) (Primary Dx); Pre-op testing Social History Tobacco Use Types Packs/Day Years Used Date Smoking Tobacco: Never Smokeless Tobacco: Never Alcohol Use Standard Drinks/Week Comments No 0 (1 standard drink = 0.6 oz pur e alcohol) PHQ-2 Answer Date Recorded PHQ-2 Score 0 02/23/2019 Sex and Gender Information Value Date Recorded Sex Assigned at Not on file 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 Gender Identity Not on file Sexual Orientation Not on file documented as of this encounter Progress Notes * Julisa Crockett RN - 04/01/2019 8:14 AM CST 04/01- faxed lab orders to [phone] GROUND DIRECTOR documented in this encounter Plan of Treatment Scheduled Orders Name Type Priority Associated Diagnoses Orde r Schedule CBC with auto differential Lab Routine Coronary artery disease involving [place] coronary artery of [place] heart with unstable angina pectoris (CMS/HCC) Pre-op testing Expected: 04/01/2019, Expires: 04/01/2020 Basic metabolic panel Lab Routine Coronary artery disease involving [place] coronary artery of [place] heart with unstable angina pectoris (CMS/HCC) Pre-op testing Expected: 04/01/2019, Expires: 04/01/2020 documented as of this encounter Visit Diagnoses Diagnosis Coronary artery disease involving [place] coronary artery of [place] heart with unstable angina pectoris (HCC)- Primary Pre-op testing Unspecified pre-operative examination documented in this encounter Care Teams Pulp Roller Relationship Specialty Start Date End Date Reuben Garcia MD [address] [address] PCP - General Interventional Cardiology 02/04/17 documented as of this encounter
--- OUTSIDE RECORDS SUMMARY | 2024-05-16 02:01 | XMS_ITS | Encounter Summary ---
Author Organization [facility] Address [address] [place] [address] Care Team Providers Care Breaker Up Machine Operator Name Role Phone Reuben Garcia MD Primary Care Provid er Reason for Visit * Reason Comments Coronary Artery Disease 5 mo f/u Encounter Details Date Type Department Care Team (Late st Contact Info) Description 08/28/2020 10:30 AM CDT Office Visit [facility] Cardiology [address] [place] [address] Reuben Garcia MD [address] [place] [address] Hypertension associated with diabetes (CMS/HCC) (Primary Dx); Coronary artery disease involving [place] coronary artery of [place] heart without angina pectoris; Hyperlipidemia associated with type 2 diabetes mellitus [...] on file 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 Gender Identity Not on file Sexual Orientation Not on file documented as of this encounter Last Filed Vital Signs Vital Sign Reading Time Taken Comments Blood Pressure 124/76 08/28/2020 10:46 AM CDT Pulse 72 08/28/2020 10:46 AM CDT Temperature - - Respiratory Rate - - Oxygen Saturation 97% 08/28/2020 10:46 AM CDT Inhaled Oxygen Concentration - - Weight 95.9 kg (211 lb 6.4 oz) 08/28/2020 10:46 AM CDT Height 175.3 cm (5' 9 ) 08/28/2020 10:46 AM CDT Body Mass Index 31.22 08/28/2020 10:46 AM CDT documented in this encounter Ordered Prescriptions Prescription Sig Dispense Quantity Refills Last Filled Start Date End Date ezetimibe (ZETIA) 10 mg tabletIndications: Hyperlipidemia associated with type 2 diabetes mellitus (HCC) Take 1 tablet (10 mg total) by mouth daily 30 tablet 11 08/28/2020 09/03/2021 documented in this encounter Progress Notes * Reuben Garcia MD - 08/28/2020 10:30 AM CDT [facility] DATE OF VISIT: 08/29/2020 CHIEF COMPLAINT Chief Complaint Patient presents with ??? Coronary Artery Disease 5 mo f/u CAD HPI Jerald Whipple is a 59 [...] with his daughter. Underwent cardiac catheterization at [facility] and there was a suspicion of ostial left main disease. The diagonal branch and ostial PDA improved compared to the catheterization in 2017. I refer this patient to [facility] and underwent stenting to the ostial [...] He had asymptomatic COVID infection March 2020. MEDICAL HISTORY Past Medical History: Diagnosis Date ??? Coronary artery disease Coronary artery disease ??? Hyperlipidemia Hyperlipidemia ??? Type 2 diabetes mellitus ([facility]) Diabetes type 2 Past Surgical History: Procedure [...] mg tablet metFORMIN (GLUCOPHAGE) 500 mg tablet ezetimibe (ZETIA) 10 mg tablet ALLERGIES No Known Allergies REVIEW [...] allergies and hives. PHYSICAL EXAM Vitals BP 124/76 (BP Location: Right arm, Patient Position: Sitting) Pulse 72 Ht 175.3 cm (5' 9 ) Wt 95.9 kg (211 lb 6.4 oz) SpO2 97% BMI 31.22 kg/m?? Body mass index is 31.22 kg/m??. Physical Exam Constitutional: He is oriented to person, place, and time. He appears well- developed and well-nourished. HENT: Head: Normocephalic and atraumatic. Mouth/Throat: Oropharynx is clear and moist. Eyes: Conjunctivae and EOM are normal. Left eye exhibits no discharge. No scleral icterus. Neck: No thyromegaly present. Cardiovascular: Normal rate, regular [...] Musculoskeletal: General: No tenderness, deformity or edema. Cervical back: Normal range of motion and neck supple. Neurological: He is alert and oriented to [...] CALCIUM 8.7 04/02/2019 1846 ALKPHOS 55 05/16/2015 194 AST 27 05/16/2015 194 ALT 34 05/16/2015 194 BILITOT 0.2 05/16/2015 [...] HDL 35. This lab was done at [facility] BENZENE STILL UTILITY OPERATOR: Cath (Left main is normal. LAD is [...] - 08/2016 Cardiac catheterization February 2019 at [facility]. Ostial left main appears to be diseased with negative IFR and IVS 5.2-5.4 millimeter sq. Diagonal branch 50%, ostial PDA 50%, left circumflex artery unremarkable. ASSESSMENT Diagnoses and all orders for this visit: Hypertension associated with diabetes (CMS/HCC) (Primary) Coronary artery disease involving [place] coronary artery of [place] heart without angina pectoris Hyperlipidemia associated with type 2 diabetes mellitus (CMS/HCC) - ezetimibe (ZETIA) 10 mg tablet; Take 1 tablet (10 mg total) by mouth daily PLAN/RECOMMENDATIONS -in regards to coronary artery disease, he status post stenting of the left main coronary artery. Asymptomatic. Continue aspirin and Plavix indefinitely. Continue statin. -in terms of blood pressure, blood pressure is well controlled now. Continue current medications. -interns of hyperlipidemia, continue Lipitor 40 mg daily. His LDL today was 116 compared to 69 lastyear. add Zetia 10 mg daily. -counseling done regarding [...] with diabetes (HCC)- Primary Unspecified essential hypertension Coronary artery disease involving [place] coronary artery of [place] heart without angina pectoris Hyperlipidemia associated with type 2 diabetes mellitus (HCC) documented in this encounter Care Teams Breaker Up Machine Operator Relationship Specialty Start Date End Date Reuben Garcia MD [address] [facility] [address] [place] [id number] PCP - General Interventional Cardiology 02/04/17 documented as of this encounter
--- OUTSIDE RECORDS SUMMARY | 2024-05-16 02:01 | XMS_ITS | Encounter Summary ---
Author Organization [facility] Address [address] [place] [address] Phone Care Team Providers Care Food Concession Manager Name Role Phone Reuben Garcia MD Primary Care Provid er Reason for Visit * Reason Onset Date Comments New Patient 03/18/2019 Encounter Details Date Type Department Care Team (Late st Contact Info) Description 03/18/[address] [facility] Cardiology [address] 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 CUNNINGHAM What ins do you carry/spec billing? MEDICARE Diagnosis/Reason for Appointment: I25.118 (ICD-10-CM) - Coronary artery disease of [place] artery of[place] heart with stable angina pectoris ([facility]) Best Contact Number for Patient: [phone] Who: Primary Care Physician: REUBEN GARCIA Prim Phone: Referring Physician: PCP/Nicci Nunez NP Ref Phone: If Referring MD is not PCP, list specialty: Yes No If yes, who, phone, when & where? Have you ever seen a Production Tech in an office setting? [x] [] REUBEN GARCIA IF YES: Are you planning on transferring care to a MARTÍNEZ MD or are you looking for a second opinion onyour current diagnosis? [] 2nd Opinion (Appts will be CX if records not received 48hrs prior to appt) []Transferring Care to Congenital Patients Only Date and location of last echo: Dr. Renuka Perez Patients OnlyHemodialysis or peritoneal dialysis need referral from MD (DO NOT SCHEDULE) Date and location of last renal ultrasound (with doppler or duplex scan): Date and location of last Abd CT Angiogram or Abd MR Angiogram (looks at adrenal glands or blood flow to kidneys): Date and location of last 24-hour Blood Pressure Monitor: Most recent lab work (BMP, Lipids): Patient History Questions Yes No Where/When/Notes Have you ever been diagnosed with or have you ever undergone treatments for cancer? [] [x] If 'Yes', Schedule first available with Dept: [id number]; Team: Oncology Cardiology If yes, when and where? [] [] Have you been hospitalized at [place] within the last 3 years? [] [x] If yes, did you see a Production Tech while hospitalized? [] [] Have you EVER been hospitalized for ANY cardiac issue? [x] [] [facility]ST WEEK Have you ever had an EKG? [x] [] [facility] Have you ever had a stress test? [x] [] [facility] 3 WEEK S AGO Have you ever had an echo? [] [x] Have you ever worn a heart monitor at home? [] [x] Have you ever had a Cardiac Cath? [] [x] Have you ever had a Cardiac Surgery (including ablations, cardioversions, CABG, etc.)? [] [x] Do you have a device? If yes what type? (Pacemaker, Defibrillator, Implanted Loop Recorder) [] [] If yes, where and when was device put in? Powerplant Operator? ([employer], [employer], [place]) FEMALE PTS: Were any of the tests/procedures completed under a different (maiden) name? If yes, what was it? Notes: Appointment Date: Type: Provider: ARASH CUNNINGHAM Location: Is scheduled appt within 18 days? []Yes []No (If no, send encounter to the new patient pool and to [place]) Is there an appt available at another location within 18 days? []Yes []No If yes, was the patient willing to travel to that location? []Yes []No Is there an appt available with another provider of the same sub-specialty within 18 days? []Yes []No If yes, was the patient willing to see a different provider? []Yes []No Did the patient want an appointment more than 18 days from the date scheduled? []Yes []No Notes regarding appt date: [] Confirm appt date, time, provider and location. [] Advise pt to arrive 15-20 min early (30 for YASHIRA Perez). [] Advise patient to bring medications/list, photo ID and insurance card [] Advise of New Patient Packet being mailed to them. [] Inform ref MD Office to fax cardiac related records. documented in this encounter Plan of Treatment Not on file documented as of this encounter Visit Diagnoses Not on filedocumented in this encounter Care Teams Food Concession Manager Relationship Specialty Start Date End Date Reuben Garcia MD [address] [facility] [address] [place] [address] PCP - General Interventional Cardiology 02/04/17 documented as of this encounter
--- OUTSIDE RECORDS SUMMARY | 2024-05-16 02:01 | XMS_ITS | Encounter Summary ---
Author Organization [facility] Address [address] [facility] [address] [place] [address] Care Team Providers Care Vice President Payer Name Role Phone Reuben Garica MD Primary Care Provid er Encounter Details Date Type Department Care Team (Late st Contact Info) Description 05/15/2020 Telephone [facility] Specialists [facility] [address] [facility] [address] [address] Aaron Már[place] [address] 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 Gender Identity Not on file Sexual Orientation Not on file documented as of this encounter Ordered Prescriptions Prescription Sig Dispense Quantity Refills Last Filled Start Date End Date metFORMIN (GLUCOPHAGE) 500 mg tablet Take 2 tablets (1,000 mg total) by mouth 2 (two) times a day 120 tablet 05/15/2020 0 documented in this encounter Miscellaneous Notes * Telephone Encounter - Faby Troy - 05/15/2020 3:22 PM CST miller 11/16/19 Nov 06/01/20 Refill metformin CALLER documented in this encounter Plan of Treatment Not on file documented as of this encounter Visit Diagnoses Not on filedocumented in this encounter Discontinued Medications Medication Sig Discontinue Reason Start Date End Da te metFORMIN (GLUCOPHAGE) 500 mg tablet TAKE 2 TABLETS BY MOUTH TWICE DAILY Reorder 11/12/2019 05/15/2020 documented as of this encounter Care Teams Vice President Payer Relationship Specialty Start Date End Date Reuben Garcia MD [address] [address] PCP - General Interventional Cardiology 02/04/17 documented as of this encounter
--- OUTSIDE RECORDS SUMMARY | 2024-05-16 02:01 | XMS_ITS | Encounter Summary ---
Author Organization [facility] Healthcare Address [address] [place] [address] Care Team Providers Care Rapier Insertion Loom Fixer Name Role Phone Reuben Garcia MD Primary Care Provid er Encounter Details Date Type Department Care Team (Latest Contact Info) Description 04/02/2019 8:09 AM GENERATION ENGINEER - 04/03/2019 4:06 PM [facility] Hospital Encounter [facility] [address] [place] [address] Salty Rosas MD PhD [address] [facility] [address] [place] [address] Romeo Mendieta MD [address] [facility] [phone] [place] [address] Randy Ann MD [address] [facility] [address] [place] [address] 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 (CMS/HCC); Abnormal stress test; Angina pectoris (CMS/HCC); Coronary artery disease involving peoria coronary artery of peoria heart without angina pectoris Discharge Disposition: Discharge to home or self [...] on file Legal Sex Male 10:13 AM GENERATION ENGINEER Gender Identity Not on file Sexual Orientation Not on file documented as of this encounter Last Filed Vital Signs Vital Sign Reading Time Taken Comments Blood Pressure 159/85 04/03/2019 11:50 AM GENERATION ENGINEER Pulse 60 04/03/2019 7:50 AM GENERATION ENGINEER Temperature 36.9 ??C (98.4 ??F) 04/03/2019 11:[address] Respiratory Rate 16 04/03/2019 7:50 AM GENERATION ENGINEER Oxygen Saturation 97% 04/03/2019 11:50 AM GENERATION ENGINEER Inhaled Oxygen Concentration - - Weight 97.3 kg (214 lb 9.6 oz) 04/03/2019 5:45 A M GENERATION ENGINEER Height 167.6 cm (5' 6 ) 04/02/2019 6:20 PM GENERATION ENGINEER Body Mass Index 34.64 04/02/2019 6:20 PM GENERATION ENGINEER documented in this encounter Discharge Diagnoses Diagnosis 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 (CMS/HCC) (HCC) - ATHEROSCLEROTIC HEART DISEASE OF [place] CORONARY ARTERY WITH UNSTABLE ANGINA PECTORIS Essential (primary) hypertension - ESSENTIAL (PRIMARY) HYPERTENSION Unspecified essential hypertension Type 2 diabetes mellitus with other specified complication (HCC) - TYPE 2 DIABETES MELLITUS WITH OTHER SPECIFIED COMPLICATION Hyperlipidemia, unspecified - HYPERLIPIDEMIA, UNSPECIFIED parts counterman (current) use of oral hypoglycemic drugs - LUNCHROOM MOTHER (CURRENT) USE OF ORAL HYPOGLYCEMIC DRUGS Cataract extraction status, left eye - CATARACT EXTRACTION STATUS, LEFT EYE Cataract extraction status, right eye - CATARACT EXTRACTION STATUS, RIGHT EYE Other specified postprocedural states - OTHER SPECIFIED POSTPROCEDURAL STATES parts counterman (current) use of antithrombotics/antiplatelets - RETIREMENT (CURRENT) USE OF ANTITHROMBOTICS/ANTIPLATELETS alf (current) use of aspirin - RETIREMENT (CURRENT) USE OF ASPIRIN Other fdc (current) drug therapy - OTHER RETIREMENT (CURRENT) DRUG THERAPY documented in this encounter Discharge Summaries * Randy Ann MD - 04/03/2019 4:06 PM CST Inpatient Discharge Summary BRIEF OVERVIEW Admitting Provider: Salty Rosas MD PhD Discharge Provider: No att. providers found Primary Care Physician at Discharge: Reuben Garcia MD [phone] Admission Date: 04/02/2019 Discharge Date: 04/03/2019 [facility] Primary Discharge Diagnosis: CAD s/p high risk PCI Left main ostial lesion Secondary Discharge Diagnosis: Type 2 diabetes mellitus (CMS/HCC) Hypertension associated with diabetes (CMS/HCC) 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 (CMS/HCC) Hyperlipidemia associated with type 2 diabetes mellitus ([facility]/HCC) DETAILS OF HOSPITAL STAY Presenting Problem/History of [...] until he recently presented to his outside formula maker with intermittent chest discomfort and dyspnea on exertion. Chest discomfort occurred after ambulating a mile and was relieved by rest. He then underwent an EKG stress test that was positive for ischemia. He then underwent a LHC at an outside facility with ostial left main lesion 60-70% and unchanged other disease. He was referred to [facility] for consideration of inte rvention on this lesion. ?? Today, he underwent LHC at [facility] with successful JENA placed to the [...] Requiring Follow-up: Follow up with your primary formula maker for BP check Continue Plavix 1 year Test Results Pending at Discharge: Operative Procedures Performed: Procedure(s): PCI JENA MAJOR CORONARY C9600 - [id number] Other Procedures: Pertinent Test Results: Discharge Details [...] Center 04/12/2019 11:45 AM Reuben Garcia MD [facility] Tamela ELLIOTT Decedonald 06/29/2019 2:15 PM Aaron Márquez MD [facility] MG Decent Contact Information for Follow-ups Reuben Garcia MD Specialty: Interventional Cardiology, Cardiology, Cardiovascular Disease, Internal Medicine Relationship: PCP - General Elian AHUMADA RD [id number] [place] [address] Next Steps: Follow up RATION ENGINEER documented in this encounter Discharge Instructions * Attachments The following attachments cannot be sent through Care Everywhere. * After Coronary Angioplasty and Intravascular Stent Placement (Respiratory Supervisor) (Togolese) documented in this encounter Medications at Time of Discharge blood-glucose meter (Uscreen.tvUCH ULTRA2) kit check glucose once a day 1 kit 0 03/04/2014 aspirin (ASPIR-81) 81 mg tablet take 1 tablet by oral route every day 0 0 09/16/2016 09/03/2021 atorvastatin (LIPITOR) 40 mg tabletIndications :Coronary artery disease involving peoria coronary artery of pe[place] heart without angina pectoris Take 1 tablet (40 mg total) by mouth daily 30 tablet 11 04/03/2019 05/29/2020 clopidogrel (PLAVIX) 75 mg tablet Take 1 tablet (75 mg total) by mouth daily 30 tablet 11 04/04/2019 08/02/2020 lisinopril (PRINIVIL,ZESTRIL ) 10 mg tabletIndications :Coronary artery disease involving peoria coronary artery of pe[place] heart without angina pectoris Take 1 tablet (10 mg total) by mouth daily 90 tablet 3 03/01/2019 12/14/2019 metFORMIN (GLUCOPHAGE) 500 mg tablet TAKE 2 TABLETS BY MOUTH TWICE DAILY 120 tablet 11/04/2018 11/12/2019 documented as of this encounter Ordered Prescriptions Prescription Sig Dispense Quantity Refills Last Filled Start Date End Date atorvastatin (LIPITOR) 40 mg tabletIndications: Coronary artery disease involving pe[place] coronary artery of pe[place] heart without angina pectoris Take 1 tablet (40 mg total) by mouth daily 30 tablet 11 04/03/2019 05/29/2020 clopidogrel (PLAVIX) 75 mg tablet Take 1 tablet (75 mg total) by mouth daily 30 tablet 11 04/04/2019 08/02/2020 documented in this encounter Discharge Disposition Disposition Code Departure Means Destination Discharge to home or self care documented in this encounter Progress Notes * Randy Ann MD - 04/03/2019 11:57 AM CST Daily Progress Note Division of Hospital Medicine Name: Jerald Whipple Today: April 03, 2019 : 1960 Age: 58 y.o. male Admit: 04/02/2019 Bed: [id number] Subjective Chief complaint: pci Interval History: had [...] EKG/Min 55 BPM Atrial Rate 55 BPM OK-Interval (MSEC) 158 ms QRS-Interval (MSEC) 118 ms QT-Interval (MSEC) 454 ms QTc 434 ms P [place] -16 degrees R [place] -42 degrees T [place] 53 degrees Diagnosis Sinus bradycardia Left axis [...] Optiray was used as contrast. A 7 [place] sheath inserted into the right femoral artery using percutaneous approach. Heparin was administered to maintain ACT of 250 seconds or greater. IFR was performed with 7 [place] XB lad 3.5 guide catheter 0.014 in volcano [place] pressure wire. Intravascular ultrasound performed [place] Eye catheter over the same wire. Ostial [...] removed and the area closed with 8 [place] Angio-Seal. There were no complications. IFR of [...] Hyperlipidemia associated with type 2 diabetes mellitus ([facility]) Assessment & Plan --Continue atorvastatin. 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) Assessment & Plan S/p LM ostial PCI --Aspirin 81 mg daily indefinitely. --S/p Plavix load. Continue 75 mg daily for at least a year. --Continue atorvastatin. --Continue lisinopril 10 mg daily. --Historically not on BB therapy, f/u with formula maker DC today DC time 31 minutes Hypertension associated with diabetes ([facility]) Assessment & Plan --Anti-hypertensive medications per CAD. Type 2 diabetes mellitus ([facility]) Assessment & Plan Recent A1c's in the 6s. --Hold home Metformin. --Low dose SSI and accuchecks. RATION ENGINEER documented in this encounter H&P Notes * Trey Akers MD - 04/02/2019 7:01 PM CST History and Physical Division of Hospital Medicine Name: Jerald Whipple : 1960 Today: April 02, 2019 Bed: [id number] Subjective Chief Complaint: Intermittent chest pain HPI: [...] until he recently presented to his outside formula maker with intermittent chest discomfort and dyspnea on exertion. Chest discomfort occurred after ambulating a mile and was relieved by rest. He then underwent an EKG stress test that was positive for ischemia. He then underwent a LHC at an outside facility with ostial left main lesion 60-70% and unchanged other disease. He was referred to [facility] for consideration of inte rvention on this lesion. Today, he underwent LHC at [facility] with successful JENA placed to the [...] EKG/Min 55 BPM Atrial Rate 55 BPM OK-Interval (MSEC) 158 ms QRS-Interval (MSEC) 118 ms QT-Interval (MSEC) 454 ms QTc 434 ms P [place] -16 degrees R [place] -42 degrees T [place] 53 degrees Diagnosis Sinus bradycardia Left axis [...] Optiray was used as contrast. A 7 [place] sheath inserted into the right femoral artery using percutaneous approach. Heparin was administered to maintain ACT of 250 seconds or greater. IFR was performed with 7 [place] XB lad 3.5 guide catheter 0.014 in [place] pressure wire. Intravascular ultrasound performed [place] Eye catheter over the same wire. Ostial [...] removed and the area closed with 8 [place] Angio-Seal. There were no complications. IFR of [...] have independently reviewed additional patient records from [facility]. Assessment/Plan 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 ([facility]) Assessment & Plan Patient with known coronary disease of diagonal and RCA (no intervention) from [facility] in 2017 with recent onset of exertional [...] if HR will tolerate. --Follow-up with outside formula maker on discharge. Hyperlipidemia associated with type 2 diabetes mellitus ([facility]/HCC) Assessment & Plan --Continue atorvastatin. Hypertension associated with diabetes ([facility]) Assessment & Plan --Anti-hypertensive medications per CAD. Type 2 diabetes mellitus ([facility]) Assessment & Plan Recent A1c's [...] please call the Hospitalist cross cover phone. RATION ENGINEER RATION ENGINEER documented in this encounter Nursing Notes * Savanna Pickering RN - 04/02/2019 5:[address] Rosas ok to d/c Nitro gtt at this time per blood pressure readings. Orders to hold Lisinopril until SBP above 120. [facility] RN aware of nitro gtt d/c and lisinopril order. RATION ENGINEER documented in this encounter Miscellaneous Notes * [...] medication as presented. IV and tele discontinued. RATION ENGINEER * Plan of Care - Tram Guzman RN - 04/03/2019 12:46 PM CST Goals: Clinical Goals for the Shift: Patient will remain hemodynamically stable overnight. Summary: Patient verbalized understanding and participating in care. Will continue to monitor. RATION ENGINEER * Hospital Course - Randy Ann MD - 04/03/2019 12:03 PM GENERATION ENGINEER 1.) CAD with left main ostial disease Referred in for evaluation and management of left main ostial lesion. Underwent successful PCI without immediate complications. Started Plavix. Discharged in stable condition. RATION ENGINEER * Subjective & Objective - Randy Ann MD - 04/03/2019 11:52 AM GENERATION ENGINEER Daily Progress Note Division of Hospital Medicine Name: Jerald Whipple Today: April 03, 2019 : 1960 Age: 58 y.o. male Admit: 04/02/2019 Bed: [id number] Subjective Chief complaint: pci Interval History: had [...] EKG/Min 55 BPM Atrial Rate 55 BPM OK-Interval (MSEC) 158 ms QRS-Interval (MSEC) 118 ms QT-Interval (MSEC) 454 ms QTc 434 ms P [place] -16 degrees R [place] -42 degrees T [place] 53 degrees Diagnosis Sinus bradycardia Left axis [...] Optiray was used as contrast. A 7 [place] sheath inserted into the right femoral artery using percutaneous approach. Heparin was administered to maintain ACT of 250 seconds or greater. IFR was performed with 7 [place] XB lad 3.5 guide catheter 0.014 in [place] pressure wire. Intravascular ultrasound performed [place] Eye catheter over the same wire. Ostial [...] removed and the area closed with 8 [place] Angio-Seal. There were no complications. IFR of [...] reviewed and interpreted Tele pers reviewed sinus RATION ENGINEER * Plan of Care - Katina Alcazar [...] of discharge needs will improve Outcome: Progressing RATION ENGINEER * Assessment & Plan Note - Trey Akers MD - 04/02/2019 7:19 PM GENERATION ENGINEER Associated Problem(s): Coronary artery disease involving pe[place] coronary artery of pe[place] heart without angina pectoris S/p LM ostial PCI --Aspirin 81 mg daily indefinitely. --S/p Plavix load. Continue 75 mg daily for at least a year. --Continue atorvastatin. --Continue lisinopril 10 mg daily. --Historically not on BB therapy, f/u with formula maker DC today DC time 31 minutes RATION ENGINEER RATION ENGINEER RATION ENGINEER RATION ENGINEER RATION ENGINEER RATION ENGINEER * Assessment & Plan Note - Trey Akers MD - 04/02/2019 7:19 PM GENERATION ENGINEER Associated Problem(s): Hyperlipidemia associated with type 2 diabetes mellitus (HCC) --Continue atorvastatin. RATION ENGINEER * Assessment & Plan Note - Trey Akers MD - 04/02/2019 7:18 PM GENERATION ENGINEER Associated Problem(s): Hypertension associated with diabetes (HCC) --Anti-hypertensive medications per CAD. RATION ENGINEER * Assessment & Plan Note - Trey Akers MD - 04/02/2019 7:18 PM GENERATION ENGINEER Associated Problem(s): Type 2 diabetes mellitus (HCC) Recent A1c's in the 6s. --Hold home Metformin. --Low dose SSI and accuchecks. RATION ENGINEER * Plan of Care - Perlita Stroud [...] Denies any chest pain at this time RATION ENGINEER * Pre-Sedation Documentation - Can Fishman MD - 04/02/2019 3:03 PM GENERATION ENGINEER Sedation Plan ASA 2 - Mild systemic [...] Value Ref Range ABO Rh O Positive Nany, indirect Negative Current meds/Labs/Test Results that may affect sedation reviewed: Yes Last PO Intake: Midnight HEENT Exam: negative Sedation Plan: Moderate Cosigned by Salty Rosas MD PhD at 04/02/2019 3:28 PM GENERATION ENGINEER RATION ENGINEER RATION ENGINEER * Pre-Cardiac Catheterization Workup and H&P - Sakina Yo RN - 04/02/2019 3:00 PM CST PRE-CARDIAC CATHETERIZATION WORKUP Patient Name: Jerald Whipple Patient Patient : 1960 Date of Procedure: 04/02/2019 ORDERING VICE PRESIDENT OF NURSING: Surgeon(s): Salty Rosas MD PhD Procedure(s): PCI JENA MAJOR CORONARY C9600 - [id number] Requested Diagnostic: [] Coronary Angiograms Only [] [...] Yes [] No [] Contraindicated Indications for Director Of Health Care Marketing visit (Select all that apply): [] ACS [...] ESRD [] Dialysis [] HD []PD: Prior [place]: [] Yes [x] No If Yes, Most Recent [place] Date: Tobacco Use Social History Tobacco Use [...] Report Available: [] Yes [] No LABS 11-7-19 WBC HGB HCT pits PT INR PTT [...] Yes, Newly Diagnosed: [] Yes [] No [facility] Class: [] Class I [x] Class II [...] stress test, abnormal LHC referred for PCI. [facility] Clinical Frailty Scale: [] 1: Very Fit [...] Rosas MD PhD at 04/02/2019 3:28 PM GENERATION ENGINEER RATION ENGINEER RATION ENGINEER documented in this encounter Plan of Treatment Not on file documented as of this encounter Procedures Procedure Name Priority Date/Time Associated Diagnosis Comments ADULT DISCHARGE DIET Routine 06/29/2019 2:45 PM GENERATION ENGINEER DIFFERENTIAL AUTO Routine 04/03/2019 6:2 8 AM GENERATION ENGINEER CBC WITH AUTO DIFFERENTIAL Routine 04/03/2019 6:28 AM GENERATION ENGINEER DIFFERENTIAL AUTO STAT 04/02/2019 6:4 6 PM GENERATION ENGINEER CBC WITH AUTO DIFFERENTIAL STAT 04/02/2019 6:46 PM GENERATION ENGINEER BASIC METABOLIC PANEL STAT 04/02/2019 6:46 PM GENERATION ENGINEER JENA MAJOR CORONARY Routine 04/02/2019 4: 32 PM GENERATION ENGINEER 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 (CMS/HCC) Abnormal stress test POCT ACTIVATED CLOTTING TIME, LOW RANGE Routine 04/02/2019 4:28 PM GENERATION ENGINEER POCT ACTIVATED CLOTTING TIME, LOW RANGE Routine 04/02/2019 4:01 PM GENERATION ENGINEER B CHECK SAMPLE STAT 04/02/2019 3:50 PM GENERATION ENGINEER CBC WITHOUT DIFFERENTIAL Routine 04/02/2019 3:00 PM GENERATION ENGINEER TYPE AND SCREEN Timed 04/02/2019 12:15 PM GENERATION ENGINEER POCT GLUCOSE DEVICE Routine 04/02/2019 1 2:07 PM GENERATION ENGINEER ECG 12-LEAD Routine 04/02/2019 11:52 AM GENERATION ENGINEER documented in this encounter Results * Adult Discharge Diet (06/29/2019 2:45 PM GENERATION ENGINEER) 06/29/2019 2:45 PM GENERATION ENGINEER us Randy Ann MD DIET ORDERABLES Final R esult * Differential, auto (04/03/2019 6:28 AM GENERATION ENGINEER) Neutrophil abs 5.6 1.7 - 6.5 K/cumm [facility] Imm gran abs 0.0 0.0 - 0.1 K/cumm [facility] Lymphocyte abs 1.4 0.8 - 3.3 K/cumm [facility] Monocyte abs 0.7 0.2 - 0.8 K/cumm [facility] Eosinophil abs 0.1 0.0 - 0.5 K[facility] Basophil abs 0.0 0.0 - 0.1 K/cumm [facility] Neutrophil pct 71.6 % [facility] Comment: Interpretive Data Percent cell count reference ranges are not reported, since discordance with absolute values may lead to misinterpretation of CBC data. Current Interpretive Data was last revised on 2017. Imm gran pct 0.5 % [facility] Comment: Interpretive Data Percent cell count reference ranges are not reported, since discordance with absolute values may lead to misinterpretation of CBC data. Current Interpretive Data was last revised on 2017. Lymphocyte pct 17.5 % [facility] Comment: Interpretive Data Percent cell count reference ranges are not reported, since discordance with absolute values may lead to misinterpretation of CBC data. Current Interpretive Data was last revised on 2017. Monocyte pct 8.7 % [facility] Comment: Interpretive Data Percent cell count reference ranges are not reported, since discordance with absolute values may lead to misinterpretation of CBC data. Current Interpretive Data was last revised on 2017. Eosinophil pct 1.2 % [facility] Comment: Interpretive Data Percent cell count reference ranges are not reported, since discordance with absolute values may lead to misinterpretation of CBC data. Current Interpretive Data was last revised on 2017. Basophil pct 0.5 % [facility] Comment: Interpretive Data Percent cell count reference ranges are not reported, since discordance with absolute values may lead to misinterpretation of CBC data. Current Interpretive Data was last revised on 2017. Blood specimen (specimen) 04/03/2019 6:28 AM GENERATION ENGINEER 04/03/2019 6:47 AM GENERATION ENGINEER Trey Akers MD LAB BLOOD ORDERABLES Fi nal Result [facility] Department [place] [address] * (ABNORMAL) CBC with auto differential (04/03/2019 6:28 AM GENERATION ENGINEER) WBC 7.8 3.8 - 9.9 K/cumm [facility] Hgb 12.6(L) 13.0 - 17.5 g/dL [facility] Hct 38.0(L) 38.9 - 50.3 % [facility] Plt 213 150 - 400 K/cumm [facility] MPV 10.6 9.1 - 12.3 fL [facility] RBC 4.29(L) 4.30 - 5.80 M/cumm [facility] MCV 88.6 81.3 - 96.4 fL [facility] MCH 29.4 27.1 - 33.3 pg [facility] MCHC 33.2 32.3 - 35.7 g/dL [facility] RDW CV 12.9 11.1 - 14.9 % [facility] RDW SD 42.1 35.7 - 48.1 fL [facility] NRBC abs 0.00 0.00 - 0.01 K/cumm [facility] Blood specimen (specimen) 04/03/2019 6:28 AM GENERATION ENGINEER 04/03/2019 6:47 AM GENERATION ENGINEER us Trey Akers MD LAB BLOOD ORDERABLES Fi nal Result [facility] Department [place] [address] * Differential, auto (04/02/2019 6:46 PM GENERATION ENGINEER) Neutrophil abs 6.2 1.7 - 6.5 K/cumm [facility] Imm gran abs 0.0 0.0 - 0.1 K/cumm [facility] Lymphocyte abs 1.1 0.8 - 3.3 K/cumm [facility] Monocyte abs 0.7 0.2 - 0.8 K/cumm [facility] Eosinophil abs 0.0 0.0 - 0.5 K/cumm [facility] Basophil abs 0.0 0.0 - 0.1 K/cumm [facility] Neutrophil pct 76.7 % [facility] Comment: Interpretive Data Percent cell count reference ranges are not reported, since discordance with absolute values may lead to misinterpretation of CBC data. Current Interpretive Data was last revised on 2017. Imm gran pct 0.5 % [facility] Comment: Interpretive Data Percent cell count reference ranges are not reported, since discordance with absolute values may lead to misinterpretation of CBC data. Current Interpretive Data was last revised on 2017. Lymphocyte pct 13.3 % [facility] Comment: Interpretive Data Percent cell count reference ranges are not reported, since discordance with absolute values may lead to misinterpretation of CBC data. Current Interpretive Data was last revised on 2017. Monocyte pct 8.5 % [facility] Comment: Interpretive Data Percent cell count reference ranges are not reported, since discordance with absolute values may lead to misinterpretation of CBC data. Current Interpretive Data was last revised on 2017. Eosinophil pct 0.6 % [facility] Comment: Interpretive Data Percent cell count reference ranges are not reported, since discordance with absolute values may lead to misinterpretation of CBC data. Current Interpretive Data was last revised on 2017. Basophil pct 0.4 % [facility] Comment: Interpretive Data Percent cell count reference ranges are not reported, since discordance with absolute values may lead to misinterpretation of CBC data. Current Interpretive Data was last revised on 2017. Blood specimen (specimen) 04/02/2019 6:46 PM GENERATION ENGINEER 04/02/2019 8:21 PM GENERATION ENGINEER us Salty Rosas MD PhD LAB BLOOD ORDERABLES Final Result [facility] Department [place] [address] * (ABNORMAL) CBC with auto differential (04/02/2019 6:46 PM GENERATION ENGINEER) Pathologist [facility] WBC 8.0 3.8 - 9.9 K/cumm [facility] Hgb 12.2(L) 13.0 - 17.5 g/dL [facility] Hct 36.2(L) 38.9 - 50.3 % [facility] Plt 211 150 - 400 K/cumm [facility] MPV 10.8 9.1 - 12.3 fL [facility] RBC 4.11(L) 4.30 - 5.80 M/cumm [facility] MCV 88.1 81.3 - 96.4 fL [facility] MCH 29.7 27.1 - 33.3 pg [facility] MCHC 33.7 32.3 - 35.7 g/dL [facility] RDW CV 12.7 11.1 - 14.9 % [facility] RDW SD 41.0 35.7 - 48.1 fL [facility] NRBC abs 0.00 0.00 - 0.01 K/cumm [facility] Blood specimen (specimen) 04/02/2019 6:46 PM GENERATION ENGINEER 04/02/2019 8:21 PM GENERATION ENGINEER Narrative [facility] - 04/02/2019 8:31 PM GENERATION ENGINEER 3 hours post hemostasis us Salty Rosas MD PhD LAB BLOOD ORDERABLES Final Result Performing Organization Address City/[facility]/ZIP Co de Phone Number [facility] [place] [address] * Basic metabolic panel (04/02/2019 6:46 PM GENERATION ENGINEER) [facility] Sodium 137 135 - 145 mmol/L [facility] Potassium, pl 3.8 3.3 - 4.9 mmol/L [facility] Chloride 103 97 - 110 mmol/L [facility] CO2 26 22 - 32 mmol/L [facility] Anion gap 8 2 - 15 mmol/L [facility] BUN 14 8 - 25 mg/dL [facility] Creatinine 0.86 0.80 - 1.30 mg/dL [facility] Glucose 167 70 - 199 mg/dL [facility] Comment: Interpretive Data Fasting glucose >/= [...] 2017. Calcium 8.7 8.5 - 10.3 mg/dL [facility] Blood specimen (specimen) 04/02/2019 6:46 PM GENERATION ENGINEER 04/02/2019 8:21 PM GENERATION ENGINEER Narrative [facility] - 04/02/2019 8:57 PM GENERATION ENGINEER 3 hours post hemostasis us Salty Rosas MD PhD LAB BLOOD ORDERABLES Final Result Performing Organization Address City/[facility]/ZIP Co de Phone Number [facility] [place] [address] * JENA MAJOR CORONARY (04/02/2019 4:32 PM GENERATION ENGINEER) Anatomical Region Laterality Modality X-Ray Angiograph y Narrative 04/06/2019 8:30 AM GENERATION ENGINEER IFR and coronary PCI Interventional fellow: ??Dr. [...] Optiray was used as contrast. ??A 7 Paragu[place] sheath inserted into the right femoral artery using percutaneous approach. ??Heparin was administered to maintain ACT of 250 seconds or greater. ??IFR was performed with 7 [place] XB lad 3.5 guide catheter 0.014 in volcano [place] pressure wire. ?? Intravascular ultrasound performed [employer] [place] Eye catheter over the same wire. ??Ostial [...] removed and the area closed with 8 [place] Angio-Seal. ??There were no complications. IFR of [...] clotting time, low range (04/02/2019 4:28 PM GENERATION ENGINEER) ACT 269(H) 123 - 168 sec [facility] Blood specimen (specimen) 04/02/2019 4:28 PM GENERATION ENGINEER 04/02/2019 4:28 PM GENERATION ENGINEER Randy Ann MD LAB POCT ORDERABLES - D EVICE Final Result Performing Organization Address [facility] de Phone Number [facility] [place] [address] * (ABNORMAL) POCT Activated clotting time, low range (04/02/2019 4:01 PM GENERATION ENGINEER) Pathologist [facility] ACT 210(H) 123 - 168 sec [facility] Blood specimen (specimen) 04/02/2019 4:01 PM GENERATION ENGINEER 04/02/2019 4:01 PM GENERATION ENGINEER us Randy Ann MD LAB POCT ORDERABLES - D EVICE Final Result Performing Organization Address [facility] de Phone Number [facility] [place] [address] * Check Sample (04/02/2019 3:50 PM GENERATION ENGINEER) Pathologist [facility] ABO Rh O Positive [facility] HCLL OTHER 04/02/2019 3:50 PM GENERATION ENGINEER 04/02/2019 4:13 PM GENERATION ENGINEER us Salty Rosas MD PhD LAB BLOOD ORDERABLES Final Result Performing Organization Address [facility] de Phone Number [facility] Department [place] [address] * (ABNORMAL) CBC without differential (04/02/2019 3:00 PM GENERATION ENGINEER) [facility] WBC 6.5 3.8 - 9.9 K/cumm [facility] Hgb 13.0 13.0 - 17.5 g/dL [facility] Hct 37.8(L) 38.9 - 50.3 % [facility] Plt 214 150 - 400 K/cumm [facility] MPV 10.6 9.1 - 12.3 fL [facility] RBC 4.37 4.30 - 5.80 M/cumm [facility] MCV 86.5 81.3 - 96.4 fL [facility] MCH 29.7 27.1 - 33.3 pg [facility] MCHC 34.4 32.3 - 35.7 g/dL [facility] RDW CV 12.5 11.1 - 14.9 % [facility] RDW SD 39.7 35.7 - 48.1 fL [facility] NRBC abs 0.00 0.00 - 0.01 K/cumm [facility] Blood specimen (specimen) 04/02/2019 3:00 PM GENERATION ENGINEER 04/02/2019 4:07 PM GENERATION ENGINEER Narrative [facility] - 04/02/2019 4:30 PM GENERATION ENGINEER To be drawn after hydration bolus complete Nela Garner NEMATOLOGIST LAB BLOOD ORDERABLES Final Re sult Performing Organization Address City/[facility]/ZIP Co de Phone Number [facility] [place] [address] * Type and screen (04/02/2019 12:15 PM GENERATION ENGINEER) ABO Rh O Positive [facility] Anny, indirect Negative [facility] Blood specimen (specimen) 04/02/2019 12:15 PM GENERATION ENGINEER 04/02/2019 12:38 PM GENERATION ENGINEER Narrative [facility] - 04/02/2019 2:02 PM GENERATION ENGINEER Has the patient had Daratumumab (Darzalex) in the past 6 months?->Unknown Nela Garner NP LAB BLOOD BANK TEST ORDERABLE S Final Result [facility] [place] [address] * POCT glucose (04/02/2019 12:07 PM GENERATION ENGINEER) Glucose, POC 137 70 - 199 mg/dL [facility] Blood specimen (specimen) 04/02/2019 12:07 PM GENERATION ENGINEER 04/02/2019 12:07 PM GENERATION ENGINEER Salty Rosas MD PhD LAB POCT ORDERABLES - DAVIDE CE Final Result [facility] [place] [address] * ECG 12 lead (04/02/2019 11:52 AM GENERATION ENGINEER) [facility] Ventricular Rate EKG/Min 55 BPM [facility] Atrial Rate 55 BPM [facility] OK-Interval (MSEC) 158 ms [facility] QRS-Interval (MSEC) 118 ms [facility] QT-Interval (MSEC) 454 ms [facility] QTc 434 ms [facility] P [place] -16 degrees [facility] R [place] -42 degrees [facility] T [place] 53 degrees [facility] Diagnosis Sinus bradycardia Left axis deviation Left ventricular hypertrophy with QRS widening Abnormal ECG No previous ECGs available Confirmed by SAM BUCIO M.D ([id number]) on 04/02/2019 7:30:13 PM [facility] 04/02/2019 11:5 2 AM GENERATION ENGINEER 04/02/2019 7:30 PM GENERATION ENGINEER us Nela Garner NEMATOLOGIST ECG ORDERABLES Final Result Performing Organization Address City/[facility]/ZIP Co de Phone Number [facility] documented in this encounter Visit Diagnoses Diagnosis 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) Abnormal stress test Other nonspecific abnormal cardiovascular system function study Angina pectoris (HCC) Other and unspecified angina pectoris Coronary artery disease involving pe[place] coronary artery of [place] heart without angina pectoris Type 2 diabetes mellitus (HCC) Hypertension associated with diabetes (HCC) Unspecified essential hypertension Hyperlipidemia associated with type 2 diabetes mellitus (HCC) 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) Abnormal stress test Other nonspecific abnormal cardiovascular system function study documented in this encounter Administered Medications Inactive Administered Medications - up to 3 most recent administrations Medication Order MAR Action Action Date Dose Rate Site aspirin chewable tablet 162 mg 162 mg, oral, Once, On Fri04/02/19 at 1545, For 1 dose Given 04/02/2019 3:06 PM GENERATION ENGINEER 162 mg aspirin chewable tablet 81 mg 81 mg, oral, Daily, First dose on Fri04/03/19 at 0900 Given 04/03/2019 9:09 AM GENERATION ENGINEER 81 mg atorvastatin (LIPITOR) tablet 40 mg 40 mg, oral, Daily, First dose on Fri04/02/19 at 2015 Given 04/03/2019 9:09 AM GENERATION ENGINEER 40 mg Given 04/02/2019 8:48 PM GENERATION ENGINEER 40 mg clopidogrel (PLAVIX) tablet 600 mg 600 mg, oral, Once, On Fri04/02/19 at 1545, For 1 dose Given 04/02/2019 3:06 PM GENERATION ENGINEER 600 mg clopidogrel (PLAVIX) tablet 75 mg 75 mg, oral, Daily, First dose on Fri04/03/19 at 0900 Given 04/03/2019 9:09 AM GENERATION ENGINEER 75 mg lisinopril (PRINIVIL,ZESTRIL) tablet 10 mg 10 mg, oral, Once, On Fri04/02/19 at 1700, For 1 dose Given 04/02/2019 6:41 PM GENERATION ENGINEER 10 mg nitroglycerin in dextrose 5% 50 mg/250 mL (200 mcg/mL) infusion (premix) Continuous PRN, Starting on Fri04/02/19 at 1630, Intra-Procedure (CV) Rate/Dose Change 04/02/2019 5:13 PM GENERATION ENGINEER 80 mcg/min 24 mL/hr Rate/Dose Change 04/02/2019 4:59 PM GENERATION ENGINEER 100 mcg/min 30 mL/ hr Rate/Dose Change 04/02/2019 4:38 PM GENERATION ENGINEER 140 mcg/min 42 mL/ hr ondansetron (ZOFRAN) injection 4 mg 4 mg, [...] to procedure) New Bag 04/02/2019 12:14 PM GENERATION ENGINEER 290 mL 999 mL/hr sodium chloride 0.9% infusion 1 mL/kg/hr ? 96.6 kg (96.6 mL/hr), intravenous, Continuous, Starting on Fri04/02/19 at 1245 New Bag 04/02/2019 12:15 PM GENERATION ENGINEER 1 mL/kg/hr 96.6 mL/hr sodium chloride 0.9% infusion 100 mL/hr, intravenous, Continuous, Starting on Fri04/02/19 at 1715, For 5 hours Rate/Dose Verify 04/02/2019 10:00 PM GENERATION ENGINEER 100 mL/hr 100 mL/hr Rate/Dose Verify 04/02/2019 7:00 PM GENERATION ENGINEER 100 mL/hr 100 mL/ hr Rate/Dose Verify 04/02/2019 6:00 PM GENERATION ENGINEER 100 mL/hr 100 mL/ hr documented in this encounter Discontinued Medications Medication Sig Discontinue Reason Start Date End Da te metFORMIN (GLUCOPHAGE) 500 mg tablet TAKE 2 TABLETS BY MOUTH TWICE DAILY 03/11/2019 03/30/2019 atorvastatin (LIPITOR) 40 mg tabletIndications:Diaz ry artery disease involving peoria coronary artery of peoria heart without angina pectoris Take 1 tablet (40 mg total) by mouth daily Reorder 03/01/2019 04/03/2019 documented as of this encounter Active and Recently Administered Medications Times are shown in GENERATION ENGINEER. Scheduled Medication Order 04/01/2019 04/02/2019 04/03/2019 aspirin chewable tablet 162 mg (COMPLETED) 162 mg, oral, Once, On Fri04/02/19 at 1545, For 1 dose 1506 (Given - Provider: Bernadette Mccray, KAREN) aspirin chewable tablet 81 mg 81 mg, oral, Daily, First dose on Fri04/03/19 at 0900 0909 (Given - Provid er: Tram Guzman RN) atorvastatin (LIPITOR) tablet 40 mg 40 mg, oral, Daily, First dose on Fri04/02/19 at 2014 2047 (Given - Provider: Katina Alcazar RN) 0909 (Given - Provider: Tram Guzman, KAREN) clopidogrel (PLAVIX) tablet 600 mg (COMPLETED) 600 mg, oral, Once, On Fri04/02/19 at 1545, For 1 dose 1506 (Given - Provider: Bernadette Mccray, RN) clopidogrel (PLAVIX) tablet 75 mg 75 mg, oral, Daily, First dose on Fri04/03/19 at 0900 0909 (Given - Provid er: Tram Guzman, KAREN) lisinopril (PRINIVIL,ZESTRIL) tablet 10 mg (COMPLETED) 10 mg, oral, Once, On Fri04/02/19 at 1700, For 1 dose 1841 (Given - Provider: Perlita Stroud, KAREN) sodium chloride 0.9% bolus 290 mL (COMPLETED)(Linked [...] Infusing) 0644 (Not Given - Provider: Katina Alcazar RN - Reason: Other)1306 (Not Given - Provider: Tram Guzman, KAREN - Reason: Other) Continuous Medication Order 04/01/2019 04/02/2019 04/03/2019 sodium chloride 0.9% infusion(Linked Group 1) 1 mL/kg/hr ? 96.6 kg (96.6 mL/hr), intravenous, Continuous, Starting on Fri04/02/19 at 1245 1215 (New Bag - Provider: Fang Packer RN)1643 (Stopped - Provider: Di Spain, KAREN) sodium chloride 0.9% infusion () 100 mL/hr, intravenous, Continuous, Starting on Fri04/02/19 at 1715, For 5 hours 1643 (Rate/Dose Change - Provider: Di Spain, KAREN)1800 (Rate/Dose Verify - Provider: Perlita Stroud RN)1900 (Rate/Dose Verify - Provider: Perlita Stroud RN)2200 (Rate/Dose Verify - Provider: Katina Alcazar RN) PRN Medication Order 04/01/2019 04/02/2019 04/03/2019 acetaminophen [...] (CV) 1540 (Given - Provider: Di Spain RN) niCARdipine (CARDENE) 1 mg/10 mL in sodium [...] Nightly PRN, sleep, Starting on Fri04/02/19 at 193, Indications: Sleep-Onset Insomnia sodium chloride 0.9% flush [...] acetaminophen (TYLENOL) tablet 650 mg 1 12/2018 fentaNYL (SUBLIMAZE) preserv ative free injection 1 04/02/2019 heparin 1,000 unit/mL injection 1 9 ioversol (OPTIRAY 350) injection 1 04/02/20 lidocaine (XYLOCAINE) 10 mg/ mL (1 %) injection 1 04/02/2019 midazolam (VERSED) preservat neyda free injection 1 04/02/2019 niCARdipine (CARDENE) 1 mg/1 0 mL in sodium chloride 0.9% (premix) 1 04/02/2019 nitroglycerin injection 100 mcg/mL D5W 10 mL vial 1 04/02/2019 ondansetron (ZOFRAN) injection 4 mg 1 04/02 [...] 04/02/2019 documented in this encounter Care Teams Rapier Insertion Loom Fixer Relationship Specialty Start Date End Date Reuben Garcia MD [address] [address] PCP - General Interventional Cardiology 02/04/17 documented as of this encounter
--- OUTSIDE RECORDS SUMMARY | 2024-05-16 02:01 | XMS_ITS | Encounter Summary ---
Author Organization [facility] Address [address] [place] [address] Phone Care Team Providers Care Pie Dough Roller Name Role Phone Reuben Garcia MD Primary Care Provid er Encounter Details Date Type Department Care Team (Late st Contact Info) Description 03/19/2019 Telephone [facility] Cardiology [address] [facility] 8th [place] [address] [place] [address] Salty Rosas MD PhD [address] [place] [address] Social History Tobacco Use Types Packs/Day Years Used Date Smoking Tobacco: Never Smokeless Tobacco: Never Alcohol Use Standard Drinks/Week Comments No 0 (1 standard drink = 0.6 oz pur e alcohol) PHQ-2 Answer Date Recorded PHQ-2 Score 0 02/23/2019 Sex and Gender Information Value Date Recorded Sex Assigned at Not on file 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 He said he had them done about 1 week or so ago Thanks documented in this encounter Plan of Treatment Not on file documented as of this encounter Visit Diagnoses Not on filedocumented in this encounter Care Teams Pie Dough Roller Relationship Specialty Start Date End Date Reuben Garcia MD [address] [facility] [address], [place] [address] PCP - General Interventional Cardiology 02/04/17 documented as of this encounter
--- OUTSIDE RECORDS SUMMARY | 2024-05-16 02:01 | XMS_ITS | Encounter Summary ---
Author Organization [facility] Address [address] [place] [address] Phone Care Team Providers Care Crushed Stone Grader Name Role Phone Reuben Garcia MD Primary Care Provid er Encounter Details Date Type Department Care Team (Late st Contact Info) Description 03/19/2019 Telephone [facility] Cardiology [address] [facility] 8th [place] [address] [place] [address] Salty Rosas MD PhD [address] [place] [address] Social History Tobacco Use Types Packs/Day Years Used Date Smoking Tobacco: Never Smokeless Tobacco: Never Alcohol Use Standard Drinks/Week Comments No 0 (1 standard drink = 0.6 oz pur e alcohol) PHQ-2 Answer Date Recorded PHQ-2 Score 0 02/23/2019 Sex and Gender Information Value Date Recorded Sex Assigned at Not on file 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 Gender Identity Not on file Sexual Orientation Not on file documented as of this encounter Miscellaneous Notes * Telephone Encounter - Julisa Crockett RN - 03/19/2019 10:54 AM CDT 03/19- Spoke to pt regarding setting up for PCI of osital LM, he is agreeable to 04/02 for procedure He states he recently had labs done at [facility]- we will request these labs- said he had them done about 1 week or so ago Instructed pt that the recyclable products sorter nurse coordinators will contact them 24-48 hours prior to the procedure to give a procedure time, NPO, meds (besides any medications that we discussed) and any other information needed prior to the procedure Pt will have his daughter with him to drive him after procedure. All questions answered Case placed in [place] documented in this encounter Plan of Treatment Not on file documented as of this encounter Visit Diagnoses Not on filedocumented in this encounter Care Teams Crushed Stone Grader Relationship Specialty Start Date End Date Reuben Garcia MD [facility] [address] [address] PCP - General Interventional Cardiology 02/04/17 documented as of this encounter
--- OUTSIDE RECORDS SUMMARY | 2024-05-16 02:01 | XMS_ITS | Encounter Summary ---
Author Organization [facility]/Health system Facility Care Team Providers Care Final Inspection Supervisor Name Role Phone Reuben Garcia MD Primary Care Provid er Encounter Details Date Type Department Care Team (Latest Contact Info) Description 06/29/2019 Travel Social History Tobacco Use Types Packs/Day Years Used Date Smoking Tobacco: Never Smokeless Tobacco: Never Alcohol Use Standard Drinks/Week Comments No 0 (1 standard drink = 0.6 oz pur e alcohol) PHQ-2 Answer Date Recorded PHQ-2 Score 0 02/23/2019 Sex and Gender Information Value Date Recorded Sex Assigned at Not on file 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
--- OUTSIDE RECORDS SUMMARY | 2024-05-16 02:01 | XMS_ITS | Encounter Summary ---
Author Organization [facility] Address [address] [facility] [address] [place] [address] Care Team Providers Care Shake Maker Name Role Phone Reuben Garcia MD Primary Care Provid er Reason for Visit * Reason Onset Date Comments Patient call 04/28/2019 Encounter Details Date Type Department Care Team (Late st Contact Info) Description 04/28/2019 Telephone [facility] [address] 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 Gender Identity Not on file Sexual Orientation Not on file documented as of this encounter Ordered Prescriptions Prescription Sig Dispense Quantity Refills Last Filled Start Date End Date FREESTYLE WENDI 14 DAY SENSOR kitIndications:Typ e 2 diabetes mellitus with hyperglycemia, with long-term current use of insulin (HCC) Change sensor every 14 days 2 kit 13 04/28/2019 0 FREESTYLE WENDI 14 DAY READER miscIndications:Ty pe 2 diabetes mellitus with hyperglycemia, with long-term current use of insulin (HCC) 1 kit daily Use as directed 1 each 04/28/2019 0 documented in this encounter Miscellaneous Notes * Telephone Encounter - Nasreen Villatoro - 04/28/2019 7:56 AM CST Erx sent. FISHER * Addendum Note - Nasreen Villatoro - 04/28/2019 7:56 AM CSTAddended by: NASREEN VILLATORO on: 04/28/2019 07:56 AM Modules accepted: Orders FISHER * Telephone Encounter - Montserrat Fernandez - 04/28/2019 7:31 AM CST Patient came by [place] office asking for a no poke meter FISHER documented in this encounter Plan of Treatment Not on file documented as of this encounter Visit Diagnoses Diagnosis Type 2 diabetes mellitus with hyperglycemia, with long-term current use of insulin (HCC)- Primary documented in this encounter Care Teams Shake Maker Relationship Specialty Start Date End Date Reuben Garcia MD [address] [place] [address] [place] [address] PCP - General Interventional Cardiology 02/04/17 documented as of this encounter
--- OUTSIDE RECORDS SUMMARY | 2024-05-16 02:01 | XMS_ITS | Encounter Summary ---
Author Organization [facility] Facility Care Team Providers Care Plant Operator Helper Name Role Phone Reuben Garcia MD Primary Care Provid er Encounter Details Date Type Department Care Team (Latest Contact Info) Description 04/02/2019 Travel Social History Tobacco Use Types Packs/Day Years Used Date Smoking Tobacco: Never Smokeless Tobacco: Never Alcohol Use Standard Drinks/Week Comments No 0 (1 standard drink = 0.6 oz pur e alcohol) PHQ-2 Answer Date Recorded PHQ-2 Score 0 02/23/2019 Sex and Gender Information Value Date Recorded Sex Assigned at Not on file 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
--- OUTSIDE RECORDS SUMMARY | 2024-05-16 02:01 | XMS_ITS | Encounter Summary ---
Author Organization [facility] Address [address] [place] [address] Care Team Providers Care Swimming Coach Name Role Phone Reuben Garcia MD Primary Care Provid er Reason for Visit * Reason Comments Diabetes Type 2 Encounter Details Date Type Department Care Team (Latest Contact Info) Description 06/29/2019 2:15 PM COMPOUND SPECIALIST Office Visit [facility] [address] [address] Aaron Már[place] [address] [facility] [address] [place] [address] Type 2 diabetes mellitus with hyperglycemia, with long-term current use of insulin (CMS/HCC) (Primary Dx); Hypertension associated with diabetes (CMS/HCC); Hyperlipidemia associated [...] on file Legal Sex Male 10:13 AM COMPOUND SPECIALIST Gender Identity Not on file Sexual Orientation Not on file documented as of this encounter Last Filed Vital Signs Vital Sign Reading Time Taken Comments Blood Pressure 140/70 06/29/2019 2:33 PM COMPOUND SPECIALIST Pulse 67 06/29/2019 2:33 PM COMPOUND SPECIALIST Temperature - - Respiratory Rate 12 06/29/2019 2:33 PM COMPOUND SPECIALIST Oxygen Saturation - - Inhaled Oxygen Concentration - - Weight 101.1 kg (222 lb 12.8 oz) 06/29/2019 2:33 PM COMPOUND SPECIALIST Height 175.3 cm (5' 9.02 ) 06/29/2019 2:33 PM CS T Body Mass Index 32.89 06/29/2019 2:33 PM COMPOUND SPECIALIST documented in this encounter Patient Instructions * Patient Instructions* Aaron Márquez MD - 06/29/2019 2:15 PM COMPOUND SPECIALIST Your Hba1c today was: Lab Results Component Value Date HGBA1C 7.5 06/29/2019 meaning a 3 month average sugar of : 164 Your goal hba1c is under 7.0 to prevent intermediate frame tender diabetes complications ( eye , kidney and [...] and keep a log sheet or book. Bring your sugar meter and /or a log book or log sheet to every office visit. Start Jardiance, 25 mg daily. It works for your diabetes and your heart. OUND SPECIALIST OUND SPECIALIST OUND SPECIALIST documented in this encounter Ordered Prescriptions Prescription Sig Dispense Quantity Refills Last Filled Start Date End Date empagliflozin (JARDIANCE) 25 mg tabletIndications: type 2 diabetes mellitus Take 1 tablet (25 mg total) by mouth daily 30 tablet 11 06/29/2019 07/27/2020 documented in this encounter Progress Notes * Aaron Márquez MD - 06/29/2019 2:15 PM CST Subjective/Objective Patient ID: Jerald Whipple is a 58 y.o. male. Chief Complaint Diabetes Type 2 HPI DM Follow up. Diabetes complications and/or comorbidity includes : CAD ; had a stent in the left main Last hba1c : 6.4 Currently taking : Metformin 1000 mg bid BG monitoring : very ocassionally Hypoglycemia : None Exercise plan: walks regularly Diet plan includes: watching, small portions. Lipid profile within the last year : 07/2017 , LDL 64 Statin therapy : Lipitor Renal: currently on VIKY-I / ARB???s with :Lisinopril Microalbumin: n/a Date of last eye examination: Every Six [...] hyperglycemia, with long-term current use of insulin ([facility]) (E11.65, Z79.4) (Primary) Assessment & Plan: Hba1c was Lab Results Component Value Date HGBA1C 7.5 06/29/2019 today, indicating inadequate DM control 1800 calorie, consistent carb diet recommended, no more than 3-45 grams of carbs per meal, avoidingconcentrated sweet drinks and rapid absorption carbs. 25-45 min daily aerobic and resistance exercise recommended Medications: Add Jardiance Orders: - POCT glucose - POCT hemoglobin A1c Hypertension associated with diabetes ([facility]) (E11.59, I10) Assessment & Plan: Goal blood pressure is less than 140/85 Low salt diet recommended Daily aerobic exercise Continue current meds, including VIKY-I or ARB Check microalbumin Orders: - Albumin Creatinine Ratio, Urine; Future Hyperlipidemia associated with type 2 diabetes mellitus ([facility]) (E11.69, E78.5) Assessment & Plan: Goal of [...] and advised. Daily exercise On statin therapy Other orders - empagliflozin (JARDIANCE) 25 mg tablet; Take 1 tablet (25 mg total) by mouth daily OUND SPECIALIST documented in this encounter Miscellaneous Notes * Assessment & Plan Note - Aaron Márquez MD - 06/29/2019 3:21 PM CSTAssociated Problem(s): Hyperlipidemia associated with type [...] and advised. Daily exercise On statin therapy OUND SPECIALIST * Assessment & Plan Note - Aaron Márquez MD - 06/29/2019 3:21 PM CSTAssociated Problem(s): Hypertension associated with diabetes (HCC) Goal blood pressure is less than 140/85 Low salt diet recommended Daily aerobic exercise Continue current meds, including VIKY-I or ARB Check microalbumin OUND SPECIALIST * Assessment & Plan Note - Aaron Márquez MD - 06/29/2019 3:20 PM CSTAssociated Problem(s): Type 2 diabetes mellitus (HCC) Hba1c was Lab Results Component Value Date HGBA1C 7.5 06/29/2019 today, indicating inadequate DM control 1800 calorie, consistent carb diet recommended, no more than 3-45 grams of carbs per meal, avoidingconcentrated sweet drinks and rapid absorption carbs. 25-45 min daily aerobic and resistance exercise recommended Medications: Add Jardiance OUND SPECIALIST * Addendum Note - Jeannie Chaney MA - 06/29/2019 2:15 PM CSTAddended by: JEANNIE CHANEY on: 07/05/2019 07:46 AM Modules accepted: Orders OUND SPECIALIST documented in this encounter Plan of Treatment Not on file documented as of this encounter Procedures Procedure Name Priority Date/Time Associated Diagnosis Comments ALBUMIN CREATININE RATIO, URINE Routine 07/02/2019 4:45 PM COMPOUND SPECIALIST Hypertension associated with diabetes ([facility]) POCT HEMOGLOBIN A1C Routine 06/29/2019 2 :45 PM COMPOUND SPECIALIST Type 2 diabetes mellitus with hyperglycemia, with long-term current use of insulin ([facility]) POCT GLUCOSE Routine 06/29/2019 2:45 PM COMPOUND SPECIALIST Type 2 diabetes mellitus with hyperglycemia, with long-term current use of insulin ([facility]) documented in this encounter Results * Albumin Creatinine Ratio, Urine (07/02/2019 4:45 PM COMPOUND SPECIALIST) SCRIBED Creatinine, Urine 66.2 NA - NA EXTERNAL LAB SCRIBED Microalbumin <6.0 0 - 16.7 EXTERNAL LAB SCRIBED Microalb/Creat Ratio <9.1 0 - 30 EXTERNAL LAB Urine 07/02/2019 4:45 PM COMPOUND SPECIALIST Result Gonzalez Márquez MD LAB URINE ORDERABLES Final Resul t EXTERNAL LAB * POCT hemoglobin A1c (06/29/2019 2:45 PM COMPOUND SPECIALIST) Hemoglobin A1C, POC 7.5 Blood specimen (specimen) 06/29/2019 2:45 PM COMPOUND SPECIALIST Result Gonzalez Márquez MD POINT OF CARE TEST ORDERABLES Ed ited Result - Final * POCT glucose (06/29/2019 2:45 PM COMPOUND SPECIALIST) Glucose Blood, POC 197 mg/dL Blood specimen (specimen) 06/29/2019 2:45 PM COMPOUND SPECIALIST Result Gonzalez Márquez MD POINT OF CARE TEST ORDERABLES Fi nal Result documented in this encounter Visit Diagnoses Diagnosis Type 2 diabetes mellitus with hyperglycemia, with long-term current use of insulin (HCC)- Primary Hypertension associated with diabetes (HCC) Unspecified essential hypertension Hyperlipidemia associated with type 2 diabetes mellitus (HCC) documented in this encounter Care Teams Swimming Coach Relationship Specialty Start Date End Date Reuben Garcia MD [address] [id number] PCP - General Interventional Cardiology 02/04/17 documented as of this encounter
--- OUTSIDE RECORDS SUMMARY | 2024-05-16 02:02 | XMS_ITS | Encounter Summary ---
Author Organization [facility] Address [address] [place] [address] Care Team Providers Care Filenet Developer Name Role Phone Reuben Garcia MD Primary Care Provid er Reason for Visit * Reason Comments Follow-up pt to discuss st Encounter Details Date Type Department Care Team (Late st Contact Info) Description 03/08/2019 8:15 AM CDT Office Visit [facility] [address] [place] [phone] Reuben Garcia MD [address] [place] [id number] Coronary artery disease involving sleetmute coronary artery of sleetmute heart with unstable angina pectoris (CMS/HCC) (Primary Dx); Abnormal stress test Social History Tobacco Use Types Packs/Day Years Used Date Smoking Tobacco: Never Smokeless Tobacco: Never Alcohol Use Standard Drinks/Week Comments No 0 (1 standard drink = 0.6 oz pur e alcohol) PHQ-2 Answer Date Recorded PHQ-2 Score 0 02/23/2019 Sex and Gender Information Value Date Recorded Sex Assigned at Not on file Legal Sex 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 Gender Identity Not on file Sexual Orientation Not on file documented as of this encounter Last Filed Vital Signs Vital Sign Reading Time Taken Comments Blood Pressure 138/74 03/08/2019 8:13 AM CDT Pulse 67 03/08/2019 8:13 AM CDT Temperature - - Respiratory Rate - - Oxygen Saturation 97% 03/08/2019 8:13 AM CDT Inhaled Oxygen Concentration - - Weight 96.6 kg (213 lb) 03/08/2019 8:13 AM CDT Height 175.3 cm (5' 9 ) 03/08/2019 8:13 AM CDT Body Mass Index 31.45 03/08/2019 8:13 AM CDT documented in this encounter Progress Notes * Reuben Garcia MD - 03/08/2019 8:15 AM CDT [facility] DATE OF VISIT: 03/08/2019 CHIEF COMPLAINT Chief Complaint Patient presents with ??? Follow-up pt to discuss st HPI Jerald Whipple is a 58 y.o. [...] lower limb edema, orthopnea, paroxysmal nocturnal dyspnea. MEDICAL HISTORY Past Medical History: Diagnosis Date ??? Chronic coronary artery disease Coronary artery disease ??? Hyperlipidemia Hyperlipidemia ??? Type 2 diabetes mellitus ([facility]) Diabetes type 2 History reviewed. No pertinent surgical history. Social History Tobacco Use ??? Smoking status: [...] mg tablet blood-glucose meter (ONETOUCH ULTRA2) kit lisinopril (PRINIVIL,ZESTRIL) 10 mg tablet metFORMIN (GLUCOPHAGE) 500 mg tablet ALLERGIES No Known Allergies REVIEW OF SYSTEMS Review of Systems Constitution: Negative for chills, fever and malaise/fatigue. HENT: Negative for congestion, nosebleeds and sore throat. Eyes: Negative for blurred vision, double vision, pain and photophobia. Cardiovascular: Positive for chest pain and dyspnea on exertion. Negative for claudication, leg swelling, near-syncope, orthopnea, palpitations, paroxysmal nocturnal [...] Location: Right arm, Patient Position: Sitting) Pulse 67 Ht 175.3 cm (5' 9 ) Wt [...] DIAGNOSTIC TESTS Lab Results Component Value Date HGB 12.3 (L) 05/16/2015 HCT 36.0 (L) 05/16/2015 MCV 88.2 05/16/2015 Chemistry Component Value Date/Time SODIUM 131 (L) 05/16/2015 194 POTASSIUM 3.6 05/16/20151939 CHLORIDE 91 (L) 05/16/2015 194 CO2 25 05/16/20151939 BUNSER 13.2 05/16/20151939 CREATININE 0.88 05/16/2015 194 GLUCOSE 189 05/16/20151939 Component Value Date/Time CALCIUM 8.8 05/16/2015 194 ALKPHOS 55 05/16/20151939 AST 27 05/16/20151939 ALT [...] HDL 35. This lab was done at [facility] COMPUTER GRAPHIC DESIGNER: Cath (Left main is normal. LAD is [...] changes. 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 Discussed risks and benefits of cardiac catheterization and agrees to proceed. Will plan for right groin approach. -in terms of blood pressure, blood pressure is well controlled now. Continue current medications. -counseling done regarding importance of low-sodium diet, low sugar diet. Follow up in the office in after cardiac catheterization. 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
--- OUTSIDE RECORDS SUMMARY | 2024-05-16 02:02 | XMS_ITS | Encounter Summary ---
Author Organization 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
--- OUTSIDE RECORDS SUMMARY | 2024-05-16 02:02 | XMS_ITS | Encounter Summary ---
Author Organization [facility] Address [address] [place] [address] Care Team Providers Care Blender / Cook Name Role Phone Reuben Garcia MD Primary Care Provid er Encounter Details Date Type Department Care Team (Late st Contact Info) Description 03/01/2019 Orders Only [facility] [address] [phone] Provider, MD Prave[facility] [address] [place], [place] [phone] Social History Tobacco Use Types Packs/Day Years Used Date Smoking Tobacco: Never Smokeless Tobacco: Never Alcohol Use Standard Drinks/Week Comments No 0 (1 standard drink = 0.6 oz pur e alcohol) PHQ-2 Answer Date Recorded PHQ-2 Score 0 02/23/2019 Sex and Gender Information Value Date Recorded Sex Assigned at Not on file 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 Gender Identity Not on file Sexual Orientation Not on file documented as of this encounter Plan of Treatment Not on file documented as of this encounter Procedures Procedure Name Priority Date/Time Associated Diagnosis Comments DIABETES EYE EXAM Routine 01/13/2019 DIABETIC EYE EXAM Routine 01/04/2019 documented in this encounter Results * DIABETES EYE EXAM (01/13/2019) Diabetic Eye Exam Unknown Historical Provider HEALTH MAINTENANCE Final Result * Diabetic Eye Exam (01/04/2019) us Historical Provider HEALTH MAINTENANCE Edited Result - Final documented in this encounter Visit Diagnoses Not on filedocumented in this encounter Care Teams Blender / Cook Relationship Specialty Start Date End Date Reuben Garcia MD [address] [facility] [address], [place] [id number] PCP - General Interventional Cardiology 02/04/17 documented as of this encounter
--- OUTSIDE RECORDS SUMMARY | 2024-05-16 02:02 | XMS_ITS | Encounter Summary ---
Author Organization [facility] Address [address] [place] [address] Phone Care Team Providers Care Er Rn Name Role Phone Reuben Garcia MD Primary Care Provid er Encounter Details Date Type Department Care Team (Latest Contact Info) Description 03/11/2019 Orders Only [facility] Scanning, Provider Social History Tobacco Use Types Packs/Day Years Used Date Smoking Tobacco: Never Smokeless Tobacco: Never Alcohol Use Standard Drinks/Week Comments No 0 (1 standard drink = 0.6 oz pur e alcohol) PHQ-2 Answer Date Recorded PHQ-2 Score 0 02/23/2019 Sex and Gender Information Value Date Recorded Sex Assigned at Not on file Legal Sex Male 10:13 AM SOFTWARE QUALITY ASSURANCE 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 Gender Identity Not on file Sexual Orientation Not on file documented as of this encounter Plan of Treatment Not on file documented as of this encounter Procedures Procedure Name Priority Date/Time Associated Diagnosis Comments SCAN - LABS 03/11/2019 documented in this encounter Results * SCAN - LABS (03/11/2019) us Provider Scanning Final Result documented in this encounter Visit Diagnoses Not on filedocumented in this encounter Care Teams Er Rn Relationship Specialty Start Date End Date Reuben Garcia MD [address] [facility] [address] [place], [place] [phone] PCP - General Interventional Cardiology 9/12/17 11/ 22/22 documented as of this encounter
--- OUTSIDE RECORDS SUMMARY | 2024-05-16 02:02 | XMS_ITS | Encounter Summary ---
Author Organization [facility] Care Team Providers Care Buzzle Buffer Name Role Phone Reuben Garcia MD Primary Care Provid er Encounter Details Date Type Department Care Team (Latest Contact Info) Description 03/01/2019 Travel Social History Tobacco Use Types Packs/Day Years Used Date Smoking Tobacco: Never Smokeless Tobacco: Never Alcohol Use Standard Drinks/Week Comments No 0 (1 standard drink = 0.6 oz pur e alcohol) PHQ-2 Answer Date Recorded PHQ-2 Score 0 02/23/2019 Sex and Gender Information Value Date Recorded Sex Assigned at Not on file 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 [id number] [id number] PCP - General Interventional Cardiology 02/04/17 documented as of this encounter
--- OUTSIDE RECORDS SUMMARY | 2024-05-16 02:02 | XMS_ITS | Encounter Summary ---
Author Organization [facility] Address [address] [place] [address] Care Team Providers Care Farm Technician Name Role Phone Rueben Garcia MD Primary Care Provid er Encounter Details Date Type Department Care Team (Late st Contact Info) Description 03/03/2019 Telephone [facility] [address] [place] [address] Reuben Garcia MD [address] [place] [id number] Social History Tobacco Use Types Packs/Day Years Used Date Smoking Tobacco: Never Smokeless Tobacco: Never Alcohol Use Standard Drinks/Week Comments No 0 (1 standard drink = 0.6 oz pur e alcohol) PHQ-2 Answer Date Recorded PHQ-2 Score 0 02/23/2019 Sex and Gender Information Value Date Recorded Sex Assigned at Not on file 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 States that he would like to make an appointment with Dr. Garcia to discuss prior to scheduling [facility]. Scheduled follow up for 03/08/19. * Telephone Encounter - Katina Tipton RN - 03/03/2019 10:[address] Garcia, schedule patient for [facility]. Indications abnormal stress test, chest pain and history of CAD. Spoke with patient and discussed findings. Offered date of 03/05/19 for cath. Patient wishes to call back to let us know if this date will work. documented in this encounter Plan of Treatment Not on file documented as of this encounter Visit Diagnoses Not on filedocumented in this encounter Care Teams Farm Technician Relationship Specialty Start Date End Date Reuben Garcia MD [address] [id number] PCP - General Interventional Cardiology 02/04/17 documented as of this encounter
--- OUTSIDE RECORDS SUMMARY | 2024-05-16 02:02 | XMS_ITS | Encounter Summary ---
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) Coronary artery disease involving [place] coronary artery of augustine heart without angina pectoris Procedures NM MPI SPECT (Rest and/or Stress) Multiple Studies Anat Garcia MD [address] [place] [id number] Phone: tel: fax: [facility] Referral ID Status Reason Start Date Expiration Date Visits Re quested Visits Authorized [id number] Closed 03/01/2019 09/09/2020 5 5 Encounter Details Date Type Department Care Team (Latest Contact Info) Description 03/02/2019 9:45 AM CDT Ancillary Procedure [facility] Medical [facility] Cardiology [address] [place] [address] 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 (CMS/HCC); Coronary artery disease involving [place] coronary artery of augustine heart without angina pectoris Social History Tobacco Use Types Packs/Day Years Used Date Smoking Tobacco: Never Smokeless Tobacco: Never Alcohol Use Standard Drinks/Week Comments No 0 (1 standard drink = 0.6 oz pur e alcohol) PHQ-2 Answer Date Recorded PHQ-2 Score 0 02/23/2019 Sex and Gender Information Value Date Recorded Sex Assigned at Not on file 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 Gender Identity Not on file Sexual Orientation Not on file documented as of this encounter Plan of Treatment Not on file documented as of this encounter Procedures Procedure Name Priority Date/Time Associated Diagnosis Comments NM MPI SPECT (REST AND/OR STRESS) MULTIPLE STUDIES Schedule Routine, Read Routine (OP Routine) 03/02/2019 1:14 PM CDT 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 (CMS/HCC) Coronary artery disease involving [place] coronary artery of augustine heart without angina pectoris documented in this encounter Results * NM MPI SPECT (Rest and/or Stress) Multiple Studies (03/02/2019 1:14 PM CDT) Anatomical Region Laterality Modality Body N/A Nuclear Medicine 03/02/2019 9:01 AM CDT Narrative 03/03/2019 6:57 AM CDT [facility] [address] [place] [address] [address] [address] [address] [address] P:[phone] P:[phone] MPI Imaging Report Patient Name: JERALD RYAN : 1960 Study Date: 03/02/2019 9:01:47 AM Gender: M Tech: [facility] Location: [facility] Ref.Physician: ANAT GARCIA Height(Cm): 175.3 BSA: Weight(Kg): 97.5 BMI: 31.73Order Physician: ANAT GARCIA Physician: Referring Physician: Dr. Márquez. HCG Physician: Anat Garcia M.D., F.A.C.C. Interpreting Physician: Eliecer Spence M.D. Stress Supervision: Whit Dhaliwal M.D., F.A.C.C. Procedures: Myocardial perfusion imaging with Tc99M Sestamibi SPECT at rest and stress post regadenoson (Lexiscan) infusion. Treadmill stress was converted to Lexiscan stress 2:00 minutes post treadmill due to chest pain and unable to reach target heart rate. Chest pain was a 6 out of 10, resolved 1 min after sitting. Lexiscan was then administered once pain subsided. Indications: Chest Pain, Coronary Artery Disease, Hypertension, Diabetes, Family Hx CAD, and High Cholesterol. Findings: Procedural Findings: One day rest/stress was used. Tc99m Sestamibi injected IV at rest was 11.6 millicuries. 34.7 millicuries of Tc99M Sestamibi injected IV during Lexiscan stress. Lexiscan 0.4mg administered IV over 10 seconds. Symptoms were resolved with rest. Patient had no symptoms during Lexiscan portion of stress test. Treadmill stress was stopped due to chest pain, resolved with rest. Baseline heart rate was 58 BPM. Maximum Heart Rate Achieved was: 120 BPM. Baseline blood pressure was 146/86 mmHg. Post Stress Blood Pressure was 156/82 mmHg. Termination: Protocol complete. Resting ECG: Normal sinus rhythm. Post EC mm horizontal inf/lat ST depression. with slight ST elevation in V1. Arrhythmia: No arrhythmias seen. Perfusion Findings: Abnormal perfusion imaging - see below. Technical quality of study is excellent. Prone imaging was not performed. Left ventricle cavity size at rest is normal. Left ventricle cavity size with stress is unchanged. A TID of 0.88 was automatically calculated. defect 1: Size is small to moderate. Severity is mild. Location of defect is in the apical anterior segment, apical septal segment, apical lateral segment and apex. Reversibility is full. Type of defect is ischemia. LV Function: Global left ventricular function is normal. Left ventricular ejection fraction is 66 %. Conclusions: Pt was scheduled as a stress Cardiolite. He walked for 2 minutes but developed 6/10 chest tightness and 0.5 mm-[address] depression in the inferolateral leads at a heart rate of only 102 BPM, so was changed to a Lexiscan stres test. The EKG changes resolved promptly in recovery. Ischemia present by EKG criteria during Lexiscan infusion. Positive treadmill stress test at low levels of exertion. Myocardial perfusion imaging is abnormal for moderate sized area of mild apical/apical anterior/apical lateral/apical septal ischemia. No infarction. Global left ventricular function is normal. Left ventricular ejection fraction is 66 %. Electronically Signed By: Whit Dhaliwal MD, [facility] 2019-03-02 20:49:00 CDT Electronically Signed By: Randy Spence MD 2019-03-03 06:57:39 CDT CC: CC: Procedure Note Randy Spence MD - 03/03/2019 [facility] [address], [place] [address] [address], [place] [address] P:[phone] P:[phone] MPI Imaging Report Patient Name: JERALD RYANPatient ID: [id number] : [id number] Date: 03/02/2019 9:01:47 AM Gender: MAccession #: [id number] [facility] Ref.Physician: Jama GARCIAght(Cm): 175.3 BSA: Weight(Kg): 97.5 BMI: 31.73Order Physician: ANAT GARCIA Physician: Referring Physician: Dr. Márquez. HCG Physician: Anat Garcia M.D., F.A.C.C. Interpreting Physician: Eliecer Spence M.D. Stress Supervision: Whit Dhaliwal M.D., F.A.C.C. Procedures: Myocardial perfusion imaging with Tc99M Sestamibi SPECT at rest and stresspost regadenoson (Lexiscan) infusion. Treadmill stress was converted toLexiscan stress 2:00 minutes post treadmill due to chest pain and unable to reach target heartrate. Chest pain was a 6 out of 10, resolved 1 min after sitting. Lexiscan was thenadministered once pain subsided. Indications: Chest Pain, Coronary Artery Disease, Hypertension, Diabetes, Family HxCAD, and High Cholesterol. Findings: Procedural Findings: One day rest/stress was used. Tc99m Sestamibi injected IV at rest was 11.6millicuries. 34.7 millicuries of Tc99M Sestamibi injected IV during Lexiscan stress.Lexiscan 0.4mg administered IV over 10 seconds. Symptoms were resolved with rest. Patienthad no symptoms during Lexiscan portion of stress test. Treadmill stress wasstopped due to chest pain, resolved with rest. Baseline heart rate was 58 BPM. MaximumHeart Rate Achieved was: 120 BPM. Baseline blood pressure was 146/86 mmHg. PostStress Blood Pressure was 156/82 mmHg. Termination: Protocol complete. Resting ECG: Normal sinus rhythm. Post EC mm horizontal inf/lat ST depression. with slight ST elevation in V1. Arrhythmia: No arrhythmias seen. Perfusion Findings: Abnormal perfusion imaging - see below. Technical quality of study isexcellent. Prone imaging was not performed. Left ventricle cavity size at rest is normal.Left ventricle cavity size with stress is unchanged. A TID of 0.88 was automaticallycalculated. defect 1: Size is small to moderate. Severity is mild. Location of defect is in theapical anterior segment, apical septal segment, apical lateral segment and apex.Reversibility is full. Type of defect is ischemia. LV Function: Global left ventricular function is normal. Left ventricular ejectionfraction is 66 %. Conclusions: Pt was scheduled as a stress Cardiolite. He walked for 2 minutes butdeveloped 6/10 chest tightness and 0.5 mm-[address] depression in the inferolateral leads at aheart rate of only 102 BPM, so was changed to a Lexiscan stres test. The EKG changesresolved promptly in recovery. Ischemia present by EKG criteria during Lexiscan infusion. Positive treadmill stress test at low levels of exertion. Myocardial perfusion imaging is abnormal for moderate sized area of mildapical/apical anterior/apical lateral/apical septal ischemia. No infarction. Global left ventricular function is normal. Left ventricular ejectionfraction is 66 %. 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) Coronary artery disease involving aug[place] coronary artery of augustine heart without angina pectoris documented in this encounter Administered Medications Inactive Administered Medications - up to 3 most recent administrations Medication Order MAR Action Action Date Dose Rate Site regadenoson (LEXISCAN) 0.4 mg/5 mL injection 0.4 mg 0.4 mg, intravenous, Once, On 03/02/19 at 1400, For 1 dose, Administer IV push over 10 seconds., Indications: Myocardial Perfusion Imaging AdjunctIndications:Myocard ial Perfusion Imaging Adjunct Given 03/02/2019 1:15 PM CDT 0.4 mg tc-99m sestamibi unit dose injection 11.6 millicurie 11.6 millicurie, intravenous, Once in imaging, radiopharmaceutical, Starting on 03/02/19 at 0820, For 1 dose, Indications: Diagnostic RadiographyIndications:Anat gnostic Radiography Given 03/02/2019 8:20 AM CDT 11.6 millicuries tc-99m sestamibi unit dose injection 34.7 millicurie 34.7 millicurie, intravenous, Once in imaging, radiopharmaceutical, Starting on Tu03/02/19 at 1315, For 1 dose, Indications: Diagnostic RadiographyIndications:Anat gnostic Radiography Given 03/02/2019 1:15 PM CDT 34.7 millicuries documented in this encounter Care Teams Speech Instructor Relationship Specialty Start Date End Date Anat Garcia MD [facility] [address] PCP - General Interventional Cardiology 02/04/17 documented as of this encounter
--- OUTSIDE RECORDS SUMMARY | 2024-05-16 02:02 | XMS_ITS | Encounter Summary ---
Author Organization 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 Gender Identity Not on file Sexual Orientation Not on file documented as of this encounter Medications at Time of Discharge blood-glucose meter (ONETOUCH ULTRA2) kit check glucose once a day 1 kit 0 03/04/2014 aspirin (ASPIR-81) 81 mg tablet take 1 tablet by oral route every day 0 0 09/16/2016 09/03/2021 atorvastatin (LIPITOR) 40 mg tabletIndications :Coronary artery disease involving [place] coronary artery of [place] heart without angina pectoris Take 1 tablet (40 mg total) by mouth daily 90 tablet 3 03/01/2019 04/03/2019 lisinopril (PRINIVIL,ZESTRIL ) 10 mg tabletIndications :Coronary artery disease involving [place] coronary artery of [place] heart without angina pectoris Take 1 tablet [...] Procedure Name Priority Date/Time Associated Diagnosis Comments IR OUTSIDE REFERENCE Routine 03/15/2019 4:21 PM CDT Diagnosis unknown documented in this encounter Results * IR Outside Reference (03/15/2019 4:21 PM CDT) Impressions [facility] - 03/15/2019 4:21 PM CDT These images are for Reference purposes only and have not been reviewed by [facility] Radiology. ??There will be no report generated by a [facility] Radiologist. Narrative [facility] - 03/15/2019 4:21 PM CDT EXAMINATION: ??Images For Reference Purposes Only us Salty Rosas MD PhD IMG IR PROCEDURES Final Re sult [facility] documented in this encounter Visit Diagnoses Not on filedocumented in this encounter Care Teams Computer Typesetter Keyliner Relationship Specialty Start Date End Date Reuben Garcia MD [address] [facility] [facility] [address] [place], [place] [id number] PCP - General Interventional Cardiology 02/04/17 documented as of this encounter
--- OUTSIDE RECORDS SUMMARY | 2024-05-16 02:03 | XMS_ITS | Encounter Summary ---
Author Organization [facility] Address [address] [place] [address] Care Team Providers Care Sales Clerk Food Name Role Phone Reuben Garcia MD Primary Care Provid er Reason for Visit * Reason Onset Date Comments Med Refill 01/19/2019 Encounter Details Date Type Department Care Team (Late st Contact Info) Description 01/19/2019 [facility] [facility] [address] [address] Aaron Már[place] [address] [facility] [address] [place] [address] Med Refill Social History Tobacco Use Types Packs/Day Years Used Date Smoking Tobacco: Never Smokeless Tobacco: Never Alcohol Use Standard Drinks/Week Comments No 0 (1 standard drink = 0.6 oz pur e alcohol) Sex and Gender Information Value Date Recorded Sex Assigned at Not on file 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 Gender Identity Not on file Sexual Orientation Not on file documented as of this encounter Ordered Prescriptions Prescription Sig Dispense Quantity Refills Last Filled Start Date End Date atorvastatin (LIPITOR) 40 mg tabletIndications: Coronary artery disease involving [place] coronary artery of [place] heart without angina pectoris Take 1 tablet (40 mg total) by mouth daily 90 tablet 01/19/2019 01/19/2019 documented in this encounter Miscellaneous Notes * Addendum Note - Moni Voss MA - 01/19/2019 3:34 PM CDTAddended by: MONI VOSS on: 01/19/2019 03:34 PM Modules accepted: Orders * Telephone Encounter - Moni Voss MA - 01/19/2019 3:34 PM CDT rx sent * Telephone Encounter - Montserrat Fernandez - 01/19/2019 3:[address] Márquez, The patient came into the office but his insurance with Medicare won't be effective until 02/23/19. The patient is out of Atorvastatin 40mg once daily and would like to have the rx to cover until his appt with 02/23/19 to [facility]. Pt is out of the medication The patient would like to be notified once the rx has been sent to [facility] documented in this encounter Plan of Treatment Not on file documented as of this encounter Visit Diagnoses Diagnosis Coronary artery disease involving [place] coronary artery of [place] heart without angina pectoris documented in this encounter Discontinued Medications Medication Sig Discontinue Reason Start Date End Da te atorvastatin (LIPITOR) 40 mg tabletIndications:Diaz ry artery disease involving [place] coronary artery of [place] heart without angina pectoris Take 1 tablet (40 mg total) by mouth daily. Reorder 01/07/2018 01/19/2019 documented as of this encounter Care Teams Sales Clerk Food Relationship Specialty Start Date End Date Reuben Garcia MD [facility] [facility] [address] [address] PCP - General Interventional Cardiology 02/04/17 documented as of this encounter
--- OUTSIDE RECORDS SUMMARY | 2024-05-16 02:03 | XMS_ITS | Encounter Summary ---
Author Organization [facility] Address [address] [facility] [address] [place] [address] Care Team Providers Care Client Support Consultant Name Role Phone Reuben Garcia MD Primary Care Provid er Reason for Visit * Reason Comments Diabetes Type 2 Encounter Details Date Type Department Care Team (Latest Contact Info) Description 02/23/2019 2:30 PM CDT Office Visit [facility] [address] [id number] Aaron Már[place] [address] [facility] [address] [place] [address] Coronary artery disease involving georgetown coronary artery of georgetown heart without angina pectoris (Primary Dx); Type 2 diabetes mellitus with hyperglycemia, with long-term current use of insulin (CMS/[facility]); Hypertension associated with diabetes ([facility]); Hyperlipidemia associated with type 2 diabetes mellitus ([facility]) Social History Tobacco Use Types Packs/Day Years Used Date Smoking Tobacco: Never Smokeless Tobacco: Never Alcohol Use Standard Drinks/Week Comments No 0 (1 standard drink = 0.6 oz pur e alcohol) PHQ-2 Answer Date Recorded PHQ-2 Score 0 02/23/2019 Sex and Gender Information Value Date Recorded Sex Assigned at Not on file 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 Gender Identity Not on file Sexual Orientation Not on file documented as of this encounter Last Filed Vital Signs Vital Sign Reading Time Taken Comments Blood Pressure 142/78 02/23/2019 2:40 PM CDT Pulse 84 02/23/2019 2:40 PM CDT Temperature - - Respiratory Rate 16 02/23/2019 2:40 PM CDT Oxygen Saturation - - Inhaled Oxygen Concentration - - Weight 97.5 kg (215 lb) 02/23/2019 2:40 PM CDT Height 175.3 cm (5' 9.02 ) 02/23/2019 2:40 PM CD T Body Mass Index 31.73 02/23/2019 2:40 PM CDT documented in this encounter Patient Instructions * Patient Instructions* Aaron Márquez MD - 02/23/2019 2:30 PM CDT Start Invokana, 100 mg in the morning. documented in this encounter Ordered Prescriptions Prescription Sig Dispense Quantity Refills Last Filled Start Date End Date canagliflozin (INVOKANA) 100 mg tabletIndications: type 2 diabetes mellitus Take 1 tablet (100 mg total) by mouth daily 30 tablet 3 02/23/2019 03/01/2019 documented in this encounter Progress Notes * Aaron Márquez MD - 02/23/2019 2:30 PM CDT Subjective/Objective Patient ID: Jerald Whipple is a 58 y.o. male. Chief Complaint Diabetes Type 2 HPI DM Follow up. Diabetes complications and/or comorbidity includes : CAD Last hba1c : 6.7 Currently taking : Metformin BG monitoring : very ocassionally Hypoglycemia : None Exercise plan: walks regularly Diet plan includes: watching, small portions. Lipid profile within the last year : 07/2017 , LDL 64 Statin therapy : Lipitor Renal: currently on VIKY-I / ARB???s with :Lisinopril Microalbumin: Date of last eye examination: Every Six [...] patient is not nervous/anxious. Physical Exam Constitutional: He is oriented to person, place, and time. He appears well-developed. HENT: Head: Normocephalic and atraumatic. Eyes: Pupils are equal, round, and reactive to light. Conjunctivae and EOM are normal. Neck: Trachea normal and phonation normal. No thyroid mass and no thyromegaly present. Cardiovascular: Normal rate, regular rhythm and normal heart sounds. No murmur heard. Pulmonary/Chest: Effort normal and breath sounds normal. Abdominal: Soft. Bowel sounds are normal. He exhibits no distension. Musculoskeletal: Normal range of motion. Feet: Right Foot: Monofilament exam normal. Protective Sensation: 4 sites tested. 4 sites sensed. Skin Integrity: Negative for callus or dry skin. Left Foot: Monofilament exam normal. Protective Sensation: 4 sites tested. 4 sites sensed. Skin Integrity: Negative for callus or dry skin. Neurological: He is alert and oriented to person, place, and time. He has normal reflexes. He displays normal reflexes. Coordination normal. No tremors Skin: Skin is warm. Psychiatric: He has a normal mood and affect. His behavior is normal. Assessment/Plan Diagnoses and all orders for this visit: Coronary artery disease involving georgetown coronary artery of georgetown heart without angina pectoris (I25.10) (Primary) Type 2 diabetes mellitus with hyperglycemia, with long-term current use of insulin ([facility]) (E11.65, Z79.4) Assessment & Plan: Hba1c was Lab Results Component Value Date HGBA1C 6.4 % 02/23/2019 today, indicating adequate DM control 1800 calorie, consistent carb diet recommended, no more than 3-45 grams of carbs per meal, avoidingconcentrated sweet drinks and rapid absorption carbs. 25-45 min daily aerobic and resistance exercise recommended Medications: Continue metformin CAD, add Invokana Orders: - POCT glucose - POCT hemoglobin A1c - POCT lipid panel Hypertension associated with diabetes ([facility]) (E11.59, I10) Assessment & Plan: Goal blood pressure is less than 140/85 Low salt diet recommended Daily aerobic exercise Continue current meds, including VIKY-I or ARB Orders: - Microalbumin, urine, random; Future Hyperlipidemia associated with type 2 diabetes mellitus ([facility]) (E11.69, E78.5) Assessment & Plan: Goal [...] exercise On statin therapy Other orders - canagliflozin (INVOKANA) 100 mg tablet; Take 1 tablet (100 mg total) by mouth daily documented in this encounter Miscellaneous Notes * Assessment & Plan Note - Aaron Márquez MD - 02/23/2019 4:09 PM CDTAssociated Problem(s): Hyperlipidemia associated with type [...] and advised. Daily exercise On statin therapy * Assessment & Plan Note - Aaron Márquez MD - 02/23/2019 3:00 PM CDTAssociated Problem(s): Hypertension associated with diabetes (HCC) Goal blood pressure is less than 140/85 Low salt diet recommended Daily aerobic exercise Continue current meds, including VIKY-I or ARB * Assessment & Plan Note - Aaron Márquez MD - 02/23/2019 2:59 PM CDTAssociated Problem(s): Type 2 diabetes mellitus (HCC) Hba1c was Lab Results Component Value Date HGBA1C 6.4 % 02/23/2019 today, indicating adequate DM control 1800 calorie, consistent carb diet recommended, no more than 3-45 grams of carbs per meal, avoidingconcentrated sweet drinks and rapid absorption carbs. 25-45 min daily aerobic and resistance exercise recommended Medications: Continue metformin CAD, add Invokana documented in this encounter Plan of Treatment Scheduled Orders Name Type Priority Associated Diagnoses Orde r Schedule Microalbumin, urine, random Lab Routine Hypertension associated with diabetes ([facility]) 1 Occurrences starting 02/23/2019 until 02/24/2020 documented as of this encounter Procedures Procedure Name Priority Date/Time Associated Diagnosis Comments POCT HEMOGLOBIN A1C Routine 02/23/2019 2 :54 PM CDT Type 2 diabetes mellitus with hyperglycemia, with long-term current use of insulin ([facility]) POCT LIPID PANEL Routine 02/23/2019 2:54 PM CDT Type 2 diabetes mellitus with hyperglycemia, with long-term current use of insulin ([facility]) POCT GLUCOSE Routine 02/23/2019 2:46 PM CDT Type 2 diabetes mellitus with hyperglycemia, with long-term current use of insulin ([facility]) documented in this encounter Results * POCT lipid panel (02/23/2019 2:54 PM CDT) Pathologist [facility] Cholesterol, POC 152 mg/dL HDL, POC 45 mg/dL Triglycerides, POC 192 mg/dL LDL Cholesterol POC 69 mg/dL Chol/HDL Ratio, POC 3.4 Non-HDL Cholesterol, POC 108 mg/dL Blood specimen (specimen) 02/23/2019 2:54 PM CDT Aaron Márquez MD POINT OF CARE TEST ORDERABLES Fi nal Result * POCT hemoglobin A1c (02/23/2019 2:54 PM CDT) Hemoglobin A1C, POC 6.4 % Blood specimen (specimen) 02/23/2019 2:54 PM CDT Result Gonzalez Márquez MD POINT OF CARE TEST ORDERABLES Fi nal Result * POCT glucose (02/23/2019 2:46 PM CDT) Glucose Blood, POC 171 mg/dL Blood specimen (specimen) 02/23/2019 2:46 PM CDT Result Gonzalez Márquez MD POINT OF CARE TEST ORDERABLES Fi nal Result documented in this encounter Visit Diagnoses Diagnosis Coronary artery disease involving georgetown coronary artery of georgetown heart without angina pectoris- Primary Type 2 diabetes mellitus with hyperglycemia, with long-term current use of insulin (HCC) Hypertension associated with diabetes (HCC) Unspecified essential hypertension Hyperlipidemia associated with type 2 diabetes mellitus (HCC) documented in this encounter Discontinued Medications Medication Sig Discontinue Reason Start Date End Da te metFORMIN (GLUCOPHAGE) 500 mg tablet TAKE 2 TABLETS BY MOUTH TWICE DAILY Duplicate order 02/02/2019 02/23/2019 documented as of this encounter Care Teams Client Support Consultant Relationship Specialty Start Date End Date Reuben Garcia MD [facility] [address] [address] PCP - General Interventional Cardiology 02/04/17 documented as of this encounter
--- OUTSIDE RECORDS SUMMARY | 2024-05-16 02:03 | XMS_ITS | Encounter Summary ---
Author Organization [facility] Address [address] [place] [address] Care Team Providers Care Dyed Raw Stock Blower Feeder Name Role Phone Reuben Garcia MD Primary Care Provid er Reason for Visit * Reason Comments Follow-up 6 mo follow up on CA D, HTN Encounter Details Date Type Department Care Team (Latest Contact Info) Description 03/24/2017 10:00 AM CDT Office Visit [facility] [address] [facility] [address] [place] [id number] Reuben Garcia MD [address] [place] [id number] Coronary artery disease involving kenaitze coronary artery of kenaitze heart without angina pectoris (Primary Dx); Essential hypertension; Mixed hyperlipidemia Social History Tobacco Use Types Packs/Day Years Used Date Smoking Tobacco: Never Smokeless Tobacco: Never Alcohol Use Standard Drinks/Week Comments No 0 (1 standard drink = 0.6 oz pur e alcohol) Sex and Gender Information Value Date Recorded Sex Assigned at Not on file 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 Gender Identity Not on file Sexual Orientation Not on file documented as of this encounter Last Filed Vital Signs Vital Sign Reading Time Taken Comments Blood Pressure 146/78 03/24/2017 10:30 AM CDT Pulse 66 03/24/2017 10:30 AM CDT Temperature - - Respiratory Rate 16 03/24/2017 10:30 AM CDT Oxygen Saturation - - Inhaled Oxygen Concentration - - Weight 96.2 kg (212 lb) 03/24/2017 10:30 AM CDT Height 175.3 cm (5' 9 ) 03/24/2017 10:30 AM CDT Body Mass Index 31.31 03/24/2017 10:30 AM CDT documented in this encounter Ordered Prescriptions Prescription Sig Dispense Quantity Refills Last Filled Start Date End Date pitavastatin calcium (LIVALO) 4 mg tabletIndications:Mi xed hyperlipidemia Take 1 tablet (4 mg total) by mouth daily. 30 tablet 11 03/24/2017 7 documented in this encounter Progress Notes * Reuben Garcia MD - 03/24/2017 10:00 AM CDT [facility] DATE OF VISIT: 03/24/2017 CHIEF COMPLAINT Chief Complaint Patient presents with ??? Follow-up 6 mo follow up on CAD, HTN HPI Jerald Whipple is a 56 y.o. male with past medical history of [...] metformin because his numbers are looking better. MEDICAL HISTORY Past Medical History: Diagnosis Date ??? Chronic coronary artery disease Coronary artery disease ??? Hyperlipidemia Hyperlipidemia ??? Type 2 diabetes mellitus ([facility]) Diabetes type 2 History reviewed. No pertinent surgical history. Social History Substance Use Topics ??? Smoking status: Never Smoker ??? Smokeless tobacco: Never Used ??? Alcohol use No Family History Problem Relation Age of Onset ??? Other Father Alive and well; ??? Diabetes type II Mother Diabetes -Type 2; MEDICATIONS HOME MEDICATIONS : aspirin (ASPIR-81) 81 mg tablet blood-glucose meter (ONETOUCH ULTRA2) kit lisinopril (PRINIVIL,ZESTRIL) 10 mg tablet metFORMIN (GLUCOPHAGE) 500 mg tablet empagliflozin (JARDIANCE) 10 mg tablet metoprolol (LOPRESSOR) 25 mg tablet pitavastatin calcium (LIVALO) 4 mg tablet atorvastatin (LIPITOR) 40 mg tablet ALLERGIES No Known Allergies REVIEW [...] for environmental allergies and hives. PHYSICAL EXAM Vitals: 03/24/17 1030 BP: 146/78 Pulse: 66 Resp: 16 Body mass index is 31.31 kg/m??. Physical Exam Constitutional: He is oriented [...] no mass. There is no tenderness. Musculoskeletal: He exhibits no edema, tenderness or deformity. Neurological: He is alert and oriented to [...] Date/Time CALCIUM 8.8 05/16/2015 194 ALKPHOS 55 05/16/2015 194 AST 27 05/16/2015 194 ALT 34 05/16/2015 194 BILITOT 0.2 05/16/20151939 Lab Results Component Value Date CHOL 232 (H) 06/14/2014 CHOL 180 05/17/2013 Lab Results Component Value Date HDL 40 06/14/2014 HDL 37 (L) 05/17/2013 No results found for: LDLCALC Lab Results Component Value Date TRIG 317 (H) 06/14/2014 TRIG 244 (H) 05/17/2013 Lipid panel August 2016. HDL 30, LDL 79, triglyceride 107. SUPERVISOR CUSTOMER COMPLAINT SERVICE: Cath (Left main is normal. LAD is [...] Diagnoses and all orders for this visit: 1. Coronary artery disease involving kenaitze coronary artery of kenaitze heart without angina pectoris(Primary) Assessment & Plan: Continue dieting and exercise. Continue aspirin. Asymptomatic at this time. 2. Essential hypertension Assessment & Plan: Blood pressure on the high side today. He stop taking metoprolol 25 mg b.i.d.. I advised patient tokeep blood pressure diary and if his blood pressure is elevated we have to resume back metoprolol 25 b.i.d.. 3. Mixed hyperlipidemia Assessment & Plan: Patient stopped taking Lipitor 40 mg p.o. daily because it causes him dysuria and hesitency as he states. Will prescribe Pitivastatin 4 mg p.o. Daily. If insurance does not cover we can try half the dose of the Lipitor( 20mg daily rather than 40 mg daily). Orders: - pitavastatin calcium (LIVALO) 4 mg tablet; Take 1 tablet (4 mg total) by mouth daily. PLAN/RECOMMENDATIONS Follow up in the office in in 6 months. Reuben Garcia MD documented in this encounter Miscellaneous Notes * Assessment & Plan Note - Reuben Garcia MD - 03/24/2017 12:27 PM CDTAssociated Problem(s): Mixed hyperlipidemia (Deleted) Patient stopped taking Lipitor 40 mg p.o. daily because it causes him dysuria and hesitency as he states. Will prescribe Pitivastatin 4 mg p.o. Daily. If insurance does not cover we can try half the dose of the Lipitor( 20mg daily rather than 40 mg daily). * Assessment & Plan Note - Reuben Garcia MD - 03/24/2017 12:27 PM CDTAssociated Problem(s): Hypertension associated with diabetes (HCC) Blood pressure on the high side today. He stop taking metoprolol 25 mg b.i.d.. I advised patient tokeep blood pressure diary and if his blood pressure is elevated we have to resume back metoprolol 25 b.i.d.. * Assessment & Plan Note - Reuben Garcia MD - 03/24/2017 12:26 PM CDTAssociated Problem(s): Coronary artery disease involving kenaitze coronary artery of kenaitze heart without angina pectoris Continue dieting and exercise. Continue aspirin. Asymptomatic at this time. documented in this encounter Plan of Treatment Not on file documented as of this encounter Procedures Procedure Name Priority Date/Time Associated Diagnosis Comments LIPID PANEL Routine 09/16/2016 12:13 PM CDT documented in this encounter Results * Lipid panel (09/16/2016 12:13 PM CDT) SCRIBED Cholesterol, Total 131 na - na EXTERNAL LAB SCRIBED HDL 30 na - na EXTERNAL LAB SCRIBED LDL 79 na - na EXTERNAL LAB SCRIBED Triglycerides 107 na - na EXTERNAL LAB Blood specimen (specimen) us Historical Provider LAB BLOOD ORDERABLES Rox fu Result EXTERNAL LAB documented in this encounter Visit Diagnoses Diagnosis Coronary artery disease involving kenaitze coronary artery of kenaitze heart without angina pectoris- Primary Essential hypertension Unspecified essential hypertension Mixed hyperlipidemia documented in this encounter Discontinued Medications Medication Sig Discontinue Reason Start Date End Da te atorvastatin (LIPITOR) 40 mg tablet take 1 tablet by oral route every day 09/16/2016 03/24/2017 documented as of this encounter Care Teams Dyed Raw Stock Blower Feeder Relationship Specialty Start Date End Date JoseCarminemario Figueroa MD [address] [address] PCP - General Interventional Cardiology 02/04/17 documented as of this encounter
--- OUTSIDE RECORDS SUMMARY | 2024-05-16 02:03 | XMS_ITS | Encounter Summary ---
Author Organization [facility] Healthcare Address [address] [place] [address] Care Team Providers Care Examiner Rating Clerk Name Role Phone Unavailable Primary Care Provider Unavailabl e Encounter Details Date Type Department Care Team (Late st Contact Info) Description 03/17/2015 10:10 AM CDT - 03/17/2015 11:59 PM CDT Hospital Encounter [facility] Felix Gonzales MD [address] [place] [address] Type 2 diabetes mellitus with hyperglycemia (CMS/HCC) Social History Tobacco Use Types Packs/Day Years Used Date Smoking Tobacco: Never Assessed Sex and Gender Information Value Date Recorded Sex Assigned at Not on file 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 Gender Identity Not on file Sexual Orientation Not on file documented as of this encounter Medications at Time of Discharge blood-glucose meter (ONETOUCH ULTRA2) kit check glucose once a day 1 kit 0 03/04/2014 lisinopril (PRINIVIL,ZESTRIL ) 10 mg tablet take 1 tablet (10MG) by oral route every day 90 2 11/22/2011 04/02/2017 metFORMIN (GLUCOPHAGE) 500 mg tablet take 2 Tablet (1000MG) by oral route 2 times every day with morning and evening meals 360 2 10/18/2011 03/31/2017 documented as of this encounter Plan of Treatment Not on file documented as of this encounter Visit Diagnoses Diagnosis Type 2 diabetes mellitus with hyperglycemia (CMS/HCC) (HCC) documented in this encounter
--- OUTSIDE RECORDS SUMMARY | 2024-05-16 02:03 | XMS_ITS | Encounter Summary ---
Author Organization [facility] Healthcare Address [address] [place] [address] Care Team Providers Care Gatekeeper Name Role Phone Unavailable Primary Care Provider Unavailabl e Encounter Details Date Type Department Care Team (Late st Contact Info) Description 04/07/2015 10:30 AM MOBILE APPLICATION ARCHITECT - 04/07/2015 11:59 PM MOBILE APPLICATION ARCHITECT Hospital Encounter [facility] Felix Morrison MD [address] [place] [address] [address] [place] [address] Calcaneal spur of right foot; Calcaneal spur of left foot Social History Tobacco Use Types Packs/Day Years Used Date Smoking Tobacco: Never Assessed Sex and Gender Information Value Date Recorded Sex Assigned at Not on file Legal Sex Male 10:13 AM MOBILE APPLICATION ARCHITECT Gender Identity Not on file Sexual [...] Procedure Name Priority Date/Time Associated Diagnosis Comments XR CALCANEUS 2+ VW Routine 04/07/2015 11 :06 AM MOBILE APPLICATION ARCHITECT XR CALCANEUS 2+ VW Routine 04/07/2015 11 :06 AM MOBILE APPLICATION ARCHITECT documented in this encounter Results * XR Calcaneus 2+ VW (04/07/2015 11:06 AM MOBILE APPLICATION ARCHITECT) Anatomical Region Laterality Modality N/A Radiographic Sandra ging 04/07/2015 11:0 6 AM MOBILE APPLICATION ARCHITECT Narrative 04/07/2015 4:42 PM MOBILE APPLICATION ARCHITECT XR Calcaneus Min 2 Views R ??Acc#: ??[id number] DATE OF EXAM: ??Apr 07 2015 CLINICAL HISTORY: Heel pain. RESULT: Axial and lateral views of the right calcaneus were obtained. ??Posterior and plantar calcaneal enthesophytes are noted. ??No acute fracture is seen. No lytic or blastic lesions are noted. IMPRESSION: 1. ??HEEL SPURS. Interpreting Physician: ??TENZIN MART M.D. ??Read on: ??Apr 07 2015 2:02P Transcribed by: ??bhumi ??On: Apr 07 2015 ??2:02P Approved Electronically by: ??TENZIN MART M.D. ??on: ??Apr 07 2015 4:42P Attending: ??FELIX MORRISON Requesting: ??FELIX MORRISON Requesting Fax: ??-- Attending Fax: ??-- Attending ID: ??[id number] Requesting ID: ??[id number] Report To 1 ID: ??[id number] Report To 1 Name: ??FELIX MORRISON Report To 1 FAX: ??-- NextGen Order #: Procedure Note Provider, MD Praveena - 09/29/2016 XR Calcaneus Min 2 Views R Acc#: [id number] DATE OF EXAM: Apr 07 2015 CLINICAL HISTORY: Heel pain. RESULT: Axial and lateral views of the right calcaneus were obtained. Posteriorand plantar calcaneal enthesophytes are noted. No acute fracture is seen.No lytic or blastic lesions are noted. IMPRESSION: 1. HEEL SPURS. Interpreting Physician: TENZIN MART M.D. Read on: Apr 07 20152:02P Transcribed by: bhumi On: Apr 07 2015 2:02P Approved Electronically by: TENZIN MART M.D. on: Apr 07 20154:42P Attending: FELIX MORRISON Requesting: FELIX MORRISON Requesting Fax: -- Attending Fax: -- Attending ID: [id number] Requesting ID: [id number] Report To 1 ID: [id number] Report To 1 Name: FELIX MORRISON Report To 1 FAX: -- NextGen Order #: us Historical Provider IMG XR PROCEDURES Final R esult * XR Calcaneus 2+ VW (04/07/2015 11:06 AM MOBILE APPLICATION ARCHITECT) Anatomical Region Laterality Modality N/A Radiographic Sandra ging 04/07/2015 11:0 6 AM MOBILE APPLICATION ARCHITECT Narrative 04/07/2015 4:42 PM MOBILE APPLICATION ARCHITECT XR Calcaneus Min 2 Views L ??Acc#: ??[id number] DATE OF EXAM: ??Apr 07 2015 CLINICAL HISTORY: Heel pain. RESULT: Axial and lateral views of the left calcaneus were obtained. ??Posterior and plantar calcaneal enthesophytes are noted. ??No acute fracture is seen. IMPRESSION: 1. ??HEEL SPURS. Interpreting Physician: ??TENZIN MART M.D. ??Read on: ??Apr 07 2015 2:01P Transcribed by: ??bhumi ??On: Apr 07 2015 ??2:01P Approved Electronically by: ??TENZIN MART M.D. ??on: ??Apr 07 2015 4:42P Attending: ??FELIX MORRISON Requesting: ??FELIX MORRISON Requesting Fax: ??-- Attending Fax: ??-- Attending ID: ??[id number] Requesting ID: ??[id number] Report To 1 ID: ??[id number] Report To 1 Name: ??FELIX MORRISON Report To 1 FAX: ??-- NextGen Order #: Procedure Note Provider, MD Praveena - 09/29/2016 XR Calcaneus Min 2 Views L Acc#: [id number] DATE OF EXAM: Apr 07 2015 CLINICAL HISTORY: Heel pain. RESULT: Axial and lateral views of the left calcaneus were obtained. Posteriorand plantar calcaneal enthesophytes are noted. No acute fracture isseen. IMPRESSION: 1. HEEL SPURS. Interpreting Physician: TENZIN MART M.D. Read on: Apr 07 20152:01P Transcribed by: [facility] On: Apr 07 2015 2:01P Approved Electronically by: TENZIN MART M.D. on: Apr 07 20154:42P Attending: FELIX MORRISON Requesting: FELIX MORRISON Requesting Fax: -- Attending Fax: -- Attending ID: [id number] Requesting ID: [id number] Report To 1 ID: [id number] Report To 1 Name: FELIX MORRISON Report To 1 FAX: -- NextGen Order #: us Historical Provider MD BENNETT XR PROCEDURES Final R esult documented in this encounter Visit Diagnoses Diagnosis Calcaneal spur of right foot Calcaneal spur of left foot documented in this encounter
--- OUTSIDE RECORDS SUMMARY | 2024-05-16 02:03 | XMS_ITS | Encounter Summary ---
Author Organization [facility] Address [address] [facility] [address] [place] [address] Care Team Providers Care Activities Concierge Name Role Phone Reuben Garcia MD Primary Care Provid er No, Physician Primary Care Provider [phone] Brian Vera MD Primary Care Provider [phone] Encounter Details Date Type Department Care Team (Late st Contact Info) Description 08/28/2016 Orders Only [facility] ProviderPraveena MD [facility] [place] [address] Social History Tobacco Use Types Packs/Day Years Used Date Smoking Tobacco: Never Alcohol Use Standard Drinks/Week Comments No 0 (1 standard drink = 0.6 oz pur e alcohol) Sex and Gender Information Value Date Recorded Sex Assigned at Not on file 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 Historical Provider [facility] SHAMEKA ANDREW Final Result documented in this encounter Visit Diagnoses Not on filedocumented in this encounter Care Teams Activities Concierge Relationship Specialty Start Date End Date Reuben Garcia MD [address] [facility] [address], [place] [address] PCP - General Interventional Cardiology 02/04/17 No, Physician PCP - General 04/17/22 05/09/22 Brian Vera MD [address] [facility] [address] [place] [address] [address] [place] [address] PCP - General Internal Medicine 05/10/22 documented as of this encounter
--- OUTSIDE RECORDS SUMMARY | 2024-05-16 02:03 | XMS_ITS | Encounter Summary ---
Author Organization [facility] Address [address] [place] [address] Care Team Providers Care Scorer Helper Name Role Phone Unavailable Primary Care Provider Unavailabl e Encounter Details Date Type Department Care Team (Late st Contact Info) Description 05/17/2013 3:41 PM ELECTRICAL SIGN WIRER - 05/17/2013 11:59 PM ELECTRICAL SIGN WIRER Hospital Encounter [facility] Felix Gonzales MD [address] [place] [address] [id number] [place] [address] Type 2 or unspecified type diabetes mellitus, uncontrolled Social History Tobacco Use Types Packs/Day Years Used Date Smoking Tobacco: Never Assessed Sex and Gender Information Value Date Recorded Sex Assigned at Not on file Legal Sex Male 10:13 AM ELECTRICAL SIGN WIRER Gender Identity Not on file Sexual Orientation Not on file documented as of this encounter Medications at Time of Discharge lisinopril (PRINIVIL,ZESTRIL ) 10 mg tablet take [...] this encounter Visit Diagnoses Diagnosis Type 2 or unspecified type diabetes mellitus, uncontrolled documented in this encounter
--- OUTSIDE RECORDS SUMMARY | 2024-05-16 02:03 | XMS_ITS | Encounter Summary ---
Author Organization [facility] Address [address] [facility] [address] [place] [address] Care Team Providers Care Help Desk Administrator Name Role Phone Reuben Garcia MD Primary Care Provid er Reason for Visit * Reason Comments Follow-up 6 mo follow up on CA D, HTN, hyperlipidemia Encounter Details Date Type Department Care Team (Latest Contact Info) Description 09/29/2017 8:00 AM CDT Office Visit [facility] [address] [place] [address] Reuben Garcia MD [address] [place] [id number] Coronary artery disease involving shinnecock coronary artery of shinnecock heart without angina pectoris (Primary Dx); Coronary artery disease of shinnecock artery of shinnecock heart with stable angina pectoris (CMS/HCC); Essential hypertension; Mixed hyperlipidemia Social History Tobacco Use Types Packs/Day Years Used Date Smoking Tobacco: Never Smokeless Tobacco: Never Alcohol Use Standard Drinks/Week Comments No 0 (1 standard drink = 0.6 oz pur e alcohol) Sex and Gender Information Value Date Recorded Sex Assigned at Not on file 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 Gender Identity Not on file Sexual Orientation Not on file documented as of this encounter Last Filed Vital Signs Vital Sign Reading Time Taken Comments Blood Pressure 124/82 09/29/2017 8:18 AM CDT Pulse 66 09/29/2017 8:18 AM CDT Temperature - - Respiratory Rate - - Oxygen Saturation 97% 09/29/2017 8:18 AM CDT Inhaled Oxygen Concentration - - Weight 100.2 kg (221 lb) 09/29/2017 8:18 AM CDT Height 175.3 cm (5' 9 ) 09/29/2017 8:18 AM CDT Body Mass Index 32.64 09/29/2017 8:18 AM CDT documented in this encounter Ordered Prescriptions Prescription Sig Dispense Quantity Refills Last Filled Start Date End Date metFORMIN (GLUCOPHAGE) 500 mg tabletIndications: Coronary artery disease involving shinnecock coronary artery of shinnecock heart without angina pectoris Take 1 tablet (500 mg total) by mouth 2 (two) times a day with meals. 180 tablet 3 09/29/2017 07/03/2018 lisinopril (PRINIVIL,ZESTRIL) 10 mg tabletIndications: Coronary artery disease involving shinnecock coronary artery of shinnecock heart without angina pectoris Take 1 tablet (10 mg total) by mouth daily. 90 tablet 3 09/29/2017 01/07/2018 atorvastatin (LIPITOR) 40 mg tabletIndications: Coronary artery disease involving shinnecock coronary artery of shinnecock heart without angina pectoris Take 1 tablet (40 mg total) by mouth daily. 90 tablet 3 09/29/2017 01/07/2018 documented in this encounter Progress Notes * Reuben Garcia MD - 09/29/2017 8:00 AM CDT [facility] DATE OF VISIT: 10/01/2017 CHIEF COMPLAINT Chief Complaint Patient presents with ??? Follow-up 6 mo follow up on CAD, HTN, hyperlipidemia HPI Jerald Whipple is a 56 y.o. [...] he was not exercising during the winter. MEDICAL HISTORY Past Medical History: Diagnosis Date ??? Chronic coronary artery disease Coronary artery disease ??? Hyperlipidemia Hyperlipidemia ??? Type 2 diabetes mellitus (CMS/[facility]) Diabetes type 2 History reviewed. No pertinent [...] environmental allergies and hives. PHYSICAL EXAM Vitals: 09/29/17 0818 BP: 124/82 Pulse: 66 SpO2: 97% Body mass index is 32.64 kg/m??. Physical Exam Constitutional: He is oriented [...] Chemistry Component Value Date/Time SODIUM 131 (L) 05/16/20151939 POTASSIUM 3.6 05/16/20151939 CHLORIDE 91 (L) 05/16/2015 194 CO2 25 05/16/20151939 BUNSER 13.2 05/16/20151939 CREATININE 0.88 05/16/2015 194 GLUCOSE 189 05/16/20151939 Component Value Date/Time CALCIUM 8.8 05/16/20151939 ALKPHOS 55 05/16/20151939 AST 27 05/16/20151939 ALT [...] HDL 35. This lab was done at [facility] MOBILITY ARCHITECT: Cath (Left main is normal. LAD is [...] for this visit: Coronary artery disease involving shinnecock coronary artery of shinnecock heart without angina pectoris (Primary) Assessment & Plan: Stable symptoms. Patient is able to walk without limitation. Continue aspirin, Lipitor. He has stopped taking metoprolol because he does not want to take to many medications. Orders: - atorvastatin (LIPITOR) 40 mg tablet; Take 1 tablet (40 mg total) by mouth daily. - lisinopril (PRINIVIL,ZESTRIL) 10 mg tablet; Take 1 tablet (10 mg total) by mouth daily. - metFORMIN (GLUCOPHAGE) 500 mg tablet; Take 1 tablet (500 mg total) by mouth 2 (two) times a day with meals. Coronary artery disease of shinnecock artery of shinnecock heart with stable angina pectoris ([facility]) Assessment & Plan: Stable symptoms. Patient is able to walk without limitation. Continue aspirin, Lipitor. He has stopped taking metoprolol because he does not want to take to many medications. Essential hypertension Assessment & Plan: Blood pressure is well controlled. Continue current treatment Mixed hyperlipidemia Assessment & Plan: Continue Lipitor. PLAN/RECOMMENDATIONS Follow up in the office in in 6 months. Reuben Garcia MD documented in this encounter Miscellaneous Notes * Assessment & Plan Note - Reuben Garcia MD - 10/01/2017 5:14 PM CDTAssociated Problem(s): Mixed hyperlipidemia (Deleted) Continue Lipitor. * Assessment & Plan Note - Reuben Garcia MD - 10/01/2017 5:14 PM CDTAssociated Problem(s): Hypertension associated with diabetes (HCC) Blood pressure is well controlled. Continue current treatment * Assessment & Plan Note - Reuben Garcia MD - 10/01/2017 5:13 PM CDTAssociated Problem(s): Coronary artery disease involving shinnecock coronary artery of shinnecock heart without angina pectoris Stable symptoms. Patient is able to walk without limitation. Continue aspirin, Lipitor. He has stopped taking metoprolol because he does not want to take to many medications. documented in this encounter Plan of Treatment Not on file documented as of this encounter Visit Diagnoses Diagnosis Coronary artery disease involving shinnecock coronary artery of shinnecock heart without angina pectoris- Primary Coronary artery disease of shinnecock artery of shinnecock heart with stable angina pectoris (HCC) Essential hypertension Unspecified essential hypertension Mixed hyperlipidemia documented in this encounter Discontinued Medications Medication Sig Discontinue Reason Start Date End Da te atorvastatin (LIPITOR) 40 mg tablet Take 1 tablet (40 mg total) by mouth daily. Reorder 06/02/2017 09/29/2017 lisinopril (PRINIVIL,ZESTRIL) 10 mg tablet Take 1 tablet (10 mg total) by mouth daily. Reorder 08/05/2017 09/29/2017 metFORMIN (GLUCOPHAGE) 500 mg tablet TAKE 2 TABLETS BY MOUTH TWICE DAILY WITH MORNING AND EVENING MEALS Reorder 04/01/2017 09/29/2017 documented as of this encounter Care Teams Help Desk Administrator Relationship Specialty Start Date End Date Reuben Garcia MD [address] [address] PCP - General Interventional Cardiology 02/04/17 documented as of this encounter
--- OUTSIDE RECORDS SUMMARY | 2024-05-16 02:03 | XMS_ITS | Encounter Summary ---
Author Organization [facility] Address [address] [facility] [address] [place] [address] Care Team Providers Care Freight Inspector Name Role Phone Reuben Garcia MD Primary Care Provid er Encounter Details Date Type Department Care Team (Late st Contact Info) Description 08/05/2017 Telephone [facility] [address] [address] Aaron Már[place] [address] 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 Gender Identity Not on file Sexual Orientation Not on file documented as of this encounter Miscellaneous Notes * Telephone Encounter - Montserrat Fernandez - 08/05/2017 10:46 AM CDT Patient last visit 02/04/17 Next appt 08/21/17 Patient came by [facility] for refill on lisinopril 10 mg Please fax yvonne guerin in chart Patient states he is out of medication documented in this encounter Plan of Treatment Not on file documented as of this encounter Visit Diagnoses Not on filedocumented in this encounter Care Teams Freight Inspector Relationship Specialty Start Date End Date Reuben Garcia MD [address] [facility] [address] [place] [address] PCP - General Interventional Cardiology 02/04/17 documented as of this encounter
--- OUTSIDE RECORDS SUMMARY | 2024-05-16 02:03 | XMS_ITS | Encounter Summary ---
Author Organization [facility] Healthcare Address [address] [place] [address] Care Team Providers Care Traffic Signal Repairer Name Role Phone Unavailable Primary Care Provider Unavailabl e Encounter Details Date Type Department Care Team (Latest Contact Info) Description 05/16/2015 5:35 PM MANNEQUIN WIG MAKER - 05/16/2015 10:09 PM MANNEQUIN WIG MAKER Hospital Encounter [facility] Gonzalez, DO [address] [place] [address] Nausea with vomiting; Fever; Weakness; Type 2 diabetes mellitus without complications (CMS/HCC); Essential (primary) hypertension Social History Tobacco Use Types Packs/Day Years Used Date Smoking Tobacco: Never Assessed Sex and Gender Information Value Date Recorded Sex Assigned at Not on file Legal Sex Male 10:13 AM MANNEQUIN WIG MAKER Gender Identity Not on file Sexual Orientation Not on file documented as of this encounter Medications at Time of Discharge blood-glucose meter (ElastraTOUCH ULTRA2) kit check glucose once a day [...] Procedure Name Priority Date/Time Associated Diagnosis Comments URINALYSIS Routine 05/16/2015 7:52 PM MANNEQUIN WIG MAKER XR CHEST PA LATERAL 2 VIEWS Routine 05/16/2015 7:51 PM MANNEQUIN WIG MAKER NASOPHARYNGEAL MUCUS INFLUENZA A, B AG Routine 05/16/2015 7:45 PM MANNEQUIN WIG MAKER SERUM LIPASE Routine 05/16/2015 7:40 PM MANNEQUIN WIG MAKER SERUM ESTIMATED GLOMERULAR FILTRATION RATE Routine 05/16/2015 7:40 PM MANNEQUIN WIG MAKER SERUM AMYLASE Routine 05/16/2015 7:40 PM MANNEQUIN WIG MAKER PLASMA TROPONIN-T Routine 05/16/2015 7:4 0 PM MANNEQUIN WIG MAKER PLASMA COMPREHENSIVE METABOLIC PANEL Routine 05/16/2015 7:40 PM MANNEQUIN WIG MAKER BLOOD CELL COUNT (CBC), MORPHOLOGIC EXAM Routine 05/16/2015 7:40 PM MANNEQUIN WIG MAKER BLOOD CELL MORPHOLOGIC EXAM Routine 05/16/2015 7:40 PM MANNEQUIN WIG MAKER BLOOD GLUCOSE, POC Routine 05/16/2015 7: 32 PM MANNEQUIN WIG MAKER ELECTROCARDIOGRAPHY (ECG) 05/16/2015 DISCHARGE LABORATORY CUMULATIVE REPORT 05/16/2015 documented in this encounter Results * (ABNORMAL) Urinalysis (05/16/2015 7:52 PM MANNEQUIN WIG MAKER) Color, ur Yellow Yellow HISTORICAL RESULTS Clarity, ur Clear Clear HISTORIC AL RESULTS Specific gravity, ur 1.014 1.003 - 1.030 HISTORICAL RESULTS Comment:Normal Ranges: 1.003 -1.030 pH, ur 5.5 4.5 - 8.0 HISTORICAL RESULTS Comment:Normal ranges: 4.5-8 .0 Protein, ur, quant Negative Negative mg/dl HISTORICAL RESULTS Glucose, ur, quant 100(A) Negative mg/dl HISTORICAL RESULTS Ketones, ur Negative Negative HISTORIC AL RESULTS Bilirubin, ur Negative Negative HISTOR ICAL RESULTS U Blood Negative Negative HISTORICAL RESULTS Urobilinogen, quant, ur 0.2 0.2 - 1.0 Ramon Units/dl HISTORICAL RESULTS Comment:Normal Ranges: 0.2-1 .0 EU/dL Nitrites, ur Negative Negative HISTORI NELY RESULTS Leukocyte esterase, ur Negative Negative HISTORICAL RESULTS Urine 05/16/2015 7:52 PM MANNEQUIN WIG MAKER us Historical Provider LAB BLOOD ORDERABLES Rox l Result HISTORICAL RESULTS * XR Chest Pa Lateral 2 Vw (05/16/2015 7:51 PM MANNEQUIN WIG MAKER) Anatomical Region Laterality Modality Body, Chest N/A Radiographic Sandra ging 05/16/2015 7:51 PM MANNEQUIN WIG MAKER Narrative 05/17/2015 12:48 PM MANNEQUIN WIG MAKER XR Chest 2 Views ?[id number] ??Acc#: ??[id number] DATE OF EXAM: ??May 16 2015 CLINICAL HISTORY: Abdominal pain, cough, vomiting. RESULT: Two views of the chest demonstrate clear lungs bilaterally with no focal infiltrates. ??The heart size and pulmonary vascularity are normal. IMPRESSION: NO ACTIVE DISEASE. Interpreting Physician: ??DR NIR BOOKER M.D. ??Read on: ??May 17 2015 6:36A Transcribed by: ??mrr ??On: May 17 2015 ??9:34A Approved Electronically by: ??ADE Genao, DR LOYOLA ??on: ??May 17 2015 12:48P Attending: ??REGINA WRIGHT Requesting: ??REGINA WRIGHT Requesting Fax: ??-- Attending Fax: ??[phone] Attending ID: ??[id number] Requesting ID: ??[id number] Report To 1 ID: ??[id number] Report To 1 Name: ??REGINA WRIGHT Report To 1 FAX: ??-- NextGen Order #: Procedure Note Provider, MD Praveena - 09/29/2016 XR Chest 2 Views [id number] Acc#: [id number] DATE OF EXAM: May 16 2015 CLINICAL HISTORY: Abdominal pain, cough, vomiting. RESULT: Two views of the chest demonstrate clear lungs bilaterally with no focalinfiltrates. The heart size and pulmonary vascularity are normal. IMPRESSION: NO ACTIVE DISEASE. Interpreting Physician: DR NIR BOOKER M.D. Read on: May 17 20156:36A Transcribed by: carlie On: May 17 2015 9:34A Approved Electronically by: ADE Genao, DR LOYOLA on: May 17 201512:48P Attending: REGINA WRIGHT Requesting: REGINA WRIGHT Requesting Fax: -- Attending Attending ID: [id number] Requesting ID: [id number] Report To 1 ID: [id number] Report To 1 Name: REGINA WRIGHT Report To 1 FAX: -- NextGen Order #: us Historical Provider IMG XR PROCEDURES Final R esult * Nasopharyngeal mucus Influenza A, B ag (05/16/2015 7:45 PM MANNEQUIN WIG MAKER) Influ A ag, nasopharyngeal Negative Negative HISTORICAL RESULTS Comment: Interpretive Data The results of this procedure whether positive or negative are presumptive. Current interpretive data was last revised on 2014. Influ B ag, nasopharyngeal Negative Negative HISTORICAL RESULTS Nasopharynx swab 05/16/2015 7:45 PM MANNEQUIN WIG MAKER Historical Provider LAB BLOOD ORDERABLES Rox l Result HISTORICAL RESULTS * (ABNORMAL) Plasma comprehensive metabolic panel (05/16/2015 7:40 PM MANNEQUIN WIG MAKER) Sodium 131(L) 135 - 145 mmol/L HISTORICAL RESULTS K, pl 3.6 3.5 - 5.1 mmol/L HISTORICAL RESULTS Chloride 91(L) 97 - 110 mmol/L HISTORICAL RESULTS CO2 25 22 - 32 mmol/L HISTORICAL RESULTS A. gap 19(H) 8 - 16 mmol/L HISTORICAL RESULTS Glucose 189 70 - 199 mg/dl HISTORICAL RESULTS Comment: Interpretive Data Note:The glucose is assumed non fasting Fastin-99 mg/dL Random: ??70-199 mg/dL Either a fasting glucose > 126 mg/dL or a random glucose > 200 mg/dL plus symptoms is diagnostic of diabetes when confirmed on another day. Fasting values > 100 mg/dL but < 125 mg/dL are diagnostic of impaired fasting glucose. Current interpretive data was last revised on 2014. BUN 13.2 8.0 - 25.0 mg/dl HISTORICAL RESULTS Creatinine 0.88 0.70 - 1.30 mg/dl HISTORICAL RESULTS BUN/creat ratio 15 10 - 20 HIST ORICAL RESULTS Calcium 8.8 8.6 - 10.2 mg/dl HISTORICAL RESULTS Protein, sr 7.3 6.0 - 8.4 g/dl HISTORICAL RESULTS Alb 4.4 3.6 - 5.0 g/dl HISTORICAL RESULTS Alb/glob ratio 1.5 1.1 - 1.8 ratio HISTORICAL RESULTS Alk phos 55 40 - 130 Units/L HISTORICAL RESULTS ALT 34 5 - 50 Units/L HISTORICAL RESULTS AST 27 10 - 45 Units/L HISTORICAL RESULTS Bilirubin 0.2 <=1.2 mg/dl HISTORICAL RESULTS Plasma 05/16/2015 7:40 PM MANNEQUIN WIG MAKER Historical Provider MD LAB BLOOD ORDERABLES Rox l Result Performing Organization Address [facility] Co de Phone Number HISTORICAL RESULTS * (ABNORMAL) Serum lipase (05/16/2015 7:40 PM MANNEQUIN WIG MAKER) Lip 112(H) 10 - 70 Units/L HISTORICAL RESULTS Serum 05/16/2015 7:40 PM MANNEQUIN WIG MAKER Result [facility] Historical Provider MD LAB BLOOD ORDERABLES Rox l Result Performing Organization Address [facility] Co de Phone Number HISTORICAL RESULTS * Plasma troponin-T (05/16/2015 7:40 PM MANNEQUIN WIG MAKER) Troponin T <0.01 0.00 - 0.06 ng/ml HISTORICAL RESULTS Comment: Interpretive Data Troponin table: ? Negative ? 0.00-0.06 ng/ml ? Indeterminate ?0.07-0.10 ng/ml ? Consistent with Myocardial Injury ?Greater than 0.10 ng/ml ?? Current interpretive data was last revised on 2014 Plasma 05/16/2015 7:40 PM MANNEQUIN WIG MAKER Result [facility] Historical Provider LAB BLOOD ORDERABLES Rox l Result Performing Organization Address [facility] de Phone Number HISTORICAL RESULTS * Serum amylase (05/16/2015 7:40 PM MANNEQUIN WIG MAKER) Roxy, pl 70 30 - 100 Units/L HISTORICAL RESULTS Serum 05/16/2015 7:40 PM MANNEQUIN WIG MAKER Result [facility] Historical Provider LAB BLOOD ORDERABLES Rox l Result Performing Organization Address [facility] de Phone Number HISTORICAL RESULTS * (ABNORMAL) Blood cell morphologic exam (05/16/2015 7:40 PM MANNEQUIN WIG MAKER) Neutrophils 65 44 - 80 % HISTORIC AL RESULTS Neutrophilic bands, bone marrow 2(H) 0 - 1 % HISTORICAL RESULTS Lymphocytes 14 13 - 44 % HISTORIC AL RESULTS Monos 11 2 - 11 % HISTORICAL RESULTS Atypical lymphs 8(H) 0 - 0 % HIST ORICAL RESULTS Platelet estimate Adequate HISTORICAL RESULTS RBC morphology Normal HISTO RICAL RESULTS Blood specimen (specimen) 05/16/2015 7:40 PM MANNEQUIN WIG MAKER Result [facility] Historical Provider LAB BLOOD ORDERABLES Rox l Result Performing Organization Address [facility] de Phone Number HISTORICAL RESULTS * (ABNORMAL) Blood cell count (CBC), morphologic exam (05/16/2015 7:40 PM MANNEQUIN WIG MAKER) WBC 3.4(L) 3.8 - 9.8 K/cumm HISTORICAL RESULTS RBC 4.08(L) 4.50 - 5.70 M/cumm HISTORICAL RESULTS Hgb 12.3(L) 13.8 - 17.2 g/dl HISTORICAL RESULTS Hct 36.0(L) 40.7 - 50.3 % HISTORICAL RESULTS MCV 88.2 80.0 - 100.0 fl HISTORICAL RESULTS MCH 30.1 26.7 - 33.7 pg HISTORICAL RESULTS MCHC 34.2 32.7 - 36.0 g/dl HISTORICAL RESULTS Rdw 12.5 11.5 - 14.6 % HISTORICAL RESULTS Platelets 163 140 - 440 K/cumm HISTORICAL RESULTS MPV 10.1 8.0 - 12.0 fl HISTORICAL RESULTS NRBC 0.0 0.0 - 0.0 % HISTORIC AL RESULTS NRBC, abs 0.00 0.00 - 0.00 K/cumm HISTORICAL RESULTS Blood specimen (specimen) 05/16/2015 7:40 PM MANNEQUIN WIG MAKER Historical Provider LAB BLOOD ORDERABLES Rox l Result Performing Organization Address [facility] Co de Phone Number HISTORICAL RESULTS * Serum estimated glomerular filtration rate (05/16/2015 7:40 PM MANNEQUIN WIG MAKER) eGFR >60 ml/min/1.7 3 m2 HISTORICAL RESULTS Comment: Interpretation of Estimated GFR (eGFR): Normal ?>/= 60 mL/min/1.73m2 Possible Chronic Kidney Disease ??15 - 59 mL/min/1.73m2 Possible Kidney Failure ?< 15 ??mL/min/1.73m2 If -Lithuanian multiply value by 1.16. ??Estimated glomerular filtration rate is determined by the CKD-EPI equation recommended by the National Kidney Foundation (KDIGO 2012 Clinical Practice Guideline for the Evaluation and Management of Chronic Kidney Disease. ??Kidney Intnl Suppl May 2012;3:1). ??The CKD-EPI equation should not be used in acute renal failure or acute kidney injury and is not valid in children. Serum 05/16/2015 7:40 PM MANNEQUIN WIG MAKER Historical Provider LAB BLOOD ORDERABLES Rox l Result Performing Organization Address [facility] Co de Phone Number HISTORICAL RESULTS * (ABNORMAL) Blood glucose, POC (05/16/2015 7:32 PM MANNEQUIN WIG MAKER) Glucose, POC, bld 170(H) 71 - 98 mg/dl HISTORICAL RESULTS Blood specimen (specimen) 05/16/2015 7:32 PM MANNEQUIN WIG MAKER [facility] Provider LAB BLOOD ORDERABLES Rox l Result HISTORICAL RESULTS * DISCHARGE LABORATORY CUMULATIVE REPORT (05/16/2015) Narrative 05/16/2015 Ordered by an unspecified provider. [facility] Provider LAB BLOOD ORDERABLES Rox l Result * ELECTROCARDIOGRAPHY (ECG) (05/16/2015) Narrative 05/16/2015 Ordered by an unspecified provider. [facility] Provider ECG ORDERABLES Final Res ult documented in this encounter Visit Diagnoses Diagnosis Nausea with vomiting Fever Fever, unspecified Weakness Other malaise and fatigue Type 2 diabetes mellitus without complications (CMS/HCC) (HCC) Essential (primary) hypertension Unspecified essential hypertension documented in this encounter
--- OUTSIDE RECORDS SUMMARY | 2024-05-16 02:03 | XMS_ITS | Encounter Summary ---
Author Organization [facility] Healthcare Address [address] [place] [address] Care Team Providers Care Electrician Master Name Role Phone Unavailable Primary Care Provider Unavailabl e Encounter Details Date Type Department Care Team (Late st Contact Info) Description 07/14/2013 9:37 AM MANAGER LOGISTIC - 07/14/2013 11:59 PM MANAGER LOGISTIC Hospital Encounter [facility] Felix Gonzales MD [address] [place] [address] [address] [place] [address] Type 2 or unspecified type diabetes mellitus, uncontrolled Social History Tobacco Use Types Packs/Day Years Used Date Smoking Tobacco: Never Assessed Sex and Gender Information Value Date Recorded Sex Assigned at Not on file Legal Sex Male 10:13 AM MANAGER LOGISTIC Gender Identity Not on file Sexual Orientation [...]
--- OUTSIDE RECORDS SUMMARY | 2024-05-16 02:03 | XMS_ITS | Encounter Summary ---
Author Organization [facility] Medical Group Address [address] [place] [address] Care Team Providers Care Match Marker Name Role Phone Reuben Garcia MD Primary Care Provid er Encounter Details Date Type Department Care Team (Late st Contact Info) Description 01/07/2018 Telephone [facility] [address] [address] Reuben Garcia MD [address] [place] [address] Social History Tobacco Use Types Packs/Day Years Used Date Smoking Tobacco: Never Smokeless Tobacco: Never Alcohol Use Standard Drinks/Week Comments No 0 (1 standard drink = 0.6 oz pur e alcohol) Sex and Gender Information Value Date Recorded Sex Assigned at Not on file 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 90 tablet 3 01/07/2018 01/19/2019 documented in this encounter Miscellaneous Notes * Telephone Encounter - Nicci Acosta MA - 01/07/2018 1:05 PM CDT Sent 90 day supply scripts for lisinopril and atorvastatin. Patient should contact Dr. Chapa for metformin. * Telephone Encounter - Nayana Figueroa - 01/07/2018 12:43 PM CDT Pt is at the pharmacy now. Says he lives an hour from the pharmacy so will wait there for his refills. 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 Reorder 09/29/2017 01/07/2018 lisinopril (PRINIVIL,ZESTRIL) 10 mg tabletIndications:Diaz ry artery disease involving big sandy coronary artery of big sandy heart without angina pectoris Take 1 tablet (10 mg total) by mouth daily. Reorder 09/29/2017 01/07/2018 documented as of this encounter Care Teams Match Marker Relationship Specialty Start Date End Date Reuben Garcia MD [address] [place] [address] PCP - General Interventional Cardiology 02/04/17 documented as of this encounter
--- OUTSIDE RECORDS SUMMARY | 2024-05-16 02:03 | XMS_ITS | Encounter Summary ---
Author Organization [facility] Medical Group Address [address] [place] [address] Care Team Providers Care Home Health Provider Name Role Phone Reuben Garcia MD Primary Care Provid er No, Physician Primary Care Provider [phone] Brian Vera MD Primary Care Provider [phone] Encounter Details Date Type Department Care Team (Late st Contact Info) Description 05/16/2015 Orders Only [facility] ProviderPraveena MD [address] [place] [address] Social History Tobacco Use Types Packs/Day Years Used Date Smoking Tobacco: Never Assessed Sex and Gender Information Value Date Recorded Sex Assigned at Not on file Legal Sex Male 10: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 Historical Provider [facility] SHAMEKA ANDREW Final Result documented in this encounter Visit Diagnoses Not on filedocumented in this encounter Care Teams Home Health Provider Relationship Specialty Start Date End Date Reuben Garcia MD [facility] [address] [facility] [address], [place] [address] PCP - General Interventional Cardiology 02/04/17 No, Physician PCP - General 04/17/22 05/09/22 Brian Vera MD [address] [place] [address] PCP - General Internal Medicine 05/10/22 documented as of this encounter
--- OUTSIDE RECORDS SUMMARY | 2024-05-16 02:03 | XMS_ITS | Encounter Summary ---
Author Organization [facility] Healthcare Address [address] [place] [address] Care Team Providers Care Fish Hatchery Supervisor Name Role Phone Unavailable Primary Care Provider Unavailabl e Encounter Details Date Type Department Care Team (Late st Contact Info) Description 06/14/2014 10:01 AM NURSE DISCHARGE PLANNER - 06/14/2014 11:59 PM NURSE DISCHARGE PLANNER Hospital Encounter [facility] Felix Gonzales MD [address] [place] [address] [address] [place] [address] Type 2 or unspecified type diabetes mellitus, uncontrolled Social History Tobacco Use Types Packs/Day Years Used Date Smoking Tobacco: Never Assessed Sex and Gender Information Value Date Recorded Sex Assigned at Not on file Legal Sex Male 10:13 AM NURSE DISCHARGE PLANNER Gender Identity Not on file Sexual Orientation [...]
--- OUTSIDE RECORDS SUMMARY | 2024-05-16 02:03 | XMS_ITS | Encounter Summary ---
Author Organization [facility] Healthcare Address [address] [place] [address] Care Team Providers Care Welder Fitter Gas Name Role Phone Unavailable Primary Care Provider Unavailabl e Encounter Details Date Type Department Care Team (Late st Contact Info) Description 03/17/2015 11:03 AM CDT - 03/17/2015 11:59 PM CDT Hospital Encounter [facility] Felix Gonzales MD [address] [facility] [address] [place] [address] Type 2 diabetes mellitus with hyperglycemia (CMS/HCC) Social History Tobacco Use Types Packs/Day Years Used Date Smoking Tobacco: Never Assessed Sex and Gender Information Value Date Recorded Sex Assigned at Not on file Legal 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 Gender Identity Not on file Sexual Orientation [...] Procedure Name Priority Date/Time Associated Diagnosis Comments PLASMA CYANOCOBALAMIN (VITAMIN B12) Routine 03/17/2015 11:04 AM CDT PLASMA COMPREHENSIVE METABOLIC PANEL Routine 03/17/2015 11:04 AM CDT BLOOD CELL COUNT (CBC), MORPHOLOGIC EXAM Routine 03/17/2015 11:04 AM CDT SERUM METHYLMALONIC ACID (MMA) Routine 03/17/2015 6:04 AM CDT DISCHARGE LABORATORY CUMULATIVE REPORT 03/17/2015 documented in this encounter Results * (ABNORMAL) Blood cell count (CBC), morphologic exam (03/17/2015 11:04 AM CDT) WBC 4.6 3.8 - 9.8 K/cumm HISTORICAL RESULTS RBC 4.34(L) 4.50 - 6.00 M/cumm HISTORICAL RESULTS Hgb 13.1(L) 14.0 - 18.0 g/dl HISTORICAL RESULTS Hct 39.0(L) 40.0 - 54.0 % HISTORICAL RESULTS MCV 89.9 82.0 - 96.0 fl HISTORICAL RESULTS MCH 30.2 27.0 - 32.0 pg HISTORICAL RESULTS MCHC 33.6 29.0 - 35.0 g/dl HISTORICAL RESULTS Platelets 214 150 - 450 K/cumm HISTORICAL RESULTS RDW 42.1 35.1 - 43.9 fl HISTORICAL RESULTS Rdw 13.0 11.5 - 14.5 % HISTORICAL RESULTS MPV 11.2 8.6 - 12.6 fl HISTORICAL RESULTS Neutrophils 51.1 42.0 - 85.0 % HISTORICAL RESULTS Neutrophils, abs 2.3 2.1 - 8.5 K/cumm HISTORICAL RESULTS Lymphocytes 33.3 16.0 - 52.0 % HISTORICAL RESULTS Lymphocytes, abs 1.5 0.8 - 5.2 K/cumm HISTORICAL RESULTS Monos 11.6 1.0 - 13.0 % HISTORICAL RESULTS Monocytes, absolute 0.5 0.0 - 1.3 K/cumm HISTORICAL RESULTS Eosinophils 3.1 0.0 - 7.0 % HISTORICAL RESULTS Eosinophils, abs 0.1 0.0 - 0.7 K/cumm HISTORICAL RESULTS Basophils 0.9 0.0 - 4.0 % HISTORICAL RESULTS Basophils, abs 0.0 0.0 - 0.4 K/cumm HISTORICAL RESULTS Young granulocytes, % 0.0 0.0 - 1.0 % HISTORICAL RESULTS Young granulocyte 0.00 0.00 - 0.10 K/cumm HISTORICAL RESULTS NRBC 0.0 0.0 - 0.2 #/100 WBC HISTORICAL RESULTS NRBC, abs 0.00 0.00 - 0.01 K/cumm HISTORICAL RESULTS Blood specimen (specimen) 03/17/2015 11:04 AM CDT us Felix Gonzales MD LAB BLOOD ORDERABL ES Final Result HISTORICAL RESULTS * Plasma comprehensive metabolic panel (03/17/2015 11:04 AM CDT) BUN 15 8 - 24 mg/dl HISTORICAL RESULTS Glucose 127 70 - 199 mg/dl HISTORICAL RESULTS Sodium 139 135 - 145 mmol/L HISTORICAL RESULTS K, pl 4.2 3.5 - 5.1 mmol/L HISTORICAL RESULTS Chloride 105 100 - 114 mmol/L HISTORICAL RESULTS CO2 29 22 - 32 mmol/L HISTORICAL RESULTS Creatinine 1.04 0.70 - 1.40 mg/dl HISTORICAL RESULTS AST 21 7 - 40 Units/L HISTORICAL RESULTS ALT 26 5 - 50 Units/L HISTORICAL RESULTS Alk phos 57 30 - 110 Units/L HISTORICAL RESULTS Calcium 9.3 8.4 - 10.5 mg/dl HISTORICAL RESULTS Bilirubin 0.60 0.10 - 1.30 mg/dl HISTORICAL RESULTS Protein, pl 7.0 6.0 - 8.3 g/dl HISTORICAL RESULTS Alb 4.3 3.2 - 4.8 g/dl HISTORICAL RESULTS Globulin 2.7 2.0 - 4.3 g/dl HISTORICAL RESULTS A. gap 9 8 - 16 mmol/L HISTORICAL RESULTS eGFR 74 90 - 200 ml/min/1.7 3 m2 HISTORICAL RESULTS Comment: If this individual is -[place]ib[place], multiply result by 1.21 Repeated results of less than 60 is indicative of chronic kidney disease. MDRD formula has not been validated on individuals greater than 70 years old. Plasma 03/17/2015 11:0 4 AM CDT Felix Gonzales MD LAB BLOOD ORDERABL ES Final Result Performing Organization Address [facility] de Phone Number HISTORICAL RESULTS * Plasma cyanocobalamin (vitamin B12) (03/17/2015 11:04 AM CDT) Cyanocobalamin (Vit B12) 322 180 - 920 pg/ml HISTORICAL RESULTS Comment: B12 Reference Ranges: (greater than 1 year of age) ?Normal: ?180 - 920 pg/ml Indeterminate: ??145 - 180 pg/ml ?? Deficient: ? <145 pg/ml Plasma 03/17/2015 11:0 4 AM CDT Felix Gonzales MD LAB BLOOD ORDERABL ES Final Result Performing Organization Address [facility] de Phone Number HISTORICAL RESULTS * Serum methylmalonic acid (MMA) (03/17/2015 6:04 AM CDT) MMA 0.20 <=0.40 nmol/ml HISTORICAL RESULTS Serum 03/17/2015 6:04 AM CDT Narrative HISTORICAL RESULTS - 03/23/2015 5:09 AM CDT Test performed at [facility] Dept of Lab Medicine and Pathology, [address] [place] [address] [place], [address]. Felix Gonzales MD LAB BLOOD ORDERABL ES Final Result Performing Organization Address [facility] de Phone Number HISTORICAL RESULTS * DISCHARGE LABORATORY CUMULATIVE REPORT (03/17/2015) Narrative 03/17/2015 Ordered by an unspecified provider. Historical Provider LAB BLOOD ORDERABLES Rox l Result documented in this encounter Visit Diagnoses Diagnosis Type 2 diabetes mellitus with hyperglycemia (CMS/HCC) (HCC) documented in this encounter
--- OUTSIDE RECORDS SUMMARY | 2024-05-16 02:03 | XMS_ITS | Encounter Summary ---
Author Organization [facility] Medical Group Address [address] [place] [address] Care Team Providers Care Instrument Mechanics Supervisor Name Role Phone Reuben Garcia MD Primary Care Provid er Reason for Visit * Reason Comments Diabetes Type 2 Encounter Details Date Type Department Care Team (Latest Contact Info) Description 07/21/2018 2:45 PM CONTROL CLERK AUDITING Office Visit [facility] [address] [address] Aaron [place] [address] [facility] [address] [place] [address] Type 2 diabetes mellitus with hyperglycemia, with long-term current use of insulin (CMS/HCC) (Primary Dx); Hyperlipidemia associated with type 2 diabetes mellitus (CMS/HCC); Hypertension associated with diabetes (CMS/HCC) Social History Tobacco Use Types Packs/Day Years Used Date Smoking Tobacco: Never Smokeless Tobacco: Never Alcohol Use Standard Drinks/Week Comments No 0 (1 standard drink = 0.6 oz pur e alcohol) Sex and Gender Information Value Date Recorded Sex Assigned at Not on file Legal Sex Male 10:13 AM CONTROL CLERK AUDITING Gender Identity Not on file Sexual Orientation Not on file documented as of this encounter Last Filed Vital Signs Vital Sign Reading Time Taken Comments Blood Pressure 146/72 07/21/2018 2:44 PM CONTROL CLERK AUDITING Pulse 66 07/21/2018 2:44 PM CONTROL CLERK AUDITING Temperature - - Respiratory Rate 14 07/21/2018 2:44 PM CONTROL CLERK AUDITING Oxygen Saturation - - Inhaled Oxygen Concentration - - Weight 96.9 kg (213 lb 9.6 oz) 07/21/2018 2:44 P M CONTROL CLERK AUDITING Height 175.3 cm (5' 9.02 ) 07/21/2018 2:44 PM CS T Body Mass Index 31.53 07/21/2018 2:44 PM CONTROL CLERK AUDITING documented in this encounter Progress Notes * Aaron Márquez MD - 07/21/2018 2:45 PM CST Subjective/Objective Patient ID: Jerald Whipple is a 57 y.o. male. Chief Complaint Diabetes Type 2 HPI DM Follow up. Diabetes complications and/or comorbidity includes : CAD Last hba1c : 6.9, 3.2918 Currently taking : Metformin BG monitoring : ocassionally Hypoglycemia : None Exercise plan: not regularly Diet plan includes: watching, small portions. [...] no distension. Musculoskeletal: Normal range of motion. Neurological: He is alert and oriented to person, place, and time. He has normal reflexes. He displays normal reflexes. Coordination normal. No tremors Skin: Skin is warm. Psychiatric: He has a normal mood and affect. His behavior is normal. Assessment/Plan Diagnoses and all orders for this visit: Type 2 diabetes mellitus with hyperglycemia, with long-term current use of insulin ([facility]) (E11.65, Z79.4) (Primary) Assessment & Plan: [...] CAD. Pt could not tolerate, excessive urination Orders: - POCT glucose - POCT hemoglobin A1c Hyperlipidemia associated with type 2 diabetes mellitus ([facility]) (E11.69, E78.5) Assessment & Plan: Goal [...] and advised. Daily exercise On statin therapy Hypertension associated with diabetes ([facility]) (E11.59, I10) Assessment & Plan: Goal blood pressure is less than 140/85 Low salt diet recommended Daily aerobic exercise Continue current meds, including VIKY-I or ARB Check microalbumin Orders: - Microalbumin, urine, random; Future ROL CLERK AUDITING documented in this encounter Miscellaneous Notes * Assessment & Plan Note - Aaron Márquez MD - 07/21/2018 3:01 PM CSTAssociated Problem(s): Type 2 diabetes mellitus [...] CAD. Pt could not tolerate, excessive urination ROL CLERK AUDITING ROL CLERK AUDITING * Assessment & Plan Note - Aaron Márquez MD - 07/21/2018 3:00 PM CSTAssociated Problem(s): Hypertension associated with diabetes (HCC) Goal blood pressure is less than 140/85 Low salt diet recommended Daily aerobic exercise Continue current meds, including VIKY-I or ARB Check microalbumin ROL CLERK AUDITING * Assessment & Plan Note - Aaron Márquez MD - 07/21/2018 3:00 PM CSTAssociated Problem(s): Hyperlipidemia associated with type [...] and advised. Daily exercise On statin therapy ROL CLERK AUDITING documented in this encounter Plan of Treatment Scheduled Orders Name Type Priority Associated Diagnoses Orde r Schedule Microalbumin, urine, random Lab Routine Hypertension associated with diabetes ([facility]/HCC) 1 Occurrences starting 07/21/2018 until 07/21/2019 documented as of this encounter Procedures Procedure Name Priority Date/Time Associated Diagnosis Comments POCT HEMOGLOBIN A1C Routine 07/21/2018 2 :50 PM CONTROL CLERK AUDITING Type 2 diabetes mellitus with hyperglycemia, with long-term current use of insulin ([facility]) POCT GLUCOSE Routine 07/21/2018 2:49 PM CONTROL CLERK AUDITING Type 2 diabetes mellitus with hyperglycemia, with long-term current use of insulin ([facility]) documented in this encounter Results * POCT hemoglobin A1c (07/21/2018 2:50 PM CONTROL CLERK AUDITING) Hemoglobin A1C, POC 6.7 Blood specimen (specimen) 07/21/2018 2:50 PM CONTROL CLERK AUDITING us Aaron Márquez MD POINT OF CARE TEST ORDERABLES Fi nal Result * POCT glucose (07/21/2018 2:49 PM CONTROL CLERK AUDITING) Glucose Blood, POC 110 mg/dL Blood specimen (specimen) 07/21/2018 2:49 PM CONTROL CLERK AUDITING us Aaron Márquez MD POINT OF CARE TEST ORDERABLES Fi nal Result documented in this encounter Visit Diagnoses Diagnosis Type 2 diabetes mellitus with hyperglycemia, with long-term current use of insulin ([facility])- Primary Hyperlipidemia associated with type 2 diabetes mellitus (HCC) Hypertension associated with diabetes ([facility]) Unspecified essential hypertension documented in this encounter Care Teams Instrument Mechanics Supervisor Relationship Specialty Start Date End Date Reuben Garcia MD [address] [facility] [address] [place] [address] PCP - General Interventional Cardiology 02/04/17 documented as of this encounter
--- OUTSIDE RECORDS SUMMARY | 2024-05-16 02:03 | XMS_ITS | Encounter Summary ---
Author Organization [facility] Medical Group Address [address] [place] [address] Care Team Providers Care Miscellaneous Machine Operator Name Role Phone Reuben aGrcia MD Primary Care Provid er Encounter Details Date Type Department Care Team (Late st Contact Info) Description 08/27/2017 Orders Only [facility] [address] [place] [address] Faustina Contreras [id number] [place] [address] [address] [place] [address] Social History Tobacco Use Types Packs/Day Years Used Date Smoking Tobacco: Never Smokeless Tobacco: Never Alcohol Use Standard Drinks/Week Comments No 0 (1 standard drink = 0.6 oz pur e alcohol) Sex and Gender Information Value Date Recorded Sex Assigned at Not on file 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 Gender Identity Not on file Sexual Orientation Not on file documented as of this encounter Plan of Treatment Not on file documented as of this encounter Procedures Procedure Name Priority Date/Time Associated Diagnosis Comments LIPID PANEL Routine 08/22/2017 documented in this encounter Results * Lipid panel (08/22/2017) Blood specimen (specimen) Faustina Contreras [employer] [employer] [facility] LAB BLOOD ORDERABLES Final R esult documented in this encounter Visit Diagnoses Not on filedocumented in this encounter Care Teams Miscellaneous Machine Operator Relationship Specialty Start Date End Date GarciaReuben cheung Ritu Figueroa MD [address] [id number] PCP - General Interventional Cardiology 02/04/17 documented as of this encounter
--- OUTSIDE RECORDS SUMMARY | 2024-05-16 02:03 | XMS_ITS | Encounter Summary ---
Author Organization [facility] Medical [facility] Address [address] [place] [address] Care Team Providers Care Sewing Machine Assembler Name Role Phone Reuben Garcia MD Primary Care Provid er Reason for Visit * Reason Comments Diabetes Type 2 Encounter Details Date Type Department Care Team (Latest Contact Info) Description 08/21/2017 9:15 AM CDT Office Visit [facility] [address] [address] Faustina Contreras, CULVERT INSTALLER [address] [place] [address] Type 2 diabetes mellitus with hyperglycemia, without long-term current use of insulin ([facility]) (Primary Dx); Essential hypertension; Mixed hyperlipidemia Social History Tobacco Use Types Packs/Day Years Used Date Smoking Tobacco: Never Smokeless Tobacco: Never Alcohol Use Standard Drinks/Week Comments No 0 (1 standard drink = 0.6 oz pur e alcohol) Sex and Gender Information Value Date Recorded Sex Assigned at Not on file 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 Gender Identity Not on file Sexual Orientation Not on file documented as of this encounter Last Filed Vital Signs Vital Sign Reading Time Taken Comments Blood Pressure 112/64 08/21/2017 9:30 AM CDT Pulse 68 08/21/2017 9:30 AM CDT Temperature - - Respiratory Rate 16 08/21/2017 9:30 AM CDT Oxygen Saturation - - Inhaled Oxygen Concentration - - Weight 97.9 kg (215 lb 12.8 oz) 08/21/2017 9:30 AM CDT Height 175.3 cm (5' 9 ) 08/21/2017 9:30 AM CDT Body Mass Index 31.87 08/21/2017 9:30 AM CDT documented in this encounter Patient Instructions * Patient Instructions* Faustina Contreras NP - 08/21/2017 9:15 AM CDT A1c 6.9. Watch food choices. Follow up with foot doctor documented in this encounter Progress Notes * Faustina Contreras NP - 08/21/2017 9:15 AM CDT Subjective/Objective Patient ID: Jerald Whipple is a 56 y.o. male. Chief Complaint Diabetes Type 2 Current medication: metformin 1000 bid HBGM: not checking often but when he does, all are at goal. BG now 259. Ate an hour ago. Using increased amount of honey in tea. Diet:watches closely Exercise: attentive to regular exercise Last A1c: 6.2 Last MA: On AceI Last lipids: 08/2016 Last eye exam: within the year Last foot exam: 2) HTN-CAD- taking lisinopril 3) HLD-atorvastain DM Follow up ; diagnosed with diabetes at about age 50 Diabetes complications include : None Current symptoms include : See ROS Last hba1c 6.2 Currently taking : Metformin BG monitorin-3 x wk, in the low 100's Exercise plan: exercising regularly Diet plan: small meals, low carb Last lipid profile: 03/10, LDL 134 On statin therapy with Atorvastatin Last MA : 1.5 On VIKY-I / ARB???s with Lisinopril Last eye examination: Last month Pt says he was having dysuria , he says he stopped taking all his meds and symptoms relief, He is afraid of taking it. Review of Systems Constitutional: Negative for activity [...] well-developed. HENT: Head: Normocephalic and atraumatic. Eyes: Conjunctivae and EOM are normal. Pupils are equal, round, and reactive to light. Neck: Trachea normal and phonation normal. No thyroid mass and no thyromegaly present. Cardiovascular: Normal rate, regular rhythm and normal heart sounds. No murmur heard. Pulses: Dorsalis pedis pulses are 2+ on the right side, and 2+ on the left side. Pulmonary/Chest: Effort normal and breath sounds normal. Abdominal: Soft. Bowel sounds are normal. He exhibits no distension. Musculoskeletal: Normal range of motion. Right foot: There is no deformity. Left foot: There is no deformity. Feet: Right Foot: Monofilament exam normal. Protective Sensation: 7 sites tested. 7 sites sensed. Skin Integrity: Negative for ulcer. Left Foot: Monofilament exam normal. Protective Sensation: 7 sites tested. 7 sites sensed. Skin Integrity: Positive for blister. Negative for ulcer. Neurological: He is alert and oriented to person, place, and time. He has normal reflexes. He displays normal reflexes. Coordination normal. Reflex Scores: Patellar reflexes are 2+ on the right side and 2+ on the left side. Achilles reflexes are 2+ on the right side and 2+ on the left side. Skin: Skin is warm. Psychiatric: He has a normal mood and affect. His behavior is normal. Vitals reviewed. Assessment/Plan Diagnoses and all orders for this visit: Type 2 diabetes mellitus with hyperglycemia, without long-term current use of insulin ([facility]) (Primary) Assessment & Plan: A1c 6.9. Watch food choices. Would not recommend honey with tea.Follow up with foot doctor for blister which occurred one week ago. Has not changed in size. + Tender. Orders: - POCT glucose - POCT glycosylated hemoglobin (Hb A1C) - Lipid panel; Standing - Comprehensive metabolic panel; Future - Microalbumin / creatinine ratio, urine, random; Future Essential hypertension Assessment & Plan: Controlled on current medications. Mixed hyperlipidemia Assessment & Plan: Continue statin therapy documented in this encounter Miscellaneous Notes * Assessment & Plan Note - Faustina Contreras NP - 08/24/2017 3:52 PM CDT Associated Problem(s): Mixed hyperlipidemia (Deleted) Continue statin therapy * Assessment & Plan Note - Faustina Contreras NP - 08/24/2017 3:52 PM CDT Associated Problem(s): Hypertension associated with diabetes (HCC) Controlled on current medications. * Assessment & Plan Note - Faustina Contreras NP - 08/24/2017 3:37 PM CDT Associated Problem(s): Type 2 diabetes mellitus (HCC) A1c 6.9. Watch food choices. Would not recommend honey with tea.Follow up with foot doctor for blister which occurred one week ago. Has not changed in size. + Tender. documented in this encounter Plan of Treatment Scheduled Orders Name Type Priority Associated Diagnoses Orde r Schedule Microalbumin / creatinine ratio, urine, random Lab Routine Type 2 diabetes mellitus with hyperglycemia, without long-term current use of insulin ([facility]) Expected: 08/21/2017, Expires: 08/21/2018 documented as of this encounter Procedures Procedure Name Priority Date/Time Associated Diagnosis Comments LIPID PANEL Routine 08/22/2017 10:27 AM CDT Type 2 diabetes mellitus with hyperglycemia, without long-term current use of insulin ([facility]) COMPREHENSIVE METABOLIC PANEL Routine 08/22/2017 10:27 AM CDT Type 2 diabetes mellitus with hyperglycemia, without long-term current use of insulin ([facility]) POCT GLYCOSYLATED HEMOGLOBIN (HGB A1C), HOME MONITOR Routine 08/21/2017 9:37 AM CDT Type 2 diabetes mellitus with hyperglycemia, without long-term current use of insulin ([facility]) POCT GLUCOSE Routine 08/21/2017 9:37 AM CDT Type 2 diabetes mellitus with hyperglycemia, without long-term current use of insulin ([facility]) documented in this encounter Results * Comprehensive metabolic panel (08/22/2017 10:27 AM CDT) Blood specimen (specimen) 08/22/2017 10:27 AM CDT Faustina Contreras CULVERT INSTALLER LAB BLOOD ORDERABLES Final R esult EXTERNAL LAB * (ABNORMAL) Lipid panel (08/22/2017 10:27 AM CDT) SCRIBED Cholesterol, Total 132 0 - 200 EXTERNAL LAB SCRIBED HDL 35(A) 39 - 100 EXTERNAL LAB SCRIBED LDL 64 0 - 100 EXTERNAL LAB SCRIBED Triglycerides 141 0 - 150 EXTERNAL LAB Blood specimen (specimen) 08/22/2017 10:27 AM CDT Faustina Contreras CULVERT INSTALLER LAB BLOOD ORDERABLES Final R esult EXTERNAL LAB * (ABNORMAL) POCT glycosylated hemoglobin (Hb A1C) (08/21/2017 9:37 AM CDT) Hemoglobin A1C, POC 6.9(A) 4.0 - 6.0 Blood specimen (specimen) (Blood, Venous) 08/21/2017 9:37 AM CDT Faustina Contreras CULVERT INSTALLER POINT OF CARE TEST ORDERABLE S Final Result * (ABNORMAL) POCT glucose (08/21/2017 9:37 AM CDT) Glucose Blood, POC 259(A) 70 - 140 mg/dL Blood specimen (specimen) 08/21/2017 9:37 AM CDT Faustina Contreras CULVERT INSTALLER POINT OF CARE TEST ORDERABLE S Final Result documented in this encounter Visit Diagnoses Diagnosis Type 2 diabetes mellitus with hyperglycemia, without long-term current use of insulin (HCC)- Primary Essential hypertension Unspecified essential hypertension Mixed hyperlipidemia documented in this encounter Discontinued Medications Medication Sig Discontinue Reason Start Date End Da te metoprolol (LOPRESSOR) 25 mg tablet take 1 tablet by oral route 2 times every day 09/16/2016 08/21/2017 empagliflozin (JARDIANCE) 10 mg tablet take 1 tablet by oral route every day in the morning 10/04/2016 08/21/2017 documented as of this encounter Care Teams Sewing Machine Assembler Relationship Specialty Start Date End Date Reuben Garcia MD [address] [address] PCP - General Interventional Cardiology 02/04/17 documented as of this encounter
--- OUTSIDE RECORDS SUMMARY | 2024-05-16 02:03 | XMS_ITS | Encounter Summary ---
Author Organization [facility] Care Team Providers Care Numerical Control Machine Tool Operator Name Role Phone Reuben Garcia MD Primary Care Provid er Encounter Details Date Type Department Care Team (Latest Contact Info) Description 02/23/2019 Travel Social History Tobacco Use Types Packs/Day Years Used Date Smoking Tobacco: Never Smokeless Tobacco: Never Alcohol Use Standard Drinks/Week Comments No 0 (1 standard drink = 0.6 oz pur e alcohol) PHQ-2 Answer Date Recorded PHQ-2 Score 0 02/23/2019 Sex and Gender Information Value Date Recorded Sex Assigned at Not on file Legal Sex Male 10:13 AM GREASER 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
--- OUTSIDE RECORDS SUMMARY | 2024-05-16 02:03 | XMS_ITS | Encounter Summary ---
Author Organization [facility] Medical [facility] Address [address] [place] [address] Care Team Providers Care Parent Educator Name Role Phone Reuben Garcia MD Primary Care Provid er Encounter Details Date Type Department Care Team (Late st Contact Info) Description 04/02/2017 Telephone [facility] [address] [address] [address] [place] [address] Reuben Garcia MD [facility] [address] Social History Tobacco Use Types Packs/Day Years Used Date Smoking Tobacco: Never Smokeless Tobacco: Never Alcohol Use Standard Drinks/Week Comments No 0 (1 standard drink = 0.6 oz pur e alcohol) Sex and Gender Information Value Date Recorded Sex Assigned at Not on file 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 30 tablet 3 04/02/2017 8 lisinopril (PRINIVIL,ZESTRIL) 10 mg tablet Take 1 tablet (10 mg total) by mouth daily. 30 tablet 3 04/02/2017 8 documented in this encounter Miscellaneous Notes * Telephone Encounter - Nicole Bradshaw, RN - 04/02/2017 11:27 AM CUSTOMS OFFICER Spoke to pts ; she states pt needs new chol medication called to pharmacy along with BP medication refills; Clarified that he needs refills on his lisinopril; She states yes; Will send both to [facility] srinivasan soto OMS OFFICER documented in this encounter Plan of Treatment Not on file documented as of this encounter Visit Diagnoses Diagnosis Mixed hyperlipidemia documented in this encounter Discontinued Medications Medication Sig Discontinue Reason Start Date End Da te lisinopril (PRINIVIL,ZESTRIL) 10 mg tablet take 1 tablet (10MG) by oral route every day Reorder 11/22/2011 04/02/2017 pitavastatin calcium (LIVALO) 4 mg tabletIndications:Mixed hyperlipidemia Take 1 tablet (4 mg total) by mouth daily. Reorder 03/24/2017 04/02/2017 documented as of this encounter Care Teams Parent Educator Relationship Specialty Start Date End Date Reuben Garcia MD [address] [facility] [address], [place] [id number] PCP - General Interventional Cardiology 02/04/17 documented as of this encounter
--- OUTSIDE RECORDS SUMMARY | 2024-05-16 02:03 | XMS_ITS | Encounter Summary ---
Author Organization [facility] Medical [facility] Address [address] [place] [address] Care Team Providers Care Lawn Care Technician Name Role Phone Reuben Garcia MD Primary Care Provid er Reason for Visit * Reason Comments Diabetes Type 2 Encounter Details Date Type Department Care Team (Latest Contact Info) Description 02/04/2017 9:15 AM CDT Office Visit [facility] [address] [address] Aaron Már[place] [address] [facility] [address] [place] [address] Type 2 diabetes mellitus with hyperglycemia, without long-term current use of insulin ([facility]) (Primary Dx); Mixed hyperlipidemia; Essential hypertension; Dysuria Social History Tobacco Use Types Packs/Day Years Used Date Smoking Tobacco: Never Alcohol Use Standard Drinks/Week Comments No 0 (1 standard drink = 0.6 oz pur e alcohol) Sex and Gender Information Value Date Recorded Sex Assigned at Not on file 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 Gender Identity Not on file Sexual Orientation Not on file documented as of this encounter Last Filed Vital Signs Vital Sign Reading Time Taken Comments Blood Pressure 130/72 02/04/2017 9:10 AM CDT Pulse 56 02/04/2017 9:10 AM CDT Temperature - - Respiratory Rate 12 02/04/2017 9:10 AM CDT Oxygen Saturation - - Inhaled Oxygen Concentration - - Weight 96.2 kg (212 lb) 02/04/2017 9:10 AM CDT Height 175.3 cm (5' 9 ) 02/04/2017 9:10 AM CDT Body Mass Index 31.31 02/04/2017 9:10 AM CDT documented in this encounter Progress Notes * Aaron Márquez MD - 02/04/2017 9:15 AM CDT Subjective/Objective Patient ID: Jerald Whipple is a 56 y.o. male. Chief Complaint Diabetes Type 2 HPI DM Follow up ; diagnosed with diabetes [...] 4 sites sensed. Skin Integrity: Negative for ulcer. Left Foot: Monofilament exam normal. Protective Sensation: 4 sites tested. 4 sites sensed. Skin Integrity: Negative for ulcer. Neurological: He is alert [...] and all orders for this visit: 1. Type 2 diabetes mellitus with hyperglycemia, without long-term current use of insulin ([facility]) (Primary) Assessment & Plan: Hba1c was today, indicating Adequate DM control 1800 calorie, consistent carb diet recommended 30 min daily aerobic and resistance exercise recommended Prevention and treatment of hyypoglcyemia discussed. Blood glucose monitoring with fingers sticks 1-2 X week . Foot care was discussed. Orders: - POCT glucose - POCT glycosylated hemoglobin (Hb A1C) - Comprehensive metabolic panel; Future 2. Mixed hyperlipidemia Assessment & Plan: Goal of treatment , LDL cholesterol less than 100 ( less than 70 in patients with history of heart attacks and / or strokes ) NonHDL cholesterol goal less than 130 ( less than 100 in patients with history of heart attacks and/ or strokes ) Hold atorvastatin for 2 weeks Then restarted and call if symptoms ( dysuria ?? ) persist. 3. Essential hypertension Assessment & Plan: Goal blood pressure is less than 140/85 Low salt diet recommended Daily aerobic exercise Continue current meds, including VIKY-I or ARB 4. Dysuria Assessment & Plan: Check PSA Advised on having his prostate checked Orders: - PSA diagnostic; Future documented in this encounter Miscellaneous Notes * Assessment & Plan Note - Aaron Márquez MD - 02/04/2017 9:52 AM CDTAssociated Problem(s): Dysuria (Resolved 10/08/2022) Check PSA Advised on having his prostate checked * Assessment & Plan Note - Aaron Márquez MD - 02/04/2017 9:38 AM CDTAssociated Problem(s): Type 2 diabetes mellitus (HCC) Hba1c was today, indicating Adequate DM control 1800 calorie, consistent carb diet recommended 30 min daily aerobic and resistance exercise recommended Prevention and treatment of hyypoglcyemia discussed. Blood glucose monitoring with fingers sticks 1-2 X week . Foot care was discussed. * Assessment & Plan Note - Aaron Márquez MD - 02/04/2017 9:37 AM CDTAssociated Problem(s): Hypertension associated with diabetes (HCC) Goal blood pressure is less than 140/85 Low salt diet recommended Daily aerobic exercise Continue current meds, including VIKY-I or ARB * Assessment & Plan Note - Aaron Márquez MD - 02/04/2017 9:37 AM CDTAssociated Problem(s): Mixed hyperlipidemia (Deleted) Goal of treatment , LDL cholesterol less than 100 ( less than 70 in patients with history of heart attacks and / or strokes ) NonHDL cholesterol goal less than 130 ( less than 100 in patients with history of heart attacks and/ or strokes ) Hold atorvastatin for 2 weeks Then restarted and call if symptoms ( dysuria ?? ) persist. documented in this encounter Plan of Treatment Scheduled Orders Name Type Priority Associated Diagnoses Orde r Schedule PSA diagnostic Lab Routine Dysuria 1 Occurrences starting 02/04/2017 until 02/04/2018 Comprehensive metabolic panel Lab Routine Type 2 diabetes mellitus with hyperglycemia, without long-term current use of insulin ([facility]) 1 Occurrences starting 02/04/2017 until 02/04/2018 documented as of this encounter Procedures Procedure Name Priority Date/Time Associated Diagnosis Comments POCT GLYCOSYLATED HEMOGLOBIN (HGB A1C), HOME MONITOR Routine 02/04/2017 9:45 AM CDT Type 2 diabetes mellitus with hyperglycemia, without long-term current use of insulin ([facility]) POCT GLUCOSE Routine 02/04/2017 9:15 AM CDT Type 2 diabetes mellitus with hyperglycemia, without long-term current use of insulin ([facility]) documented in this encounter Results * POCT glycosylated hemoglobin (Hb A1C) (02/04/2017 9:45 AM CDT) Hemoglobin A1C, POC 6.2 Blood specimen (specimen) (Blood, Venous) 02/04/2017 9:45 AM CDT us Aaron Márquez MD POINT OF CARE TEST ORDERABLES Fi nal Result * POCT glucose (02/04/2017 9:15 AM CDT) Glucose Blood, POC 120 mg/dL Blood specimen (specimen) 02/04/2017 9:15 AM CDT us Aaron Márquez MD POINT OF CARE TEST ORDERABLES Fi nal Result documented in this encounter Visit Diagnoses Diagnosis Type 2 diabetes mellitus with hyperglycemia, without long-term current use of insulin (HCC)- Primary Mixed hyperlipidemia Essential hypertension Unspecified essential hypertension Dysuria documented in this encounter Care Teams Lawn Care Technician Relationship Specialty Start Date End Date Reuben Garcia MD [address] [place] [address] PCP - General Interventional Cardiology 02/04/17 documented as of this encounter
--- OUTSIDE RECORDS SUMMARY | 2024-05-16 02:03 | XMS_ITS | Encounter Summary ---
Author Organization [facility] Medical [facility] Address [address] [place] [address] Care Team Providers Care Relief Operator Name Role Phone Reuben Garcia MD Primary Care Provid er Encounter Details Date Type Department Care Team (Late st Contact Info) Description 01/06/2018 Telephone [facility] [address] [address] Aaron Már[place] [address] [facility] [address] [place] [address] Social History Tobacco Use Types Packs/Day Years Used Date Smoking Tobacco: Never Smokeless Tobacco: Never Alcohol Use Standard Drinks/Week Comments No 0 (1 standard drink = 0.6 oz pur e alcohol) Sex and Gender Information Value Date Recorded Sex Assigned at Not on file 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 I called that suggested number and got the voicemail. I spoke to Earlene at [facility] and she stated the Metoprolol is the only med pending for Dr Nunez (his PCP) every other medication isfilled with his PCP and he has a year supply at [facility]. Pt needs to contact his PCP for anythingelse in the regard. I spoke to the pt's son and he stated he will get in contact with his father toinform him of this info. * Telephone Encounter - Montserrat Fernandez - 01/06/2018 2:52 PM CDT PATIENT CAME IN TO [facility] REQUESTING ALL HIS MEDICATION BE FILLED WHEN I ASKED PATIENT WHAT MEDICATIONS WE AT THIS OFFICE FILLED FOR HIM PATIENT STATED ALL MEDICATION PLEASE CONTACT PATIENT TO CLARIFY WHAT MEDICATION ARE NEEDED documented in this encounter Plan of Treatment Not on file documented as of this encounter Visit Diagnoses Not on filedocumented in this encounter Care Teams Relief Operator Relationship Specialty Start Date End Date Reuben Garcia MD [facility] [address] [place] [address] PCP - General Interventional Cardiology 02/04/17 documented as of this encounter
--- OUTSIDE RECORDS SUMMARY | 2024-05-16 02:03 | XMS_ITS | Encounter Summary ---
Author Organization [facility] Medical [facility] Address [address] [address] Care Team Providers Care Watch Train Assembler Name Role Phone Unavailable Primary Care Provider Unavailabl e Encounter Details Date Type Department Care Team (Late st Contact Info) Description 12/12/2016 Telephone [facility] [address] [address] Moni Peace RMA Social History Tobacco Use Types Packs/Day Years Used Date Smoking Tobacco: Never Alcohol Use Standard Drinks/Week Comments No 0 (1 standard drink = 0.6 oz pur e alcohol) Sex and Gender Information Value Date Recorded Sex Assigned at Not on file 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 documented in this encounter Plan of Treatment Not on file documented as of this encounter Visit Diagnoses Not on filedocumented in this encounter
--- OUTSIDE RECORDS SUMMARY | 2024-05-16 02:03 | XMS_ITS | Encounter Summary ---
Author Organization [facility] Address [address] [facility] [address] [place] [address] Care Team Providers Care Service Coordinator Name Role Phone Reuben Garcia MD Primary Care Provid er Encounter Details Date Type Department Care Team (Late st Contact Info) Description 10/21/2017 Orders Only [facility] [address] [facility] [address] [place] [address] Provider, MD Praveena [address] [place] [address] Social History Tobacco Use Types Packs/Day Years Used Date Smoking Tobacco: Never Smokeless Tobacco: Never Alcohol Use Standard Drinks/Week Comments No 0 (1 standard drink = 0.6 oz pur e alcohol) Sex and Gender Information Value Date Recorded Sex Assigned at Not on file 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 Gender Identity Not on file Sexual Orientation Not on file documented as of this encounter Plan of Treatment Not on file documented as of this encounter Procedures Procedure Name Priority Date/Time Associated Diagnosis Comments LIPID PANEL Routine 08/22/2017 documented in this encounter Results * Lipid panel (08/22/2017) SCRIBED Cholesterol, Total 132 0 - 200 EXTERNAL LAB SCRIBED HDL 35 NA - NA EXTERNAL LAB SCRIBED LDL 64 NA - NA EXTERNAL LAB SCRIBED Triglycerides 141 < - 150 EXTERNAL LAB Blood specimen (specimen) us Historical Provider LAB BLOOD ORDERABLES Edit ed Result - Final EXTERNAL LAB documented in this encounter Visit Diagnoses Not on filedocumented in this encounter Care Teams Service Coordinator Relationship Specialty Start Date End Date Reuben Garcia MD [address] [facility] [address], [place] [id number] PCP - General Interventional Cardiology 02/04/17 documented as of this encounter
--- OUTSIDE RECORDS SUMMARY | 2024-05-16 02:03 | XMS_ITS | Encounter Summary ---
Author Organization 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 (CMS/HCC) (Primary Dx); Hypertension associated with diabetes (CMS/HCC); Coronary artery disease involving squaxin coronary artery of squaxin heart without angina pectoris; Mixed hyperlipidemia Social History Tobacco Use Types Packs/Day Years Used Date Smoking Tobacco: Never Smokeless Tobacco: Never Alcohol Use Standard Drinks/Week Comments No 0 (1 standard drink = 0.6 oz pur e alcohol) PHQ-2 Answer Date Recorded PHQ-2 Score 0 02/23/2019 Sex and Gender Information Value Date Recorded Sex Assigned at Not on file 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 Gender Identity Not on file Sexual Orientation Not on file documented as of this encounter Last Filed Vital Signs Vital Sign Reading Time Taken Comments Blood Pressure 138/80 03/01/2019 11:43 AM CDT Pulse 73 03/01/2019 11:43 AM CDT Temperature - - Respiratory Rate - - Oxygen Saturation 97% 03/01/2019 11:43 AM CDT Inhaled Oxygen Concentration - - Weight 97.5 kg (215 lb) 03/01/2019 11:43 AM CDT Height 175.3 cm (5' 9 ) 03/01/2019 11:43 AM CDT Body Mass Index 31.75 03/01/2019 11:43 AM CDT documented in this encounter Ordered Prescriptions Prescription Sig Dispense Quantity Refills Last Filled Start Date End Date atorvastatin (LIPITOR) 40 mg tabletIndications: Coronary artery disease involving squaxin coronary artery of squaxin heart without angina pectoris Take 1 tablet (40 mg total) by mouth daily 90 tablet 3 03/01/2019 04/03/2019 lisinopril (PRINIVIL,ZESTRIL) 10 mg tabletIndications: Coronary artery disease involving squaxin coronary artery of squaxin heart without angina pectoris Take 1 tablet (10 mg total) by mouth daily 90 tablet 3 03/01/2019 12/14/2019 documented in this encounter Progress Notes * Anat Garcia MD - 03/01/2019 11:45 AM CDT [facility] DATE OF VISIT: 03/02/2019 CHIEF COMPLAINT Chief Complaint Patient presents with ??? Follow-up CAD, HTN, LIPIDEMIA HPI Ishmael Ryan is a 58 y.o. male with past [...] and requesting that we refill his lisinopril. MEDICAL HISTORY Past Medical History: Diagnosis Date ??? Chronic coronary artery disease Coronary artery disease ??? Hyperlipidemia Hyperlipidemia ??? Type 2 diabetes mellitus (CMS/HCC) Diabetes type 2 History reviewed. No pertinent [...] allergies and hives. PHYSICAL EXAM Vitals BP 138/80 (BP Location: Left arm, Patient Position: Sitting) Pulse 73 Ht 175.3 cm (5' 9 ) Wt 97.5 kg (215 lb) SpO2 97% BMI 31.75 kg/m?? Body mass index is 31.75 kg/m??. Physical Exam Constitutional: He is oriented [...] Component Value Date/Time SODIUM 131 (L) 05/16/2015 1940 POTASSIUM 3.6 05/16/20151939 CHLORIDE 91 (L) 05/16/2015 194 CO2 25 05/16/2015 194 BUNSER 13.2 05/16/20151939 CREATININE 0.88 05/16/2015 194 GLUCOSE 189 05/16/2015 194 Component Value Date/Time CALCIUM 8.8 05/16/2015 1940 ALKPHOS 55 05/16/2015 1940 AST 27 05/16/2015 1940 ALT 34 05/16/2015 194 BILITOT 0.2 05/16/2015 [...] HDL 35. This lab was done at [facility] [employer]: Cath (Left main is normal. 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 Patient does have coronary arterydisease involving diagonal branch and I believe in right posterolateral branch. Will arrange for stress testing to further assess. Discussed with the patient to undergo cardiac catheterization but heprefers that we do stress testing 1st. -in terms of blood pressure, initial blood pressure coming to clinic was 158/78 and rechecked rise 138 over 80. He ran out of lisinopril 4 days ago and we will refill it. -interns of hyperlipidemia, most recent lipid panel shows excellent control of lipid panel. -counseling done regarding importance of low-sodium diet, low sugar diet. Follow up in the office in in 6 months. Unless the stress test comes out abnormal. Anat Garcia MD documented in this encounter Plan of Treatment Not on file documented as of this encounter Results * NM MPI SPECT (Rest and/or Stress) Multiple Studies (03/02/2019 1:14 PM CDT) Anatomical Region Laterality Modality Body N/A Nuclear Medicine 03/02/2019 9:01 AM CDT Narrative 03/03/2019 6:57 AM CDT [facility] [address] [facility] [address], [place] [address] [address] [facility] [address], [place] [address] P:[phone] P:[phone] MPI Imaging Report Patient Name: ISHMAEL RYAN : 1960 Study Date: 03/02/2019 9:01:47 AM Gender: M Tech: [facility] Location: [facility] Ref.Physician: ANAT GARCIA Height(Cm): 175.3 BSA: Weight(Kg): [...] %. Electronically Signed By: Whit Dhaliwal MD, [facility] 2019-03-02 20:49:00 CDT Electronically Signed By: Randy Spence MD 2019-03-03 06:57:39 CDT CC: CC: Procedure Note Randy Spence MD - 03/03/2019 [facility] [address] [facility] [address], [place] [address] [address], [place] [address] P:[phone] P:[phone] MPI Imaging Report Patient Name: ISHMAEL RYANPatient ID: [id number] : [id number] Date: 03/02/2019 9:01:47 AM Gender: MAccession #: [id number] [facility] Ref.Physician: ZORAN GARCIAallyt(Cm): 175.3 BSA: Weight(Kg): 97.5 BMI: 31.73Order Physician: ANAT GARCIA Physician: Referring Physician: Dr. Márquez. HCG Physician: Anat Garcia M.D., F.A.C.CAmie Interpreting Physician: Eliecer Spence M.D. Stress Supervision: Whit Dhaliwal M.D., F.A.C.CAmie Procedures: Myocardial perfusion imaging with Tc99M Sestamibi [...] %. 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 Reorder 01/07/2018 03/01/2019 atorvastatin (LIPITOR) 40 mg tabletIndications:Yessenia nary artery disease involving squaxin coronary artery of squaxin heart without angina pectoris Take 1 tablet (40 mg total) by mouth daily Reorder 01/19/2019 03/01/2019 documented as of this encounter Care Teams Computer Systems Information Director Relationship Specialty Start Date End Date Anat Garcia MD [address] [facility] [address], [place] [address] PCP - General Interventional Cardiology 02/04/17 documented as of this encounter
--- OUTSIDE RECORDS SUMMARY | 2024-05-16 02:03 | XMS_ITS | Encounter Summary ---
Author Organization [facility] Address [address] [place] [address] Care Team Providers Care Insurance Follow Up Representative Name Role Phone Unavailable Primary Care Provider Unavailabl e Encounter Details Date Type Department Care Team (Latest Contact Info) Description 09/12/2011 6:40 PM CDT - 09/12/2011 10:35 PM CDT Hospital Encounter [facility] Alvarez Zazueta MD [address] [facility] [address] Type 2 or unspecified type diabetes mellitus with complication Social History Tobacco Use Types Packs/Day Years Used Date Smoking Tobacco: Never Assessed Sex and Gender Information Value Date Recorded Sex Assigned at Not on file 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
--- OUTSIDE RECORDS SUMMARY | 2024-05-16 02:03 | XMS_ITS | Encounter Summary ---
Author Organization [facility] Address [address] [facility] [address] [place] [address] Care Team Providers Care Teaching Pastor Name Role Phone Reuben Garcia MD Primary Care Provid er Encounter Details Date Type Department Care Team (Late st Contact Info) Description 08/05/2017 Orders Only [facility] [address] [address] Aaron [place]ár[place] [address] [facility] [address] [place], [place] [id number] Social History Tobacco Use Types Packs/Day Years Used Date Smoking Tobacco: Never Smokeless Tobacco: Never Alcohol Use Standard Drinks/Week Comments No 0 (1 standard drink = 0.6 oz pur e alcohol) Sex and Gender Information Value Date Recorded Sex Assigned at Not on file 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 90 tablet 08/05/2017 09/29/2017 documented in this encounter Plan of Treatment Not on file documented as of this encounter Visit Diagnoses Not on filedocumented in this encounter Discontinued Medications Medication Sig Discontinue Reason Start Date End Da te lisinopril (PRINIVIL,ZESTRIL) 10 mg tablet Take 1 tablet (10 mg total) by mouth daily. Reorder 08/05/2017 08/05/2017 documented as of this encounter Care Teams Teaching Pastor Relationship Specialty Start Date End Date Jose Carminemario Figueroa MD [address] [address] PCP - General Interventional Cardiology 02/04/17 documented as of this encounter
--- OUTSIDE RECORDS SUMMARY | 2024-05-16 02:03 | XMS_ITS | Encounter Summary ---
Author Organization [facility] Address [address] [facility] [address] [place] [address] Care Team Providers Care Pickers Material Handlers Name Role Phone Reuben Garcia MD Primary Care Provid er No, Physician Primary Care Provider [phone] Brian Vera MD Primary Care Provider [phone] Encounter Details Date Type Department Care Team (Late st Contact Info) Description 08/27/2016 Orders Only [facility] ProviderPraveena MD [address] [place] [address] Social History Tobacco Use Types Packs/Day Years Used Date Smoking Tobacco: Never Alcohol Use Standard Drinks/Week Comments No 0 (1 standard drink = 0.6 oz pur e alcohol) Sex and Gender Information Value Date Recorded Sex Assigned at Not on file 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 Historical Provider [facility] SHAMEKA ANDREW Final Result documented in this encounter Visit Diagnoses Not on filedocumented in this encounter Care Teams Pickers Material Handlers Relationship Specialty Start Date End Date Reuben Garcia MD [address] [facility] [address] [address] PCP - General Interventional Cardiology 02/04/17 No, Physician PCP - General 04/17/22 05/09/22 Brian Vera MD [address] [facility] [address] [place] [address] [address] [place] [address] PCP - General Internal Medicine 05/10/22 documented as of this encounter
--- OUTSIDE RECORDS SUMMARY | 2024-05-16 02:04 | XMS_ITS | Encounter Summary ---
Author Organization [facility] Address [address] [place] [address] Care Team Providers Care User Experience Analyst Name Role Phone Unavailable Primary Care Provider Unavailabl e Encounter Details Date Type Department Care Team (Late st Contact Info) Description 08/05/2011 1:34 PM CDT - 08/05/2011 2:49 PM CDT Hospital Encounter [facility] Renuka Mancera MD [address] [place] [address] [place] [address] Sebaceous cyst; Procedure not carried out because of patient's decision Social History Tobacco Use Types Packs/Day Years Used Date Smoking Tobacco: Never Assessed Sex and Gender Information Value Date Recorded Sex Assigned at Not on file 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
== END 2024-05-10 08:01 | disposition home or self-care (01) ==
PROVIDERS: PCP Nurse Practitioner Family; Visit Provider Nurse Practitioner Family
DX: I25.10 Atherosclerotic heart disease of native coronary artery without angina pectoris (principal); I10 Essential (primary) hypertension; E11.9 Type 2 diabetes mellitus without complications; D64.9 Anemia, unspecified
CPT/HCPCS: 36415; 82043; 82607; 82728; 82746; 83036; 83540; 83550; 84207; 84252; 84425

== ENCOUNTER 2024-09-02 00:32 | Day surgery (SDC) | payer MEDICARE, SELFPAY ==
[2024-08-23 13:03] VITALS: BMI 29.0
--- NOTE | 2024-08-23 13:15 | PC.NURSE ---
Spoke with patient's daughter, Diana regarding medication Plavix. Diana verbalizes understanding that the last dose is to be taken on 08/25/2024 and the Endoscopist will instruct them when to restart after the procedure.
--- OUTSIDE RECORDS SUMMARY | 2024-09-02 00:36 | XMS_ITS | Clinical Summary ---
Author Organization [facility] [address] Address [address] [place] [address] Care Team Providers Care Bushwalking Guide Name Role Phone Brian Vera MD Primary Care Provider [phone] Allergies Active Allergy Reactions Criticality Noted Date Comments Semaglutide Dizziness Medium 06/25/2022 Medications blood-glucose meter (ScoutzieTOUCH ULTRA2) kit check glucose once a day 1 kit 0 03/04/20 14 Active metFORMIN (GLUCOPHAGE) 850 mg tabletIndicati ons:Type 2 diabetes mellitus with hyperglycemia, without long-term current use of insulin (HCC) Take 1 tablet (850 mg total) by mouth 2 (two) times a day with meals 180 tablet 3 01/07/20 24 Active glimepiride (AMARYL) 2 mg tabletIndicati ons:Type 2 diabetes mellitus with hyperglycemia, without long-term current use of insulin (HCC) Take 1 tablet (2 mg total) by mouth daily before breakfast 90 tablet 3 01/07/20 24 025 Active empagliflozin (Jardiance) 25 mg tabletIndicati ons:type 2 diabetes mellitus Take 1 tablet (25 mg total) by mouth daily 90 tablet 3 01/07/20 24 025 Active lisinopriL (PRINIVIL,ZEST RIL) 20 mg tabletIndicati ons:Coronary artery disease involving kalispel coronary artery 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 angina pectoris Take 1 tablet (20 mg total) by mouth daily 90 tablet 3 03/01/20 24 Active aspirin 81 mg enteric coated tabletIndicati ons:Coronary artery disease involving k[place]el coronary artery 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 angina pectoris TAKE 1 TABLET BY MOUTH DAILY 90 tablet 3 03/26/20 24 Active amLODIPine (NORVASC) 10 mg tablet Take 1 tablet (10 mg total) by mouth daily 30 tablet 11 03/26/20 24 025 Active atorvastatin (LIPITOR) 40 mg tabletIndicati ons:Coronary artery disease involving k[place]el coronary artery 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 angina pectoris TAKE 1 TABLET(40 MG) BY MOUTH DAILY 90 tablet 2 06/07/19 25 Active ezetimibe (ZETIA) 10 mg tabletIndicati ons:Hyperlipid emia associated with type 2 diabetes mellitus (HCC) TAKE 1 TABLET(10 MG) BY MOUTH DAILY 90 tablet 3 06/08/19 25 Active clopidogreL (PLAVIX) 75 mg tabletIndicati ons:Coronary artery disease involving k[place]el coronary artery 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 angina pectoris TAKE 1 TABLET(75 MG) BY MOUTH DAILY 90 tablet 09/02/19 25 Active clopidogreL (PLAVIX) 75 mg tabletIndicati ons:Coronary artery disease involving kalispel coronary artery 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 angina pectoris Take 1 tablet (75 mg total) by mouth daily 90 tablet 3 05/12/20 23 025 Discontinued Active Problems Problem Noted Date Diagnosed Date [...] results. Assessment & Plan (06/25/2022 3:36 PM CARBON PASTE MIXER OPERATOR): Chronic, well controlled Low fat Low cholesterol diet Exercise Continue statin therapy with Atorvastatin and Zetia Update lipid profile Assessment & Plan (07/03/2021 4:14 PM CARBON PASTE MIXER OPERATOR): Chronic, well controlled Continue current meds Assessment [...] Zetia Assessment & Plan (07/27/2020 10:03 AM CARBON PASTE MIXER OPERATOR): Goal of treatment , LDL cholesterol less [...] Crestor Assessment & Plan (06/29/2019 3:21 PM CARBON PASTE MIXER OPERATOR): Goal of treatment , LDL cholesterol less [...] therapy Assessment & Plan (04/02/2019 7:19 PM CARBON PASTE MIXER OPERATOR): --Continue atorvastatin. Assessment & Plan (02/23/2019 4:09 [...] therapy Assessment & Plan (07/21/2018 3:00 PM CARBON PASTE MIXER OPERATOR): Goal of treatment , LDL cholesterol less [...] statin therapy Coronary artery disease invo lving kalispel coronary artery 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 angina pectoris 03/24/2017 Assessment & Plan (04/03/2019 11:57 AM CARBON PASTE MIXER OPERATOR): S/p LM ostial PCI --Aspirin 81 mg daily indefinitely. --S/p Plavix load. Continue 75 mg daily for at least a year. --Continue atorvastatin. --Continue lisinopril 10 mg daily. --Historically not on BB therapy, f/u with drop forge hand DC today DC time 31 minutes Assessment [...] results. Assessment & Plan (06/25/2022 3:37 PM CARBON PASTE MIXER OPERATOR): Chronic, well controlled Update MA, GFR Assessment & Plan (12/14/2020 10:22 AM CDT): Goal blood pressure is less than 140/85 Low salt diet The importance of daily aerobic exercise was also emphasized. Continue current meds, including VIKY-I or ARB, e.g. Lisinopril Assessment & Plan (07/27/2020 10:03 AM CARBON PASTE MIXER OPERATOR): Goal blood pressure is less than 140/85 [...] Lisinopril Assessment & Plan (06/29/2019 3:21 PM CARBON PASTE MIXER OPERATOR): Goal blood pressure is less than 140/85 Low salt diet recommended Daily aerobic exercise Continue current meds, including VIKY-I or ARB Check microalbumin Assessment & Plan (04/02/2019 7:19 PM CARBON PASTE MIXER OPERATOR): --Anti-hypertensive medications per CAD. Assessment & Plan (02/23/2019 3:02 PM CDT): Goal blood pressure is less than 140/85 Low salt diet recommended Daily aerobic exercise Continue current meds, including VIKY-I or ARB Assessment & Plan (07/21/2018 3:01 PM CARBON PASTE MIXER OPERATOR): Goal blood pressure is less than 140/85 [...] before breakfast DM eye exam 2022 at [facility]; second request letter sent to get copy [...] before breakfast DM eye exam 2022 at [facility]; letter sent to get copy of exam. [...] infection. Assessment & Plan (06/25/2022 3:38 PM CARBON PASTE MIXER OPERATOR): Chronic , uncontrolled Continue working on diet and exercise Add Glimepiride 2 mg daily Continue Jardiance and Metformin Assessment & Plan (07/03/2021 4:13 PM CARBON PASTE MIXER OPERATOR): Hba1c was Lab Results Component Value Date [...] Metformin Assessment & Plan (07/27/2020 10:04 AM CARBON PASTE MIXER OPERATOR): Hba1c was Lab Results Component Value Date [...] Metformin Assessment & Plan (06/29/2019 3:21 PM CARBON PASTE MIXER OPERATOR): Hba1c was Lab Results Component Value Date HGBA1C 7.5 06/29/2019 today, indicating inadequate DM control 1800 calorie, consistent carb diet recommended, no more than 3-45 grams of carbs per meal, avoiding concentrated sweet drinks and rapid absorption carbs. 25-45 min daily aerobic and resistance exercise recommended Medications: Add Jardiance Assessment & Plan (04/02/2019 7:18 PM CARBON PASTE MIXER OPERATOR): Recent A1c's in the 6s. --Hold home [...] Invokana Assessment & Plan (07/21/2018 3:07 PM CARBON PASTE MIXER OPERATOR): Hba1c was Lab Results Component Value Date [...] 10/08/2022 Assessment & Plan (07/27/2020 10:04 AM CARBON PASTE MIXER OPERATOR): Check psa Pt needs to see PCP Name provided Assessment & Plan (02/04/2017 9:52 AM CDT): Check PSA Advised on having his prostate checked Encounters Date Type Department Care Team Description 06/08/2024 Orders Only [facility] Diabetes and Endocrinology [address] [place] [id number] Provider, MD Praveena from Last 3 Months Surgical History Surgery [...] on file Legal Sex Male 10:13 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 PASTE MIXER OPERATOR Gender Identity Not on file Sexual Orientation Not on file Obstetrics History Last Filed Vital Signs Vital Sign Reading Time Taken Comments Blood Pressure 152/84 03/01/2024 10:55 AM CDT Pulse 69 03/01/2024 10:55 AM CDT Temperature 36.9 C (98.4 F) 04/03/2019 11:50 AM CARBON PASTE MIXER OPERATOR Respiratory Rate 16 01/07/2024 9:06 AM CDT [...] C Screening 1960 Prostate Cancer Screening-PSA 1958 Hepatitis B Screening 1976 Pneumococcal vaccine 65+ (1 of 2 - PCV) 1977 Zoster Vaccine (1 of 2) 2008 Dilated Eye Exam 01/14/2020 01/13/2019, 01/04/2019 Fall Risk Assessment 06/25/2023 06/25/2022 Well Visit 65+ 12/16/2023 Covid-19 Vaccine (3 - 2023-2 5 season) 2024 03/23/2021, 01/22/2021 Hemoglobin A1C 07/09/2024 01/07/2024, 08/25, 06/25/2022, Additional history exists Depression Screening 09/15/2024 09/16/2023, 06/25/2022, 06/25/2022, Additional history exists Foot Exam 09/15/2024 09/16/2023, 11/24, 11/16/2019, Additional history exists Influenza Vaccine (Season Ended) 2025 Lipid Panel 05/05/2025 05/05/2024, 08/25, 11/11/2022, Additional history exists eGFR 05/05/2025 05/05/2024, 08/25, 06/25/2022 Albumin Creatinine Ratio, Urine 05/10/2025 05/10/2024, 09/16/2023, 06/25/2022, Additional history exists DTaP/Tdap/Td Vaccine (2 - Td or Tdap) 02/10/2031 02/10/2021 Medical Devices Implanted Type Area Burr Bench Hand Device Identifier Shelf Expiration Date Model / Serial / Lot Daig Hiram[employer] [id number] Angio-Seal Evolution 8fr .038in Guidewire Bypass Tube Suture - [id number] Implanted:Qty : 1 on 04/02/2019 by Salty Rosas MD PhD at [facility] Other - see comments N/A: Arterial [employer] 12/24/2019 [id number] / / [id number] Description:8F Angio-Seal Medtronic [employer] X [id number] Resolute [place] 4mm 2.1-2.7fr 12mm 140cm Rapid Exchange Radiopaque - [id number] Implanted:Qty : 1 on 04/02/2019 by Salty Rosas MD PhD at [facility] Stent N/A: Coronary Medtronic Inc 12/06/2020 [id number] / / [id number] Procedures Procedure Name Priority Date/Time Associated Diagnosis Comments ALBUMIN CREATININE RATIO, URINE Routine 05/10/2024 8:19 AM CARBON PASTE MIXER OPERATOR COMPREHENSIVE METABOLIC PANEL Routine 05/05/2024 9:45 AM CARBON PASTE MIXER OPERATOR LIPID PANEL Routine 05/05/2024 9:45 AM CARBON PASTE MIXER OPERATOR POCT HEMOGLOBIN A1C Routine 01/07/2024 9 :16 AM CDT Type 2 diabetes mellitus with hyperglycemia, without long-term current use of insulin (HCC) HM DIABETES EYE EXAM Routine 01/13/2019 from Last 3 Months or Most Recently Relevant to Health Maintenance Results * Albumin Creatinine Ratio, Urine (05/10/2024 8:19 AM CARBON PASTE MIXER OPERATOR) SCRIBED Creatinine, Urine 65.8 NA - NA EXTERNAL LAB SCRIBED Microalbumin <6.0 0 - 16.7 EXTERNAL LAB SCRIBED Microalb/Creat Ratio <9.1 0 - 30 EXTERNAL LAB Urine 05/10/2024 8:19 AM CARBON PASTE MIXER OPERATOR Historical Provider MD LAB URINE ORDERABLES Edit ed Result - Final EXTERNAL LAB * (ABNORMAL) Lipid panel (05/05/2024 9:45 AM CARBON PASTE MIXER OPERATOR) SCRIBED Cholesterol, Total 151 0 - 200 EXTERNAL LAB SCRIBED HDL 35 >35 - NA EXTERNAL LAB SCRIBED LDL 60 <130 - NA EXTERNAL LAB SCRIBED Triglycerides 256 <150 - NA EXTERNAL LAB Blood 05/05/2024 9:45 AM CARBON PASTE MIXER OPERATOR Historical Provider MD LAB BLOOD ORDERABLES Edit ed Result - Final EXTERNAL LAB * (ABNORMAL) Comprehensive metabolic panel (05/05/2024 9:45 AM CARBON PASTE MIXER OPERATOR) SCRIBED Sodium 137 137 - 145 mmol/L EXTERNAL LAB SCRIBED Potassium 4.4 3.4 - 5.0 mmol/L EXTERNAL LAB SCRIBED Chloride 106 98 - 107 mmol/L EXTERNAL LAB SCRIBED Carbon Dioxide 23 22 - 30 mmol/L EXTERNAL LAB SCRIBED Anion Gap 8 4 - 12 mmol/L EXTERNAL LAB SCRIBED Urea Nitrogen (BUN) 41(A) 9 - 20 mg/dl EXTERNAL LAB SCRIBED Creatinine 1.60(A) 0.7 - 1.3 mg/dl EXTERNAL LAB SCRIBED Glucose 169(A) 65 - 110 mg/dl EXTERNAL LAB SCRIBED Calcium 9.6 8.4 - 10.2 mg/dl EXTERNAL LAB SCRIBED Bilirubin 0.6 0.2 - 1.3 mg/dl EXTERNAL LAB SCRIBED Plasma Protein 8.0 6.3 - 8.2 g/dl EXTERNAL LAB SCRIBED Albumin 4.8 3.5 - 5.1 g/dl EXTERNAL LAB SCRIBED Alkaline Phosphatase 80 38 - 126 Units/L EXTERNAL LAB SCRIBED Alanine Transaminase (ALT) 28 6 - 50 Units/L EXTERNAL LAB SCRIBED Aspartate Transaminase (AST) 29 17 - 59 Units/L EXTERNAL LAB SCRIBED eGFR in NonAfrican [place] 44 >=60 - NA EXTERNAL LAB Blood 05/05/2024 9:45 AM CARBON PASTE MIXER OPERATOR Historical Provider LAB BLOOD ORDERABLES Edit ed Result - Final EXTERNAL LAB * (ABNORMAL) POCT hemoglobin A1c (01/07/2024 9:16 AM CDT) Hemoglobin A1C, POC 7.3 % Blood 01/07/2024 9:16 AM CDT Tessa Pham PLATE ROLLER POINT OF CARE TEST ORDERA BLES Final Result * DIABETES EYE EXAM (01/13/2019) Diabetic Eye Exam Unknown Historical Provider HEALTH MAINTENANCE Final Result from Last 3 Months or Most Recently Relevant to Health Maintenance Insurance MEDICARE MEDICARE Advance Directives For more information, please contact: [phone] * Full Code (Latest Code Status on File) Date Activated Date Inactivated Comments 04/02/2019 7:37 PM 04/03/2019 8:11 PM * Full Code Date Activated Date Inactivated Comments 04/02/2019 4:52 PM 04/02/2019 7:37 PM Care Teams Bushwalking Guide Relationship Specialty Start Date End Date Brian Vera MD [address] [facility] [address] [address] PCP - General Internal Medicine 05/10/22
--- OUTSIDE RECORDS SUMMARY | 2024-09-02 00:36 | XMS_ITS | Encounter Summary ---
Author Organization [facility] Medical [facility] Address [address] [facility] [address] [place] [address] Care Team Providers Care Warehouse Production Worker Name Role Phone Reuben Garcia MD Primary Care Provid er No, Physician Primary Care Provider [phone] Brian Vera MD Primary Care Provider [phone]- [phone] Encounter Details Date Type Department Care Team (Late st Contact Info) Description 08/28/2016 Orders Only [facility] ProviderPraveena MD [facility] [place] [address] Social History Tobacco Use Types Packs/Day Years Used Date Smoking Tobacco: Never Alcohol Use Standard Drinks/Week Comments No 0 (1 standard drink = 0.6 oz pur e alcohol) Sex and Gender Information Value Date Recorded Sex Assigned at Not on file 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
--- OUTSIDE RECORDS SUMMARY | 2024-09-02 00:36 | XMS_ITS | Encounter Summary ---
Author Organization [facility] Medical [facility] Address [address] [facility] [address] [place] [address] Care Team Providers Care Robotics Systems Engineer Name Role Phone Reuben Garcia MD Primary Care Provid er No, Physician Primary Care Provider [phone] Brian Vera MD Primary Care Provider [phone] Encounter Details Date Type Department Care Team (Late st Contact Info) Description 05/16/2015 Orders Only [facility] ProviderPraveena MD [address] [place] [address] Social History Tobacco Use Types Packs/Day Years Used Date Smoking Tobacco: Never Assessed Sex and Gender Information Value Date Recorded Sex Assigned at Not on file 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
--- OUTSIDE RECORDS SUMMARY | 2024-09-02 00:36 | XMS_ITS | Encounter Summary ---
Author Organization [facility] Medical [facility] Address [address] [facility] [address] [place] [address] Care Team Providers Care Cloth Cutter Name Role Phone Reuben Garcia MD Primary Care Provid er No, Physician Primary Care Provider [phone] Brian Vera MD Primary Care Provider [phone] Encounter Details Date Type Department Care Team (Late st Contact Info) Description 08/27/2016 Orders Only [facility] ProviderPraveena MD [address] [place] [address] Social History Tobacco Use Types Packs/Day Years Used Date Smoking Tobacco: Never Alcohol Use Standard Drinks/Week Comments No 0 (1 standard drink = 0.6 oz pur e alcohol) Sex and Gender Information Value Date Recorded Sex Assigned at Not on file 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
--- OUTSIDE RECORDS SUMMARY | 2024-09-02 00:36 | XMS_ITS | Referral Summary ---
Author Organization [address] [facility] [place] Address [address] [place] [address] Care Team Providers Care School Bus Monitor Name Role Phone Brian Vera MD Primary Care Provider [phone] Encounters Date Type Department Care Team Description 06/08/2024 Orders Only [facility] Diabetes and Endocrinology [address] [place] [id number] Provider, MD Praveena from Last 3 Months Allergies Active Allergy Reactions Criticality Noted Date Comments Semaglutide Dizziness Medium 06/25/2022 Medications blood-glucose meter (ONETOUCH ULTRA2) kit check glucose [...] 20 mg tabletIndicati ons: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 Take 1 tablet (20 mg total) by mouth daily 90 tablet 3 03/01/20 24 Active aspirin 81 mg enteric coated tabletIndicati ons: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 TAKE 1 TABLET BY MOUTH DAILY 90 tablet 3 03/26/20 24 Active amLODIPine (NORVASC) 10 mg tablet Take 1 tablet (10 mg total) by mouth daily 30 tablet 11 03/26/20 24 025 Active atorvastatin (LIPITOR) 40 mg tabletIndicati ons: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 TAKE 1 TABLET(40 MG) BY MOUTH DAILY 90 tablet 2 06/07/19 25 Active ezetimibe (ZETIA) 10 mg tabletIndicati ons:Hyperlipid emia associated with type 2 diabetes mellitus (HCC) TAKE 1 TABLET(10 MG) BY MOUTH DAILY 90 tablet 3 06/08/19 25 Active clopidogreL (PLAVIX) 75 mg tabletIndicati ons: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 Atorvastatin 40mg & Zetia 10mg. Last lipid panel: 11/11/22 LDL=53, TG=90. Assessment & Plan (09/16/2023 11:25 AM CDT): Chronic problem. Atorvastatin 40mg & Zetia 10mg. Last lipid panel: 11/11/22 LDL=53, TG=90. Will update labs today. Does not mychart. Verified phone #/address to contact re: results. Assessment & Plan (06/25/2022 3:36 PM GREENHOUSE FLORIST): Chronic, well controlled Low fat Low cholesterol diet Exercise Continue statin therapy with Atorvastatin and Zetia Update lipid profile Assessment & Plan (07/03/2021 4:14 PM GREENHOUSE FLORIST): Chronic, well controlled Continue current meds Assessment [...] Zetia Assessment & Plan (07/27/2020 10:03 AM GREENHOUSE FLORIST): Goal of treatment , LDL cholesterol less [...] Crestor Assessment & Plan (06/29/2019 3:21 PM GREENHOUSE FLORIST): Goal of treatment , LDL cholesterol less [...] therapy Assessment & Plan (04/02/2019 7:19 PM GREENHOUSE FLORIST): --Continue atorvastatin. Assessment & Plan (02/23/2019 4:09 [...] therapy Assessment & Plan (07/21/2018 3:00 PM GREENHOUSE FLORIST): Goal of treatment , LDL cholesterol less [...] statin therapy Coronary artery disease invo lving wainwright coronary artery of wainwright heart without angina pectoris 03/24/2017 Assessment & Plan (04/03/2019 11:57 AM GREENHOUSE FLORIST): S/p LM ostial PCI --Aspirin 81 mg daily indefinitely. --S/p Plavix load. Continue 75 mg daily for at least a year. --Continue atorvastatin. --Continue lisinopril 10 mg daily. --Historically not on BB therapy, f/u with singing teacher DC today DC time 31 minutes Assessment [...] results. Assessment & Plan (06/25/2022 3:37 PM GREENHOUSE FLORIST): Chronic, well controlled Update MA, GFR Assessment & Plan (12/14/2020 10:22 AM CDT): Goal blood pressure is less than 140/85 Low salt diet The importance of daily aerobic exercise was also emphasized. Continue current meds, including VIKY-I or ARB, e.g. Lisinopril Assessment & Plan (07/27/2020 10:03 AM GREENHOUSE FLORIST): Goal blood pressure is less than 140/85 [...] Lisinopril Assessment & Plan (06/29/2019 3:21 PM GREENHOUSE FLORIST): Goal blood pressure is less than 140/85 Low salt diet recommended Daily aerobic exercise Continue current meds, including VIKY-I or ARB Check microalbumin Assessment & Plan (04/02/2019 7:19 PM GREENHOUSE FLORIST): --Anti-hypertensive medications per CAD. Assessment & Plan (02/23/2019 3:02 PM CDT): Goal blood pressure is less than 140/85 Low salt diet recommended Daily aerobic exercise Continue current meds, including VIKY-I or ARB Assessment & Plan (07/21/2018 3:01 PM GREENHOUSE FLORIST): Goal blood pressure is less than 140/85 [...] before breakfast DM eye exam 2022 at [facility] in [place]; second request letter sent to get copy [...] breakfast DM eye exam 2022 at [facility]; letter sent to get copy [...] infection. Assessment & Plan (06/25/2022 3:38 PM GREENHOUSE FLORIST): Chronic , uncontrolled Continue working on diet and exercise Add Glimepiride 2 mg daily Continue Jardiance and Metformin Assessment & Plan (07/03/2021 4:13 PM GREENHOUSE FLORIST): Hba1c was Lab Results Component Value Date [...] Metformin Assessment & Plan (07/27/2020 10:04 AM GREENHOUSE FLORIST): Hba1c was Lab Results Component Value Date [...] Metformin Assessment & Plan (06/29/2019 3:21 PM GREENHOUSE FLORIST): Hba1c was Lab Results Component Value Date HGBA1C 7.5 06/29/2019 today, indicating inadequate DM control 1800 calorie, consistent carb diet recommended, no more than 3-45 grams of carbs per meal, avoiding concentrated sweet drinks and rapid absorption carbs. 25-45 min daily aerobic and resistance exercise recommended Medications: Add Jardiance Assessment & Plan (04/02/2019 7:18 PM GREENHOUSE FLORIST): Recent A1c's in the 6s. --Hold home [...] Invokana Assessment & Plan (07/21/2018 3:07 PM GREENHOUSE FLORIST): Hba1c was Lab Results Component Value Date [...] 10/08/2022 Assessment & Plan (07/27/2020 10:04 AM GREENHOUSE FLORIST): Check psa Pt needs to see PCP [...] on file Legal Sex Male 10:13 AM GRE[employer]HOUSE [employer]IST Gender Identity Not on file Sexual Orientation Not on file Last Filed Vital Signs Vital Sign Reading Time Taken Comments Blood Pressure 152/84 03/01/2024 10:55 AM CDT Pulse 69 03/01/2024 10:55 AM CDT Temperature 36.9 C (98.4 F) 04/03/2019 11:50 AM GRE[employer]HOUSE [employer]IST Respiratory Rate 16 01/07/2024 9:06 AM CDT Oxygen Saturation 96% 03/01/2024 10:55 AM CDT Inhaled Oxygen Concentration - - Weight 97.6 kg (215 lb 1.6 oz) 03/01/2024 10:55 AM CDT Height 175.3 cm (5' 9 ) 03/01/2024 10:55 AM CDT Body Mass Index 31.76 03/01/2024 10:55 AM CDT Plan of Treatment Not on file Medical Devices Implanted Type Area Agricultural Systems Specialist Device Identifier Shelf Expiration Date Model / Serial / Lot [employer]ig [employer] [id number] Angio-Seal Evolution 8fr .038in Guidewire Bypass Tube Suture - [id number] Implanted:Qty : 1 on 04/02/2019 by Salty Rosas MD PhD at [facility] Other - see comments N/A: Arterial [employer] 12/24/2019 [id number] / / [id number] Description:8F Angio-Seal [employer] X [id number] Resolute Olayinka 4mm 2.1-2.7fr 12mm 140cm Rapid Exchange Radiopaque - [id number] Implanted:Qty : 1 on 04/02/2019 by Salty Rosas MD PhD at [facility] Stent N/A: Coronary Med[employer] Inc 12/06/2020 [id number] / / [id number] Procedures Procedure Name Priority Date/Time Associated Diagnosis Comments ALBUMIN CREATININE RATIO, URINE Routine 05/10/2024 8:19 AM GREENHOUSE FL[employer]IST COMPREHENSIVE METABOLIC PANEL Routine 05/05/2024 9:45 AM GRE[employer]HOUSE [employer]IST LIPID PANEL Routine 05/05/2024 9:45 AM GREENHOUSE FLORIST POCT HEMOGLOBIN A1C Routine 01/07/2024 9 :16 AM CDT Type 2 diabetes mellitus with hyperglycemia, without long-term current use of insulin (HCC) HM DIABETES EYE EXAM Routine 01/13/2019 from Last 3 Months or Most Recently Relevant to Health Maintenance Results * Albumin Creatinine Ratio, Urine (05/10/2024 8:19 AM GREENHOUSE FLORIST) SCRIBED Creatinine, Urine 65.8 NA - NA EXTERNAL LAB SCRIBED Microalbumin <6.0 0 - 16.7 EXTERNAL LAB SCRIBED Microalb/Creat Ratio <9.1 0 - 30 EXTERNAL LAB Urine 05/10/2024 8:19 AM GRE[employer]HOUSE [employer]IST Historical Provider MD LAB URINE ORDERABLES Edit ed Result - Final Performing Organization Address City/[facility]/ZIP Co de Phone Number EXTERNAL LAB * (ABNORMAL) Lipid panel (05/05/2024 9:45 AM GREENHOUSE FLORIST) SCRIBED Cholesterol, Total 151 0 - 200 EXTERNAL LAB SCRIBED HDL 35 >35 - NA EXTERNAL LAB SCRIBED LDL 60 <130 - NA EXTERNAL LAB SCRIBED Triglycerides 256 <150 - NA EXTERNAL LAB Blood 05/05/2024 9:45 AM [employer]HOU[employer] Historical Provider MD LAB BLOOD ORDERABLES Edit ed Result - Final EXTERNAL LAB * (ABNORMAL) Comprehensive metabolic panel (05/05/2024 9:45 AM GREENHOUSE [employer]ORIST) SCRIBED Sodium 137 137 - 145 mmol/L [...] Units/L EXTERNAL LAB SCRIBED eGFR in NonAfrican Fijian 44 >=60 - NA EXTERNAL LAB Blood 05/05/2024 9:45 AM GREENHOUSE [employer]ORIST Historical Provider LAB BLOOD ORDERABLES Edit ed Result - Final EXTERNAL LAB * (ABNORMAL) POCT hemoglobin A1c (01/07/2024 9:16 AM CDT) Hemoglobin A1C, POC 7.3 % Blood 01/07/2024 9:16 AM CDT Tessa Pham LENS CLEANER POINT OF CARE TEST ORDERA BLES Final Result * DIABETES EYE EXAM (01/13/2019) Diabetic Eye Exam Unknown Historical Provider HEALTH MAINTENANCE Final Result from Last 3 Months or Most Recently Relevant to Health Maintenance Insurance MEDICARE MEDICARE Advance Directives For more information, please contact: [phone] * Full Code (Latest Code Status on File) Date Activated Date Inactivated Comments 04/02/2019 7:37 PM 04/03/2019 8:11 PM * Full Code Date Activated Date Inactivated Comments 04/02/2019 4:52 PM 04/02/2019 7:37 PM Care Teams School Bus Monitor Relationship Specialty Start Date End Date Brian Vera MD [address] [place] [address] PCP - General Internal Medicine 05/10/22
[2024-09-02 07:08] LABS: Glucose Point of Care 160 mg/dl (65-105)
[2024-09-02 07:09] VITALS: BP 127/65; PULSE 60; RESP 18; TEMP 36.2; O2SAT 98
[2024-09-02] MEDS: LACTATED RINGERS 1,000 ML 150 ML IV CONT (07:22)
--- NOTE | 2024-09-02 07:36 | P.PNAN_ITS ---
Anes - Initial Pre Proc Eval Procedure: Operation Date: 09/02/24 08:30 Proposed Procedures p Screening Colonoscopy - Mic Johnson MD Date/Time: 09/02/24 07:36 Surgeon: Mic Johnson MD Pre Op Diagnosis: screening colon Patient Data Age: 63 Gender: M Height: 1.85 m Weight: 98.7 kg Last Vital Signs Temp 97.2 F L 09/02/24 07:09 Pulse 60 09/02/24 07:09 Resp 18 09/02/24 07:09 BP 127/65 09/02/24 07:09 Pulse Ox 98 09/02/24 07:09 O2 Del Method Room Air 09/02/24 07:09 Allergies Allergy/AdvReac Type Severity Reaction Status Date / Time No Known Allergies Allergy Verified 09/02/24 07:08 Home Medications ?Medication ?Instructions ?Recorded ?Confirmed ?Type aspirin 81 mg tablet,delayed 81 mg PO DAILY 01/21/22 09/02/24 History release (Adult Low Dose Aspirin) atorvastatin 40 mg tablet 40 mg PO DAILY 01/21/22 09/02/24 History clopidogrel 75 mg tablet 75 mg PO DAILY 01/21/22 09/02/24 History empagliflozin 25 mg tablet 25 mg PO DAILY 01/21/22 09/02/24 History (Jardiance) metformin 500 mg tablet 500 mg PO BID 01/21/22 09/02/24 History amlodipine 10 mg tablet 10 mg PO DAILY 05/03/24 09/02/24 History glimepiride 2 mg tablet 2 mg PO QAM 05/03/24 09/02/24 History lisinopril 20 mg tablet 20 mg PO DAILY 05/03/24 09/02/24 History ondansetron 4 mg disintegrating 4 mg PO Q8H 05/03/24 08/23/24 History tablet Laboratory Tests 09/02/24 07:05 POC Capillary Glucose 160 H mg/dl (65-105) Patient hx anesthesia problems: none Family hx anesthesia problems: none Results Review: All pre-operative results and documents have been reviewed as part of the pre- operative evaluation. [facility] Past Medical History Medical History Heart disease Hyperlipidemia Diabetes mellitus Hypertension Surgical History Surgical History History of coronary artery stent placement H/O cardiac catheterization Social History Social History Smoking status: Never smoker Alcohol intake: former Substance use: never Substance use type: does not use Living arrangements: with family Spiritual care concerns: No Agree to blood products: Yes Anes - Eval Final PreProcedure Day of Procedure 09/02/24 07:36 Patient weight: normal Heart: regular rate and rhythm Lungs: clear to auscultation Airway: Mallampati scale class II Neurological: alert and oriented Last oral intake: >/= 8 hours ASA classification: III Emergent: no Anesthetic plan: proceed Anesthesia type and monitoring: general GIVS and standard monitoring Results Review: All pre-operative results and documents have been reviewed as part of the pre- operative evaluation. Informed Consent: The patient's anesthetic plan and its attendant risks and benefits were discussed with the patient/family/POA. Questions were solicited and answers provided to the satisfaction of the patient/family/POA.
--- NOTE | 2024-09-02 08:06 | P.HP_ITS ---
H&P: HPI History of Present Illness Date/Time: 09/02/24 08:06 Chief Complaint: Screening colonoscopy Narrative: This is the patient's first colonoscopy. There are no GI symptoms and there is no family history of colorectal cancer. Review of Systems Review of Systems: All systems reviewed & are unremarkable except as noted in HPI and below PMFSH Past Medical History Medical History Heart disease Hyperlipidemia Diabetes mellitus Hypertension Surgical History Surgical History History of coronary artery stent placement H/O cardiac catheterization Social History Social History Smoking status: Never smoker Alcohol intake: former Substance use: never Substance use type: does not use Living arrangements: with family Spiritual care concerns: No Agree to blood products: Yes Meds Home Medications and Allergies Home Medications ?Medication ?Instructions ?Recorded ?Confirmed ?Type aspirin 81 mg tablet,delayed 81 mg PO DAILY 01/21/22 09/02/24 History release (Adult Low Dose Aspirin) atorvastatin 40 mg tablet 40 mg PO DAILY 01/21/22 09/02/24 History clopidogrel 75 mg tablet 75 mg PO DAILY 01/21/22 09/02/24 History empagliflozin 25 mg tablet 25 mg PO DAILY 01/21/22 09/02/24 History (Jardiance) metformin 500 mg tablet 500 mg PO BID 01/21/22 09/02/24 History amlodipine 10 mg tablet 10 mg PO DAILY 05/03/24 09/02/24 History glimepiride 2 mg tablet 2 mg PO QAM 05/03/24 09/02/24 History lisinopril 20 mg tablet 20 mg PO DAILY 05/03/24 09/02/24 History ondansetron 4 mg disintegrating 4 mg PO Q8H 05/03/24 08/23/24 History tablet Allergies Allergy/AdvReac Type Severity Reaction Status Date / Time No Known Allergies Allergy Verified 09/02/24 07:08 Vital Signs Vital Signs - 24 hr 09/02/24 07:09 Temperature 97.2 F L Pulse Rate 60 Respiratory Rate 18 Blood Pressure 127/65 Pulse Oximetry 98 Oxygen Delivery Room Air Exam 2 Const: General: cooperative and healthy appearing Resp: Effort & Inspection: normal respiratory effort and able to speak in complete sentences Auscultation: clear to auscultation bilaterally Cardio: Rate: regular rate Rhythm: regular rhythm GI: Inspection: normal to inspection GI Palp: No No hepatosplenomegaly present Auscultation: normal bowel sounds Rectal Exam: deferred Skin: General skin exam: normal color Psych: Appearance: grossly normal Mental Status: mental status grossly normal Assessment and Plan Assessment and plan (1) Colon cancer screening: Code(s): Z12.11 - Encounter for screening for malignant neoplasm of colon Status: Acute Assessment and Plan: The patient is deemed a good candidate for the procedure. Consent signed. Will proceed.
[2024-09-02 08:42] VITALS: BP 127/80; PULSE 61; RESP 21; O2SAT 98
[2024-09-02 08:52] VITALS: BP 132/85; PULSE 60; RESP 19; O2SAT 98
[2024-09-02 09:02] VITALS: BP 133/76; PULSE 61; RESP 25; O2SAT 99
--- NOTE | 2024-09-02 11:45 | SUR.PHASEII ---
Okay to restart plavix today per Dr. Johnson verbal order.
== END 2024-09-02 09:06 | disposition home or self-care (01) ==
PROVIDERS: PCP Nurse Practitioner Family; Referring Provider Nurse Practitioner Family; Visit Provider Internal Medicine Gastroenterology
PROC: 0DJD8ZZ Inspection of Lower Intestinal Tract, Via Natural or Artificial Opening Endoscopic (ICD-10-PCS; CPT 45378; principal; 2024-09-02 08:30)
DX: Z12.11 Encounter for screening for malignant neoplasm of colon (principal); D12.2 Benign neoplasm of ascending colon; D12.3 Benign neoplasm of transverse colon; K64.8 Other hemorrhoids; E78.5 Hyperlipidemia, unspecified; E11.9 Type 2 diabetes mellitus without complications; I11.9 Hypertensive heart disease without heart failure; Z79.82 Long term (current) use of aspirin; Z79.02 Long term (current) use of antithrombotics/antiplatelets; Z79.84 Long term (current) use of oral hypoglycemic drugs; Z98.890 Other specified postprocedural states; Z95.5 Presence of coronary angioplasty implant and graft
CPT/HCPCS: 45385; 82948; 88305; J2003; J2704; J7120

== ENCOUNTER 2024-11-08 12:10 | Outpatient (CLI) | payer MEDICARE, SELFPAY ==
[2024-11-08 12:28] LABS: Basophils Percent Auto 0.7 % (0.2-1.2); Eosinophils Absolute Auto 0.1 K/mm3 (0-0.3); Eosinophils Percent Auto 1.6 % (0-4.4); Hematocrit 40.4 % (42.0-52.0); Hemoglobin 13.6 g/dL (14.0-18.0); Immature Granulocyte Absolute 0.01 K/mm3 (0.00-0.031); Immature Granulocyte Percent A 0.2 % (0-0.5); Lymphocytes Absolute Auto 1.79 K/mm3 (0.9-3.2); Lymphocytes Percent Auto 32.4 % (18.3-44.2); Mean Corpuscular HGB Conc 33.7 g/dl (32-36); Mean Corpuscular Hemoglobin 29.5 pg (26-34); Mean Corpuscular Volume 87.6 fl (80-100); Mean Platelet Volume 10.1 fl (7.4-10.4); Monocytes Absolute Auto 0.5 K/mm3 (0.1-0.6); Monocytes Percent Auto 8.7 % (2.6-8.5); Neutrophils Absolute Auto 3.1 K/mm3 (1.3-6.7); Neutrophils Percent Auto 56.4 % (45.5-73.1); Platelet Count Result 243 k/mm3 (150-375); Red Blood Count 4.61 M/mm3 (4.6-6.20); Red Cell Distribution Width 12.8 % (11.5-14.5); White Blood Count 5.5 K/mm3 (4.5-10.0)
[2024-11-08 12:39] LABS: Alanine Aminotransferase 28 U/L (6-50); Alkaline Phosphatase 76 U/L (38-126); Anion Gap 12 mmol/L (4-12); Aspartate Amino Transferase 30 U/L (17-59); Bilirubin,Total 0.7 mg/dL (0.2-1.3); Blood Urea Nitrogen 30 mg/dL (9-20); Calcium 9.5 mg/dL (8.4-10.2); Carbon Dioxide 24 mmol/L (22-30); Chloride 102 mmol/L (98-107); Estimated Glomerular Filt Rate 47; Glucose 247 mg/dL (65-110); Iron 131 ug/dL (49-181); Potassium 4.1 mmol/L (3.4-5.0); Sodium 138 mmol/L (137-145); Total Protein 8.2 g/dL (6.3-8.2)
[2024-11-08 12:51] LABS: Percent Iron Saturation 37 % (20-50)
--- OUTSIDE RECORDS SUMMARY | 2024-11-08 13:11 | XMS_ITS | Clinical Summary ---
Author Organization [facility] [address] [place] Address [address] [place] [address] Care Team Providers Care Plow Shaker Name Role Phone Philly Dick NP Primary Care Provider [phone] Allergies Active Allergy Reactions Criticality Noted Date Comments Semaglutide Dizziness Medium 06/25/2022 Medications blood-glucose meter ([employer] ULTRA2) kit check glucose once a day 1 kit 0 4 Active lisinopriL (PRINIVIL,ZESTR IL) 20 mg tabletIndicatio ns:Coronary artery disease involving cow [place] coronary artery of [place] heart without angina pectoris Take 1 tablet (20 mg total) by mouth daily 90 tablet 3 4 Active aspirin 81 mg enteric coated tabletIndicatio ns:Coronary artery disease involving [place] coronary artery of [place] heart without angina pectoris TAKE 1 TABLET BY MOUTH DAILY 90 tablet 3 4 Active amLODIPine (NORVASC) 10 mg tablet Take 1 tablet (10 mg total) by mouth daily 30 tablet 11 4 03/26/20 25 Active atorvastatin (LIPITOR) 40 mg tabletIndicatio ns:Coronary artery disease involving [place] coronary artery of [place] heart without angina pectoris TAKE 1 TABLET(40 MG) BY MOUTH DAILY 90 tablet 2 5 Active ezetimibe (ZETIA) 10 mg tabletIndicatio ns:Hyperlipidem ia associated with type 2 diabetes mellitus (HCC) TAKE 1 TABLET(10 MG) BY MOUTH DAILY 90 tablet 3 5 Active clopidogreL (PLAVIX) 75 mg tabletIndicatio ns:Coronary artery disease involving [place] coronary artery of [place] heart without angina pectoris TAKE 1 TABLET(75 MG) BY MOUTH DAILY 90 tablet 5 Active empagliflozin (Jardiance) 25 mg tabletIndicatio ns:type 2 diabetes mellitus Take 1 tablet (25 mg total) by mouth daily 90 tablet 3 5 09/07/19 26 Active metFORMIN (GLUCOPHAGE) 850 mg tabletIndicatio ns:Type 2 diabetes mellitus with hyperglycemia, without long-term current use of insulin (HCC) Take 1 tablet (850 mg total) by mouth 2 (two) times a day with meals 180 tablet 3 5 Active glimepiride (AMARYL) 2 mg tabletIndicatio ns:Type 2 diabetes mellitus with hyperglycemia, without long-term current use of insulin (HCC) Take 1 tablet (2 mg total) by mouth daily before breakfast 90 tablet 3 5 09/07/19 26 Active Active Problems Problem Noted Date Diagnosed Date Hyperlipidemia associated with type 2 diabetes sultana castaneda 07/21/2018 Assessment & Plan (09/06/2024 1:54 PM CDT): Chronic problem. Atorvastatin 40mg & Zetia 10mg. Last lipid panel: 05/05/24 LDL=60, GZ=756 Assessment & Plan (01/07/2024 9:30 AM CDT): Chronic problem. Atorvastatin 40mg & Zetia 10mg. Last lipid panel: 11/11/22 LDL=53, TG=90. Assessment & Plan (09/16/2023 11:25 AM CDT): Chronic problem. Atorvastatin 40mg & Zetia 10mg. Last lipid panel: 11/11/22 LDL=53, TG=90. Will update labs today. Does not mychart. Verified phone #/address to contact re: results. Assessment & Plan (06/25/2022 3:36 PM WEB PAGE DEVELOPER): Chronic, well controlled Low fat Low cholesterol diet Exercise Continue statin therapy with Atorvastatin and Zetia Update lipid profile Assessment & Plan (07/03/2021 4:14 PM WEB PAGE DEVELOPER): Chronic, well controlled Continue current meds Assessment [...] Zetia Assessment & Plan (07/27/2020 10:03 AM WEB PAGE DEVELOPER): Goal of treatment , LDL cholesterol less [...] Crestor Assessment & Plan (06/29/2019 3:21 PM WEB PAGE DEVELOPER): Goal of treatment , LDL cholesterol less [...] therapy Assessment & Plan (04/02/2019 7:19 PM WEB PAGE DEVELOPER): --Continue atorvastatin. Assessment & Plan (02/23/2019 4:09 [...] therapy Assessment & Plan (07/21/2018 3:00 PM WEB PAGE DEVELOPER): Goal of treatment , LDL cholesterol less [...] statin therapy Coronary artery disease invo lving cow [place] coronary artery of [place] heart without angina pectoris 03/24/2017 Assessment & Plan (04/03/2019 11:57 AM WEB PAGE DEVELOPER): S/p LM ostial PCI --Aspirin 81 mg daily indefinitely. --S/p Plavix load. Continue 75 mg daily for at least a year. --Continue atorvastatin. --Continue lisinopril 10 mg daily. --Historically not on BB therapy, f/u with flare stitcher DC today DC time 31 minutes Assessment [...] associated with diabetes 02/04/2017 Assessment & Plan (09/06/2024 1:54 PM CDT): Chronic problem. Controlled on current lisinopril 20mg daily, amlodipine 10mg daily Assessment & Plan (01/07/2024 9:30 AM CDT): Chronic problem. Controlled on current lisinopril 10mg daily. Assessment & Plan (09/16/2023 11:25 AM CDT): Chronic problem. Controlled on current lisinopril 10mg daily. Will update labs today. Does not mychart. Verified phone #/address to contact re: results. Assessment & Plan (06/25/2022 3:37 PM WEB PAGE DEVELOPER): Chronic, well controlled Update MA, GFR Assessment & Plan (12/14/2020 10:22 AM CDT): Goal blood pressure is less than 140/85 Low salt diet The importance of daily aerobic exercise was also emphasized. Continue current meds, including VIKY-I or ARB, e.g. Lisinopril Assessment & Plan (07/27/2020 10:03 AM WEB PAGE DEVELOPER): Goal blood pressure is less than 140/85 [...] Lisinopril Assessment & Plan (06/29/2019 3:21 PM WEB PAGE DEVELOPER): Goal blood pressure is less than 140/85 Low salt diet recommended Daily aerobic exercise Continue current meds, including VIKY-I or ARB Check microalbumin Assessment & Plan (04/02/2019 7:19 PM WEB PAGE DEVELOPER): --Anti-hypertensive medications per CAD. Assessment & Plan (02/23/2019 3:02 PM CDT): Goal blood pressure is less than 140/85 Low salt diet recommended Daily aerobic exercise Continue current meds, including VIKY-I or ARB Assessment & Plan (07/21/2018 3:01 PM WEB PAGE DEVELOPER): Goal blood pressure is less than 140/85 [...] DMII WO CMP UNCNTRLD Assessment & Plan (09/06/2024 2:14 PM CDT): Chronic problem. A1c worsened from 7.3% 01/07/24 to now 7.6%. reviewed that goal is less than 7.0%. was dx'd with Alpha Gal 04/2024. Has changed diet greatly. Has cut back on carbs. A1c improved from 8.0% (at PCP) to now 7.6% since 04/2024. Current medications: Metformin 850mg twice daily with meals Jardiance 25mg daily Glimepiride 2mg before breakfa DM eye exam 2022 at [facility]; second request letter sent [...] skin breakdown and infection. Assessment & Plan (01/07/2024 9:58 AM CDT): Chronic problem. A1c stable at 7.3%. reviewed that goal is less than 7.0%. he's been working on diet & exercise. Current medications: Metformin 850mg Jardiance 25mg daily Glimepiride 2mg before breakfast DM eye exam 2022 at [facility]; second request letter sent [...] before breakfast DM eye exam 2022 at [facility]; letter sent to get [...] infection. Assessment & Plan (06/25/2022 3:38 PM WEB PAGE DEVELOPER): Chronic , uncontrolled Continue working on diet and exercise Add Glimepiride 2 mg daily Continue Jardiance and Metformin Assessment & Plan (07/03/2021 4:13 PM WEB PAGE DEVELOPER): Hba1c was Lab Results Component Value Date [...] Metformin Assessment & Plan (07/27/2020 10:04 AM WEB PAGE DEVELOPER): Hba1c was Lab Results Component Value Date [...] Metformin Assessment & Plan (06/29/2019 3:21 PM WEB PAGE DEVELOPER): Hba1c was Lab Results Component Value Date HGBA1C 7.5 06/29/2019 today, indicating inadequate DM control 1800 calorie, consistent carb diet recommended, no more than 3-45 grams of carbs per meal, avoiding concentrated sweet drinks and rapid absorption carbs. 25-45 min daily aerobic and resistance exercise recommended Medications: Add Jardiance Assessment & Plan (04/02/2019 7:18 PM WEB PAGE DEVELOPER): Recent A1c's in the 6s. --Hold home [...] Invokana Assessment & Plan (07/21/2018 3:07 PM WEB PAGE DEVELOPER): Hba1c was Lab Results Component Value Date [...] Date Resolved Date BMI 31.0-31.9,adult 04/12/2019 09/18/19 Abnormal stress test 03/08/2019 020 Dysuria 02/04/2017 10/08/2022 Assessment & Plan (07/27/2020 10:04 AM WEB PAGE DEVELOPER): Check psa Pt needs to see PCP Name provided Assessment & Plan (02/04/2017 9:52 AM CDT): Check PSA Advised on having his prostate checked Encounters Date Type Department Care Team Description 11/03/2024 11:15 AM CDT Lab [facility] at [address] [address] Allergy to alpha-gal 11/03/2024 9:00 AM CDT Office Visit [facility] [address] [place] [address] Medical Office Building [address] [place] [address] Cherry Solorio MD PhD Allergic rhinitis due to other allergic trigger, unspecified seasonality (Primary Dx); Allergy to alpha-gal 09/10/2024 Orders Only [facility] [address] [place] [phone] ProviderPraveena MD 09/06/2024 1:30 PM CDT Office Visit [facility] [address] [place] [phone] Tessa Pham NP Type 2 diabetes mellitus with hyperglycemia, without long-term current use of insulin (HCC) (Primary Dx); Hypertension associated with diabetes (HCC); Hyperlipidemia associated with type 2 diabetes mellitus (HCC) from Last 3 Months Surgical History Surgery [...] drink = 0.6 oz pur e alcohol) AUDIT-C Answer Date Recorded Q1: How often do you have a drink containing alcohol? Never 11/03/2024 Q2: How many drinks containi ng alcohol do you have on a typical day when you are drinking? Patient does not drink Q3: How often do you have si x or more drinks on one occasion? Never 11/03/2024 PHQ-2 Answer Date Recorded PHQ-2 Total Score (If total score is 3 or more points, staff should administer the PHQ-9) 0 09/16/2023 Sex and Gender Information Value Date Recorded Sex Assigned at Not on file Legal Sex Male 10:13 AM WEB PAGE DEVELOPER Gender Identity Not on file Sexual Orientation Not on file Obstetrics History Last Filed Vital Signs Vital Sign Reading Time Taken Comments Blood Pressure 137/80 11/03/2024 9:07 AM CDT Pulse 69 11/03/2024 9:07 AM CDT Temperature 36.9 C (98.4 F) 11/03/2024 9:07 AM CDT Respiratory Rate 18 11/03/2024 9:07 AM CDT Oxygen Saturation 100% 11/03/2024 9:07 AM CDT Inhaled Oxygen Concentration - - Weight 99.9 kg (220 lb 4.8 oz) 11/03/2024 9:07 A M CDT Height 179 cm (5' 10.47) 11/03/2024 9:07 AM CDT Body Mass Index 31.19 11/03/2024 9:07 AM CDT Plan of Treatment Health Maintenance Due Date Last Done Comments Colon Cancer Screening-Colonoscopy 1960 Hepatitis C Screening 1960 Prostate Cancer Screening-PSA 1958 Hepatitis B Screening 1976 Pneumococcal vaccine 65+ (1 of 2 - PCV) 1977 Zoster Vaccine (1 of 2) 2008 Fall Risk Assessment 06/25/2023 06/25/2022 Well Visit 65+ 12/16/2023 Covid-19 Vaccine (3 - 2023-2 5 season) 2024 03/23/2021, 01/22/2021 Depression Screening 09/15/2024 09/16/2023, 06/25/2022, 06/25/2022, Additional history exists Influenza Vaccine (Season Ended) 2025 Dilated Eye Exam 01/29/2025 01/30/2024, , 01/04/2019 Hemoglobin A1C 03/08/2025 09/06/2024, 12/24, 09/16/2023, Additional history exists Lipid Panel 05/05/2025 05/05/2024, 08/25, 11/11/2022, Additional history exists eGFR 05/05/2025 05/05/2024, 08/25, 06/25/2022 Albumin Creatinine Ratio, Urine 05/10/2025 05/10/2024, 09/16/2023, 06/25/2022, Additional history exists Foot Exam 09/06/2025 09/06/2024, 08/25, 12/14/2020, Additional history exists DTaP/Tdap/Td Vaccine (2 - Td or Tdap) 02/10/2031 02/10/2021 Medical Devices Implanted Type Area Carrot Tier Device Identifier Shelf Expiration Date Model / Serial / Lot Daig Hiram[employer] [id number] Angio-Seal Evolution 8fr .038in Guidewire Bypass Tube Suture - [id number] Implanted:Qty : 1 on 04/02/2019 by Salty Rosas MD PhD at [facility] Other - see comments N/A: Arterial [employer] 12/24/2019 [id number] / / [id number] Description:8F Angio-Seal Medtronic [employer] X [id number] Resolute [place] 4mm 2.1-2.7fr 12mm 140cm Rapid Exchange Radiopaque - [id number] Implanted:Qty : 1 on 04/02/2019 by Salty Rosas MD PhD at [facility] Stent N/A: Coronary Medtronic Inc 12/06/2020 [id number] / / [id number] Procedures Procedure Name Priority Date/Time Associated Diagnosis Comments ALLERGEN ALPHA-GAL (FOOD) IGE Routine 11/03/2024 10:00 AM CDT Allergy to alpha-gal IGE Routine 11/03/2024 10:00 AM CDT Allergy to alpha-gal ALLERGEN BIRCH COMMON SILVER (TREE) IGE Routine 11/03/2024 10:00 AM CDT Allergy to alpha-gal ALLERGEN ELM (TREE) IGE Routine 11/04/19 10:00 AM CDT Allergy to alpha-gal ALLERGEN MAPLE/BOX ELDER (TREE) IGE Routine 11/03/2024 10:00 AM CDT Allergy to alpha-gal ALLERGEN MOUNTAIN JUNIPER (TREE) IGE Routine 11/03/2024 10:00 AM CDT Allergy to alpha-gal ALLERGEN MULBERRY (TREE) IGE Routine 11/03/2024 10:00 AM CDT Allergy to alpha-gal ALLERGEN OAK RED (TREE) IGE Routine 11/03/2024 10:00 AM CDT Allergy to alpha-gal ALLERGEN SYCAMORE GRENADIAN (TREE) IGE Routine 11/03/2024 10:00 AM CDT Allergy to alpha-gal ALLERGEN WALNUT (TREE) IGE Routine 11/03/2024 10:00 AM CDT Allergy to alpha-gal ALLERGEN BERMUDA GRASS (GRASS) IGE Routine 11/03/2024 10:00 AM CDT Allergy to alpha-gal ALLERGEN JIM GRASS (GRASS) IGE Routine 11/03/2024 10:00 AM CDT Allergy to alpha-gal ALLERGEN IGNACIO GRASS (GRASS) IGE Routine 11/03/2024 10:00 AM CDT Allergy to alpha-gal ALLERGEN PLANTAIN CITIZEN [place] (WEED) IGE Routine 11/03/2024 10:00 AM CDT Allergy to alpha-gal ALLERGEN MCCAULEY'S QUARTER (WEED) IGE Routine 11/03/2024 10:00 AM CDT Allergy to alpha-gal ALLERGEN PIGWEED ROUGH (WEED) IGE Routine 11/03/2024 10:00 AM CDT Allergy to alpha-gal ALLERGEN RAGWEED SHORT/COMMON (WEED) IGE Routine 11/03/2024 10:00 AM CDT Allergy to alpha-gal ALLERGEN NETTLE (WEED) IGE Routine 11/03/2024 10:00 AM CDT Allergy to alpha-gal ALLERGEN ALTERNARIA TENUIS (MOLD) IGE Routine 11/03/2024 10:00 AM CDT Allergy to alpha-gal ALLERGEN ASPERGILLUS FUMIGATUS (MOLD) IGE Routine 11/03/2024 10:00 AM CDT Allergy to alpha-gal ALLERGEN CLADOSPORIUM HERBARUM (MOLD) IGE Routine 11/03/2024 10:00 AM CDT Allergy to alpha-gal ALLERGEN PENICILLIUM CHRYSOGENUM (MOLD) IGE Routine 11/03/2024 10:00 AM CDT Allergy to alpha-gal ALLERGEN EPITHELIA/DANDER CAT (ANIMAL) IGE Routine 11/03/2024 10:00 AM CDT Allergy to alpha-gal ALLERGEN COCKROACH GRENADIAN (INSECT) IGE Routine 11/03/2024 10:00 AM CDT Allergy to alpha-gal ALLERGEN DERMATOPHAGOIDES FARINAE (INSECT) IGE Routine 11/03/2024 10:00 AM CDT Allergy to alpha-gal ALLERGEN DERMATOPHAGOIDES PTERONYSSINUS (INSECT) IGE Routine 11/03/2024 10:00 AM CDT Allergy to alpha-gal ALLERGEN EPITHELIA/DANDER DOG (ANIMAL) IGE Routine 11/03/2024 10:00 AM CDT Allergy to alpha-gal ALLERGEN MOUSE MIX (ANIMAL) IGE Routine 11/03/2024 10:00 AM CDT Allergy to alpha-gal ALLERGEN RAT MIX (ANIMAL) IGE Routine 11/03/2024 10:00 AM CDT Allergy to alpha-gal POCT GLUCOSE Routine 09/06/2024 1:39 PM CDT Type 2 diabetes mellitus with hyperglycemia, without long-term current use of insulin (HCC) POCT HEMOGLOBIN A1C Routine 09/06/2024 1 :39 PM CDT Type 2 diabetes mellitus with hyperglycemia, without long-term current use of insulin (HCC) ALBUMIN CREATININE RATIO, URINE Routine 05/10/2024 8:19 AM WEB PAGE DEVELOPER COMPREHENSIVE METABOLIC PANEL Routine 05/05/2024 9:45 AM WEB PAGE DEVELOPER LIPID PANEL Routine 05/05/2024 9:45 AM WEB PAGE DEVELOPER HM DIABETES EYE EXAM Routine 01/30/2024 7:23 AM CDT from Last 3 Months or Most Recently Relevant to Health Maintenance Results * (ABNORMAL) Allergen Alpha-gal (food) IgE (11/03/2024 10:00 AM CDT) Pathologist [facility] Alpha-gal IgE 0.72(H) 0.00 - 0.34 kUnits/L Comment:Testing performed by : [facility], [address] [facility] [place]., [address] Blood 11/03/2024 10:0 0 AM CDT 11/03/2024 1:17 PM CDT us Eden Juárez MD LAB BLOOD ORDERABLES Rox fu Result [facility] [address] [facility]. [place] [place] [address] * Allergen Rat mix (animal) IgE (11/03/2024 10:00 AM CDT) Rat mix IgE <0.10 0.00 - 0.34 kUnits/L Comment:Testing performed by : [facility], [address] [place] [address]., [id number] Blood 11/03/2024 10:0 0 AM CDT 11/03/2024 1:17 PM CDT Eden Juárez MD LAB BLOOD ORDERABLES Rox l Result Performing Organization Address [facility] Co de Phone Number [facility] [address] [facility] [place] [address] * Allergen Mouse mix (animal) IgE (11/03/2024 10:00 AM CDT) Mouse mix IgE <0.10 0.00 - 0.34 kUnits/L Comment:Testing performed by : [facility], [address] [place] [address]., [id number] Blood 11/03/2024 10:0 0 AM CDT 11/03/2024 1:17 PM CDT Eden Juárez MD LAB BLOOD ORDERABLES Rox l Result Performing Organization Address [facility] de Phone Number [facility] [address] [facility] [place] [address] * Allergen Penicillium chrysogenum (mold) IgE (11/03/2024 10:00 AM CDT) Penicillium chrysogenum IgE <0.10 0.00 - 0.34 kUnits/L Comment:Testing performed by : [facility], [address] [place] [address]., [id number] Blood 11/03/2024 10:0 0 AM CDT 11/03/2024 1:17 PM CDT Eden Juárez MD LAB BLOOD ORDERABLES Rox l Result Performing Organization Address City/[facility]/ZIP Co de Phone Number [facility] [address] [facility] [place] [place] [address] * Allergen Norwalk (tree) IgE (11/03/2024 10:00 AM CDT) [place]walk IgE <0.10 0.00 - 0.34 kUnits/L Comment:Testing performed by : [facility], [address] [place] [address]., [id number] Blood 11/03/2024 10:0 0 AM CDT 11/03/2024 1:17 PM CDT us Eden Juárez MD LAB BLOOD ORDERABLES Rox l Result Performing Organization Address [facility] Co de Phone Number [facility] [address] [employer]. [place] [address] * Allergen Mountain juniper (tree) IgE (11/03/2024 10:00 AM CDT) Mountain juniper IgE 0.19 0.00 - 0.34 kUnits/L Comment:Testing performed by : [facility], [address] [place] [address]., [id number] Blood 11/03/2024 10:0 0 AM CDT 11/03/2024 1:17 PM CDT us Eden Juárez MD LAB BLOOD ORDERABLES Rox l Result Performing Organization Address City/[facility] Co de Phone Number [facility] [address] [facility] [place] [address] * Allergen Bermuda grass (grass) IgE (11/03/2024 10:00 AM CDT) Bermuda grass IgE <0.10 0.00 - 0.34 kUnits/L Comment:Testing performed by : [facility], [address] [place] [address]., [id number] Blood 11/03/2024 10:0 0 AM CDT 11/03/2024 1:17 PM CDT Eden Juárez MD LAB BLOOD ORDERABLES Rox l Result [facility] [address] [facility] [place] [address] * Allergen Plantain moroccan (weed) IgE (11/03/2024 10:00 AM CDT) Plantain moroccan IgE 0.16 0.00 - 0.34 kUnits/L Comment:Testing performed by : [facility], [address] [place] [address]., [id number] Blood 11/03/2024 10:0 0 AM CDT 11/03/2024 1:17 PM CDT Eden Juárez MD LAB BLOOD ORDERABLES Rox l Result Performing Organization Address City/[facility] Co de Phone Number [facility] [address] [employer] [facility] [place] [address] * Allergen Elm (tree) IgE (11/03/2024 10:00 AM CDT) Elm IgE <0.10 0.00 - 0.34 kUnits/L Comment:Testing performed by : [facility], [address] [place] [address], [place]., [address] Blood 11/03/2024 10:0 0 AM CDT 11/03/2024 1:17 PM CDT Eden Juárez MD LAB BLOOD ORDERABLES Rox l Result [facility] [address] [employer] [facility] [place] [address] * Allergen Cladosporium herbarum (mold) IgE (11/03/2024 10:00 AM CDT) Cladosporium herbarum IgE <0.10 0.00 - 0.34 kUnits/L Comment:Testing performed by : [facility], [address] [place] [id number] Blood 11/03/2024 10:0 0 AM CDT 11/03/2024 1:17 PM CDT Eden Juárez MD LAB BLOOD ORDERABLES Rox l Result Performing Organization Address City/[facility] Co de Phone Number [facility] [address] [employer] [address] * Allergen Birch common silver (tree) IgE (11/03/2024 10:00 AM CDT) Birch common silver IgE <0.10 0.00 - 0.34 kUnits/L Comment:Testing performed by : [facility], [address] [place] [address]., [id number] Blood 11/03/2024 10:0 0 AM CDT 11/03/2024 1:17 PM CDT Eden Juárez MD LAB BLOOD ORDERABLES Rox l Result Performing Organization Address City/[facility]/ZIP Co de Phone Number [facility] [address] [facility] [place] [employer] [place] [address] * Allergen Alternaria tenuis (mold) IgE (11/03/2024 10:00 AM CDT) Alternaria tenius IgE <0.10 0.00 - 0.34 kUnits/L Comment:Testing performed by : [facility], [address] [place] [address]., [id number] Blood 11/03/2024 10:0 0 AM CDT 11/03/2024 1:17 PM CDT Eden Juárez MD LAB BLOOD ORDERABLES Rox l Result [facility] [address] [place] [employer] [facility] [place] [employer] [address] * Allergen Aspergillus fumigatus (mold) IgE (11/03/2024 10:00 AM CDT) Aspergillus fumigatus IgE <0.10 0.00 - 0.34 kUnits/L Comment:Testing performed by : [facility], [address] [place] [id number] Blood 11/03/2024 10:0 0 AM CDT 11/03/2024 1:17 PM CDT Eden Juárez MD LAB BLOOD ORDERABLES Rox l Result Performing Organization Address [facility] Co de Phone Number [facility] [address] [facility] [facility] [place] [address] * Allergen Dermatophagoides pteronyssinus (insect) IgE (11/03/2024 10:00 AM CDT) Dermatophyton pteronyssinus IgE <0.10 0.00 - 0.34 kUnits/L Comment:Testing performed by : [facility], [address] [place] [address]., [id number] Blood 11/03/2024 10:0 0 AM CDT 11/03/2024 1:17 PM CDT Eden Juárez MD LAB BLOOD ORDERABLES Rox l Result Performing Organization Address City/[facility]/ZIP Co de Phone Number [facility] [address] [facility] [place] [employer] [address] * Allergen Dermatophagoides farniae (insect) IgE (11/03/2024 10:00 AM CDT) Dermatophyton farinae IgE <0.10 0.00 - 0.34 kUnits/L Comment:Testing performed by : [facility], [address] [place] [address]., [id number] Blood 11/03/2024 10:0 0 AM CDT 11/03/2024 1:17 PM CDT Eden Juárez MD LAB BLOOD ORDERABLES Rox l Result Performing Organization Address City/[facility]/ZIP Co de Phone Number [facility] [address] [employer] [address] * Allergen Epithelia/dander dog (animal) IgE (11/03/2024 10:00 AM CDT) Dog dander IgE <0.10 0.00 - 0.34 kUnits/L Comment:Testing performed by : [facility], [address] [place] [id number] Blood 11/03/2024 10:0 0 AM CDT 11/03/2024 1:17 PM CDT Eden Juárez MD LAB BLOOD ORDERABLES Rox l Result Performing Organization Address City/[facility]/ZIP Co de Phone Number [facility] [address] [employer] [address] * Allergen Cockroach south african (insect) IgE (11/03/2024 10:00 AM CDT) Cockroach IgE 0.21 0.00 - 0.34 kUnits/L Comment:Testing performed by : [facility], [address] [place] [address]., [id number] Blood 11/03/2024 10:0 0 AM CDT 11/03/2024 1:17 PM CDT Eden Juárez MD LAB BLOOD ORDERABLES Rox l Result Performing Organization Address City/[facility] Co de Phone Number [facility] [address] [facility] [place] [address] * Allergen Epithelia/dander cat (animal) IgE (11/03/2024 10:00 AM CDT) Cat dander IgE <0.10 0.00 - 0.34 kUnits/L Comment:Testing performed by : [facility], [address] [place] [address]., [id number] Blood 11/03/2024 10:0 0 AM CDT 11/03/2024 1:17 PM CDT us Eden Juárez MD LAB BLOOD ORDERABLES Rox l Result Performing Organization Address [facility] Co de Phone Number [facility] [address] [employer] [facility]. [facility] [place] [address] * (ABNORMAL) Allergen Ragweed short/common (weed) IgE (11/03/2024 10:00 AM CDT) Ragweed common IgE 16.30(H) 0.00 - 0.34 kUnits/L Comment:Testing performed by : [facility], [address] [place] [address]., [id number] Blood 11/03/2024 10:0 0 AM CDT 11/03/2024 1:17 PM CDT Eden Juárez MD LAB BLOOD ORDERABLES Rox l Result Performing Organization Address [facility] Co de Phone Number [facility] [address] [employer]. [facility] [place] [address] * Allergen Pigweed, rough (weed) IgE (11/03/2024 10:00 AM CDT) Pathologist [facility] Pigweed rough IgE <0.10 0.00 - 0.34 kUnits/L Comment:Testing performed by : [facility], [address] [place] [address]., [id number] Blood 11/03/2024 10:0 0 AM CDT 11/03/2024 1:17 PM CDT Eden Juárez MD LAB BLOOD ORDERABLES Rox l Result Performing Organization Address [facility] Co de Phone Number [facility] [address] [employer] [address] * Allergen Nettle (weed) IgE (11/03/2024 10:00 AM CDT) [facility] Nettle IgE <0.10 0.00 - 0.34 kUnits/L Comment:Testing performed by : [facility], [address] [place] [address]., [id number] Blood 11/03/2024 10:0 0 AM CDT 11/03/2024 1:17 PM CDT Eden Juárez MD LAB BLOOD ORDERABLES Rox l Result Performing Organization Address [facility] Co de Phone Number [facility] [address] [facility] [place] [address] * Allergen Mccauley's quarter (weed) IgE (11/03/2024 10:00 AM CDT) Mccauley's quarters IgE <0.10 0.00 - 0.34 kUnits/L Comment:Testing performed by : [facility], [address] [place] [address]., [id number] Blood 11/03/2024 10:0 0 AM CDT 11/03/2024 1:17 PM CDT Eden Juárez MD LAB BLOOD ORDERABLES Rox l Result Performing Organization Address City/[facility]/ZIP Co de Phone Number [facility] [address] [facility] [place] [address] * Allergen Ignacio grass (grass) IgE (11/03/2024 10:00 AM CDT) Ignacio grass IgE <0.10 0.00 - 0.34 kUnits/L Comment:Testing performed by : [facility], [address] [place] [address]., [id number] Blood 11/03/2024 10:0 0 AM CDT 11/03/2024 1:17 PM CDT us Eden Juárez MD LAB BLOOD ORDERABLES Rox l Result Performing Organization Address [facility] Co de Phone Number [facility] [address] [facility] [employer] [place] [address] * Allergen Jim grass (grass) IgE (11/03/2024 10:00 AM CDT) Jim grass IgE <0.10 0.00 - 0.34 kUnits/L Comment:Testing performed by : [facility], [address] [place] [address]., [id number] Blood 11/03/2024 10:0 0 AM CDT 11/03/2024 1:17 PM CDT us Eden Juárez MD LAB BLOOD ORDERABLES Rox l Result Performing Organization Address City/[facility] Co de Phone Number [facility] [address] [facility] Hospital[facility] [employer]. [facility] [place] [address] * Allergen [place] (tree) IgE (11/03/2024 10:00 AM CDT) [place] (tree) IgE <0.10 0.00 - 0.34 kUnits/L Comment:Testing performed by : [facility], [address] [place] [address]., [id number] Blood 11/03/2024 10:0 0 AM CDT 11/03/2024 1:17 PM CDT us Eden Juárez MD LAB BLOOD ORDERABLES Rox l Result Performing Organization Address City/[facility] Co de Phone Number [facility] [address] [facility] [place] [address] * Allergen [place] south african (tree) IgE (11/03/2024 10:00 AM CDT) [place] IgE <0.10 0.00 - 0.34 kUnits/L Comment:Testing performed by : [facility], [address] [place] [address]., [id number] Blood 11/03/2024 10:0 0 AM CDT 11/03/2024 1:17 PM CDT us Eden Juárez MD LAB BLOOD ORDERABLES Rox l Result Performing Organization Address [facility] de Phone Number [facility] [address] [employer] [facility] [place] [address] * (ABNORMAL) Allergen Maple/Box elder (tree) IgE (11/03/2024 10:00 AM CDT) Maple/box elder IgE 0.53(H) 0.00 - 0.34 kUnits/L Comment:Testing performed by : [facility], [address] [place] [address], [place]., [address] Blood 11/03/2024 10:0 0 AM CDT 11/03/2024 1:17 PM CDT us Eden Juárez MD LAB BLOOD ORDERABLES Rox l Result Performing Organization Address City/[facility] Co de Phone Number [facility] [address] [facility] [place] [address] * Allergen Goodrich red (tree) IgE (11/03/2024 10:00 AM CDT) [facility] Goodrich IgE <0.10 0.00 - 0.34 kUnits/L Comment:Testing performed by : [facility], [address] [place]., [address] Blood 11/03/2024 10:0 0 AM CDT 11/03/2024 1:17 PM CDT Eden Juárez MD LAB BLOOD ORDERABLES Rox l Result Performing Organization Address [facility] Co de Phone Number [facility] [address] [facility] [place] [address] * (ABNORMAL) IgE (11/03/2024 10:00 AM CDT) [facility] IgE 124(H) <=100 IUnits/mL Comment:Testing performed by : [facility], [address] [place]., [address] Blood 11/03/2024 10:0 0 AM CDT 11/03/2024 1:18 PM CDT us Eden Juárez MD LAB BLOOD ORDERABLES Rox l Result Performing Organization Address City/[facility]/ZIP Co de Phone Number [facility] [address] [facility] [place] [address] * (ABNORMAL) POCT hemoglobin A1c (09/06/2024 1:39 PM CDT) [facility] Hemoglobin A1C, POC 7.6 4.0 - 5.6 % Blood 09/06/2024 1:39 PM CDT us Tessa Pham WATCH DIAL STONER POINT OF CARE TEST ORDERA BLES Final Result * (ABNORMAL) POCT glucose (09/06/2024 1:39 PM CDT) Pathologist [facility] Glucose Blood, POC 143 mg/dL Blood 09/06/2024 1:39 PM CDT Result [facility] Tessa Pham WATCH DIAL STONER POINT OF CARE TEST ORDERA BLES Final Result * Albumin Creatinine Ratio, Urine (05/10/2024 8:19 AM WEB PAGE DEVELOPER) Pathologist [facility] SCRIBED Creatinine, Urine 65.8 NA - NA EXTERNAL LAB SCRIBED Microalbumin <6.0 0 - 16.7 EXTERNAL LAB SCRIBED Microalb/Creat Ratio <9.1 0 - 30 EXTERNAL LAB Urine 05/10/2024 8:19 AM WEB PAGE DEVELOPER Historical Provider MD LAB URINE ORDERABLES Edit ed Result - Final EXTERNAL LAB * (ABNORMAL) Lipid panel (05/05/2024 9:45 AM WEB PAGE DEVELOPER) [facility] SCRIBED Cholesterol, Total 151 0 - 200 EXTERNAL LAB SCRIBED HDL 35 >35 - NA EXTERNAL LAB SCRIBED LDL 60 <130 - NA EXTERNAL LAB SCRIBED Triglycerides 256 <150 - NA EXTERNAL LAB Blood 05/05/2024 9:45 AM WEB PAGE DEVELOPER Historical Provider MD LAB BLOOD ORDERABLES Edit ed Result - Final EXTERNAL LAB * (ABNORMAL) Comprehensive metabolic panel (05/05/2024 9:45 AM WEB PAGE DEVELOPER) Pathologist [facility] SCRIBED Sodium 137 137 - 145 mmol/L [...] Units/L EXTERNAL LAB SCRIBED eGFR in NonAfrican Panamanian 44 >=60 - NA EXTERNAL LAB Blood 05/05/2024 9:45 AM WEB PAGE DEVELOPER Historical Provider LAB BLOOD ORDERABLES Edit ed Result - Final EXTERNAL LAB * DIABETES EYE EXAM (01/30/2024 7:23 AM CDT) Historical Provider HEALTH MAINTENANCE Final Result from Last 3 Months or Most Recently Relevant to Health Maintenance Insurance MEDICARE MEDICARE [facility] Advance Directives For more information, please contact: [phone] * Full Code (Latest Code Status on File) Date Activated Date Inactivated Comments 04/02/2019 7:37 PM 04/03/2019 8:11 PM * Full Code Date Activated Date Inactivated Comments 04/02/2019 4:52 PM 04/02/2019 7:37 PM Care Teams Plow Shaker Relationship Specialty Start Date End Date Philly Dick NP [address] [place], [place] [id number] PCP - General Nurse Practitioner 09/06/24
--- OUTSIDE RECORDS SUMMARY | 2024-11-08 13:12 | XMS_ITS | Encounter Summary ---
Author Organization [facility] Address [address] [facility] [address] [place] [address] Care Team Providers Care Magazine Grinder Loader Name Role Phone Reuben Garcia MD Primary Care Provid er No, Physician Primary Care Provider [phone] Brian Vera MD Primary Care Provider [phone] Philly Dick NP Primary Care Provider [phone] Encounter Details Date Type Department Care Team (Late st Contact Info) Description 08/28/2016 Orders Only [facility] Provider, MD Praveena [address] [place] [address] Social History Tobacco Use Types Packs/Day Years Used Date Smoking Tobacco: Never Alcohol Use Standard Drinks/Week Comments No 0 (1 standard drink = 0.6 oz pur e alcohol) Sex and Gender Information Value Date Recorded Sex Assigned at Not on file 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 Gender Identity Not on file Sexual Orientation [...] on filedocumented in this encounter Care Teams Magazine Grinder Loader Relationship Specialty Start Date End Date GarciaReuben cheung Ritu Figueroa MD [address] [facility] [address], [place] [address] PCP - General Interventional Cardiology 02/04/17 No, Physician PCP - General 04/17/22 05/09/22 Brian Vera MD [address] [place], [place] [id number] PCP - General Internal Medicine 05/10/22 09/05/24 Philly Dick NP [address] [facility] [address] [place], [place] [id number] PCP - General Nurse Practitioner 09/06/24 documented as of this encounter
--- OUTSIDE RECORDS SUMMARY | 2024-11-08 13:12 | XMS_ITS | Encounter Summary ---
Author Organization [facility] Address [address] [facility] [address] [place] [address] Care Team Providers Care Fire Equipment Operator Name Role Phone Reuben Garcia MD Primary Care Provid er No, Physician Primary Care Provider [phone] Brian Vera MD Primary Care Provider [phone] Philly Dick NP Primary Care Provider [phone] Encounter Details Date Type Department Care Team (Late st Contact Info) Description 05/16/2015 Orders Only [facility] ProviderPraveena MD [address] [place] [address] Social History Tobacco Use Types Packs/Day Years Used Date Smoking Tobacco: Never Assessed Sex and Gender Information Value Date Recorded Sex Assigned at Not on file 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 Gender Identity Not on file Sexual Orientation [...] on filedocumented in this encounter Care Teams Fire Equipment Operator Relationship Specialty Start Date End Date Reuben Garcia MD [address] [facility] [address] [place] [address] PCP - General Interventional Cardiology 02/04/17 No, Physician PCP - General 04/17/22 05/09/22 Brian Vera MD [address] [place] [address] PCP - General Internal Medicine 05/10/22 09/05/24 Philly Dick NP [address] [facility] [address] [place] [address] PCP - General Nurse Practitioner 09/06/24 documented as of this encounter
--- OUTSIDE RECORDS SUMMARY | 2024-11-08 13:12 | XMS_ITS | Encounter Summary ---
Author Organization [facility] Address [address] [facility] [address] [place] [address] Care Team Providers Care Paralegal Name Role Phone Reuben Garcia MD Primary Care Provid er No, Physician Primary Care Provider [phone] Brian Vera MD Primary Care Provider [phone] Philly Dick NP Primary Care Provider [phone] Encounter Details Date Type Department Care Team (Late st Contact Info) Description 08/27/2016 Orders Only [facility] ProviderPraveena MD [address] [place] [address] Social History Tobacco Use Types Packs/Day Years Used Date Smoking Tobacco: Never Alcohol Use Standard Drinks/Week Comments No 0 (1 standard drink = 0.6 oz pur e alcohol) Sex and Gender Information Value Date Recorded Sex Assigned at Not on file Legal 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 Male 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 Gender Identity Not on file Sexual Orientation [...] on filedocumented in this encounter Care Teams Paralegal Relationship Specialty Start Date End Date GarciaReuben cheung Ritu Figueroa MD [address] [facility] [address], [place] [address] PCP - General Interventional Cardiology 02/04/17 No, Physician PCP - General 04/17/22 05/09/22 Brian Vera MD [address] [place], [place] [id number] PCP - General Internal Medicine 05/10/22 09/05/24 Philly Dick NP [address] [facility] [address] [place], [place] [id number] PCP - General Nurse Practitioner 09/06/24 documented as of this encounter
--- OUTSIDE RECORDS SUMMARY | 2024-11-08 13:12 | XMS_ITS | Referral Summary ---
Author Organization [facility] [address] [place] Address [address] [place] [address] Care Team Providers Care Shoe Lacer Name Role Phone Philly Dick NP Primary Care Provider [phone] Encounters Date Type Department Care Team Description 11/03/2024 11:15 AM CDT Lab [facility] at [address] [phone] Allergy to alpha-gal 11/03/2024 9:00 AM CDT Office Visit [facility] All[facility] Immunology [address] [place] [address] Office [address] [place] [phone] Cherry Solorio MD PhD Allergic rhinitis due to other allergic trigger, unspecified seasonality (Primary Dx); Allergy to alpha-gal 09/10/2024 Orders Only [facility] Diabetes and Endocrinology [address] [place] [phone] ProviderPraveena MD 09/06/2024 1:30 PM CDT Office Visit [facility] Diabetes and Endocrinology [address] [place] [phone] Tessa Pham NP Type 2 diabetes mellitus with hyperglycemia, without long-term current use of insulin (HCC) (Primary Dx); Hypertension associated with diabetes (HCC); Hyperlipidemia associated with type 2 diabetes mellitus (HCC) from Last 3 Months Allergies Active Allergy Reactions Criticality Noted Date Comments Semaglutide Dizziness Medium 06/25/2022 Medications blood-glucose meter (MediamindUCH ULTRA2) kit check glucose once a day 1 kit 0 4 Active lisinopriL (PRINIVIL,ZESTR IL) 20 mg tabletIndicatio ns:Coronary artery disease involving 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 pectoris Take 1 tablet (20 mg total) by mouth daily 90 tablet 3 4 Active aspirin 81 mg enteric coated tabletIndicatio ns:Coronary artery disease involving 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 pectoris TAKE 1 TABLET BY MOUTH DAILY 90 tablet 3 4 Active amLODIPine (NORVASC) 10 mg tablet Take 1 tablet (10 mg total) by mouth daily 30 tablet 11 4 03/26/20 25 Active atorvastatin (LIPITOR) 40 mg tabletIndicatio ns:Coronary artery disease involving 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 pectoris TAKE 1 TABLET(40 MG) BY MOUTH DAILY 90 tablet 2 5 Active ezetimibe (ZETIA) 10 mg tabletIndicatio ns:Hyperlipidem ia associated with type 2 diabetes mellitus (HCC) TAKE 1 TABLET(10 MG) BY MOUTH DAILY 90 tablet 3 5 Active clopidogreL (PLAVIX) 75 mg tabletIndicatio ns:Coronary artery disease involving 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 pectoris TAKE 1 TABLET(75 [...] mouth daily before breakfast 90 tablet 3 04/14/09/07/19 26 Active Active Problems Problem Noted Date Diagnosed Date Hyperlipidemia associated with type 2 diabetes sultana castaneda 07/21/2018 Assessment & Plan (09/06/2024 1:54 PM CDT): Chronic problem. Atorvastatin 40mg & Zetia 10mg. Last lipid panel: 05/05/24 LDL=60, QA=566 Assessment & Plan (01/07/2024 9:30 AM CDT): Chronic problem. Atorvastatin 40mg & Zetia 10mg. Last lipid panel: 11/11/22 LDL=53, TG=90. Assessment & Plan (09/16/2023 11:25 AM CDT): Chronic problem. Atorvastatin 40mg & Zetia 10mg. Last lipid panel: 11/11/22 LDL=53, TG=90. Will update labs today. Does not mychart. Verified phone #/address to contact re: results. Assessment & Plan (06/25/2022 3:36 PM FUSING LINE INSPECTOR): Chronic, well controlled Low fat Low cholesterol diet Exercise Continue statin therapy with Atorvastatin and Zetia Update lipid profile Assessment & Plan (07/03/2021 4:14 PM FUSING LINE INSPECTOR): Chronic, well controlled Continue current meds Assessment [...] Zetia Assessment & Plan (07/27/2020 10:03 AM FUSING LINE INSPECTOR): Goal of treatment , LDL cholesterol less [...] Crestor Assessment & Plan (06/29/2019 3:21 PM FUSING LINE INSPECTOR): Goal of treatment , LDL cholesterol less [...] therapy Assessment & Plan (04/02/2019 7:19 PM FUSING LINE INSPECTOR): --Continue atorvastatin. Assessment & Plan (02/23/2019 4:09 [...] therapy Assessment & Plan (07/21/2018 3:00 PM FUSING LINE INSPECTOR): Goal of treatment , LDL cholesterol less [...] statin therapy Coronary artery disease invo lving 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 pectoris 03/24/2017 Assessment & Plan (04/03/2019 11:57 AM FUSING LINE INSPECTOR): S/p LM ostial PCI --Aspirin 81 mg daily indefinitely. --S/p Plavix load. Continue 75 mg daily for at least a year. --Continue atorvastatin. --Continue lisinopril 10 mg daily. --Historically not on BB therapy, f/u with alumni secretary DC today DC time 31 minutes Assessment [...] results. Assessment & Plan (06/25/2022 3:37 PM FUSING LINE INSPECTOR): Chronic, well controlled Update MA, GFR Assessment & Plan (12/14/2020 10:22 AM CDT): Goal blood pressure is less than 140/85 Low salt diet The importance of daily aerobic exercise was also emphasized. Continue current meds, including VIKY-I or ARB, e.g. Lisinopril Assessment & Plan (07/27/2020 10:03 AM FUSING LINE INSPECTOR): Goal blood pressure is less than 140/85 [...] Lisinopril Assessment & Plan (06/29/2019 3:21 PM FUSING LINE INSPECTOR): Goal blood pressure is less than 140/85 Low salt diet recommended Daily aerobic exercise Continue current meds, including VIKY-I or ARB Check microalbumin Assessment & Plan (04/02/2019 7:19 PM FUSING LINE INSPECTOR): --Anti-hypertensive medications per CAD. Assessment & Plan (02/23/2019 3:02 PM CDT): Goal blood pressure is less than 140/85 Low salt diet recommended Daily aerobic exercise Continue current meds, including VIKY-I or ARB Assessment & Plan (07/21/2018 3:01 PM FUSING LINE INSPECTOR): Goal blood pressure is less than 140/85 [...] before breakfa DM eye exam 2022 at [facility] [place]; second request letter sent to get copy [...] before breakfast DM eye exam 2022 at [facility] [place]; second request letter sent to get copy [...] before breakfast DM eye exam 2022 at [facility] [place]; letter sent to get copy of exam. [...] infection. Assessment & Plan (06/25/2022 3:38 PM FUSING LINE INSPECTOR): Chronic , uncontrolled Continue working on diet and exercise Add Glimepiride 2 mg daily Continue Jardiance and Metformin Assessment & Plan (07/03/2021 4:13 PM FUSING LINE INSPECTOR): Hba1c was Lab Results Component Value Date [...] Metformin Assessment & Plan (07/27/2020 10:04 AM FUSING LINE INSPECTOR): Hba1c was Lab Results Component Value Date [...] Metformin Assessment & Plan (06/29/2019 3:21 PM FUSING LINE INSPECTOR): Hba1c was Lab Results Component Value Date HGBA1C 7.5 06/29/2019 today, indicating inadequate DM control 1800 calorie, consistent carb diet recommended, no more than 3-45 grams of carbs per meal, avoiding concentrated sweet drinks and rapid absorption carbs. 25-45 min daily aerobic and resistance exercise recommended Medications: Add Jardiance Assessment & Plan (04/02/2019 7:18 PM FUSING LINE INSPECTOR): Recent A1c's in the 6s. --Hold home [...] Invokana Assessment & Plan (07/21/2018 3:07 PM FUSING LINE INSPECTOR): Hba1c was Lab Results Component Value Date [...] 10/08/2022 Assessment & Plan (07/27/2020 10:04 AM FUSING LINE INSPECTOR): Check psa Pt needs to see PCP [...] on file Legal Sex Male 10:13 AM FUSING LINE INSPECTOR Gender Identity Not on file Sexual [...] 11/03/2024 9:07 AM CDT Plan of Treatment Not on file Medical Devices Implanted Type Area Overhead Worker Device Identifier Shelf Expiration Date Model / Serial / Lot Daig [employer] [id number] Angio-Seal Evolution 8fr .038in Guidewire Bypass Tube Suture - [id number] Implanted:Qty : 1 on 04/02/2019 by Salty Rosas MD PhD at [facility] Other - see comments N/A: Arterial [employer] 12/24/2019 [id number] / / [id number] Description:8F Angio-Seal Med[employer]onic [employer] X [id number] Resolute Chapman 4mm 2.1-2.7fr 12mm 140cm Rapid Exchange Radiopaque - [id number] Implanted:Qty : 1 on 04/02/2019 by Salty Rosas MD PhD at [facility] Stent N/A: Coronary Medtronic Inc 12/06/2020 [id number] / / [id number] Procedures Procedure Name Priority Date/Time Associated [...] AM CDT Allergy to alpha-gal ALLERGEN SYCAMORE DUTCH (TREE) IGE Routine 11/03/2024 10:00 AM CDT Allergy to alpha-gal ALLERGEN WALNUT (TREE) IGE Routine 11/03/2024 10:00 AM CDT Allergy to alpha-gal ALLERGEN BERMUDA GRASS (GRASS) IGE Routine 11/03/2024 10:00 AM CDT Allergy to alpha-gal ALLERGEN JIM GRASS (GRASS) IGE Routine 11/03/2024 10:00 AM CDT Allergy to alpha-gal ALLERGEN IGNACIO GRASS (GRASS) IGE Routine 11/03/2024 10:00 AM CDT Allergy to alpha-gal ALLERGEN PLANTAIN CYPRIOT (WEED) IGE Routine 11/03/2024 10:00 AM CDT [...] AM CDT Allergy to alpha-gal ALLERGEN COCKROACH DUTCH (INSECT) IGE Routine 11/03/2024 10:00 AM CDT [...] CREATININE RATIO, URINE Routine 05/10/2024 8:19 AM FUSING LINE INSPECTOR COMPREHENSIVE METABOLIC PANEL Routine 05/05/2024 9:45 AM FUSING LINE INSPECTOR LIPID PANEL Routine 05/05/2024 9:45 AM FUSING LINE INSPECTOR DIABETES EYE EXAM Routine 01/30/2024 7:23 AM CDT from Last 3 Months or Most Recently Relevant to Health Maintenance Results * (ABNORMAL) Allergen Alpha-gal (food) IgE (11/03/2024 10:00 AM CDT) Alpha-gal IgE 0.72(H) 0.00 - 0.34 kUnits/L Comment:Testing performed by : [facility], [address], [place]., [id number] Blood 11/03/2024 10:0 0 AM CDT 11/03/2024 1:17 PM CDT us Eden Juárez MD LAB BLOOD ORDERABLES Rox fu Result [facility] [address] [facility]. [place] [address] * Allergen Rat mix (animal) IgE (11/03/2024 10:00 AM CDT) Rat mix IgE <0.10 0.00 - 0.34 kUnits/L Comment:Testing performed by : [facility], [address] [place] [address]., [id number] Blood 11/03/2024 10:0 0 AM CDT 11/03/2024 1:17 PM CDT Eden Juárez MD LAB BLOOD ORDERABLES Rox l Result Performing Organization Address City/[facility] Co de Phone Number [facility] [address] [address] [employer] [place] [address] * Allergen Mouse mix (animal) IgE (11/03/2024 10:00 AM CDT) Pathologist [facility] Mouse mix IgE <0.10 0.00 - 0.34 kUnits/L Comment:Testing performed by : [facility], [address] [place] [address]., [id number] Blood 11/03/2024 10:0 0 AM CDT 11/03/2024 1:17 PM CDT Eden Juárez MD LAB BLOOD ORDERABLES Rox l Result Performing Organization Address City/[facility] Co de Phone Number [facility] [address] [place] [address] * Allergen Penicillium chrysogenum (mold) IgE (11/03/2024 10:00 AM CDT) Penicillium chrysogenum IgE <0.10 0.00 - 0.34 kUnits/L Comment:Testing performed by : [facility], [address] [place] [address]., [id number] Blood 11/03/2024 10:0 0 AM CDT 11/03/2024 1:17 PM CDT Eden Juárez MD LAB BLOOD ORDERABLES Rox l Result Performing Organization Address [facility] Co de Phone Number [facility] [address] [facility] [place] [address] * Allergen Absarokee (tree) IgE (11/03/2024 10:00 AM CDT) [facility] Absarokee IgE <0.10 0.00 - 0.34 kUnits/L Comment:Testing performed by : [facility], [address] [place] [address]., [id number] Blood 11/03/2024 10:0 0 AM CDT 11/03/2024 1:17 PM CDT Eden Juárez MD LAB BLOOD ORDERABLES Rox l Result Performing Organization Address [facility] de Phone Number [facility] [address] [facility] [place] [address] * Allergen Mountain juniper (tree) IgE (11/03/2024 10:00 AM CDT) [facility] Mountain juniper IgE 0.19 0.00 - 0.34 kUnits/L Comment:Testing performed by : [facility], [address] [place] [address]., [id number] Blood 11/03/2024 10:0 0 AM CDT 11/03/2024 1:17 PM CDT Eden Juárez MD LAB BLOOD ORDERABLES Rox l Result Performing Organization Address City/[facility] Co de Phone Number [facility] [address] [facility] [place] [address] * Allergen Bermuda grass (grass) IgE (11/03/2024 10:00 AM CDT) Bermuda grass IgE <0.10 0.00 - 0.34 kUnits/L Comment:Testing performed by : [facility], [address] [place] [address]., [id number] Blood 11/03/2024 10:0 0 AM CDT 11/03/2024 1:17 PM CDT Eden Juárez MD LAB BLOOD ORDERABLES Rox l Result Performing Organization Address [facility] Co de Phone Number [facility] [address] [facility] [place] [address] * Allergen Plantain cymraes (weed) IgE (11/03/2024 10:00 AM CDT) Pathologist [facility] Plantain cymraes IgE 0.16 0.00 - 0.34 kUnits/L Comment:Testing performed by : [facility], [address] [place] [address]., [id number] Blood 11/03/2024 10:0 0 AM CDT 11/03/2024 1:17 PM CDT us Eden Juárez MD LAB BLOOD ORDERABLES Rox l Result Performing Organization Address [facility] Co de Phone Number [facility] [address] [facility] [place] [address] * Allergen Elm (tree) IgE (11/03/2024 10:00 AM CDT) Elm IgE <0.10 0.00 - 0.34 kUnits/L Comment:Testing performed by : [facility], [address] [place] [address]., [id number] Blood 11/03/2024 10:0 0 AM CDT 11/03/2024 1:17 PM CDT Eden Juárez MD LAB BLOOD ORDERABLES Rox l Result Performing Organization Address City/[facility] Co de Phone Number [facility] [address] [facility]. [facility] [place] [address] * Allergen Cladosporium herbarum (mold) IgE (11/03/2024 10:00 AM CDT) Cladosporium herbarum IgE <0.10 0.00 - 0.34 kUnits/L Comment:Testing performed by : [facility], [address] [place] [address]., [id number] Blood 11/03/2024 10:0 0 AM CDT 11/03/2024 1:17 PM CDT us Eden Juárez MD LAB BLOOD ORDERABLES Rox l Result Performing Organization Address [facility] Co de Phone Number [facility] [address] [facility]. [place] [address] * Allergen Birch common silver (tree) IgE (11/03/2024 10:00 AM CDT) Birch common silver IgE <0.10 0.00 - 0.34 kUnits/L Comment:Testing performed by : [facility], [address] [place] [address]., [id number] Blood 11/03/2024 10:0 0 AM CDT 11/03/2024 1:17 PM CDT us Eden Juárez MD LAB BLOOD ORDERABLES Rox l Result Performing Organization Address City/[facility] Co de Phone Number [facility] [address] [facility]. [facility] [place] [address] * Allergen Alternaria tenuis (mold) IgE (11/03/2024 10:00 AM CDT) Alternaria tenius IgE <0.10 0.00 - 0.34 kUnits/L Comment:Testing performed by : [facility] [address] [place] [address]., [id number] Blood 11/03/2024 10:0 0 AM CDT 11/03/2024 1:17 PM CDT Eden Juárez MD LAB BLOOD ORDERABLES Rox l Result Performing Organization Address [facility] Co de Phone Number [facility] [address] [facility]. [facility] [place] [address] * Allergen Aspergillus fumigatus (mold) IgE (11/03/2024 10:00 AM CDT) Aspergillus fumigatus IgE <0.10 0.00 - 0.34 kUnits/L Comment:Testing performed by : [facility], [address] [place] [address]., [id number] Blood 11/03/2024 10:0 0 AM CDT 11/03/2024 1:17 PM CDT us Eden Juárez MD LAB BLOOD ORDERABLES Rox l Result Performing Organization Address [facility] de Phone Number [facility] [address] [employer] [facility]. [facility] [place] [address] * Allergen Dermatophagoides pteronyssinus (insect) IgE (11/03/2024 10:00 AM CDT) Dermatophyton pteronyssinus IgE <0.10 0.00 - 0.34 kUnits/L Comment:Testing performed by : [facility], [address] [place] [address], [place]., [address] Blood 11/03/2024 10:0 0 AM CDT 11/03/2024 1:17 PM CDT Eden Juárez MD LAB BLOOD ORDERABLES Rox l Result Performing Organization Address City/[facility] Co de Phone Number [facility] [address] [facility]. [facility] [place] [address] * Allergen Dermatophagoides farniae (insect) IgE (11/03/2024 10:00 AM CDT) Dermatophyton farinae IgE <0.10 0.00 - 0.34 kUnits/L Comment:Testing performed by : [facility], [address] [place] [address]., [id number] Blood 11/03/2024 10:0 0 AM CDT 11/03/2024 1:17 PM CDT Eden Juárez MD LAB BLOOD ORDERABLES Rox l Result Performing Organization Address [facility] Co de Phone Number [facility] [address] [facility]. [facility] [place] [address] * Allergen Epithelia/dander dog (animal) IgE (11/03/2024 10:00 AM CDT) Dog dander IgE <0.10 0.00 - 0.34 kUnits/L Comment:Testing performed by : [facility], [address] [place] [address]., [id number] Blood 11/03/2024 10:0 0 AM CDT 11/03/2024 1:17 PM CDT us Eden Juárez MD LAB BLOOD ORDERABLES Rox l Result Performing Organization Address City/[facility]/ZIP Co de Phone Number [facility] [address] [facility]. [facility] [place] [address] * Allergen Cockroach north korean (insect) IgE (11/03/2024 10:00 AM CDT) Cockroach IgE 0.21 0.00 - 0.34 kUnits/L Comment:Testing performed by : [facility], [address] [place] [address]., [id number] Blood 11/03/2024 10:0 0 AM CDT 11/03/2024 1:17 PM CDT Eden Juárez MD LAB BLOOD ORDERABLES Rox l Result [facility] [address] [address] [facility] [place] [address] * Allergen Epithelia/dander cat (animal) IgE (11/03/2024 10:00 AM CDT) Cat dander IgE <0.10 0.00 - 0.34 kUnits/L Comment:Testing performed by : [facility], [address] [place] [address]., [id number] Blood 11/03/2024 10:0 0 AM CDT 11/03/2024 1:17 PM CDT Eden Juárez MD LAB BLOOD ORDERABLES Rox l Result Performing Organization Address City/[facility] Co de Phone Number [facility] [address] [address] [facility] [place] [address] * (ABNORMAL) Allergen Ragweed short/common (weed) IgE (11/03/2024 10:00 AM CDT) Ragweed common IgE 16.30(H) 0.00 - 0.34 kUnits/L Comment:Testing performed by : [facility], [address] [place] [address]., [id number] Blood 11/03/2024 10:0 0 AM CDT 11/03/2024 1:17 PM CDT Eden Juárez MD LAB BLOOD ORDERABLES Rox l Result [facility] [address] [address]. [facility] [place] [address] * Allergen Pigweed, rough (weed) IgE (11/03/2024 10:00 AM CDT) [facility] Pigweed rough IgE <0.10 0.00 - 0.34 kUnits/L Comment:Testing performed by : [facility], [address] [place] [address]., [id number] Blood 11/03/2024 10:0 0 AM CDT 11/03/2024 1:17 PM CDT Eden Juárez MD LAB BLOOD ORDERABLES Rox l Result Performing Organization Address City/[facility] Co de Phone Number [facility] [address] [place] [address] * Allergen Nettle (weed) IgE (11/03/2024 10:00 AM CDT) [facility] Nettle IgE <0.10 0.00 - 0.34 kUnits/L Comment:Testing performed by : [facility], [address] [place] [address]., [id number] Blood 11/03/2024 10:0 0 AM CDT 11/03/2024 1:17 PM CDT us Eden Juárez MD LAB BLOOD ORDERABLES Rox l Result Performing Organization Address City/[facility] Co de Phone Number [facility] [address] [place] [address] * Allergen Mccauley's quarter (weed) IgE (11/03/2024 10:00 AM CDT) Pathologist [facility] Mccauley's quarters IgE <0.10 0.00 - 0.34 kUnits/L Comment:Testing performed by : [facility], [address] [place] [address], [place]., [address] Blood 11/03/2024 10:0 0 AM CDT 11/03/2024 1:17 PM CDT Eden Juárez MD LAB BLOOD ORDERABLES Rox l Result Performing Organization Address City/[facility] Co de Phone Number [facility] [address] [facility]. [facility] [place] [address] * Allergen Ignacio grass (grass) IgE (11/03/2024 10:00 AM CDT) Ignacio grass IgE <0.10 0.00 - 0.34 kUnits/L Comment:Testing performed by : [facility], [address] [place] [address]., [id number] Blood 11/03/2024 10:0 0 AM CDT 11/03/2024 1:17 PM CDT Eden Juárez MD LAB BLOOD ORDERABLES Rox l Result Performing Organization Address [facility] Co de Phone Number [facility] [address] [facility]. [facility] [place] [address] * Allergen Jim grass (grass) IgE (11/03/2024 10:00 AM CDT) Jim grass IgE <0.10 0.00 - 0.34 kUnits/L Comment:Testing performed by : [facility], [address] [place] [address]., [id number] Blood 11/03/2024 10:0 0 AM CDT 11/03/2024 1:17 PM CDT Eden Juárez MD LAB BLOOD ORDERABLES Rox l Result Performing Organization Address City/[facility] Co de Phone Number [facility] [address] [facility]. [facility] [place] [address] * Allergen Fruita (tree) IgE (11/03/2024 10:00 AM CDT) Fruita (tree) IgE <0.10 0.00 - 0.34 kUnits/L Comment:Testing performed by : [facility], [address] [place] [address]., [id number] Blood 11/03/2024 10:0 0 AM CDT 11/03/2024 1:17 PM CDT Eden Juárez MD LAB BLOOD ORDERABLES Rox l Result Performing Organization Address [facility] Co de Phone Number [facility] [address] [place] [address] * Allergen Lancaster north korean (tree) IgE (11/03/2024 10:00 AM CDT) [place] IgE <0.10 0.00 - 0.34 kUnits/L Comment:Testing performed by : [facility], [address] [place] [address]., [id number] Blood 11/03/2024 10:0 0 AM CDT 11/03/2024 1:17 PM CDT Eden Juárez MD LAB BLOOD ORDERABLES Rox l Result Performing Organization Address [facility] Co de Phone Number [facility] [address] [address]. [facility] [place] [address] * (ABNORMAL) Allergen Maple/Box elder (tree) IgE (11/03/2024 10:00 AM CDT) Maple/box elder IgE 0.53(H) 0.00 - 0.34 kUnits/L Comment:Testing performed by : [facility], [address] [place] [address]., [id number] Blood 11/03/2024 10:0 0 AM CDT 11/03/2024 1:17 PM CDT Eden Juárez MD LAB BLOOD ORDERABLES Rox l Result Performing Organization Address City/[facility] Co de Phone Number [facility] [id number] [facility] [place] [address] * Allergen [place] red (tree) IgE (11/03/2024 10:00 AM CDT) [place] IgE <0.10 0.00 - 0.34 kUnits/L Comment:Testing performed by : [facility], [address] [place] [address]., [id number] Blood 11/03/2024 10:0 0 AM CDT 11/03/2024 1:17 PM CDT us Eden Juárez MD LAB BLOOD ORDERABLES Rox l Result Performing Organization Address [facility] Co de Phone Number [facility] [address] [facility] [place] [address] * (ABNORMAL) IgE (11/03/2024 10:00 AM CDT) [facility] IgE 124(H) <=100 IUnits/mL Comment:Testing performed by : [facility], [address] [place] [address]., [id number] Blood 11/03/2024 10:0 0 AM CDT 11/03/2024 1:18 PM CDT Eden Juárez MD LAB BLOOD ORDERABLES Rox l Result [facility] [id number] [facility] [place] [address] * (ABNORMAL) POCT hemoglobin A1c (09/06/2024 1:39 PM CDT) Pathologist [facility] Hemoglobin A1C, POC 7.6 4.0 - 5.6 % Blood 09/06/2024 1:39 PM CDT Tessa Pham [employer]WORK MANAGER POINT OF CARE TEST ORDERA BLES Final Result * (ABNORMAL) POCT glucose (09/06/2024 1:39 PM CDT) Glucose Blood, POC 143 mg/dL Blood 09/06/2024 1:39 PM CDT Tessa Pham TELE[employer] NETWORK MANAGER POINT OF CARE TEST ORDERA BLES Final Result * Albumin Creatinine Ratio, Urine (05/10/2024 8:19 AM FUSING LINE INSPECTOR) SCRIBED Creatinine, Urine 65.8 NA - NA EXTERNAL LAB SCRIBED Microalbumin <6.0 0 - 16.7 EXTERNAL LAB SCRIBED Microalb/Creat Ratio <9.1 0 - 30 EXTERNAL LAB Urine 05/10/2024 8:19 AM FUSING LINE INSPECTOR Historical Provider MD LAB URINE ORDERABLES Edit ed Result - Final Performing Organization Address City/[facility]/ZIP Co de Phone Number EXTERNAL LAB * (ABNORMAL) Lipid panel (05/05/2024 9:45 AM FUSING LINE INSPECTOR) SCRIBED Cholesterol, Total 151 0 - 200 EXTERNAL LAB SCRIBED HDL 35 >35 - NA EXTERNAL LAB SCRIBED LDL 60 <130 - NA EXTERNAL LAB SCRIBED Triglycerides 256 <150 - NA EXTERNAL LAB Blood 05/05/2024 9:45 AM FUSING LINE INSPECTOR Historical Provider LAB BLOOD ORDERABLES Edit ed Result - Final EXTERNAL LAB * (ABNORMAL) Comprehensive metabolic panel (05/05/2024 9:45 AM FUSING LINE INSPECTOR) SCRIBED Sodium 137 137 - 145 mmol/L [...] Units/L EXTERNAL LAB SCRIBED eGFR in NonAfrican Turkish 44 >=60 - NA EXTERNAL LAB Blood 05/05/2024 9:45 AM FUSING LINE INSPECTOR Historical Provider LAB BLOOD ORDERABLES Edit ed Result - Final EXTERNAL LAB * DIABETES EYE EXAM (01/30/2024 7:23 AM CDT) Historical Provider HEALTH MAINTENANCE Final Result from Last 3 Months or Most Recently Relevant to Health Maintenance Insurance MEDICARE MEDICARE [facility] Advance Directives For more information, please contact: [phone] * Full Code (Latest Code Status on File) Date Activated Date Inactivated Comments 04/02/2019 7:37 PM 04/03/2019 8:11 PM * Full Code Date Activated Date Inactivated Comments 04/02/2019 4:52 PM 04/02/2019 7:37 PM Care Teams Shoe Lacer Relationship Specialty Start Date End Date Philly Dick NP [address] [facility] [address] [place], [place] [id number] PCP - General Nurse Practitioner 09/06/24
== END 2024-11-08 12:11 | disposition home or self-care (01) ==
PROVIDERS: PCP Nurse Practitioner Family; Visit Provider Nurse Practitioner Family
DX: D64.9 Anemia, unspecified (principal); I10 Essential (primary) hypertension; E11.9 Type 2 diabetes mellitus without complications; R53.83 Other fatigue
CPT/HCPCS: 36415; 80053; 83540; 83550; 85025